=== PATIENT | male | born 1945 | race Caucasian/White ===

== ENCOUNTER 2019-06-15 16:28 | Inpatient (IN) | payer MEDICARE, BC, SELFPAY ==
[2019-06-15] VITALS (15 sets, daily range): BP systolic 102–130; BP diastolic 60–68; PULSE 108–131; RESP 15–36; TEMP 36.4–36.9; O2SAT 81–100; BMI 33.0
--- NOTE | ~2019-06-15 | CT_ITS ---
EXAMINATION: CT abdomen pelvis wo con EXAM DATE: 06/15/2019 19:09 INDICATION: Nausea vomiting, diarrhea, leukocytosis. TECHNIQUE: Spiral CT of the abdomen and pelvis was performed without contrast. Axial, coronal and s agittal images were reviewed. The dose-length product (DLP) for this examination was 1117.73 mGy-cm. The exposure was tailored according to patient size (auto mA exposure control), and iterative recon struction (ASIR) was used as additional dose reduction technique. There is no prior study for compar yas. FINDINGS: The liver, spleen, adrenal glands and pancreas are unremarkable. There is a single calcifi ed 7 mm gallstone, gallbladder otherwise unremarkable. There is no obstructive nephropathy. There is moderate bilateral renal cortical thinning. There are exophytic renal lesions bilaterally most likel y cysts and hemorrhagic cysts. Peritoneal dialysis catheter. The prostate is unremarkable. The blad abi is unremarkable. There is no retroperitoneal or pelvic lymphadenopathy. There is aortoiliac ec jasmine with scattered arteriosclerotic disease. Small umbilical fat-containing hernia. The appendix is normal. The stomach and small bowel are unremarkable. There is expected amount of c olonic stool. There is mild to moderate scattered colonic diverticulosis. There is no adjacent infla mmatory change to suggest diverticulitis. No free intraperitoneal gas. Small pericardial effusion. Heart is normal in size. The lung bases are unremarkable. There are no osteoblastic or osteolytic lesions identified. IMPRESSION: 1. No acute intra-abdominal findings. 2. Scattered colonic diverticulosis. 3. Cholelithiasis. Reviewed, dictated and finalized at location A.
--- NOTE | ~2019-06-15 | XR_ITS ---
EXAMINATION: XR chest 2V EXAM DATE: 06/15/2019 17:21 INDICATION: Shortness of breath, nausea vomiting diarrhea. TECHNIQUE: Frontal and lateral projections of the chest obtained and reviewed. Comparison is made to prior examination from 03/02/2007. FINDINGS: There is left lower lobe calcified granuloma. The lungs are otherwise clear. There are no pleural effusions. The cardiomediastinal silhouette is within normal limits. There is no pneumotho rax suspected. There are mild bony degenerative changes. IMPRESSION: No acute cardiopulmonary findings. Reviewed, dictated and finalized at location A.
--- NOTE | ~2019-06-15 | NM_ITS ---
EXAMINATION: NM hepatobiliary w pharm DATE: 06/19/2019 11:31 INDICATION: Gallstones. Leukocytosis. COMPARISON: Ultrasound 06/18/2019 TECHNIQUE: 4.7 mCi Tc-99m mebrofenin (Choletec) was administered intravenously. Scintigraphic images of the abdomen were obtained for one hour. Then, 2 mcg sincalide (Kinevac) IV was administered, and imaging was continued for 30 minutes. FINDINGS: There is normal clearance of radiotracer from the blood pool. There is homogeneous tracer u ptake by the liver. Activity progresses to the bowel and gallbladder. Gallbladder ejection fraction (GBEF) was 31%. Note that most patients with gallbladder dysfunction have GBEF < 35%, which overlaps with the broad normal range of 10-90%. IMPRESSION: 1. Gallbladder ejection fraction in the lower range of normal. Note that this value overlaps with th e range of values that may be seen with gallbladder dysfunction and/or chronic cholecystitis if there is appropriate clinical correlation. Reviewed, dictated and finalized at location A. IMPRESSION: 1. Gallbladder ejection fraction in the lower range of normal. Note that this value overlaps with the range of values that may be seen with gallbladder dysfu nction and/or chronic cholecystitis if there is appropriate clinical correlatio nDanyell
--- NOTE | ~2019-06-15 | US_ITS ---
EXAMINATION: US right upper quadrant DATE: 06/18/2019 09:05 INDICATION: Cholelithiasis and leukocytosis TECHNIQUE: Multiple grayscale and Doppler ultrasound images of the abdomen were obtained. COMPARISON: CT, 06/15/2019 FINDINGS: Bowel gas obscures visualization of the pancreas. The visualized portions of the pancreas a re unremarkable. The liver is normal with normal echogenicity and echotexture. No surface nodularity. Normal hepatopetal flow in the main portal vein. A stone is present in the gallbladder. There is no gallbladder wall thickening or pericholecystic fluid. The normal common bile duct measures 4 mm. Ther e was no sonographic Antoine sign. IMPRESSION: 1. Cholelithiasis without additional findings of cholecystitis. Reviewed, dictated and finalized at location A.
--- NOTE | 2019-06-15 16:54 | ECG_ITS ---
Measurements Intervals [place] Rate: 111 P: 55 AR: 192 QRS: -66 QRSD: 93 T: 90 QT: 315 QTc: 430 Interpretive Statements SINUS TACHYCARDIA FREQUENT ATRIAL PREMATURE COMPLEXES LEFT ANTERIOR FASCICULAR BLOCK ANTEROSEPTAL INFARCT, AGE INDETERMINATE BORDERLINE ST-T WAVE ABNORMALITY- LATERAL LEADS ABNORMAL ECG Electronically Signed On 06-15-2019 17:25:25 CDT by Giles Paredes D.O.
--- NOTE | 2019-06-15 17:01 | ED.NAVMDI ---
HPI - Nausea/Vomiting/Diarrhea General Chief complaint: Nausea/Vomiting/Diarrhea <Joan Rudd PA-C - Last Filed: 06/15/19 20:19> Stated complaint: multitude of problems <Joan Rudd PA-C - Last Filed: 06/15/19 20:19> Time Seen by Provider: 06/15/19 16:49 <Joan Rudd PA-C - Last Filed: 06/15/19 20:19> Source: patient <Joan Rudd PA-C - Last Filed: 06/15/19 20:19> Mode of arrival: wheelchair <Joan Rudd PA-C - Last Filed: 06/15/19 20:19> Limitations: no limitations <Joan Rudd PA-C - Last Filed: 06/15/19 20:19> History of Present Illness HPI Narrative: This is a 73 year old male that presents to the ER for N/V/D x 3 days. Reports multiple episodes of vomiting and diarrhea. Reports last episode of vomiting was yesterday. Reports last episode of diarrhea was 2 days ago. Reports now he is feeling lightheaded when he stands up. Also reports that he has CKD and is on dialysis. He did not dialyze last night. Denies fever, chest pain, cough, blood in the stool, abdominal pain, or recent antibiotic use. <Joan Rudd PA-C - Last Filed: 06/15/19 20:19> Related Data Home medications: Home Medications Medication Instructions Recorded Confirmed allopurinol 100 mg PO DAILY 06/15/19 06/15/19 ergocalciferol (vitamin D2) 1,250 mcg PO MONTHLY 06/15/19 06/15/19 metoprolol tartrate 50 mg PO BID 06/15/19 06/15/19 niacin (inositol niacinate) 750 mg PO BID 06/15/19 06/15/19 nifedipine 90 mg PO DAILY 06/15/19 06/15/19 potassium chloride 10 meq PO DAILY 06/15/19 06/15/19 sevelamer carbonate 800 mg PO TIDWM 06/15/19 06/15/19 vitamin B complex-folic acid [B 0.5 tablet PO DAILY 06/15/19 06/15/19 Complex 1 (with folic acid)] <Joan Rudd PA-C - Last Filed: 06/15/19 20:19> Allergies/Adverse reactions: Allergies Allergy/AdvReac Type Severity Reaction Status Date / Time No Known Allergies Allergy Mild Unverified 08/05/07 15:10 <Joan Rudd PA-C - Last Filed: 06/15/19 20:19> Review of Systems Review of Systems: Narrative: CONSTITUTIONAL: Denies fever CARDIOVASCULAR: Denies chest pain RESPIRATORY: Reports dyspnea. Denies cough GASTROINTESTINAL: Reports nausea, vomiting, and diarrhea. Denies abdominal pain GENITOURINARY: Denies dysuria <DALLAS Robledo Last Filed: 06/15/19 20:19> All systems reviewed & are unremarkable except as noted in HPI and below <Joan Rudd PA-C - Last Filed: 06/15/19 20:19> [facility] Past Medical History Medical History: Medical History (Updated 06/15/19 @ 22:16 by Lynda Niño NP) Anemia Chronic kidney disease on chronic dialysis History of coronary artery disease History of gastroesophageal reflux (GERD) History of gout History of hypertension HTN (hypertension) with goal to be determined Obstructive sleep apnea Intolerant of his CPAP machine Peritoneal dialysis catheter in place <Joan Rudd PA-C - Last Filed: 06/15/19 20:19> Surgical History Surgical History: Surgical History (Updated 06/15/19 @ 22:16 by Lynda Niño NP) History of coronary artery stent placement X3 History of tonsillectomy and adenoidectomy <Joan Rudd PA-C - Last Filed: 06/15/19 20:19> Family History Family History: Family History Mother Heart attack Father Emphysema lung Sibling Rheumatoid arthritis <DALLAS Robledo Last Filed: 06/15/19 20:19> Social History Social History: Social History (Updated 06/15/19 @ 22:17 by Lynda Niño NP) Social History: He lives with his Mely and she is the power of defense attorney for healthcare. He desires to be a full code. He retired from [employer]. No alcohol marijuana or street drugs. He has 1 son. Smoking packs per day: 2 Smoking cigarettes per day: 40.0 Years smoked: 30 Smoking pack-years: 60.00 Smoking status: Former smoker Alcohol in
[2019-06-15 17:05] LABS: Basophils Percent Auto 0.2 % (0.2-1.2); Hematocrit 41.6 % (42.0-52.0); Hemoglobin 13.9 g/dL (14.0-18.0); Immature Granulocyte Percent A 1.8 % (0-0.5); Lymphocytes Absolute Auto 1.11 K/mm3 (0.9-3.2); Lymphocytes Percent Auto 6.7 % (18.3-44.2); Mean Corpuscular HGB Conc 33.4 g/dl (32-36); Mean Corpuscular Hemoglobin 31.4 pg (26-34); Mean Corpuscular Volume 94.1 fl (80-100); Mean Platelet Volume 9.2 fl (7.4-10.4); Monocytes Absolute Auto 0.7 K/mm3 (0.1-0.6); Monocytes Percent Auto 3.9 % (2.6-8.5); Neutrophils Absolute Auto 14.4 K/mm3 (1.3-6.7); Neutrophils Percent Auto 87.4 % (45.5-73.1); Nucleated Red Blood Cells Perc 0.1 % (0.0-0.2); Platelet Count Result 96 k/mm3 (150-375); Red Blood Count 4.42 M/mm3 (4.6-6.20); Red Cell Distribution Width 16.2 % (11.5-14.5); White Blood Count 16.5 K/mm3 (4.5-10.0)
[2019-06-15 17:42] LABS: Alanine Aminotransferase 28 U/L (4-50); Albumin Level 4.2 g/dL (3.5-5.1); Alkaline Phosphatase 53 U/L (38-126); Aspartate Amino Transferase 54 U/L (17-59); Bilirubin,Total 1.1 mg/dL (0.2-1.3); Blood Urea Nitrogen 70 mg/dL (9-20); Calcium 11.1 mg/dL (8.4-10.2); Carbon Dioxide 19 mmol/L (22-30); Chloride 106 mmol/L (98-107); Estimated CRCL calculation 7 ml/min; Estimated Glomerular Filt Rate 5; Glucose 202 mg/dL (75-110); Lipase 140 U/L (23-300); Potassium 5.6 mmol/L (3.4-5.0); Sodium 138 mmol/L (137-145)
[2019-06-15 17:50] LABS: NT Pro B Type Natriuretic Pept 16900 PG/ML (5-100)
[2019-06-15 18:33] LABS: Troponin I 0.207 ng/mL (0.000-0.034)
[2019-06-15 19:14] LABS: Lactic Acid Reflex 2.5 mmol/L (0.7-2.1)
[2019-06-15 21:10] LABS: Troponin I 0.184 ng/mL (0.000-0.034)
--- NOTE | 2019-06-15 21:41 | ADMGEN ---
This patient, Kentrell Cosby, was admitted to IMU Room 231-01 on 06/15/2019 at 2045. Patient/family oriented to hospital policies and general routines including ID bracelet, bed and alarms, visiting hours, pain management, procedures, bathroom and other care routines, personal items, smoking policy, room service/diet, and visiting hours. Valuables list has been completed. Information on how to activate the Rapid Response Team has been discussed. Patient/Family are encouraged to report perceived risks to care and to ask questions if they do not understand what they are told or what they should do.
[2019-06-15 22:01] LABS: Reflex Lactic Acid Yes or No Add Lactic
--- NOTE | 2019-06-15 22:01 | PM.IMHP ---
H&P: HPI History of Present Illness Chief complaint: Elevated troponin, SIRS, hyperkalemia, Narrative: Kentrell Cosby is a 73 year old male has end-stage renal disease and does peritoneal dialysis every night for the last 4 years. Nausea and vomiting diarrhea for 3 days. He did notice any blood in his stool. He stated that he has had a poor appetite for 4 days. He has not had a fever chills. No redness to his PD site. No drainage from his PD site. Patient was told not to do his PD last night because of the nausea and vomiting diarrhea. He has not been on any recent antibiotics. The patient has been feeling weak and lightheaded. His heart rate is been in the 100s 1 teens. He is afebrile. Troponin was elevated 0.207 and 0.184. BNP 55783. He is not having any chest pain but has a history of coronary artery disease with 3 stents in the past. Lactic acid is 2.5. Potassium noted to be 5.6. Nephrology has been called and would like to hold off on any antibiotic treatment at this time. The patient's white count was noted to be 16.5. No acute intra-abdominal findings. Scattered colonic diverticulosis. Cholelithiasis. Was read as no acute cardiopulmonary findings. Patient was placed on his peritoneal dialysis today and will get a culture of his fluid as well from the peritoneal area. Patient was given Tylenol or earlier for the discomfort. Date of service 06/15/2019 Review of Systems Review of Systems: All systems reviewed & are unremarkable except as noted in HPI and below Constitutional: Constitutional: Reports as per HPI and Reports no additional constitutional complaints Eyes: Eyes: Reports as per HPI and Reports no additional eye complaints ENT: Reports system reviewed and no additional complaints, except as documented and Reports Normal hearing present Cardiovascular: Cardiovascular: Reports no additional cardiovascular complaints Respiratory: Respiratory: Reports as per HPI and Reports no additional respiratory complaints Gastrointestinal: Gastrointestinal: Reports as per HPI and Reports no additional gastrointestinal complaints Musculoskeletal: Musculoskeletal: Reports no additional musculoskeletal complaints Integumentary/Breasts: Skin/Breast: Reports system reviewed and no additional complaints, except as docu Neurologic: Reports system reviewed and no additional complaints, except as documented and Reports Normal hearing present Psychiatric: Psychiatric: Reports no additional psychiatric complaints and Reports as per HPI Endocrine: Endocrine: Reports no additional endocrine complaints Hematologic/Lymphatic: Hematologic/Lymphatic: Reports no additional hematologic/lymphatic complaints Allergic/Immunologic: Allergic/Immunologic: Reports no additional allergic/immunologic complaints PMFSH Past Medical History Medical History (Updated 06/15/19 @ 22:16 by Lynda Niño NP) Anemia Chronic kidney disease on chronic dialysis History of coronary artery disease History of gastroesophageal reflux (GERD) History of gout History of hypertension HTN (hypertension) with goal to be determined Obstructive sleep apnea Intolerant of his CPAP machine Peritoneal dialysis catheter in place Surgical History Surgical History (Updated 06/15/19 @ 22:16 by Lynda Niño NP) History of coronary artery stent placement X3 History of tonsillectomy and adenoidectomy Family History Family History Mother Heart attack Father Emphysema lung Sibling Rheumatoid arthritis Social History Social History (Updated 06/15/19 @ 22:17 by Lynda Niño NP) Social History: He lives with his Mely and she is the power of insurance attorney for healthcare. He desires to be a full code. He retired from [employer]. No alcohol marijuana or street drugs. He has 1 son. Smoking packs per day: 2 Smoking cigarettes per day: 40.0 Years smoked: 30 Smoking pack-years:
[2019-06-15 22:53] LABS: Lactic Acid 1.7 mmol/L (0.7-2.1)
[2019-06-15] MEDS: allopurinoL 100 MG TABLET PO (23:17)
[2019-06-15] MEDS: METOPROLOL TARTRATE 50 MG TAB PO (23:17)
[2019-06-16] VITALS (14 sets, daily range): BP systolic 103–139; BP diastolic 54–74; PULSE 88–130; RESP 16–20; TEMP 30.4–36.9; O2SAT 96–100; BMI 33.9
[2019-06-16 04:46] LABS: Alanine Aminotransferase 31 U/L (4-50); Albumin Level 3.9 g/dL (3.5-5.1); Alkaline Phosphatase 51 U/L (38-126); Aspartate Amino Transferase 56 U/L (17-59); Bilirubin,Total 1.1 mg/dL (0.2-1.3); Blood Urea Nitrogen 68 mg/dL (9-20); Calcium 10.6 mg/dL (8.4-10.2); Carbon Dioxide 22 mmol/L (22-30); Chloride 105 mmol/L (98-107); Estimated CRCL calculation 7 ml/min; Estimated Glomerular Filt Rate 6; Glucose 176 mg/dL (75-110); Magnesium 1.8 mg/dL (1.6-2.3); Potassium 5.2 mmol/L (3.4-5.0); Sodium 138 mmol/L (137-145)
[2019-06-16] MEDS: METOPROLOL TARTRATE 50 MG TAB PO ×2 (08:42→18:01)
[2019-06-16] MEDS: SEVELAMER CARBONATE 800 MG TABLET PO ×3 (08:43→18:01)
[2019-06-16] MEDS: NIFEdipine 30 MG TAB.ER.24 90 MG PO (08:43)
[2019-06-16] MEDS: allopurinoL 100 MG TABLET PO (08:44)
[2019-06-16 09:23] LABS: Appearance Peritoneal Fluid Clear (Clear); Color Peritoneal Fluid Colorless (Colorless); Nucleated Cells Peritoneal Flu 0 /uL (0-500); RBC Peritoneal Fluid 23 /uL (0-100000); Source Peritoneal Fluid Peritoneal Fluid
[2019-06-16 12:02] LABS: Free T4 Free Thyroxine Reflex 1.49 ng/dL (0.78-2.19)
--- NOTE | 2019-06-16 12:26 | PM.CNNEP ---
Assessment and Plan Assessment and plan (1) ESRD on dialysis: Code(s): N18.6 - End stage renal disease; Z99.2 - Dependence on renal dialysis Status: Acute Assessment and Plan: Patient has end-stage renal disease. He is getting peritoneal dialysis Volume status looks okay. Potassium was a little bit high. He should avoid high potassium foods. He did not get dialysis night before last. (2) Nausea vomiting and diarrhea: Code(s): R11.2 - Nausea with vomiting, unspecified; R19.7 - Diarrhea, unspecified Status: Acute Assessment and Plan: The patient has the symptoms but they are better and he wants to go home. (3) HTN (hypertension) with goal to be determined: Code(s): I10 - Essential (primary) hypertension Status: Chronic Assessment and Plan: Blood pressure is under good control (4) Anemia: Code(s): D64.9 - Anemia, unspecified Status: Chronic Additional Plan Hemoglobin is a bit high. He is not on EPO. History of Present Illness Reason for Consult Consult date: 06/16/19 Chief Complaint Chief complaint: Elevated troponin, SIRS, hyperkalemia, History of Present Illness Narrative: Kentrell is a very pleasant gentleman with multiple medical problems including end-stage renal disease on dialysis 3 times a week. He also has coronary disease status post stents x3 many years ago, hypertension, anemia, cholelithiasis, renal osteodystrophy. The patient has been sick for about a week or so. He has had nausea and vomiting and diarrhea. It had gradually worsened until yesterday. This is not associated with fevers or chills. He came to the emergency room yesterday. He was evaluated. He scan showed gallstones but nothing else. PD fluid was checked in is clear. The patient feels better today and wants to go home. He denies any blood in the stool. No belly pain right now. No fevers or chills. No cough. The patient has been on peritoneal dialysis for about 4 years without complication. His fluid has been clear. His flows have been good without alarms. Dr. Mari is his soda tester. The patient has had hypertension for many years. This is with damage this kidneys. His blood pressure has been under good control lately. He had 3 stents placed a few years ago. He sees a automotive service porter in [place] whose name he cannot remember. He says that his heart checks out fine every time he sees him. He visits the automotive service porter about every 6 months. Review of Systems Constitutional: Constitutional: Reports no additional constitutional complaints Eyes: Eyes: Reports no additional eye complaints ENT: Reports system reviewed and no additional complaints, except as documented Cardiovascular: Cardiovascular: Reports no additional cardiovascular complaints Respiratory: Respiratory: Reports no additional respiratory complaints Gastrointestinal: Gastrointestinal: Reports no additional gastrointestinal complaints Genitourinary: Genitourinary: Reports no additional male genitourinary complaints Musculoskeletal: Musculoskeletal: Reports no additional musculoskeletal complaints Integumentary/Breasts: Skin/Breast: Reports system reviewed and no additional complaints, except as docu Neurologic: Reports system reviewed and no additional complaints, except as documented Psychiatric: Psychiatric: Reports no additional psychiatric complaints Endocrine: Endocrine: Reports no additional endocrine complaints [facility] Past Medical History Medical History Anemia Chronic kidney disease on chronic dialysis History of coronary artery disease History of gastroesophageal reflux (GERD) History of gout History of hypertension HTN (hypertension) with goal to be determined Obstructive sleep apnea Intolerant of his CPAP machine Peritoneal dialysis catheter in place Surgical History Surgical History (Reviewed 06/16/19 @ 12:30 by Melo
--- NOTE | 2019-06-16 12:33 | PM.EVENT ---
Event Note Event Note Event Note: Patient is on peritoneal dialysis. Exit site looks good. Fluid was clear this morning. Fluids study showed no leukocytes. He was seen at 12:10 p.m..
[2019-06-16 12:58] LABS: Total Triiodothyronine (T3) 0.77 NG/ML (0.97-1.69)
[2019-06-16 13:03] LABS: Basophils Absolute Auto 0.1 K/mm3 (0.0-0.1); Basophils Percent Auto 0.3 % (0.2-1.2); Hematocrit 41.8 % (42.0-52.0); Hemoglobin 13.9 g/dL (14.0-18.0); Immature Granulocyte Absolute 0.31 K/mm3 (0.00-0.031); Immature Granulocyte Percent A 1.8 % (0-0.5); Lymphocytes Absolute Auto 1.44 K/mm3 (0.9-3.2); Lymphocytes Percent Auto 8.3 % (18.3-44.2); Mean Corpuscular HGB Conc 33.3 g/dl (32-36); Mean Corpuscular Hemoglobin 31.2 pg (26-34); Mean Corpuscular Volume 93.9 fl (80-100); Mean Platelet Volume 8.3 fl (7.4-10.4); Monocytes Absolute Auto 0.9 K/mm3 (0.1-0.6); Monocytes Percent Auto 5.2 % (2.6-8.5); Neutrophils Absolute Auto 14.6 K/mm3 (1.3-6.7); Neutrophils Percent Auto 84.4 % (45.5-73.1); Platelet Count Result 81 k/mm3 (150-375); Red Blood Count 4.45 M/mm3 (4.6-6.20); Red Cell Distribution Width 15.9 % (11.5-14.5); White Blood Count 17.3 K/mm3 (4.5-10.0)
--- NOTE | 2019-06-16 13:58 | PM.IMPN ---
Progress Note: A&P Assessment and Plan (1) Nausea vomiting and diarrhea: Code(s): R11.2 - Nausea with vomiting, unspecified; R19.7 - Diarrhea, unspecified Status: Acute Assessment and Plan: stool for culture. Zofran for nausea. Patient does have cholelithiasis without cholecystitis. He does have diverticulosis but no abdominal pain at this time. Probably all secondary to a viral gastroenteritis. [place]wick cultured and advance diet as tolerated (2) Metabolic acidosis: Code(s): E87.2 - Acidosis Status: Acute Assessment and Plan: Patient is a dialysis patient and did not have dialysis yesterday, resume today and follow (3) Acute hyperkalemia: Code(s): E87.5 - Hyperkalemia Status: Acute Assessment and Plan: holding his oral potassium. He did not have dialysis yesterday recheck today at 5.2. Repeat in a.m. (4) ESRD on dialysis: Code(s): N18.6 - End stage renal disease; Z99.2 - Dependence on renal dialysis Status: Acute Assessment and Plan: . Continue with Renvela and dialysis (5) Elevated troponin: Code(s): R79.89 - Other specified abnormal findings of blood chemistry Status: Chronic Assessment and Plan: Most likely related to his dialysis and end-stage renal disease (6) HTN (hypertension) with goal to be determined: Code(s): I10 - Essential (primary) hypertension Status: Chronic Assessment and Plan: Procardia and metoprolol (7) Leukocytosis: Qualifiers: Leukocytosis type: other Qualified Code(s): D72.828 - Other elevated white blood cell count Code(s): D72.829 - Elevated white blood cell count, unspecified Status: Acute Assessment and Plan: Unsure of etiology chest x-ray was negative and were awaiting cultures for peritoneal fluid but fluid analysis showed no white cells. No fever at this time. Stool cultures are pending. Will repeat in a.m. because is simple enteritis fall and culture results should be back by then and preliminary (8) Anemia: Code(s): D64.9 - Anemia, unspecified Status: Chronic Assessment and Plan: Of chronic disease most likely related to end-stage renal disease (9) Cholelithiasis: Code(s): K80.20 - Calculus of gallbladder without cholecystitis without obstruction Status: Acute Assessment and Plan: May follow-up later if his gallbladder causes some problems the not convinced any of his symptoms are from the gallbladder at this time. Subjective Date/time seen: 06/16/19 13:58 Interval history: Date of visit 06/15. 73-year-old hypertensive white male with chronic renal failure on peritoneal dialysis presented to the emergency room with 3 days history of nausea vomiting diarrhea. White cell count was elevated as was lactic acid. Admitted for evaluation treatment of the same. Pancultured with no antibiotics. Feels better this morning was able to eat a little bit Exam Narrative: Exam Narrative: Blood pressure 116/72 pulse is 110 and respirations 20 per minute saturating 98% on room air Pupils equal reactive to light sclera anicteric Lungs clear CV tachy no murmurs Abdomen is soft nontender Extremities without edema distal pulses are 2+ Neuro alert cooperative no focal deficits Objective Data Vital Signs Vital Signs: Vital Signs - 24 hr 06/15/19 16:42 06/15/19 16:48 06/15/19 17:00 Temperature 36.4 C Pulse Rate 118 H 112 H 119 H Respiratory Rate 19 15 Blood Pressure 117/60 Pulse Oximetry 100 100 06/15/19 17:01 06/15/19 17:02 06/15/19 17:49 Temperature Pulse Rate 115 H 114 H 109 H Respiratory Rate 17 19 21 H Blood Pressure 102/62 Pulse Oximetry 06/15/19 17:50 06/15/19 18:00 06/15/19 18:01 Temperature Pulse Rate 108 H 108 H 110 H Respiratory Rate 21 H 19 18 Blood Pressure 130/65 124/61 Pulse Oximetry 81 L 100 100 06/15/19 18:49 06/15/19 20:52 06/15/19 21:00 Temperature
[2019-06-16] MEDS: MELATONIN 3 MG TABLET PO (21:45)
[2019-06-16 22:08] LABS: Add Urine Microscopic? YES; Appearance Urine Clear (Clear); Bilirubin Urine Negative (Negative); Blood Urine Negative (Negative); Color Urine Yellow (Yellow); Glucose Urine UA 2+ mg/dL (Negative); Ketones Urine Negative (Negative); Leukocyte Esterase Ur Negative LEU/UL (Negative); Mucus Urine Rare /lpf; Nitrate Urine Negative (Negative); Protein Urine 3+ mg/dL (Negative); RBC Urine 0-2 /hpf (0-2); Specific Grav Ur 1.015 (1.001-1.035); Squamous Epithelial Cell Urine Rare /hpf (Few); WBC Urine 0-3 /hpf
--- NOTE | 2019-06-16 22:44 | PC.NURSE ---
This patient, Kentrell Cosby, was transferred to [ [facility]] on 06/16/19 at 2030. Personal belongings sent with patient. Belongings list checked and signed with receiving [ ]. Report given to [ Lamar]. Appropriate documentation sent with patient.
[2019-06-17] VITALS (7 sets, daily range): BP systolic 106–139; BP diastolic 57–82; PULSE 101–116; RESP 16–20; TEMP 36.3–37; O2SAT 96–98
[2019-06-17 05:57] LABS: Basophils Absolute Auto 0.1 K/mm3 (0.0-0.1); Basophils Percent Auto 0.4 % (0.2-1.2); Eosinophils Percent Auto 0.1 % (0-4.4); Hematocrit 41.1 % (42.0-52.0); Hemoglobin 13.4 g/dL (14.0-18.0); Immature Granulocyte Absolute 0.45 K/mm3 (0.00-0.031); Immature Granulocyte Percent A 2.7 % (0-0.5); Lymphocytes Percent Auto 8.9 % (18.3-44.2); Mean Corpuscular HGB Conc 32.6 g/dl (32-36); Mean Corpuscular Hemoglobin 30.8 pg (26-34); Mean Corpuscular Volume 94.5 fl (80-100); Mean Platelet Volume 9.2 fl (7.4-10.4); Monocytes Absolute Auto 1.1 K/mm3 (0.1-0.6); Monocytes Percent Auto 6.4 % (2.6-8.5); Neutrophils Absolute Auto 13.8 K/mm3 (1.3-6.7); Neutrophils Percent Auto 81.5 % (45.5-73.1); Platelet Count Result 84 k/mm3 (150-375); Red Blood Count 4.35 M/mm3 (4.6-6.20); Red Cell Distribution Width 15.8 % (11.5-14.5); White Blood Count 16.9 K/mm3 (4.5-10.0)
[2019-06-17 07:15] LABS: Alanine Aminotransferase 57 U/L (4-50); Albumin Level 3.8 g/dL (3.5-5.1); Alkaline Phosphatase 54 U/L (38-126); Aspartate Amino Transferase 48 U/L (17-59); Bilirubin,Total 1.4 mg/dL (0.2-1.3); Blood Urea Nitrogen 64 mg/dL (9-20); Calcium 9.8 mg/dL (8.4-10.2); Carbon Dioxide 22 mmol/L (22-30); Chloride 104 mmol/L (98-107); Estimated CRCL calculation 7 ml/min; Estimated Glomerular Filt Rate 6; Glucose 164 mg/dL (75-110); Potassium 4.5 mmol/L (3.4-5.0); Sodium 138 mmol/L (137-145)
[2019-06-17 07:46] LABS: Glucose Point of Care 161 (65-105)
[2019-06-17] MEDS: SEVELAMER CARBONATE 800 MG TABLET PO ×2 (09:29→12:54)
[2019-06-17] MEDS: allopurinoL 100 MG TABLET PO (09:29)
[2019-06-17] MEDS: NIFEdipine 30 MG TAB.ER.24 90 MG PO (09:29)
[2019-06-17] MEDS: METOPROLOL TARTRATE 50 MG TAB PO ×2 (09:29→17:30)
--- NOTE | 2019-06-17 10:38 | ECG_ITS ---
Measurements Intervals [place] Rate: 104 P: 68 [place]: 193 QRS: -66 QRSD: 99 T: 87 QT: 328 QTc: 432 Interpretive Statements SINUS TACHYCARDIA ATRIAL AND VENTRICULAR PREMATURE COMPLEXES LEFT VENTRICULAR HYPERTROPHY AND ST-T CHANGE LEFT ANTERIOR FASCICULAR BLOCK CANNOT RULE OUT SEPTAL INFARCT, AGE INDETERMINATE BORDERLINE ST-T WAVE ABNORMALITY- LATERAL LEADS ABNORMAL ECG Electronically Signed On 06-17-2019 15:15:50 CDT by Giles Paredes D.O.
--- NOTE | 2019-06-17 11:18 | PM.PNNEP ---
Progress Note: A&P Assessment and Plan (1) ESRD on dialysis: Code(s): N18.6 - End stage renal disease; Z99.2 - Dependence on renal dialysis Status: Acute Assessment and Plan: Patient has end-stage renal disease. He is getting peritoneal dialysis Volume status looks okay. Will continue same peritoneal dialysis prescription. (2) Nausea vomiting and diarrhea: Code(s): R11.2 - Nausea with vomiting, unspecified; R19.7 - Diarrhea, unspecified Status: Acute Assessment and Plan: Symptoms overall are better but he still not feeling all that well. Discussed with Dr Danielson who is considering hida scan. (3) HTN (hypertension) with goal to be determined: Code(s): I10 - Essential (primary) hypertension Status: Chronic Assessment and Plan: Blood pressure is under good control (4) Anemia: Code(s): D64.9 - Anemia, unspecified Status: Chronic Assessment and Plan: Hemoglobin is good at 13.4. No Epogen needed Subjective Date/time seen: 06/17/19 11:18 Interval history: Patient is alert. He has no more diarrhea. His belly is a little bit uncomfortable. He only ate a few tsp of oatmeal for breakfast. Overall a little bit better but not normal. Review of Systems Cardiovascular: Cardiovascular: Reports no additional cardiovascular complaints Respiratory: Respiratory: Reports no additional respiratory complaints Gastrointestinal: Gastrointestinal: Reports no additional gastrointestinal complaints Genitourinary: Genitourinary: Reports no additional male genitourinary complaints Exam Narrative: Exam Narrative: Well developed well-nourished in no acute distress Lungs clear Heart regular without rub Abdomen bowel sounds positive soft nontender Extremities no edema Skin no rash Objective Data Vital Signs Vital Signs: Vital Signs - 24 hr 06/16/19 12:00 06/16/19 12:30 06/16/19 14:00 Temperature 36.4 C Pulse Rate 107 H 110 H 113 H Respiratory Rate 20 Blood Pressure 116/73 Pulse Oximetry 98 06/16/19 16:00 06/16/19 18:01 06/16/19 20:00 Temperature 36.7 C 36.7 C Pulse Rate 115 H 88 115 H Respiratory Rate 20 20 Blood Pressure 103/54 L 103/54 L Pulse Oximetry 96 06/16/19 21:28 06/17/19 07:30 06/17/19 08:30 Temperature 36.3 C L 36.3 C L 36.5 C Pulse Rate 101 H 101 H 116 H Respiratory Rate 18 18 16 Blood Pressure 106/58 L 106/58 L 120/76 Pulse Oximetry 98 98 06/17/19 09:29 Temperature Pulse Rate 116 H Respiratory Rate Blood Pressure Pulse Oximetry Intake/Output Intake/Output: Intake & Output 06/14/19 06/15/19 06/16/19 06/17/19 23:59 23:59 23:59 23:59 Intake Total 1410 100 Output Total 2132 499 Balance -722 -399 Meds/Results Medications: Active Medications Generic Name Dose Route Start Last Admin Trade Name Freq PRN Reason Stop Dose Admin Allopurinol 100 mg 06/15/19 23:00 06/17/19 09:29 Zyloprim PO 100 mg DAILY DARA Administration Ergocalciferol 50,000 unit 06/23/19 09:00 Drisdol PO MONTHLY DARA Melatonin 3 mg 06/16/19 21:09 06/16/19 21:45 Melatonin PO 3 mg HS PRN Administration Insomnia Metoprolol Tartrate 50 mg 06/15/19 22:05 06/17/19 09:29 Lopressor PO 50 mg BID DARA Administration Nifedipine 90 mg 06/16/19 09:00 06/17/19 09:29 Procardia Xl PO 90 mg DAILY DARA Administration Sevelamer Carbonate 800 mg 06/16/19 08:00 06/17/19 09:29 Renvela PO 800 mg TIDWM DARA Administration Radiology Results: ITS Impressions Chest X-Ray 06/15/19 17:29 IMPRESSION: No acute cardiopulmonary findings. Abdomen/Pelvis CT 06/15/19 19:13 IMPRESSION: 1. No acute intra-abdominal findings. 2. Scattered colonic diverticulosis. 3. Cholelithiasis. Labs Labs: Laboratory Results - last 24 hr 06/16/19 06/16/19 06/16/19 04:24 04:24 12:53 WBC 17.3 H RBC 4.45 L Hgb 13.9 L Hct
--- NOTE | 2019-06-17 13:50 | PM.IMPN ---
Progress Note: A&P Assessment and Plan (1) Nausea vomiting and diarrhea: Code(s): R11.2 - Nausea with vomiting, unspecified; R19.7 - Diarrhea, unspecified Status: Acute Assessment and Plan: stool for culture. Zofran for nausea. Patient does have cholelithiasis without cholecystitis on CT. He does have diverticulosis but no abdominal pain at this time. Probably all secondary to a viral gastroenteritis. Chadwick cultured and advance diet as tolerated (2) Metabolic acidosis: Code(s): E87.2 - Acidosis Status: Acute Assessment and Plan: Patient is a dialysis patient and, resumec 06/15 and follow (3) Acute hyperkalemia: Code(s): E87.5 - Hyperkalemia Status: Acute Assessment and Plan: holding his oral potassium. He did not have dialysis yesterday recheck today at 5.2. Repeat in a.m. (4) ESRD on dialysis: Code(s): N18.6 - End stage renal disease; Z99.2 - Dependence on renal dialysis Status: Acute Assessment and Plan: . Continue with Renvela and dialysis (5) Elevated troponin: Code(s): R79.89 - Other specified abnormal findings of blood chemistry Status: Chronic Assessment and Plan: Most likely related to his dialysis and end-stage renal disease (6) HTN (hypertension) with goal to be determined: Code(s): I10 - Essential (primary) hypertension Status: Chronic Assessment and Plan: Procardia and metoprolol good control (7) Leukocytosis: Qualifiers: Leukocytosis type: other Qualified Code(s): D72.828 - Other elevated white blood cell count Code(s): D72.829 - Elevated white blood cell count, unspecified Status: Acute Assessment and Plan: Unsure of etiology ,chest x-ray was negative and were awaiting cultures for peritoneal fluid but fluid analysis showed no white cells. No fever at this time. Stool cultures are pending blood (8) Anemia: Code(s): D64.9 - Anemia, unspecified Status: Chronic Assessment and Plan: Of chronic disease most likely related to end-stage renal disease (9) Cholelithiasis: Code(s): K80.20 - Calculus of gallbladder without cholecystitis without obstruction Status: Acute Assessment and Plan: With persistent nausea and minimal tenderness in the abdomen and persistent leukocytosis with bilirubin now 1.4 will proceed with gallbladder sonogram and HIDA scan to rule out gallbladder as etiology of leukocytosis Subjective Date/time seen: 06/17/19 13:50 Interval history: Date of visit 06/16. 73-year-old hypertensive white male with chronic renal failure on peritoneal dialysis presented to the emergency room with 3 days history of nausea vomiting diarrhea. White cell count was elevated as was lactic acid. Admitted for evaluation treatment of the same. Pancultured with no antibiotics. Feels better this morning was able to eat a little bit but still not over entirely. Diarrhea has subsided Exam Narrative: Exam Narrative: Blood pressure 120/76 pulse is 110 and respirations 20 per minute saturating 94% on room air Pupils equal reactive to light sclera anicteric Lungs clear CV tachy no murmurs Abdomen is soft with mild epigatrium tenderness on palpation Extremities without edema distal pulses are 2+ Neuro alert cooperative no focal deficits Objective Data Vital Signs Vital Signs: Vital Signs - 24 hr 06/16/19 14:00 06/16/19 16:00 06/16/19 18:01 Temperature 36.7 C Pulse Rate 113 H 115 H 88 Respiratory Rate 20 Blood Pressure 103/54 L Pulse Oximetry 96 06/16/19 20:00 06/16/19 21:28 06/17/19 07:30 Temperature 36.7 C 36.3 C L 36.3 C L Pulse Rate 115 H 101 H 101 H Respiratory Rate 20 18 18 Blood Pressure 103/54 L 106/58 L 106/58 L Pulse Oximetry 98 06/17/19 08:30 06/17/19 09:29 Temperature 36.5 C Pulse Rate 116 H 116 H Respiratory Rate 16 Blood Pressure 120/76 Pulse Oximetry 98 Intake/Outp
[2019-06-17] MEDS: MELATONIN 3 MG TABLET PO (21:35)
[2019-06-18 00:19] LABS: IFOB Positive Control Positive; Immunochemical Fecal Occult Bl Negative (N)
[2019-06-18 06:52] VITALS: BP 133/86; PULSE 111; RESP 18; TEMP 36.9; O2SAT 99
[2019-06-18 07:44] VITALS: BP 133/86; PULSE 111; RESP 18; TEMP 36.9
--- NOTE | 2019-06-18 08:07 | PM.PNNEP ---
Progress Note: A&P Assessment and Plan (1) ESRD on dialysis: Code(s): N18.6 - End stage renal disease; Z99.2 - Dependence on renal dialysis Status: Acute Assessment and Plan: Patient has end-stage renal disease. On PD. volume status is okay (2) Nausea vomiting and diarrhea: Code(s): R11.2 - Nausea with vomiting, unspecified; R19.7 - Diarrhea, unspecified Status: Acute Assessment and Plan: Symptoms overall are better but he still not feeling all that well. hida scan today (3) HTN (hypertension) with goal to be determined: Code(s): I10 - Essential (primary) hypertension Status: Chronic Assessment and Plan: Blood pressure is under good control (4) Anemia: Code(s): D64.9 - Anemia, unspecified Status: Chronic Assessment and Plan: Hemoglobin was good at 13.4 yesterday. No Epogen needed Additional Plan Hemoglobin is a bit high. He is not on EPO. Subjective Date/time seen: 06/18/19 08:07 Interval history: Patient is on peritoneal dialysis. Fluid is clear in flows are good. No alarms last night. He was seen at 7:55 a.m. Patient is alert. Still no appetite. He had a solid bowel movement yesterday for the 1st time since he has been sick. No nausea. Overall a little bit better but not normal. Review of Systems Cardiovascular: Cardiovascular: Reports no additional cardiovascular complaints Respiratory: Respiratory: Reports no additional respiratory complaints Gastrointestinal: Gastrointestinal: Reports no additional gastrointestinal complaints Genitourinary: Genitourinary: Reports no additional male genitourinary complaints Exam Narrative: Exam Narrative: Well developed well-nourished in no acute distress Lungs clear to auscultation Heart regular without rub Abdomen bowel sounds positive soft nontender Extremities no edema Skin no rash or subcu nodules Objective Data Vital Signs Vital Signs: Vital Signs - 24 hr 06/17/19 08:30 06/17/19 09:29 06/17/19 14:00 Temperature 36.5 C 36.6 C Pulse Rate 116 H 116 H 110 H Respiratory Rate 16 20 Blood Pressure 120/76 120/57 L Pulse Oximetry 98 96 06/17/19 17:30 06/17/19 19:42 06/17/19 22:25 Temperature 36.6 C 37.0 C Pulse Rate 110 H 110 H 107 H Respiratory Rate 20 18 Blood Pressure 120/57 L 139/82 Pulse Oximetry 98 06/18/19 06:52 06/18/19 07:44 Temperature 36.9 C 36.9 C Pulse Rate 111 H 111 H Respiratory Rate 18 18 Blood Pressure 133/86 133/86 Pulse Oximetry 99 Intake/Output Intake/Output: Intake & Output 06/15/19 06/16/19 06/17/19 06/18/19 23:59 23:59 23:59 23:59 Intake Total 1410 865 370 Output Total 2132 599 50 Balance -722 266 320 Meds/Results Medications: Active Medications Generic Name Dose Route Start Last Admin Trade Name Freq PRN Reason Stop Dose Admin Allopurinol 100 mg 06/15/19 23:00 06/17/19 09:29 Zyloprim PO 100 mg DAILY DARA Administration Ergocalciferol 50,000 unit 06/23/19 09:00 Drisdol PO MONTHLY DARA Melatonin 3 mg 06/16/19 21:09 06/17/19 21:35 Melatonin PO 3 mg HS PRN Administration Insomnia Metoprolol Tartrate 50 mg 06/15/19 22:05 06/17/19 17:30 Lopressor PO 50 mg BID DARA Administration Nifedipine 90 mg 06/16/19 09:00 06/17/19 09:29 Procardia Xl PO 90 mg DAILY DARA Administration Sevelamer Carbonate 800 mg 06/16/19 08:00 06/17/19 19:14 Renvela PO Not Given TIDWM [facility] Radiology Results: ITS Impressions Chest X-Ray 06/15/19 17:29 IMPRESSION: No acute cardiopulmonary findings. Abdomen/Pelvis CT 06/15/19 19:13 IMPRESSION: 1. No acute intra-abdominal findings. 2. Scattered colonic diverticulosis. 3. Cholelithiasis. Labs Labs: Laboratory Results - last 24 hr 06/17/19 23:38 Stl Occult Blood (IFOB) Negative Quality VTE Prophylaxis VTE prophylaxis: mechanical ordered
[2019-06-18 09:02] LABS: Basophils Absolute Auto 0.1 K/mm3 (0.0-0.1); Basophils Percent Auto 0.8 % (0.2-1.2); Eosinophils Percent Auto 0.2 % (0-4.4); Hemoglobin 13.5 g/dL (14.0-18.0); Immature Granulocyte Absolute 0.66 K/mm3 (0.00-0.031); Immature Granulocyte Percent A 4.1 % (0-0.5); Lymphocytes Absolute Auto 1.58 K/mm3 (0.9-3.2); Lymphocytes Percent Auto 9.9 % (18.3-44.2); Mean Corpuscular HGB Conc 32.9 g/dl (32-36); Mean Corpuscular Hemoglobin 31.3 pg (26-34); Mean Corpuscular Volume 95.1 fl (80-100); Mean Platelet Volume 9.1 fl (7.4-10.4); Monocytes Absolute Auto 1.2 K/mm3 (0.1-0.6); Monocytes Percent Auto 7.2 % (2.6-8.5); Neutrophils Absolute Auto 12.5 K/mm3 (1.3-6.7); Neutrophils Percent Auto 77.8 % (45.5-73.1); Platelet Count Result 68 k/mm3 (150-375); Red Blood Count 4.31 M/mm3 (4.6-6.20)
[2019-06-18 09:24] LABS: Alanine Aminotransferase 51 U/L (4-50); Albumin Level 3.7 g/dL (3.5-5.1); Alkaline Phosphatase 40 U/L (38-126); Aspartate Amino Transferase 35 U/L (17-59); Bilirubin,Total 1.6 mg/dL (0.2-1.3); Blood Urea Nitrogen 68 mg/dL (9-20); Calcium 9.7 mg/dL (8.4-10.2); Carbon Dioxide 23 mmol/L (22-30); Chloride 104 mmol/L (98-107); Estimated CRCL calculation 5 ml/min; Estimated Glomerular Filt Rate 6; Glucose 124 mg/dL (75-110); Potassium 4.3 mmol/L (3.4-5.0); Sodium 137 mmol/L (137-145)
[2019-06-18 11:25] VITALS: BP 133/76; PULSE 68; RESP 17; TEMP 36.6; O2SAT 98
[2019-06-18 11:33] VITALS: PULSE 65
[2019-06-18] MEDS: allopurinoL 100 MG TABLET PO (11:33)
[2019-06-18] MEDS: NIFEdipine 30 MG TAB.ER.24 90 MG PO (11:33)
[2019-06-18] MEDS: SEVELAMER CARBONATE 800 MG TABLET PO (11:33)
[2019-06-18] MEDS: METOPROLOL TARTRATE 50 MG TAB PO ×2 (11:33→17:45)
[2019-06-18 14:00] VITALS: BP 130/69; PULSE 106; RESP 18; TEMP 36.4; O2SAT 97
--- NOTE | 2019-06-18 15:59 | PM.IMPN ---
Progress Note: A&P Assessment and Plan (1) Nausea vomiting and diarrhea: Code(s): R11.2 - Nausea with vomiting, unspecified; R19.7 - Diarrhea, unspecified Status: Acute Assessment and Plan: stool for culture negative so far . Patient does have cholelithiasis without cholecystitis on CT and same on US today.. He does have diverticulosis but no abdominal pain at this time. Probably all secondary to a viral gastroenteritis. Chadwick cultured and advance diet as tolerated will check HIDA scan am 06/18 (2) Metabolic acidosis: Code(s): E87.2 - Acidosis Status: Acute Assessment and Plan: Patient is a dialysis patient and, repeat lactate normal 06/15 probable secondary to volume contraction with N and V (3) Acute hyperkalemia: Code(s): E87.5 - Hyperkalemia Status: Acute Assessment and Plan: holding his oral potassium. He did not have dialysis yesterday recheck today at 4.3. (4) ESRD on dialysis: Code(s): N18.6 - End stage renal disease; Z99.2 - Dependence on renal dialysis Status: Acute Assessment and Plan: . Continue with Renvela and peritoneal dialysis (5) Elevated troponin: Code(s): R79.89 - Other specified abnormal findings of blood chemistry Status: Chronic Assessment and Plan: Most likely related to his end-stage renal disease, no acute coronary syndrome (6) HTN (hypertension) with goal to be determined: Code(s): I10 - Essential (primary) hypertension Status: Chronic Assessment and Plan: Procardia and metoprolol good control (7) Leukocytosis: Qualifiers: Leukocytosis type: other Qualified Code(s): D72.828 - Other elevated white blood cell count Code(s): D72.829 - Elevated white blood cell count, unspecified Status: Acute Assessment and Plan: Unsure of etiology ,chest x-ray was negative and were awaiting cultures for peritoneal fluid which appears normal and fluid analysis showed no white cells. No fever at this time. Stool cultures and blood to date are negative. Mild elevation of bili room and ALT. Sonogram today revealed same is CT scan IE gallstone without evidence of cholecystitis. Will check biliary scan a.m. 06/18 (8) Anemia: Code(s): D64.9 - Anemia, unspecified Status: Chronic Assessment and Plan: Of chronic disease most likely related to end-stage renal disease (9) Cholelithiasis: Code(s): K80.20 - Calculus of gallbladder without cholecystitis without obstruction Status: Acute Assessment and Plan: With persistent nausea and persistent leukocytosis with bilirubin now 1.5 will proceed with HIDA scan to rule out gallbladder as etiology of leukocytosis Subjective Date/time seen: 06/18/19 15:59 Interval history: Date of visit 06/17. 73-year-old hypertensive white male with chronic renal failure on peritoneal dialysis presented to the emergency room with 3 days history of nausea vomiting diarrhea. White cell count was elevated as was lactic acid. Admitted for evaluation treatment of the same. Pancultured with no antibiotics. Feels better this morning was able to eat a little bit but still not back to baseline. Diarrhea has subsided Exam Narrative: Exam Narrative: Blood pressure 132/72 pulse is 68 and respirations 16 per minute saturating 98% on room air Pupils equal reactive to light sclera anicteric Lungs clear CV tachy no murmurs Abdomen is soft with no tenderness on palpation Extremities without edema distal pulses are 2+ Neuro alert cooperative no focal deficits Objective Data Vital Signs Vital Signs: Vital Signs - 24 hr 06/17/19 17:30 06/17/19 19:42 06/17/19 22:25 Temperature 36.6 C 37.0 C Pulse Rate 110 H 110 H 107 H Respiratory Rate 20 18 Blood Pressure 120/57 L 139/82 Pulse Oximetry 98 06/18/19 06:52 06/18/19 07:44 06/18/19 11:25 Temperature 36.9 C 36.9 C 36.6 C Pulse Rate 111 H 111
[2019-06-18 17:45] VITALS: PULSE 100
--- NOTE | 2019-06-18 23:28 | PC.NURSE ---
Peritoneal Dialysis low flow beeping >5 times within 45 minutes. Zoya with Dialysis was called and gave instructions to move patient to improve flow. Multiple different positions were tried without success. Zoya was notified and gave order to stop dialysis but not turn machine off. Zoya stated she would call Dr. Ybarra and notify him of the situation.
[2019-06-19] VITALS (8 sets, daily range): BP systolic 98–144; BP diastolic 53–104; PULSE 76–117; RESP 16–21; TEMP 36.1–36.9; O2SAT 89–99
[2019-06-19 06:26] LABS: Basophils Absolute Auto 0.1 K/mm3 (0.0-0.1); Basophils Percent Auto 0.7 % (0.2-1.2); Eosinophils Absolute Auto 0.1 K/mm3 (0-0.3); Eosinophils Percent Auto 0.6 % (0-4.4); Hematocrit 40.3 % (42.0-52.0); Hemoglobin 13.3 g/dL (14.0-18.0); Immature Granulocyte Absolute 0.69 K/mm3 (0.00-0.031); Immature Granulocyte Percent A 4.5 % (0-0.5); Lymphocytes Absolute Auto 1.67 K/mm3 (0.9-3.2); Lymphocytes Percent Auto 10.8 % (18.3-44.2); Mean Corpuscular Hemoglobin 31.1 pg (26-34); Mean Corpuscular Volume 94.2 fl (80-100); Monocytes Absolute Auto 1.1 K/mm3 (0.1-0.6); Monocytes Percent Auto 7.1 % (2.6-8.5); Neutrophils Absolute Auto 11.8 K/mm3 (1.3-6.7); Neutrophils Percent Auto 76.3 % (45.5-73.1); Platelet Count Result 69 k/mm3 (150-375); Red Blood Count 4.28 M/mm3 (4.6-6.20); Red Cell Distribution Width 15.6 % (11.5-14.5); White Blood Count 15.4 K/mm3 (4.5-10.0)
[2019-06-19 06:37] LABS: Hemoglobin A1C 5.9 % (<5.7)
[2019-06-19 06:42] LABS: Alanine Aminotransferase 56 U/L (4-50); Albumin Level 3.8 g/dL (3.5-5.1); Alkaline Phosphatase 50 U/L (38-126); Aspartate Amino Transferase 37 U/L (17-59); Bilirubin,Total 2.2 mg/dL (0.2-1.3); Blood Urea Nitrogen 65 mg/dL (9-20); Calcium 10.1 mg/dL (8.4-10.2); Carbon Dioxide 22 mmol/L (22-30); Chloride 104 mmol/L (98-107); Estimated CRCL calculation 5 ml/min; Estimated Glomerular Filt Rate 5; Glucose 118 mg/dL (75-110); Sodium 137 mmol/L (137-145)
--- NOTE | 2019-06-19 09:30 | PC.NURSE ---
To nuclear medicine per wheelchair, IV intact.
--- NOTE | 2019-06-19 11:15 | PC.NURSE ---
Returned from nuclear medicine per wheelchair.
[2019-06-19] MEDS: allopurinoL 100 MG TABLET PO (11:40)
[2019-06-19] MEDS: METOPROLOL TARTRATE 50 MG TAB PO ×2 (11:41→17:43)
[2019-06-19] MEDS: SEVELAMER CARBONATE 800 MG TABLET PO ×2 (11:41→17:44)
[2019-06-19] MEDS: NIFEdipine 30 MG TAB.ER.24 90 MG PO (11:41)
--- NOTE | 2019-06-19 11:42 | WPDGICN ---
Assessment and Plan Assessment and plan (1) Nausea vomiting and diarrhea: Code(s): R11.2 - Nausea with vomiting, unspecified; R19.7 - Diarrhea, unspecified Status: Acute Assessment and Plan: Nausea persist. Diarrhea has lessened but still with watery stools. Suspect that nausea is most likely related to profound azotemia with creatinine at least 9. If nausea were to persist an EGD may be accomplished. Agree with HIDA scan results which are pending at this time. Stool cultures will be obtained to assess the diarrhea. Consider colonoscopy if this were to persist. After results of stool cultures are known. We will follow with you. Place patient on Pepcid in the interim. (2) ESRD on dialysis: Code(s): N18.6 - End stage renal disease; Z99.2 - Dependence on renal dialysis Status: Acute Assessment and Plan: Cultures from peritoneal fluid to date have been negative. No obvious signs of peritonitis. We will continue to monitor. Elevated creatinine is most likely etiology for his ongoing nausea. (3) Azotemia: Code(s): R79.89 - Other specified abnormal findings of blood chemistry Status: Acute (4) Cholelithiasis: Code(s): K80.20 - Calculus of gallbladder without cholecystitis without obstruction Status: Acute Assessment and Plan: Gallstones noted on imaging. Appear to be asymptomatic. HIDA scan may help assess whether these are contributing to current symptoms. We will continue to monitor LFTs. LFTs only mildly elevated. Modest elevation is nonspecific and could easily be related to sepsis. (5) Leukocytosis: Qualifiers: Leukocytosis type: other Qualified Code(s): D72.828 - Other elevated white blood cell count Code(s): D72.829 - Elevated white blood cell count, unspecified Status: Acute Assessment and Plan: Leukocytosis suggest underlying infection. Stool cultures are pending. And will be reviewed HIDA scan also pending. Peritoneal fluid analysis is negative at this time. GI Consult Note Consult date/time: 06/19/19 11:42 HPI: Kentrell Cosby is a 73 year old male seen in evaluation at the request of the hospitalist service. Patient has a history of end-stage renal disease requiring peritoneal dialysis. Patient reports a one-week history of nausea vomiting diarrhea. He went to the emergency room was found to have markedly elevated creatinine along with a leukocytosis. He denies any fever. He denies abdominal pain. The vomiting has not recurred since hospitalization. The diarrhea seems to have improved but he does continue to have intermittent loose stools. Since hospital stay he has been identified as having gallstones but no evidence of thickening of the gallbladder. HIDA scan is pending. Stool cultures are pending. Patient denies any bleeding. He denies any fever. Review of Systems Review of Systems: All systems reviewed & are unremarkable except as noted in HPI and below PMFSH Past Medical History Medical History Anemia Chronic kidney disease on chronic dialysis History of coronary artery disease History of gastroesophageal reflux (GERD) History of gout History of hypertension HTN (hypertension) with goal to be determined Obstructive sleep apnea Intolerant of his CPAP machine Peritoneal dialysis catheter in place Surgical History Surgical History History of coronary artery stent placement X3 History of tonsillectomy and adenoidectomy Family History Family History Mother Heart attack Father Emphysema lung Sibling Rheumatoid arthritis Social History Social History Social History: He lives with his Mely and she is the power of finance attorney for healthcare. He desires to be a full code. He ret
--- NOTE | 2019-06-19 11:45 | PC.NURSE ---
Patient requesting bed exit alarm to be deactivated. Patient states he gets around at home and lives only with his . At that time patients fall score is 60 with high fall risk precautions in place. Questions for fall score were re-evaluated. Asked patient if he had fallen at home in the last 6 months, and he states that he has not ever fallen at home. This change in response changed his score from 60 to 45. Patient states that he does feel dizzy at home when up on the occasion. Educated patient that for this reason, high fall risk precautions including bed exit alarm will remain in place for his safety. Patient agrees and is appreciative.
--- NOTE | 2019-06-19 15:03 | PM.IMPN ---
Progress Note: A&P Assessment and Plan (1) Nausea vomiting and diarrhea: Code(s): R11.2 - Nausea with vomiting, unspecified; R19.7 - Diarrhea, unspecified Status: Acute Assessment and Plan: stool for culture negative so far . Patient does have cholelithiasis without cholecystitis on CT and same on US 06/17.. He does have diverticulosis but no abdominal pain at this time. Probably all secondary to a viral gastroenteritis. Chadwick cultured and advanced diet as tolerated HIDA scan today 06/18 normal uptake with GB EF lower limit of normal at 31%. GI has seen and EGD am. if negative possible colonscope (2) Metabolic acidosis: Code(s): E87.2 - Acidosis Status: Acute Assessment and Plan: Patient is a peritoneal dialysis patient and, repeat lactate normal 06/15 probable secondary to volume contraction with N and V (3) Acute hyperkalemia: Code(s): E87.5 - Hyperkalemia Status: Acute Assessment and Plan: holding his oral potassium. He did not have dialysis yesterday recheck today at 4.0. (4) ESRD on dialysis: Code(s): N18.6 - End stage renal disease; Z99.2 - Dependence on renal dialysis Status: Acute Assessment and Plan: . Continue with Renvela and peritoneal dialysis (5) Elevated troponin: Code(s): R79.89 - Other specified abnormal findings of blood chemistry Status: Chronic Assessment and Plan: Most likely related to his end-stage renal disease, no acute coronary syndrome (6) HTN (hypertension) with goal to be determined: Code(s): I10 - Essential (primary) hypertension Status: Chronic Assessment and Plan: Procardia and metoprolol good control (7) Leukocytosis: Qualifiers: Leukocytosis type: other Qualified Code(s): D72.828 - Other elevated white blood cell count Code(s): D72.829 - Elevated white blood cell count, unspecified Status: Acute Assessment and Plan: Unsure of etiology ,chest x-ray was negative and cultures for peritoneal fluid was negative. No fever at this time. Stool cultures and blood to date are negative. Mild elevation of bili and ALT. Sonogram 06/[address] scan ie gallstone without evidence of cholecystitis. biliary scan today no acute cystitis. possible colonoscopy if EGD - 06/19 (8) Anemia: Code(s): D64.9 - Anemia, unspecified Status: Chronic Assessment and Plan: Of chronic disease most likely related to end-stage renal disease (9) Cholelithiasis: Code(s): K80.20 - Calculus of gallbladder without cholecystitis without obstruction Status: Acute Assessment and Plan: With persistent nausea and persistent leukocytosis with bilirubin now 2.2 , proceeded with HIDA scan to rule out gallbladder as etiology of leukocytosis. NO acute findings. GI now following Subjective Date/time seen: 06/19/19 15:03 Interval history: Date of visit 06/18. 73-year-old hypertensive white male with chronic renal failure on peritoneal dialysis presented to the emergency room with 3 days history of nausea vomiting diarrhea. White cell count was elevated as was lactic acid. Admitted for evaluation treatment of the same. Pancultured with no antibiotics. Feels better this morning was able to eat more but still not back to baseline. Stools less frequent but still loose Exam Narrative: Exam Narrative: Blood pressure 132/78 pulse is 100 and respirations 16 per minute saturating 98% on room air afebrile Pupils equal reactive to light sclera anicteric Lungs clear CV tachy no murmurs Abdomen is soft with no tenderness on palpation Extremities without edema distal pulses are 2+ Neuro alert cooperative no focal deficits Objective Data Vital Signs Vital Signs: Vital Signs - 24 hr 06/18/19 17:45 06/19/19 00:00 06/19/19 11:41 Temperature 36.2 C L Pulse Rate 100 107 H 117 H Respiratory Rate 16
--- NOTE | 2019-06-19 15:50 | PM.PNNEP ---
Progress Note: A&P Assessment and Plan (1) End stage renal disease: Code(s): N18.6 - End stage renal disease Status: Chronic Assessment and Plan: will use a different cycler tonight to see if PD treatment goes better conitinue nightly CCPD follow electrolytes, volume status, and clearance (2) Nausea vomiting and diarrhea: Code(s): R11.2 - Nausea with vomiting, unspecified; R19.7 - Diarrhea, unspecified Status: Acute Assessment and Plan: some clinical improvement in symptoms (but still not back to baseline) HIDA scan results noted Gastroenterology consult/recommendations noted continue supportive therapy (3) Hypertension: Code(s): I10 - Essential (primary) hypertension Status: Chronic Assessment and Plan: reasonable control at this time follow trend of hemodynamics (4) Anemia: Code(s): D64.9 - Anemia, unspecified Status: Chronic Assessment and Plan: H/H supratherapeutic at this time no Epogen needed Will continue to follow. Subjective Date/time seen: 06/19/19 15:50 Apparently some issues with PD cycler overnight and he did not get his full treatment - patient blames the cycler/machine; noted plan for EGD in AM Exam Narrative: Exam Narrative: General: WD/WN male in NAD Heart: normal S1 and S2; no rub Lungs: clear to auscultation Abdomen: soft, nontender, nondistended, positive bowel sounds Extremities: no cyanosis or clubbing; no edema Skin: warm and dry Objective Data Vital Signs Vital Signs: Vital Signs Temp Pulse Resp BP Pulse Ox 06/19/19 13:34 36.1 C L 102 H 21 H 98/53 L 99 06/19/19 11:41 117 H 06/19/19 00:00 36.2 C L 107 H 16 133/78 89 L 06/18/19 17:45 100 Intake/Output Intake/Output: Intake & Output 06/16/19 06/17/19 06/18/19 06/19/19 23:59 23:59 23:59 23:59 Intake Total 9161 990 3467 420 Output Total 0272 599 200 715 Balance -722 944 359 3317 Meds/Results Medications: Active Medications Generic Name Dose Route Start Last Admin Trade Name Freq PRN Reason Stop Dose Admin Allopurinol 100 mg 06/15/19 23:00 06/19/19 11:40 Zyloprim PO 100 mg DAILY DARA Administration Ergocalciferol 50,000 unit 06/23/19 09:00 Drisdol PO MONTHLY DARA Famotidine 20 mg 06/19/19 09:00 Pepcid PO Q12HR DARA Melatonin 3 mg 06/16/19 21:09 06/17/19 21:35 Melatonin PO 3 mg HS PRN Administration Insomnia Metoprolol Tartrate 50 mg 06/15/19 22:05 06/19/19 11:41 Lopressor PO 50 mg BID DARA Administration Nifedipine 90 mg 06/16/19 09:00 06/19/19 11:41 Procardia Xl PO 90 mg DAILY DARA Administration Sevelamer Carbonate 800 mg 06/16/19 08:00 06/19/19 11:41 Renvela PO 800 mg TIDWM DARA Administration Radiology Results: ITS Impressions Chest X-Ray 06/15/19 17:29 IMPRESSION: No acute cardiopulmonary findings. Abdomen/Pelvis CT 06/15/19 19:13 IMPRESSION: 1. No acute intra-abdominal findings. 2. Scattered colonic diverticulosis. 3. Cholelithiasis. Upper Quadrant Ultrasound 06/18/19 12:32 IMPRESSION: 1. Cholelithiasis without additional findings of cholecystitis. Hepatobiliary Scan Nuclear Medicine 06/19/19 11:55 IMPRESSION: 1. Gallbladder ejection fraction in the lower range of normal. Note that this value overlaps with the range of values that may be seen with gallbladder dysfunction and/or chronic cholecystitis if there is appropriate clinical correlation. Labs Labs: Laboratory Tests 06/19/19 06:20 06/19/19 06:20 Microbiology 06/17/19 23:38 Stool Cryptosporidium Exam - Final 06/17/19 23:38 Stool Giardia Antigen (SHAHEEN) - Final 06/15/19 08:00 Peritoneal Fluid Anaerobic Culture - Preliminary 06/15/19 08:00 Peritoneal Fluid Aerobic Culture - Preliminary
--- NOTE | 2019-06-19 17:00 | PC.NURSE ---
Educated patient following fall @ 1615. Patient states that he understands the alarm/fall precautions are for his safety. Patient states I feel very ashamed of myself . Educated patient on the need to call for help before getting up, and for the reasoning of moving to room 255. Patient returned to bed. Bed alarm activated to level 2 alarm. Call light within reach, patient states he will call before getting up.
--- NOTE | 2019-06-19 17:07 | WPDANESEPP ---
Anes - Eval Pre Procedure Procedure: EGD Operation Date: 06/20/19 07:30 Proposed Procedures p Esophagogastroduodenoscopy - Trenton Boone MD Date/Time: 06/19/19 17:07 Surgeon: Paolo Preop Diagnosis: Nausea, Vomiting, diarrhea Pre Op Diagnosis: Elevated troponin, SIRS, hyperkalemia, Patient Data Age: 73 Gender: M Height: 5 ft 8 in Weight: 99.5 kg Last Vital Signs Temp 97 F L 06/19/19 13:34 Pulse 102 H 06/19/19 13:34 Resp 21 H 06/19/19 13:34 BP 98/53 L 06/19/19 13:34 Pulse Ox 99 06/19/19 13:34 Allergies Allergy/AdvReac Type Severity Reaction Status Date / Time No Known Allergies Allergy Mild Unverified 08/05/07 15:10 Home Medications Medication Instructions Recorded Confirmed Type allopurinol 100 mg PO DAILY 06/15/19 06/15/19 History ergocalciferol (vitamin D2) 1,250 mcg PO MONTHLY 06/15/19 06/15/19 History metoprolol tartrate 50 mg PO BID 06/15/19 06/15/19 History niacin (inositol niacinate) 750 mg PO BID 06/15/19 06/15/19 History nifedipine 90 mg PO DAILY 06/15/19 06/15/19 History potassium chloride 10 meq PO DAILY 06/15/19 06/15/19 History sevelamer carbonate 800 mg PO TIDWM 06/15/19 06/15/19 History vitamin B complex-folic acid [B 0.5 tablet PO DAILY 06/15/19 06/15/19 History Complex 1 (with folic acid)] Laboratory Tests 06/19/19 06/19/19 06/19/19 06:20 06:20 06:20 WBC 15.4 K/mm3 H K/mm3 (4.5-10.0) RBC 4.28 M/mm3 L M/mm3 (4.6-6.20) Hgb 13.3 g/dL L g/dL (14.0-18.0) Hct 40.3 % L % (42.0-52.0) MCV 94.2 fl fl (80-100) MCH 31.1 pg pg (26-34) MCHC 33.0 g/dl g/dl (32-36) RDW 15.6 % H % (11.5-14.5) Plt Count 69 k/mm3 L k/mm3 (150-375) MPV 9.0 fl fl (7.4-10.4) Immature Gran % (Auto) 4.5 % H % (0-0.5) Neut % (Auto) 76.3 % H % (45.5-73.1) Lymph % (Auto) 10.8 % L % (18.3-44.2) [place] % (Auto) 7.1 % % (2.6-8.5) Eos % (Auto) 0.6 % % (0-4.4) Baso % (Auto) 0.7 % % (0.2-1.2) Lymph # (Auto) 1.67 K/mm3 K/mm3 (0.9-3.2) [place] # (Auto) 1.1 K/mm3 H K/mm3 (0.1-0.6) Eos # (Auto) 0.1 K/mm3 K/mm3 (0-0.3) Baso # (Auto) 0.1 K/mm3 K/mm3 (0.0-0.1) Abs Immat Gran (auto) 0.69 K/mm3 H K/mm3 (0.00-0.031) Absolute Neuts (auto) 11.8 K/mm3 H K/mm3 (1.3-6.7) Absolute Nucleated RBC 0.0 K/mm3 K/mm3 (0.0-0.012) Nucleated RBC % 0.0 % % (0.0-0.2) Sodium 137 mmol/L mmol/L (137-145) Potassium 4.0 mmol/L mmol/L (3.4-5.0) Chloride 104 mmol/L mmol/L (98-107) Carbon Dioxide 22 mmol/L mmol/L (22-30) BUN 65 mg/dL H mg/dL (9-20) Creatinine 9.50 mg/dL H mg/dL (0.7-1.3) Estim Creat Clear Calc 5 ml/min ml/min Estimated GFR 5 L (59 - ) Glucose 118 mg/dL H mg/dL (75-110) Hemoglobin A1c 5.9 % H % (<5.7) Calcium 10.1 mg/dL mg/dL (8.4-10.2) Total Bilirubin 2.2 mg/dL H mg/dL (0.2-1.3) Direct Bilirubin 0.0 mg/dL mg/dL (0-0.3) AST 37 U/L U/L (17-59) ALT 56 U/L H U/L (4-50) Alkaline Phosphatase 50 U/L U/L (38-126) Total Protein 6.0 g/dL L g/dL (6.3-8.2) Albumin 3.8 g/dL g/dL (3.5-5.1) Patient hx anesthesia problems: none Family hx anesthesia problems: none [facility] Past Medical History Medical History Anemia Chronic kidney disease on chronic dialysis History of coronary artery disease History of gastroesophageal reflux (GERD) History of gout History of hypertension HTN (hypertension) with goal to be determined Obstructive sleep apnea Intolerant of his CPAP machine Peritoneal dialysis catheter in place Surgical History Surgical History
[2019-06-19] MEDS: FAMOTIDINE 20 MG TABLET PO ×2 (17:43→20:56)
[2019-06-20] VITALS (16 sets, daily range): BP systolic 98–160; BP diastolic 51–126; PULSE 85–107; RESP 12–21; TEMP 36.2–36.9; O2SAT 95–100
[2019-06-20 05:16] LABS: Basophils Absolute Auto 0.1 K/mm3 (0.0-0.1); Basophils Percent Auto 0.6 % (0.2-1.2); Eosinophils Absolute Auto 0.2 K/mm3 (0-0.3); Eosinophils Percent Auto 1.1 % (0-4.4); Hematocrit 36.4 % (42.0-52.0); Hemoglobin 12.3 g/dL (14.0-18.0); Immature Granulocyte Absolute 0.77 K/mm3 (0.00-0.031); Immature Platelet Fraction Pct 1.2 % (0.9-11.2); Lymphocytes Absolute Auto 1.39 K/mm3 (0.9-3.2); Lymphocytes Percent Auto 8.9 % (18.3-44.2); Mean Corpuscular HGB Conc 33.8 g/dl (32-36); Mean Corpuscular Hemoglobin 31.7 pg (26-34); Mean Corpuscular Volume 93.8 fl (80-100); Mean Platelet Volume 8.7 fl (7.4-10.4); Monocytes Absolute Auto 1.3 K/mm3 (0.1-0.6); Monocytes Percent Auto 8.4 % (2.6-8.5); Neutrophils Absolute Auto 11.8 K/mm3 (1.3-6.7); Platelet Count Result 77 k/mm3 (150-375); Red Blood Count 3.88 M/mm3 (4.6-6.20); Red Cell Distribution Width 15.5 % (11.5-14.5); White Blood Count 15.6 K/mm3 (4.5-10.0)
[2019-06-20 05:35] LABS: Alanine Aminotransferase 68 U/L (4-50); Albumin Level 3.5 g/dL (3.5-5.1); Alkaline Phosphatase 38 U/L (38-126); Aspartate Amino Transferase 46 U/L (17-59); Bilirubin,Total 1.6 mg/dL (0.2-1.3); Blood Urea Nitrogen 67 mg/dL (9-20); Calcium 9.8 mg/dL (8.4-10.2); Carbon Dioxide 25 mmol/L (22-30); Chloride 103 mmol/L (98-107); Estimated CRCL calculation 8 ml/min; Estimated Glomerular Filt Rate 6; Glucose 123 mg/dL (75-110); Potassium 3.8 mmol/L (3.4-5.0); Sodium 136 mmol/L (137-145)
--- NOTE | 2019-06-20 07:13 | PC.NURSE ---
0713-To GI lab per stretcher.
--- NOTE | 2019-06-20 07:26 | WPDANESEPPF ---
Anes - Initial Pre Proc Eval Procedure: Operation Date: 06/20/19 07:30 Proposed Procedures p Esophagogastroduodenoscopy - Trenton Boone MD Date/Time: 06/20/19 07:26 Surgeon: Duncan Garcia MD Pre Op Diagnosis: Elevated troponin, SIRS, hyperkalemia, Patient Data Age: 73 Gender: M Height: 5 ft 8 in Weight: 99.337 kg Last Vital Signs Temp 36.9 C 06/20/19 07:17 Pulse 100 06/20/19 07:17 Resp 18 06/20/19 07:17 BP 136/64 06/20/19 07:17 Pulse Ox 98 06/19/19 22:00 Allergies Allergy/AdvReac Type Severity Reaction Status Date / Time No Known Allergies Allergy Mild Unverified 08/05/07 15:10 Home Medications Medication Instructions Recorded Confirmed Type allopurinol 100 mg PO DAILY 06/15/19 06/15/19 History ergocalciferol (vitamin D2) 1,250 mcg PO MONTHLY 06/15/19 06/15/19 History metoprolol tartrate 50 mg PO BID 06/15/19 06/15/19 History niacin (inositol niacinate) 750 mg PO BID 06/15/19 06/15/19 History nifedipine 90 mg PO DAILY 06/15/19 06/15/19 History potassium chloride 10 meq PO DAILY 06/15/19 06/15/19 History sevelamer carbonate 800 mg PO TIDWM 06/15/19 06/15/19 History vitamin B complex-folic acid [B 0.5 tablet PO DAILY 06/15/19 06/15/19 History Complex 1 (with folic acid)] Laboratory Tests 06/20/19 06/20/19 05:02 05:02 WBC 15.6 K/mm3 H K/mm3 (4.5-10.0) RBC 3.88 M/mm3 L M/mm3 (4.6-6.20) Hgb 12.3 g/dL L g/dL (14.0-18.0) Hct 36.4 % L % (42.0-52.0) MCV 93.8 fl fl (80-100) MCH 31.7 pg pg (26-34) MCHC 33.8 g/dl g/dl (32-36) RDW 15.5 % H % (11.5-14.5) Plt Count 77 k/mm3 L k/mm3 (150-375) MPV 8.7 fl fl (7.4-10.4) Immature Gran % (Auto) 5.0 % H % (0-0.5) Neut % (Auto) 76.0 % H % (45.5-73.1) Lymph % (Auto) 8.9 % L % (18.3-44.2) [place] % (Auto) 8.4 % % (2.6-8.5) Eos % (Auto) 1.1 % % (0-4.4) Baso % (Auto) 0.6 % % (0.2-1.2) Lymph # (Auto) 1.39 K/mm3 K/mm3 (0.9-3.2) [place] # (Auto) 1.3 K/mm3 H K/mm3 (0.1-0.6) Eos # (Auto) 0.2 K/mm3 K/mm3 (0-0.3) Baso # (Auto) 0.1 K/mm3 K/mm3 (0.0-0.1) Abs Immat Gran (auto) 0.77 K/mm3 H K/mm3 (0.00-0.031) Absolute Neuts (auto) 11.8 K/mm3 H K/mm3 (1.3-6.7) Absolute Nucleated RBC 0.0 K/mm3 K/mm3 (0.0-0.012) Nucleated RBC % 0.0 % % (0.0-0.2) % Immature Plt Fraction 1.2 % % (0.9-11.2) Sodium 136 mmol/L L mmol/L (137-145) Potassium 3.8 mmol/L mmol/L (3.4-5.0) Chloride 103 mmol/L mmol/L (98-107) Carbon Dioxide 25 mmol/L mmol/L (22-30) BUN 67 mg/dL H mg/dL (9-20) Creatinine 8.80 mg/dL H mg/dL (0.7-1.3) Estim Creat Clear Calc 8 ml/min ml/min Estimated GFR 6 L (59 - ) Glucose 123 mg/dL H mg/dL (75-110) Calcium 9.8 mg/dL mg/dL (8.4-10.2) Total Bilirubin 1.6 mg/dL H mg/dL (0.2-1.3) AST 46 U/L U/L (17-59) ALT 68 U/L H U/L (4-50) Alkaline Phosphatase 38 U/L U/L (38-126) Total Protein 6.0 g/dL L g/dL (6.3-8.2) Albumin 3.5 g/dL g/dL (3.5-5.1) Patient hx anesthesia problems: none Family hx anesthesia problems: none PMFSH Past Medical History Medical History Anemia Chronic kidney disease on chronic dialysis History of coronary artery disease History of gastroesophageal reflux (GERD) History of gout History of hypertension HTN (hypertension) with goal to be determined Obstructive sleep apnea Intolerant of his CPAP machine Peritoneal dialysis catheter in place Surgical History Surgical History History of coronary artery stent placement X3 History of tonsillectomy and adenoidectomy Family History Family History Mother Heart
[2019-06-20] MEDS: SODIUM CHLORIDE 0.9% IV 500 ML 10 ML IV CONT (07:39)
[2019-06-20] MEDS: BENZOCAINE (*SP) 60 ML SPRAY CAN (HURRICAINE) 1 SPRAY MUCOUS MEM (08:14)
--- NOTE | 2019-06-20 08:34 | SUR.PHASEII ---
2445 DR HASTINGS SPOKE WITH THE SPOUSE ON THE PHONE WITH UPDATE
--- NOTE | 2019-06-20 09:10 | PC.NURSE ---
0910-Patient returned from GI lab per stretcher.
--- NOTE | 2019-06-20 09:30 | PM.IMPN ---
Progress Note: A&P Assessment and Plan (1) Lightheaded: Code(s): R42 - Dizziness and giddiness Status: Acute Assessment and Plan: Patient complaining of lightheadedness with standing. Patient unable to stand long enough for standing BP. Lying and sitting BP okay. Will hold Nifedipine for now and monitor. Attempt orthostatic BP tomorrow. (2) Nausea vomiting and diarrhea: Code(s): R11.2 - Nausea with vomiting, unspecified; R19.7 - Diarrhea, unspecified Status: Acute Assessment and Plan: Stool studies negative for so far. Patient does have cholelithiasis without evidence of cholecystitis by imaging. He does have diverticulosis but no abdominal pain at this time. EGD showing gastritis and esophagitis. Pepcid changed to Protonix. [place] planned for tomorrow. Still consider symptoms related to a viral gastroenteritis. Also consider gastroparesis. (3) Metabolic acidosis: Code(s): E87.2 - Acidosis Status: Acute Assessment and Plan: Lactic acid 2.5 on admission but normalized on repeat. Patient is on peritoneal dialysis. Normal gap today. (4) Acute hyperkalemia: Code(s): E87.5 - Hyperkalemia Status: Acute Assessment and Plan: Potassium 5.6 on admission but normal now. Currently holding his oral potassium. Contineu to follow. (5) ESRD on dialysis: Code(s): N18.6 - End stage renal disease; Z99.2 - Dependence on renal dialysis Status: Acute Assessment and Plan: Stable. Continue PD. Continue with Renvela. Nephrology following. (6) Elevated troponin: Code(s): R79.89 - Other specified abnormal findings of blood chemistry Status: Chronic Assessment and Plan: Trop 0.2 on admission and trending down on repeat. EKG showing probably old anterioseptal infarct and high lateral ST-T wave changes. No complaints of CP. Has hx of CAD. Possibly related to his ESRD. Will check Echo. (7) HTN (hypertension) with goal to be determined: Code(s): I10 - Essential (primary) hypertension Status: Chronic Assessment and Plan: As above. Currently on Procardia and metoprolol. Will hold Procardia for now and monitor symptoms. l (8) Leukocytosis: Qualifiers: Leukocytosis type: other Qualified Code(s): D72.828 - Other elevated white blood cell count Code(s): D72.829 - Elevated white blood cell count, unspecified Status: Acute Assessment and Plan: WBC up to 17K. Etiology unclear. CXR was negative and cultures for peritoneal fluid was negative. No fevers. Stool and blood cultures remain negative. Mild elevation of bili and ALT. Sonogram 06/[address] scan ie gallstone without evidence of cholecystitis. WBC trending down. (9) Anemia: Code(s): D64.9 - Anemia, unspecified Status: Chronic Assessment and Plan: Mild anemia with Hgb in the 12-13 range. Most likely anemia of chronic disease related to end-stage renal disease. Monitor (10) Cholelithiasis: Code(s): K80.20 - Calculus of gallbladder without cholecystitis without obstruction Status: Acute Assessment and Plan: Patient with persistent nausea and elevated WBC and Bili. CT scan and US showing cholelithiasis. HIDA scan 06/18 normal uptake with GB EF lower limit of normal at 31%. Doubt this is the cause of his nausea. (11) Thrombocytopenia: Code(s): D69.6 - Thrombocytopenia, unspecified Status: Acute Assessment and Plan: Plt count 77K today down from 96K on admission. Unclear if this is acute or chronic. Will discuss with nephrology about duration since the patient probably has outpatient lab work. No evidence of bleeding. Hgb stable. Check B12. Subjective Date/time seen: 06/20/19 09:30 Interval history: Date of visit 06/19. 73yo male with ESRD on PD and HTN here with 3 days history of nausea/vomiting/diarr
[2019-06-20] MEDS: SEVELAMER CARBONATE 800 MG TABLET PO ×3 (09:45→17:18)
[2019-06-20] MEDS: METOPROLOL TARTRATE 50 MG TAB PO ×2 (09:45→17:18)
[2019-06-20] MEDS: PANTOPRAZOLE 40 MG TABLET PO (09:46)
[2019-06-20] MEDS: allopurinoL 100 MG TABLET PO (09:46)
--- NOTE | 2019-06-20 10:07 | PC.NURSE ---
Per Dr. Garcia, it is OK for patient to work with therapy and be up as tolerated. He is aware of patients intermittent dizziness and vital signs. Patient Orthostatic BPs were completed and patient was unable to stand up to completed the vital signs due to dizziness.
--- NOTE | 2019-06-20 10:14 | PM.PNNEP ---
Progress Note: A&P Assessment and Plan (1) End stage renal disease: Code(s): N18.6 - End stage renal disease Status: Chronic Assessment and Plan: continue nightly CCPD follow electrolytes, volume status, and clearance (2) Nausea vomiting and diarrhea: Code(s): R11.2 - Nausea with vomiting, unspecified; R19.7 - Diarrhea, unspecified Status: Acute Assessment and Plan: some clinical improvement in symptoms (but still not back to baseline) HIDA scan results noted Gastroenterology following EGD this AM - reflux esophagitis and gastritis noted continue supportive therapy (3) Hypertension: Code(s): I10 - Essential (primary) hypertension Status: Chronic Assessment and Plan: reasonable control at this time follow trend of hemodynamics (4) Anemia: Code(s): D64.9 - Anemia, unspecified Status: Chronic Assessment and Plan: H/H supratherapeutic at this time no Epogen needed Will continue to follow. Subjective Date/time seen: 06/20/19 10:14 Tolerated CCPD treatment overnight without any significant issues to report; s/p EGD this AM and tolerated well; issues with dizziness noted. Exam Narrative: Exam Narrative: General: WD/WN male in NAD Heart: normal S1 and S2; no rub Lungs: clear to auscultation Abdomen: soft, nontender, nondistended, positive bowel sounds Extremities: no cyanosis or clubbing; no edema Skin: warm and intact Objective Data Vital Signs Vital Signs: Vital Signs Temp Pulse Resp BP Pulse Ox 06/20/19 09:45 104 H 06/20/19 08:50 98 20 124/75 100 06/20/19 08:40 98 18 143/74 H 99 06/20/19 08:30 98 20 98/51 L 98 06/20/19 08:24 98 21 H 103/52 L 98 06/20/19 08:21 98 18 160/126 H 95 06/20/19 07:34 36.7 C 102 H 130/77 99 06/20/19 07:17 36.9 C 100 18 136/64 06/20/19 06:24 36.7 C 107 H 12 110/75 100 06/19/19 22:00 36.9 C 100 18 136/64 98 06/19/19 17:43 85 06/19/19 16:15 36.1 C L 76 20 128/104 H 99 06/19/19 14:00 36.2 C L 99 16 144/62 H 98 06/19/19 13:34 36.1 C L 102 H 21 H 98/53 L 99 06/19/19 11:41 117 H Intake/Output Intake/Output: Intake & Output 06/17/19 06/18/19 06/19/19 06/20/19 23:59 23:59 23:59 23:59 Intake Total 865 1030 1360 450 Output Total 599 200 -565 980 Balance 025 565 1807 -530 Meds/Results Medications: Active Medications Generic Name Dose Route Start Last Admin Trade Name Freq PRN Reason Stop Dose Admin Allopurinol 100 mg 06/15/19 23:00 06/20/19 09:46 Zyloprim PO 100 mg DAILY DARA Administration Ergocalciferol 50,000 unit 06/23/19 09:00 Drisdol PO MONTHLY DARA Melatonin 3 mg 06/16/19 21:09 06/17/19 21:35 Melatonin PO 3 mg HS PRN Administration Insomnia Metoprolol Tartrate 50 mg 06/15/19 22:05 06/20/19 09:45 Lopressor PO 50 mg BID DARA Administration Nifedipine 90 mg 06/16/19 09:00 06/20/19 09:48 Procardia Xl PO Not Given DAILY DARA Pantoprazole Sodium 40 mg 06/20/19 09:00 06/20/19 09:46 Protonix PO 40 mg QAM DARA Administration Polyethylene Glycol/Electrolytes 3,000 ml 06/20/19 11:00 Colyte-Flavored PO 06/20/19 11:01 ONCE ONE Sevelamer Carbonate 800 mg 06/16/19 08:00 06/20/19 09:45 Renvela PO 800 mg TIDWM DARA Administration Radiology Results: ITS Impressions Chest X-Ray 06/15/19 17:29 IMPRESSION: No acute cardiopulmonary findings. Abdomen/Pelvis CT 06/15/19 19:13 IMPRESSION: 1. No acute intra-abdominal findings. 2. Scattered colonic diverticulosis. 3. Cholelithiasis. Upper Quadrant Ultrasound 06/18/19 12:32 IMPRESSION: 1. Cholelithiasis without additional findings of cholecystitis. Hepatobiliary Scan Nuclear Medicine 06/19/19 11:55 IMPRESSION: 1. Gallbladder ejection fraction in the lower range of normal. Note that this value overlaps with
[2019-06-20] MEDS: PEG (High)/E-LYTE SOLN 4,000 ML BTL 3000 ML PO (10:56)
--- NOTE | 2019-06-20 13:28 | PCNFU ---
Nutrition Follow-Up Complete: Involuntary weight loss related to poor appetite, nausea, vomiting as evidenced by reported 10 pound weight loss x 5 days prior to admission. Goal: Patient to consume 75% of meals/supplements. We will continue current goal. Pt current nutrition is Renal Dialysis Clear. Nutrition recommendation: Renal Dialysis when advancing diet. Last recorded weight is 97.4 kg. Bowel Motility: +BM 06/18 Labs Reviewed: Hgb 12.3,Hct 36.4,Na 136,GFR 6,BUN 67,Cr 8.8,Glu 123 Meds Noted:Vit B complex, Niacin, Protonix Additional Notes: Spoke with nursing over telephone for nutrition follow up due to COVID 19 precautions. Plans for NPO after midnight for colonoscopy tomorrow. Patient had HIDA scan on 06/18. Oral Intake has been greater than 75% of meals. Agree with diet orders. Monitoring: Follow up in 5 days.
--- NOTE | 2019-06-20 14:13 | PCPTNOTE ---
The patient evaluation treatment was not able to be completed x 2 attempts on 06/20/19 due to bowel issues and pt not wanting to participate in activities. Will plan to complete therapy evaluation on 06/21/19
[2019-06-21] VITALS (12 sets, daily range): BP systolic 83–176; BP diastolic 46–80; PULSE 91–105; RESP 12–24; TEMP 35.8–37; O2SAT 96–100
--- NOTE | 2019-06-21 | ECHO_ITS ---
Patient Info Name: Kentrell Cosby Age: 73 years : 1945 Gender: Male Ht: 68 in Wt: 167 lbs BSA: 1.92 m2 HR: 105 bpm BP: 176 / 74 mmHg Heart Rhythm: Sinus Arrhythmia Technical Quality: Good Exam Date: 06/21/2019 10:44 AM Exam Location: [facility] Pulmonary Patient Status: Inpatient Admit Date: 06/15/2019 Staff Ordering Physician: Carlos Manuel Garcia MD [employer] Specialist: Omar Ramirez RDCS Attending Provider: Carlos Manuel Garcia MD Exam Type: CA echo doppler color flow Study Info Indications I25.10 - Atherosclerotic heart disease of [place] coronary artery without angina pectoris Complete two-dimensional, color flow and Doppler transthoracic echocardiogram is performed. History/Risk Factors Elevated trops 2/2 ESRD; HTN, CHF w/ BNP 16.9k, CAD s/p stents x3. Summary 1. Left ventricular chamber dimension is normal. 2. Left ventricular systolic function is normal, estimated at 60-65%. 3. There is moderately increased left ventricular wall thickness. 4. The left ventricular diastolic function is grade I diastolic dysfunction. 5. Left atrial chamber dimension is mildly enlarged. 6. There is mild mitral valve regurgitation. 7. The mitral valve annulus is mildly calcified. 8. There is mild pulmonic regurgitation. 9. There is small pericardial effusion. Left Ventricle Left ventricular chamber dimension is normal. Left ventricular systolic function is normal, estimated at 60-65%. There is moderately increased left ventricular wall thickness. The left ventricular diastolic function is grade I diastolic dysfunction. Right Ventricle Right ventricular chamber dimension is normal. Right ventricular systolic function is normal. Left Atria Left atrial chamber dimension is mildly enlarged. Right Atria Right atrial chamber dimension is normal. Aortic Valve The aortic valve is trileaflet. There is mild aortic valve sclerosis. There is no aortic valve stenosis. There is trace aortic valve regurgitation. Pulmonic Valve The pulmonic valve is normal. There is no pulmonic valve stenosis. There is mild pulmonic regurgitation. Mitral Valve The mitral valve has thickened leaflets. There is no mitral valve stenosis. There is mild mitral valve regurgitation. The mitral valve annulus is mildly calcified. Tricuspid Valve The tricuspid valve leaflets are normal. There is no significant tricuspid valve stenosis. There is trace tricuspid valve regurgitation. Pericardium/Pleural There is small pericardial effusion. Inferior Vena Cava Normal inferior vena cava with >50% collapse upon inspiration consistent with normal right atrial pressure, 5 mmHg. Aorta The aortic root size at the sinus of Valsalva is normal. Left Ventricular Outflow Tract Name Value Normal LVOT 2D LVOT Diameter 2.1 cm LVOT Doppler LVOT Peak Gradient 5 mmHg LVOT Mean Gradient 3 mmHg LVOT VTI 16 cm LVOT VTI/AV VTI Ratio 0.6 LVOT Stroke Volume 53 ml LVOT CO
[2019-06-21 05:20] LABS: Basophils Absolute Auto 0.1 K/mm3 (0.0-0.1); Basophils Percent Auto 0.7 % (0.2-1.2); Eosinophils Absolute Auto 0.1 K/mm3 (0-0.3); Hematocrit 35.5 % (42.0-52.0); Hemoglobin 11.7 g/dL (14.0-18.0); Immature Granulocyte Absolute 0.59 K/mm3 (0.00-0.031); Immature Platelet Fraction Pct 1.2 % (0.9-11.2); Lymphocytes Absolute Auto 1.54 K/mm3 (0.9-3.2); Lymphocytes Percent Auto 12.9 % (18.3-44.2); Mean Corpuscular Hemoglobin 31.2 pg (26-34); Mean Corpuscular Volume 94.7 fl (80-100); Mean Platelet Volume 9.1 fl (7.4-10.4); Monocytes Percent Auto 8.6 % (2.6-8.5); Neutrophils Absolute Auto 8.6 K/mm3 (1.3-6.7); Neutrophils Percent Auto 71.8 % (45.5-73.1); Platelet Count Result 71 k/mm3 (150-375); Red Blood Count 3.75 M/mm3 (4.6-6.20); Red Cell Distribution Width 15.7 % (11.5-14.5); White Blood Count 11.9 K/mm3 (4.5-10.0)
[2019-06-21 05:24] LABS: Alanine Aminotransferase 66 U/L (4-50); Albumin Level 3.4 g/dL (3.5-5.1); Alkaline Phosphatase 40 U/L (38-126); Aspartate Amino Transferase 35 U/L (17-59); Blood Urea Nitrogen 64 mg/dL (9-20); Calcium 9.3 mg/dL (8.4-10.2); Carbon Dioxide 23 mmol/L (22-30); Chloride 104 mmol/L (98-107); Estimated CRCL calculation 8 ml/min; Estimated Glomerular Filt Rate 6; Glucose 92 mg/dL (75-110); Phosphorus 6.3 mg/dL (2.5-4.5); Potassium 3.6 mmol/L (3.4-5.0); Sodium 138 mmol/L (137-145)
[2019-06-21] MEDS: SODIUM CHLORIDE 0.9% IV 500 ML 10 ML IV CONT (07:36)
--- NOTE | 2019-06-21 08:41 | WPDANESEFPP ---
Anes - Eval Final PreProcedure Day of Procedure 06/21/19 08:41 Patient weight: normal Heart: regular rate and rhythm Lungs: decreased breath sounds Airway: Mallampati scale class II Neurological: lethargic Last oral intake: >/= 8 hours ASA classification: IV Emergent: no Anesthetic plan: proceed Anesthesia type and monitoring: general GIVS and standard monitoring Informed Consent: The patient's anesthetic plan and its attendant risks and benefits were discussed with the patient/family/POA. Questions were solicited and answers provided to the satisfaction of the patient/family/POA.
[2019-06-21 09:10] LABS: Folic Acid 10.8 ng/mL (2.76->20); Vitamin B12 > 1000.0 pg/mL (239-931)
[2019-06-21] MEDS: SEVELAMER CARBONATE 800 MG TABLET PO (10:30)
[2019-06-21] MEDS: PANTOPRAZOLE 40 MG TABLET PO (10:31)
[2019-06-21] MEDS: allopurinoL 100 MG TABLET PO (10:31)
[2019-06-21] MEDS: METOPROLOL TARTRATE 50 MG TAB PO (10:31)
--- NOTE | 2019-06-21 15:00 | PM.DS ---
DS: Diagnosis Admitting Diagnosis Admitting Diagnosis: Nausea with vomiting, unspecified Discharge Diagnosis (1) Lightheaded: Code(s): R42 - Dizziness and giddiness Status: Acute Assessment and Plan: Patient complaining of lightheadedness with standing. Patient unable to stand long enough for standing BP so Nifedipine stopped. Orthostatic vital signs repeated shiowing laying 161/74 and standing 87/57. Patient however asymptomatic now. Plan to continue Lopressor at current dose and he was instructed to pause after standing before walking. He voices understanding. (2) Nausea vomiting and diarrhea: Code(s): R11.2 - Nausea with vomiting, unspecified; R19.7 - Diarrhea, unspecified Status: Acute Assessment and Plan: Stool studies negative for so far. Patient does have cholelithiasis without evidence of cholecystitis by imaging. He does have diverticulosis but no abdominal pain at this time. EGD showing gastritis and esophagitis. Pepcid changed to Protonix. Maud showing diverticulosis and internal hemorrhoids. Still consider symptoms related to a viral gastroenteritis. Patietn eating well. (3) Metabolic acidosis: Code(s): E87.2 - Acidosis Status: Acute Assessment and Plan: Lactic acid 2.5 on admission but normalized on repeat. Patient is on peritoneal dialysis. Normal gap today. (4) Acute hyperkalemia: Code(s): E87.5 - Hyperkalemia Status: Acute Assessment and Plan: Potassium 5.6 on admission but normal now. Currently holding his oral potassium. Discussed with Nephrology. Will not resume home potassium. (5) ESRD on dialysis: Code(s): N18.6 - End stage renal disease; Z99.2 - Dependence on renal dialysis Status: Acute Assessment and Plan: Stable. We continued PD per Nephrology. We continued with Renvela. Nephrology was involved in his care. (6) Elevated troponin: Code(s): R79.89 - Other specified abnormal findings of blood chemistry Status: Chronic Assessment and Plan: Trop 0.2 on admission and trending down on repeat. EKG showing probably old anterioseptal infarct and high lateral ST-T wave changes. No complaints of CP. Has hx of CAD. Echocardiogram showing EF of 60% and diastolic dysfunction. No wall motion abnormalities. Elevated troponins possibly related to his ESRD. (7) HTN (hypertension) with goal to be determined: Code(s): I10 - Essential (primary) hypertension Status: Chronic Assessment and Plan: As above. Patient was on Procardia and metoprolol. Procardia stopped. (8) Leukocytosis: Qualifiers: Leukocytosis type: other Qualified Code(s): D72.828 - Other elevated white blood cell count Code(s): D72.829 - Elevated white blood cell count, unspecified Status: Acute Assessment and Plan: WBC up to 17K. Etiology unclear. CXR was negative and peritoneal fluid cultures were negative. No fevers. Stool and blood cultures remain negative. Mild elevation of bili and ALT but improved. Sonogram 06/[address] scan ie: gallstone without evidence of cholecystitis. WBC trending down. (9) Anemia: Code(s): D64.9 - Anemia, unspecified Status: Chronic Assessment and Plan: Mild anemia with Hgb in the 12-13 range. Most likely anemia of chronic disease related to end-stage renal disease. (10) Cholelithiasis: Code(s): K80.20 - Calculus of gallbladder without cholecystitis without obstruction Status: Acute Assessment and Plan: Patient with persistent nausea and elevated WBC and Bili. CT scan and US showing cholelithiasis. HIDA scan 06/18 normal uptake with GB EF lower limit of normal at 31%. Doubt this is the cause of his nausea. (11) Thrombocytopenia: Code(s): D69.6 - Thrombocytopenia, unspecified Status: Acute Assessment and Plan: Plt count 71K
--- NOTE | 2019-06-21 15:43 | PCPTNOTE ---
Kentrell was discharged from the hospital before able to be seen by PT for an evaluation.
--- NOTE | 2019-06-21 16:54 | WPDANESPN ---
Anes - Prog Note Post-Op Date/Time: 06/21/19 16:54 Cardiovascular status: normal Respiratory status: normal Airway patency: baseline Mental status: baseline Post-Op hydration status: normal Vital Signs: Last Vital Signs Temp 97.5 F L 06/21/19 14:00 Pulse 93 06/21/19 14:00 Resp 16 06/21/19 14:00 BP 159/77 H 06/21/19 14:00 Pulse Ox 100 06/21/19 14:00 I/O: Intake & Output 06/21/19 06/21/19 06/21/19 07:59 15:59 23:59 Intake Total 3000 290 Balance 3000 290 Laboratory Tests 06/21/19 04:46 06/21/19 04:46 06/21/19 06/21/19 06/21/19 04:44 04:46 04:46 WBC 11.9 H RBC 3.75 L Hgb 11.7 L Hct 35.5 L MCV 94.7 MCH 31.2 MCHC 33.0 RDW 15.7 H Plt Count 71 L MPV 9.1 Immature Gran % (Auto) 5.0 H Neut % (Auto) 71.8 Lymph % (Auto) 12.9 L Mcintosh % (Auto) 8.6 H Eos % (Auto) 1.0 Baso % (Auto) 0.7 Lymph # (Auto) 1.54 Mcintosh # (Auto) 1.0 H Eos # (Auto) 0.1 Baso # (Auto) 0.1 Abs Immat Gran (auto) 0.59 H Absolute Neuts (auto) 8.6 H Absolute Nucleated RBC 0.0 Nucleated RBC % 0.0 % Immature Plt Fraction 1.2 Sodium 138 Potassium 3.6 Chloride 104 Carbon Dioxide 23 BUN 64 H Creatinine 8.70 H Estim Creat Clear Calc 8 Estimated GFR 6 L Glucose 92 Calcium 9.3 Phosphorus 6.3 H Magnesium 2.0 Total Bilirubin 1.0 AST 35 ALT 66 H Alkaline Phosphatase 40 Total Protein 6.0 L Albumin 3.4 L Vitamin B12 > 1000.0 H Folate 10.8 Microbiology 06/15/19 18:58 Blood Blood Culture - Final 06/15/19 18:58 Blood Blood Culture - Final 06/15/19 08:00 Peritoneal Fluid Anaerobic Culture - Final 06/15/19 08:00 Peritoneal Fluid Aerobic Culture - Final 06/17/19 23:38 Stool Stool for WBCs - Final 06/17/19 23:38 Stool Escherichia coli Shiga Toxins - Final 06/17/19 23:38 Stool Salmonella/Shigella Culture - Final 06/17/19 23:38 Stool Cryptosporidium Exam - Final 06/17/19 23:38 Stool Giardia Antigen (SHAHEEN) - Final Post-procedural complaints: none Patient Feedback: Patient satisfied with anesthetic care.
--- NOTE | 2019-06-23 11:17 | PC.NURSE ---
Colon pathology- Nonspecific mild chronic colitis. bailey cx- Cryto,giardia and campylobacter are all negative. PAthology to Dr. Boone and all above shown to Dr. Garcia.
== END 2019-06-21 15:39 | disposition home or self-care (01) | DRG 391 ==
LOC: ANHED 19:45 → ANHIMU 20:29 → ANH2MED 06-18 08:00 → ANHIMU 06-22 14:40
PROVIDERS: Internal Medicine; Internal Medicine Gastroenterology; Internal Medicine Nephrology; Nurse Practitioner; Physician Assistant; Admitting Provider Family Medicine; Emergency Provider Emergency Medicine; PCP Internal Medicine; Visit Provider Family Medicine
PROC: 0DJ08ZZ Inspection of Upper Intestinal Tract, Via Natural or Artificial Opening Endoscopic (ICD-10-PCS; CPT 43235; principal; 2019-06-20 07:30)
PROC: 0DJD8ZZ Inspection of Lower Intestinal Tract, Via Natural or Artificial Opening Endoscopic (ICD-10-PCS; CPT 45378; principal; 2019-06-21 09:00)
DX: A08.4 Viral intestinal infection, unspecified (principal); N18.6 End stage renal disease; E87.2 Acidosis; R65.10 Systemic inflammatory response syndrome (SIRS) of non-infectious origin without acute organ dysfunction; I12.0 Hypertensive chronic kidney disease with stage 5 chronic kidney disease or end stage renal disease; K80.20 Calculus of gallbladder without cholecystitis without obstruction; K57.90 Diverticulosis of intestine, part unspecified, without perforation or abscess without bleeding; E87.5 Hyperkalemia; Z99.2 Dependence on renal dialysis; I25.10 Atherosclerotic heart disease of native coronary artery without angina pectoris; K21.9 Gastro-esophageal reflux disease without esophagitis; M10.9 Gout, unspecified; G47.33 Obstructive sleep apnea (adult) (pediatric); Z95.5 Presence of coronary angioplasty implant and graft; Z87.891 Personal history of nicotine dependence; D63.1 Anemia in chronic kidney disease; E66.9 Obesity, unspecified; N25.0 Renal osteodystrophy; Z68.31 Body mass index [BMI] 31.0-31.9, adult; K21.0 Gastro-esophageal reflux disease with esophagitis; K29.70 Gastritis, unspecified, without bleeding; D69.6 Thrombocytopenia, unspecified
CPT/HCPCS: 36415; 71046; 74176; 76705; 78227; 80048; 80053; 80076; 81001; 82274; 82607; 82746; 83036; 83605; 83690; 83735; 83880; 84100; 84439; 84443; 84480; 84484; 85025; 85055; 87015; 87040; 87045; 87046; 87070; 87075; 87081; 87205; 87269; 87272; 87427; 88305; 89051; 89055; 90945; 93005; 93306; 97165; 99285; A9270; A9537; J0131; J2704; J2805; J7040

== ENCOUNTER 2019-07-12 11:10 | Inpatient (IN) | payer MEDICARE, BC, SELFPAY ==
[2019-07-12] VITALS (16 sets, daily range): BP systolic 82–143; BP diastolic 41–82; PULSE 87–185; RESP 16–22; TEMP 35.9–36.4; O2SAT 98–100; BMI 31.9
--- NOTE | ~2019-07-12 | CT_ITS ---
EXAMINATION: CTA chest DATE: 07/13/2019 18:15 INDICATION: Chest pain and shortness of breath TECHNIQUE: Computed tomographic angiography (CTA) of the chest was performed without and with 100 mL Omnipque-350 intravenous contrast. Maximum intensity projection 3D-reconstructions of the aorta and o ther arteries were constructed by the technologist on a separate workstation. The dose-length product (DLP) was 1064.20 mGy-cm. Automated exposure control and iterative reconstruction technique were emp loyed. COMPARISON: None. FINDINGS: There is calcified atherosclerosis of the aorta without aneurysm or dissection. The pulmona ry arteries are well-opacified. No pulmonary embolism is identified. There are trace pleural effusion s. No pneumothorax is identified. There is mild emphysema. No pathologically enlarged thoracic lymph nodes are identified. The heart size is normal. There is a 3.1 x 2.5 cm nodule of the left thyroid lo be. There is a large volume of abdominal ascites. The kidneys are atrophic. Hypoattenuating areas in the spleen likely relate to phase of contrast. There are bridging osteophytes at multiple levels in t he spine, consistent with diffuse idiopathic skeletal hyperostosis (DISH). IMPRESSION: 1. No CT correlate for the patient's symptoms. Trace pleural effusions. 2. Right thyroid nodule. Consider thyroid ultrasound for risk stratification. Reviewed, dictated and finalized at location A.
--- NOTE | ~2019-07-12 | US_ITS ---
EXAMINATION: US thyroid DATE: 07/14/2019 13:27 INDICATION: Right thyroid nodule. TECHNIQUE: Multiple ultrasound images of the thyroid were obtained. COMPARISON: Chest CT 07/13/2019 FINDINGS: The right thyroid lobe measures 6.2 x 3.0 x 2.4 cm. The left thyroid lobe measures 5.1 x 0.9 x 1.6 c m. In the right thyroid lobe, there is a 3.6 cm mixed cystic and solid, hyperechoic, [id number] nodule with smooth margin with macrocalcifications (TI-RADS TR3). IMPRESSION: 1. Right thyroid nodule. Ultrasound-guided fine-needle aspiration is recommended. Reviewed, dictated and finalized at location E. IMPRESSION: 1. Right thyroid nodule. Ultrasound-guided fine-needle aspiration is recommende d.
--- NOTE | ~2019-07-12 | CT_ITS ---
EXAMINATION: CT brain wo con INDICATION: Dizziness COMPARISON: None TECHNIQUE: Standard unenhanced head CT. The dose-length product (DLP) was 605.33 mGy-cm. The mA was a djusted according to patient size. Iterative reconstruction technique was employed. FINDINGS: There is no acute intraparenchymal hemorrhage. No evidence of mass lesion. No evidence of a cute infarction. There are small areas of old lacunar infarction in the bilateral basal ganglia. Ther e is mild periventricular and subcortical hypodensity probably related to small vessel ischemic disea se. There is mild prominence of the sulci and ventricles related to cerebral atrophy. Intracranial ca lcified cerebral atherosclerosis is noted. There are no extra-axial collections. There is no mass eff ect or midline shift. The orbits and soft tissues are unremarkable. There is mild mucosal thickening of the paranasal sinuses. IMPRESSION: 1. Areas of prior infarction without acute intracranial abnormality. 2. Age related findings. Reviewed, dictated and finalized at location A.
--- NOTE | ~2019-07-12 | XR_ITS ---
XR chest 2V DATE: 07/12/2019 12:47 INDICATION: Chest pain, shortness of breath. Weakness. TECHNIQUE: AP and lateral views COMPARISON: 06/15/2019 AP and lateral chest FINDINGS: Heart size is within upper limits of normal. There is aortic calcification. No hilar or med iastinal enlargement. No pulmonary infiltrate or consolidation, pleural effusion or pulmonary vascula r congestion or pneumothorax. Diffuse osteopenia. Degenerative change of the thoracic spine. IMPRESSION: No active cardiopulmonary disease Reviewed, dictated and finalized at location A.
--- NOTE | ~2019-07-12 | NM_ITS ---
EXAMINATION: NM sea stress w perfusion DATE: 07/14/2019 12:45 INDICATION: Chest pain. TECHNIQUE: Rest images were obtained following intravenous administration of 9.24 mCi Tc99m tetrofosm in (Myoview). The patient was infused intravenously with Lexiscan (regadenoson). Then, 29.2 mCi Tc99m tetrofosmin (Myoview) was administered intravenously, and stress images were obtained. Data was wood nstructed into short axis and horizontal and vertical long axis SPECT images. Gated SPECT images were also obtained. COMPARISON: Chest CT 07/13/2019 FINDINGS: There is a small, mild, fixed perfusion defect involving mid to basal inferolateral segment s of left ventricle, consistent with infarct. No reversible component to suggest ischemia. There is no segmental wall motion abnormality. Left ventricular ejection fraction measures >70%. IMPRESSION: 1. Small area of mild infarct involving mid to basal inferolateral segments of left ventricle. 2. Normal left ventricular ejection fraction measuring >70%. Reviewed, dictated and finalized at location E.
--- NOTE | 2019-07-12 11:30 | ECG_ITS ---
Measurements Intervals [place] Rate: 126 P: OK: 0 QRS: -62 QRSD: 102 T: 88 QT: 329 QTc: 477 Interpretive Statements ATRIAL TACHYCARDIA WITH INTERMITTENT SINUS BEATS VENTRICULAR PREMATURE COMPLEX INCOMPLETE RIGHT BUNDLE BRANCH BLOCK LEFT ANTERIOR FASCICULAR BLOCK ST-T WAVE ABNORMALITY IN HIGH LATERAL LEADS- CONSIDER ISCHEMIA ABNORMAL ECG Electronically Signed On 07-12-2019 11:39:20 CDT by Giles Paredes D.O.
[2019-07-12] MEDS: SODIUM CHLORIDE 0.9% IV 1,000 ML 999 ML IV CONT (11:57)
[2019-07-12 12:00] LABS: Basophils Percent Auto 0.3 % (0.2-1.2); Eosinophils Percent Auto 0.1 % (0-4.4); Hematocrit 35.3 % (42.0-52.0); Immature Granulocyte Percent A 1.9 % (0-0.5); Lymphocytes Absolute Auto 0.98 K/mm3 (0.9-3.2); Lymphocytes Percent Auto 9.1 % (18.3-44.2); Mean Corpuscular Hemoglobin 31.6 pg (26-34); Mean Corpuscular Volume 92.9 fl (80-100); Mean Platelet Volume 8.6 fl (7.4-10.4); Monocytes Absolute Auto 0.6 K/mm3 (0.1-0.6); Monocytes Percent Auto 5.3 % (2.6-8.5); Neutrophils Percent Auto 83.3 % (45.5-73.1); Nucleated Red Blood Cells Perc 0.2 % (0.0-0.2); Platelet Count Result 79 k/mm3 (150-375); Red Cell Distribution Width 18.4 % (11.5-14.5); White Blood Count 10.8 K/mm3 (4.5-10.0)
[2019-07-12 12:11] LABS: INR 1.1; Prothrombin Time 13.6 Seconds (11.1-14.7)
[2019-07-12 12:13] LABS: Alanine Aminotransferase 17 U/L (4-50); Albumin Level 3.3 g/dL (3.5-5.1); Alkaline Phosphatase 50 U/L (38-126); Aspartate Amino Transferase 18 U/L (17-59); Bilirubin,Total 1.1 mg/dL (0.2-1.3); Blood Urea Nitrogen 51 mg/dL (9-20); Calcium 9.6 mg/dL (8.4-10.2); Carbon Dioxide 24 mmol/L (22-30); Chloride 102 mmol/L (98-107); Estimated CRCL calculation 8 ml/min; Estimated Glomerular Filt Rate 6; Glucose 197 mg/dL (75-110); Sodium 138 mmol/L (137-145)
[2019-07-12 12:34] LABS: Troponin I 0.071 ng/mL (0.000-0.034)
--- NOTE | 2019-07-12 13:20 | ED.GENADULT ---
HPI - General Adult General Chief complaint: Dizziness Stated complaint: extreme dizziness/falling/v/d Time Seen by Provider: 07/12/19 11:21 History of Present Illness HPI narrative: Patient is a 73-year-old male who presents the ER with dizziness. Patient reports he has had some bouts with dizziness and weakness several times over the last couple months. Patient recently admitted with a work-up on his abdomen for chronic diarrhea and gallstones. He is not having abdominal pain at this time nor is he having nausea or vomiting. He is feeling quite dizzy when he goes from sitting to standing. He reports over the last couple days anytime he walks he has exertional chest pressure and dyspnea. It improves when he sits down. Related Data Home Medications Medication Instructions Recorded Confirmed allopurinol 100 mg PO DAILY 06/15/19 06/15/19 metoprolol tartrate 50 mg PO BID 06/15/19 06/15/19 niacin (inositol niacinate) 750 mg PO BID 06/15/19 06/15/19 vitamin B complex-folic acid [B 0.5 tablet PO DAILY 06/15/19 06/15/19 Complex 1 (with folic acid)] aspirin [Adult Low Dose Aspirin] 81 mg PO DAILY 07/12/19 Allergies Allergy/AdvReac Type Severity Reaction Status Date / Time No Known Allergies Allergy Mild Verified 07/12/19 12:05 Review of Systems Review of Systems: All systems reviewed & are unremarkable except as noted in HPI and below Constitutional: Constitutional: Denies chills, Denies fever(s) and Reports weakness ENT: Denies nasal congestion and Denies sore throat Cardiovascular: Cardiovascular: Reports chest pain, Denies rapid heart rate and Denies radiating jaw, neck or arm pain Respiratory: Respiratory: Denies cough, Reports dyspnea and Denies wheezing Gastrointestinal: Gastrointestinal: Denies abdominal pain, Denies nausea and Denies vomiting [facility] Past Medical History Medical History (Updated 07/12/19 @ 19:12 by Umair Melgoza MD) Anemia in chronic renal disease Chronic idiopathic thrombocytopenia Coronary artery disease With history of stent x3. Diverticulosis Colonoscopy on 06/21/[address] Boone demonstrated diverticulosis and internal hemorrhoids. End-stage renal disease on peritoneal dialysis Essential hypertension Gastroesophageal reflux disease EGD on 06/20/[address] Boone demonstrated reflux esophagitis and gastritis. Hyperlipidemia Obstructive sleep apnea Intolerant to CPAP. Surgical History Surgical History History of coronary artery stent placement X3 History of tonsillectomy and adenoidectomy Family History Family History Mother Heart attack Father Emphysema lung Sibling Rheumatoid arthritis Social History Social History (Updated 07/12/19 @ 17:12 by Kelly Delcid PA-C) Social History: He lives in [place] with his . They have 1 son. He is retired from [employer]. He smoked up to 2 packs of cigarettes per day for 60 years and quit . He denies alcohol and drug abuse. He designates his , Eunice, as his surrogate decision maker and he wishes to be a full code. Smoking packs per day: 2 Smoking cigarettes per day: 40.0 Years smoked: 30 Smoking pack-years: 60.00 Smoking status: Former smoker Tobacco type: cigarettes Smoking end date: 02/22/99 Alcohol intake: never Substance use: never Substance use type: does not use Gender identity (if verbalized by the patient): Male Spiritual care concerns: No Agree to blood products: Yes Exam Narrative: Exam Narrative: GENERAL: Well-appearing, well-nourished, and in no acute distress. HEAD: Normocephalic, atraumatic. ENT: Mucous membranes moist. NECK: Supple. CHEST: Clear to auscultation. No respiratory distress. HEART: Tachycardic and irregular regular. Normal peripheral pulses. ABDOMEN: Soft, nontender, nondistended. EXTREMITIES: No
[2019-07-12 15:16] LABS: Troponin I 0.102 ng/mL (0.000-0.034)
--- NOTE | 2019-07-12 17:25 | PC.NURSE ---
This patient, Kentrell Cosby, was admitted to IMU Room 200-01. Patient/family oriented to hospital policies and general routines including ID bracelet, bed and alarms, visiting hours, pain management, procedures, bathroom and other care routines, personal items, smoking policy, room service/diet, and visiting hours. Valuables list has been completed. Information on how to activate the Rapid Response Team has been discussed. Patient/Family are encouraged to report perceived risks to care and to ask questions if they do not understand what they are told or what they should do.
--- NOTE | 2019-07-12 18:07 | PM.CNNEP ---
Assessment and Plan Assessment and plan (1) End stage renal disease: Code(s): N18.6 - End stage renal disease Status: Chronic (2) Atrial fibrillation with RVR: Code(s): I48.91 - Unspecified atrial fibrillation Status: Acute (3) Hypokalemia: Code(s): E87.6 - Hypokalemia Status: Acute (4) Nausea vomiting and diarrhea: Code(s): R11.2 - Nausea with vomiting, unspecified; R19.7 - Diarrhea, unspecified Status: Acute (5) Orthostatic hypotension: Code(s): I95.1 - Orthostatic hypotension Status: Acute Assessment and Plan: . Additional Plan Jocelynn has end-stage renal disease and is on peritoneal dialysis. I will resume his peritoneal dialysis prescription this evening and continue it while he remains hospitalized here at [facility]. Because of his issues with dizziness lightheadedness and previous orthostatic hypotension, I will use only 1.5% Dianeal to limit fluid removal but the same time provide adequate clearance of the uremic toxins. His blood pressure medications were adjusted on his last hospitalization but yet he still continues to have the same symptoms that he had almost a month ago. Unfortunately, his issue with AFib with RVR may be somewhat difficult to treat aggressively given his issues with hypotension in general. I wonder if perhaps maybe he had the AFib with RVR on his last hospitalization that was not identified and hence the reason of why he has the persistence of his symptoms that he had almost a month ago as well. Cardiology has been counseled with regard to his AFib with RVR with recommendations to follow although I see room the goal of therapy would be rate control within limits of what his hemodynamics can tolerate. His potassium level will be repleted and this may or may not have been a potentiation for his current arrhythmia although as I mentioned, is very possibly may have had this condition even as far back as a month ago but we are unable to ?catch it? during his hospital stay. I will continue to follow his CKD parameters while he remains hospitalized and make further recommendations during his hospital course. Thank you for allowing me to participate in the care this patient. History of Present Illness Reason for Consult Consult date: 07/12/19 Reason for consult: end stage renal disease Chief Complaint Chief complaint: Dizziness and weakness. History of Present Illness Narrative: The patient is [id number] male with and extensive past medical history as outlined below who presented to the [facility] ER with complaints of dizziness and weakness. The patient was just recently hospitalized about a month ago for similar symptoms. At that time, it was found that he had orthostatic hypotension and his blood pressure medications were adjusted with improvement in his symptoms he also underwent an upper and lower endoscopy given his anemia which only demonstrated reflux esophagitis, gastritis, as well as diverticulosis with internal hemorrhoids. It was felt his nausea and vomiting were more secondary to a viral gastroenteritis. Unfortunately, since his discharge from the hospital, he has continued to do poorly with a poor appetite poor oral intake significant weight loss, nausea, as well as recurrence of the lightheadedness/dizziness along with weakness. He states he apparently has had several falls at home without any injury and reportedly some near syncopal episodes. Because of the return of the symptoms that he had on his previous hospitalization he came to the ER for further evaluation. Workup and evaluation emergency room was significant for discover that he was found to be in atrial fibrillation with a rapid ventricular response (pulse was in the 180s) although the patient himself denies any sensations of palpitations or racing heart pre did report some intermittent shortness of breath over the past week or so. He also reported some s
[2019-07-12 18:32] LABS: Troponin I 0.162 ng/mL (0.000-0.034)
--- NOTE | 2019-07-12 19:46 | PC.NURSE ---
Spoke with heart care group. Notified Dr. Hester of Patients heart rate greater than 170 and converted to AFIB
--- NOTE | 2019-07-12 20:00 | PM.IMHP ---
H&P: HPI History of Present Illness Chief complaint: Dizziness and weakness. Narrative: Kentrell Cosby is a 73-year-old male with end-stage renal disease on peritoneal dialysis, coronary artery disease with history of stents, a untreated obstructive sleep apnea, hypertension, and chronic anemia with chronic thrombocytopenia who presented to the emergency department earlier this morning for evaluation of dizziness and weakness. He is known to the hospitalist service and was a recent inpatient, hospitalized 06/14 - 06/20, for dizziness, nausea, and vomiting. He was found to have orthostatic hypotension and his nifedipine was held on discharge. He was also found to have cholelithiasis though HIDA scan demonstrated normal uptake with an ejection fraction at the lower end of normal at 31%. He had upper and lower endoscopies done per Dr. Boone showing reflux esophagitis and gastritis and diverticulosis with internal hemorrhoids, respectively. It was thought that his nausea vomiting was likely due to a viral gastroenteritis. Unfortunately, he continues to have nausea and very poor appetite and continues to have significant decrease in oral intake. He reports at least a 20 pound weight loss in the past several weeks due to such. In addition to the nausea and poor appetite, he continues to have intermittent lightheadedness/dizziness as well as progressive weakness. He has had several falls, without head trauma or injury, and near syncopal episodes. On arrival to the emergency department, he was found to be in atrial fibrillation with rapid ventricular response, with ventricular rate of 185. He does not have palpitations or feelings of racing heart, but has had mild midsternal chest pressure and shortness of breath intermittently over the past couple of weeks. He has no previous history of atrial fibrillation. No history of thyroid disease. He drinks 1 cup of coffee per day and denies alcohol use. Of note, he was diagnosed with sleep apnea many years ago and is intolerant to the CPAP. With further questioning, he does admit to paroxysmal nocturnal dyspnea as well as significant snoring episodes and daytime somnolence. Review of Systems Review of Systems: Narrative: Twelve systems were reviewed with pertinent positives and negatives as per HPI. No fever, chills, or sweats. Occasional headache. No vertigo. He denies focal weakness and paresthesias. No auditory visual changes. He denies recent cold and flu symptoms. No cough. No sick contacts. He does still urinate in small amounts, and denies dysuria. No diarrhea. In no history of malignancy. Except as documented, all other systems were reviewed with pertinent positives and negatives as per HPI. [facility] Past Medical History Medical History (Updated 07/12/19 @ 21:58 by Kelly Delcid PA-C) Anemia in chronic renal disease Chronic idiopathic thrombocytopenia Coronary artery disease With history of stent x3. Diverticulosis Colonoscopy on 06/21/[address] Boone demonstrated diverticulosis and internal hemorrhoids. End-stage renal disease on peritoneal dialysis Essential hypertension Gastroesophageal reflux disease EGD on 06/20/[address] Boone demonstrated reflux esophagitis and gastritis. Hyperlipidemia Obstructive sleep apnea Intolerant to CPAP. Surgical History Surgical History History of coronary artery stent placement X3 History of tonsillectomy and adenoidectomy Family History Family History Mother Heart attack Father Emphysema lung Sibling Rheumatoid arthritis Social History Social History (Updated 07/12/19 @ 21:50 by Kelly Delcid PA-C) Social History: The patient lives in [place] with his . They have 1 son. He is retired from [employer]. He smoked up to 2 packs of cigarettes per day for many years and quit in 1999. He denie
[2019-07-12] MEDS: DILTIAZEM HCL 30 MG TABLET PO (20:25)
[2019-07-12 22:14] LABS: Magnesium 1.8 mg/dL (1.6-2.3); Phosphorus 5.9 mg/dL (2.5-4.5)
[2019-07-12 22:16] LABS: Blood Urea Nitrogen 53 mg/dL (9-20); Calcium 9.1 mg/dL (8.4-10.2); Carbon Dioxide 25 mmol/L (22-30); Chloride 103 mmol/L (98-107); Estimated CRCL calculation 9 ml/min; Estimated Glomerular Filt Rate 7; Glucose 173 mg/dL (75-110); Potassium 2.8 mmol/L (3.4-5.0); Sodium 136 mmol/L (137-145)
[2019-07-12] MEDS: POTASSIUM CHLORIDE 20 MEQ TABLET 40 MEQ PO (22:49)
[2019-07-12] MEDS: METOPROLOL TARTRATE 50 MG TAB PO (22:49)
[2019-07-12 23:01] LABS: Thyroid Stimulating Hormone Reflex 0.608 uIU/mL (0.465-4.68)
[2019-07-13] VITALS (24 sets, daily range): BP systolic 59–143; BP diastolic 41–84; PULSE 66–123; RESP 14–20; TEMP 35.6–36.3; O2SAT 98–100; BMI 34.3
[2019-07-13] MEDS: DILTIAZEM HCL 30 MG TABLET PO ×3 (05:16→20:38)
[2019-07-13] MEDS: METOPROLOL TARTRATE 50 MG TAB PO ×2 (08:25→18:31)
[2019-07-13] MEDS: ASPIRIN 81 MG ENTERIC TABLET PO (08:25)
[2019-07-13] MEDS: allopurinoL 100 MG TABLET PO (08:26)
[2019-07-13] MEDS: HEPARIN SODIUM 5,000 UNITS/ML VIAL 5000 UNITS SUB-Q ×2 (08:26→20:38)
[2019-07-13 08:53] LABS: Blood Urea Nitrogen 49 mg/dL (9-20); Calcium 9.2 mg/dL (8.4-10.2); Carbon Dioxide 24 mmol/L (22-30); Chloride 103 mmol/L (98-107); Estimated CRCL calculation 9 ml/min; Estimated Glomerular Filt Rate 7; Glucose 155 mg/dL (75-110); Magnesium 1.6 mg/dL (1.6-2.3); Potassium 3.2 mmol/L (3.4-5.0); Sodium 137 mmol/L (137-145)
--- NOTE | 2019-07-13 09:24 | PCDIET ---
Recommend regular diet, oral supplements TID. Small, frequent meals and protein rich foods encouraged. See Nutrition Assessment for additional details.
--- NOTE | 2019-07-13 10:11 | PM.IMPN ---
Progress Note: A&P Assessment and Plan (1) Atrial tachycardia: Code(s): I47.1 - Supraventricular tachycardia Status: Acute Assessment and Plan: Atrial fibrillation suspected on admission with cardiology consulted. Discussed with Dr. Phelps today. Appears to be more consistent with atrial tachycardia at this time. Current telemetry on 07/13/2019 with sinus rhythm with rate controlled. Metoprolol still in place and will monitor. (2) Dizziness: Code(s): R42 - Dizziness and giddiness Status: Acute Assessment and Plan: CT brain with areas of prior infarction without acute changes. At this point, most likely result of orthostatic hypotension as noted below. Will continue to monitor. (3) Orthostatic hypotension: Code(s): I95.1 - Orthostatic hypotension Status: Acute Assessment and Plan: Known previous history. Orthostatic blood pressures done this morning and positive. Blood pressure better this afternoon with metoprolol and diltiazem still in place. Will monitor. (4) Hypokalemia: Code(s): E87.6 - Hypokalemia Status: Acute Assessment and Plan: Potassium down to 2.8 yesterday with oral replacement given. Potassium better at 3.2 today with additional oral replacement given. Will continue to monitor and replace as needed. (5) Elevated troponin: Code(s): R79.89 - Other specified abnormal findings of blood chemistry Status: Chronic Assessment and Plan: Cardiology consulted and appreciate input. Serial troponin levels are elevated. May be result of end-stage renal disease but cannot exclude coronary artery disease. Patient also with shortness of breath. Discussed with Cardiology as well as consulted nephrology. D dimer ordered and if positive will do CTA chest to rule out PE. D-dimer elevated at 1.17. CTA chest ordered With no pulmonary embolism seen, trace pleural effusions and right thyroid nodule. Will order thyroid ultrasound for completeness. (6) Essential hypertension: Code(s): I10 - Essential (primary) hypertension Status: Acute Assessment and Plan: Positive orthostasis this morning. Blood pressures improved through the day. Will monitor with diltiazem and metoprolol in place. (7) Esophagitis: Code(s): K20.9 - Esophagitis, unspecified Status: Acute Assessment and Plan: As seen on EGD in May. Probably contributing to nausea and vomiting issues. Patient reports he stopped taking Protonix at home as it caused severe diarrhea. No other PPI options available here. Will give Pepcid and monitor. Did discuss recent hepatobiliary scan with gallbladder ejection fraction at 31%. Advised patient will need to treat esophagitis and gastritis prior to consideration of gallbladder removal. (8) Gastritis: Qualifiers: Gastritis type: unspecified gastritis Chronicity: unspecified Gastritis bleeding: without bleeding Qualified Code(s): K29.70 - Gastritis, unspecified, without bleeding Code(s): K29.70 - Gastritis, unspecified, without bleeding Status: Acute Assessment and Plan: Also was seen on EGD in May. Will give Pepcid as noted above. (9) End-stage renal disease on peritoneal dialysis: Code(s): N18.6 - End stage renal disease; Z99.2 - Dependence on renal dialysis Status: Acute Assessment and Plan: Nephrology consulted and appreciate input. Patient is on peritoneal dialysis with plan to continue per Nephrology. May be contributing to nausea and poor appetite. (10) Anemia in chronic renal disease: Qualifiers: Chronic kidney disease stage: on chronic dialysis Qualified Code(s): N18.6 - End stage renal disease; D63.1 - Anemia in chronic kidney disease; Z99.2 - Dependence on renal dialysis Code(s): N18.9 - Chronic kidney disease, unspecified; D63.1 - Anemia in chronic kidney disease Status: Acute Assessment and Plan:
--- NOTE | 2019-07-13 11:37 | PM.CNCAR ---
Assessment and Plan Assessment and plan (1) Essential hypertension: Code(s): I10 - Essential (primary) hypertension Status: Acute Assessment and Plan: Actually hypotensive at this point (2) Atrial fibrillation with rapid ventricular response: Code(s): I48.91 - Unspecified atrial fibrillation Status: Acute Assessment and Plan: In my opinion this is predominantly atrial tachycardia rather than atrial fibrillation. Holding beta-dustin and calcium channel dustin at this point given his hypotension. When able though, would restart metoprolol at a lower dose of 25 mg p.o. b.i.d. and up titrate as able (3) Hypokalemia: Code(s): E87.6 - Hypokalemia Status: Acute Assessment and Plan: Will replace with 40 mEq p.o. x1 of potassium chloride His magnesium level is also low on with given 2 g of IV magnesium (4) Elevated troponin: Code(s): R79.89 - Other specified abnormal findings of blood chemistry Status: Acute Assessment and Plan: Probably related to underlying tachycardia and end-stage renal disease. Cannot exclude underlying coronary disease however. (5) ESRD on dialysis: Code(s): N18.6 - End stage renal disease; Z99.2 - Dependence on renal dialysis Status: Acute Assessment and Plan: On peritoneal dialysis (6) Chest tightness: Code(s): R07.89 - Other chest pain Status: Acute Assessment and Plan: Possibly anginal. Will keep him NPO after midnight for Lexiscan myocardial perfusion study tomorrow (7) Shortness of breath: Code(s): R06.02 - Shortness of breath Status: Acute Assessment and Plan: Concerning. May be related to underlying coronary disease but his dyspnea is severe. CT chest with PE protocol (8) Dizziness: Code(s): R42 - Dizziness and giddiness Status: Acute Assessment and Plan: dizziness related to orthostatic hypotension. This in part may be related to some a dehydration as he has not been eating and drinking very well lately. Will consider midodrine. B.i.d. orthostatic blood pressures History of Present Illness History of Present Illness Consult date/time: 07/13/19 11:37 Requesting physician: Umair Melgoza MD Consult reason: chest pain and atrial fibrillation Reason For Visit: Dizziness and weakness. Narrative: Date of service 07/13/2019 Reason for consultation: Chest pain, ?atrial fibrillation? History patient is a 73-year-old male who follows with Dr. Amin at [facility] in [place]. His a history of end-stage renal disease on peritoneal dialysis, coronary disease and history of 3 stents in the past and untreated sleep apnea, high blood pressure anemia and thrombocytopenia. He presents to the hospital with various complaints. He has had a few week's worth of extreme dizziness RV stand up. He has feels quite faint but has never actually passed out. He has lost his balance upon standing go because he was so faint. He has not been eating and drinking as much as usual during this timeframe predominantly because of nausea and some vomiting. Reportedly has had some gastritis and there is some concern of gallbladder disease. Additionally he describes some chest pain which has been worsened with exertion and better with rest. His chest pain is associated with shortness of breath and in fact patient is more concerned about his severe shortness of breath with mild activity even more than the chest pain itself. His chest pain is mildly pleuritic. It will last for 30 minutes at a time. It has been present for about 3 weeks. No social nausea or diaphoresis. Symptoms will improve with rest. He has any symptoms with mild activity such as walking even around the house. He has had some palpitations also. No paroxysmal nocturnal dyspnea, orthopnea or edema. He came to the hospital because of the symptoms and was found to be and what was t
[2019-07-13] MEDS: MAGNESIUM SULF 2 GM/WATER 50ML 2 GM/50 ML BAG IVPB (12:19)
[2019-07-13] MEDS: POTASSIUM CHLORIDE 20 MEQ TABLET 40 MEQ PO (12:19)
[2019-07-13] MEDS: SEVELAMER CARBONATE 800 MG TABLET PO ×2 (12:23→18:31)
[2019-07-13 12:46] LABS: D Dimer 1.17 ug/mL (<0.48)
--- NOTE | 2019-07-13 12:58 | PM.PNNEP ---
Progress Note: A&P Assessment and Plan (1) End stage renal disease: Code(s): N18.6 - End stage renal disease Status: Chronic Assessment and Plan: continue CCPD while hospitalized follow electrolytes, volume status, and clearance (2) Hypokalemia: Code(s): E87.6 - Hypokalemia Status: Acute Assessment and Plan: replete as needed suspect secondary to ongoing dialysis, nausea/vomiting, and poor oral intake replete magnesium PRN (3) Atrial tachycardia: Code(s): I47.1 - Supraventricular tachycardia Status: Acute Assessment and Plan: Cardiology following on metoprolol and diltiazem for rate control (4) Orthostatic hypotension: Code(s): I95.1 - Orthostatic hypotension Status: Acute Assessment and Plan: present on last hospitalization as well follow trend consider midodrine but not sure the benefit since also on metoprolol/diltiazem PT/OT as tolerated Will continue to follow. Subjective Date/time seen: 07/13/19 12:58 Tolerated CCPD overnight without any issues or problems; he otherwise appears in no acute distress; did not tolerated potassium repletion last night; no acute complaints at this time. Exam Narrative: Exam Narrative: General: WD/WN male in NAD Heart: normal S1 and S2; no rub Lungs: clear to auscultation Abdomen: soft, nontender, nondistended, positive bowel sounds Extremities: no cyanosis or clubbing; no edema Skin: warm and dry Objective Data Vital Signs Vital Signs: Vital Signs Temp Pulse Resp BP Pulse Ox 07/13/19 12:09 36.1 C L 83 20 59/41 L 100 07/13/19 12:08 76 70/54 L 07/13/19 12:07 89 84/46 L 07/13/19 10:00 82 07/13/19 08:25 107 H 07/13/19 08:08 35.6 C L 99 20 114/54 L 99 07/13/19 08:00 95 07/13/19 05:54 91 07/13/19 04:32 36.2 C L 87 18 104/58 L 98 07/13/19 04:00 88 18 99 07/13/19 02:00 92 07/13/19 00:15 35.7 C L 121 H 18 91/57 L 99 07/12/19 23:37 120 H 20 99 07/12/19 22:49 106 H 07/12/19 22:00 118 H 07/12/19 20:27 35.9 C L 115 H 20 114/41 L 99 07/12/19 20:26 36.0 C L 115 H 18 118/61 98 07/12/19 20:00 113 H 20 99 07/12/19 19:50 36.3 C L 111 H 16 143/66 H 07/12/19 19:14 36.3 C L 111 H 16 143/66 H 100 07/12/19 18:00 114 H 07/12/19 17:15 36.3 C L 116 H 22 H 135/77 100 07/12/19 17:13 100 07/12/19 16:59 110 H 18 120/63 100 07/12/19 15:39 87 18 133/82 100 07/12/19 13:54 88 18 122/80 100 Intake/Output Intake/Output: Intake & Output 07/10/19 07/11/19 07/12/19 07/13/19 23:59 23:59 23:59 23:59 Intake Total 1240 440 Balance 1240 440 Meds/Results Medications: Active Medications Generic Name Dose Route Start Last Admin Trade Name Freq PRN Reason Stop Dose Admin Acetaminophen 650 mg 07/12/19 14:28 Tylenol Tablet PO Q4H PRN Mild Pain (1-3) or Fever Hydrocodone Bitart/Acetaminophen 1 tab 07/12/19 14:28 [place] 5-325 Mg PO Q4H PRN Pain Rated 4-6 Allopurinol 100 mg 07/13/19 09:00 07/13/19 08:26 Zyloprim PO 100 mg DAILY [facility] Administration Aspirin 81 mg 07/13/19 09:00 07/13/19 08:25 Aspirin Ec PO 81 mg DAILY [facility] Administration Calcium Polycarbophil 1,250 mg 07/13/19 17:00 Fiber Con PO BID [facility] Diltiazem HCl 30 mg 07/12/19 22:00 07/13/19 05:16 Cardizem Tab PO 30 mg Q8HR [facility] Administration Famotidine 20 mg 07/13/19 11:30 Pepcid PO Q12HR [facility] Heparin Sodium (Porcine) 5,000 units 07/13/19 09:00 07/13/19 08:26 Heparin Sodium SUB-Q 5,000 units Q12HR [facility] Administration Metoprolol Tartrate 50 mg 07/12/19 21:45 07/13/19 08:25 Lopressor PO 50 mg BID [facility] Administration Morphine Sulfate 4 mg 07/12/19 14:28 Morphine Sulfate Inj IV PUSH Q2H PRN Pain Rated 7-10 Ondansetron HCl 4 mg 07/12/19 14:28 Zofran Inj
[2019-07-13 13:58] LABS: Thyroid Stimulating Hormone 0.715 uIU/mL (0.465-4.680)
[2019-07-13] MEDS: FAMOTIDINE 20 MG TABLET PO ×2 (14:00→20:38)
[2019-07-13 15:42] LABS: Hepatitis B Surface Antigen Negative (Negative)
[2019-07-13 16:00] LABS: Hepatitis B Surface Anti Res Negative
[2019-07-13] MEDS: calcium polycarbophiL 625 MG TABLET 1250 MG PO (18:31)
[2019-07-13 19:54] LABS: T4 Thyroxine 4.81 ug/dL (5.53-11.0)
[2019-07-14] VITALS (27 sets, daily range): BP systolic 46–138; BP diastolic 29–93; PULSE 83–136; RESP 18–22; TEMP 35.8–36.7; O2SAT 93–99
[2019-07-14] MEDS: ONDANSETRON INJ 4 MG/2 ML VIAL IV PUSH (02:00)
[2019-07-14 05:13] LABS: Hematocrit 36.2 % (42.0-52.0); Mean Corpuscular HGB Conc 33.1 g/dl (32-36); Mean Corpuscular Volume 96.5 fl (80-100); Mean Platelet Volume 9.5 fl (7.4-10.4); Platelet Count Result 81 k/mm3 (150-375); Red Blood Count 3.75 M/mm3 (4.6-6.20); Red Cell Distribution Width 19.2 % (11.5-14.5); White Blood Count 16.6 K/mm3 (4.5-10.0)
[2019-07-14] MEDS: DILTIAZEM HCL 30 MG TABLET PO ×3 (05:40→22:16)
[2019-07-14 06:46] LABS: Blood Urea Nitrogen 47 mg/dL (9-20); Calcium 9.3 mg/dL (8.4-10.2); Carbon Dioxide 27 mmol/L (22-30); Chloride 102 mmol/L (98-107); Estimated CRCL calculation 9 ml/min; Estimated Glomerular Filt Rate 6; Glucose 168 mg/dL (75-110); Magnesium 1.9 mg/dL (1.6-2.3); Potassium 3.4 mmol/L (3.4-5.0); Sodium 136 mmol/L (137-145)
--- NOTE | 2019-07-14 08:00 | EST_ITS ---
Patient Info Name: Kentrell Cosby Age: 73 years : 1945 Gender: Male Ht: 68 in Wt: 225 lbs BSA: 2.25 m2 Exam Date: 07/14/2019 11:28 AM Exam Location: [facility] Stress Patient Status: Inpatient Admit Date: 07/13/2019 Staff Ordering Physician: Raphael Phelps MD Attending Provider: Kishore Danielson MD Exercise Technologist: Flori Matias RDCS Nurse: Demi Adhikari, STEVE, ACNP- Exam Type: CA stress sea w NM Study Info Indications R07.89 - Other chest pain A regadenoson stress test was performed. Summary 1. Normal sinus rhythm. 2. Frequent atrial ectopics. 3. Poor R wave progression. 4. No abnormal ST/T wave changes with exercise. 5. Frequent PACs. 6. MPI to be reported by radiology. Protocol: Lexiscan Stress ECG Details Stage: REST Duration (min): 0 min : 48 sec HR (bpm): 112 SBP (mmHg): 102 DBP (mmHg): 55 Stage: REST Duration (min): 11 min : 7 sec HR (bpm): 108 SBP (mmHg): 102 DBP (mmHg): 55 Stage: STAGE 1 Duration (min): 0 min : 59 sec HR (bpm): 110 SBP (mmHg): 102 DBP (mmHg): 55 Stage: RECOVERY Duration (min): 1 min : 0 sec HR (bpm): 114 SBP (mmHg): 78 DBP (mmHg): 41 Stage: RECOVERY Duration (min): 2 min : 0 sec HR (bpm): 115 SBP (mmHg): 78 DBP (mmHg): 41 Stage: RECOVERY Duration (min): 3 min : 0 sec HR (bpm): 80 SBP (mmHg): 78 DBP (mmHg): 41 Stage: RECOVERY Duration (min): 4 min : 0 sec HR (bpm): 117 SBP (mmHg): 78 DBP (mmHg): 41 Stage: RECOVERY Duration (min): 5 min : 0 sec HR (bpm): 122 SBP (mmHg): 78 DBP (mmHg): 37 Stage: RECOVERY Duration (min): 6 min : 0 sec HR (bpm): 126 SBP (mmHg): 78 DBP (mmHg): 37 Stage: RECOVERY Duration (min): 7 min : 0 sec HR (bpm): 133 SBP (mmHg): 83 DBP (mmHg): 36 Stage: RECOVERY Duration (min): 8 min : 0 sec HR (bpm): 121 SBP (mmHg): 83 DBP (mmHg): 36 Stage: RECOVERY Duration (min): 9 min : 0 sec HR (bpm): 125 SBP (mmHg): 73 DBP (mmHg): 37 Stage: RECOVERY Duration (min): 10 min : 0 sec HR (bpm): 124 SBP (mmHg): 73 DBP (mmHg): 37 Stage: RECOVERY Duration (min): 11 min : 0 sec HR (bpm): 117 SBP (mmHg): 73 DBP (mmHg): 37 Stage: RECOVERY Duration (min): 12 min : 0 sec HR (bpm): 115 SBP (mmHg): 72 DBP (mmHg): 40 Stage: RECOVERY Duration (min): 13 min : 0 sec HR (bpm): 114 SBP (mmHg): 72 DBP (mmHg): 40 Stage: RECOVERY Duration (min): 14 min : 0 sec HR (bpm): 111 SBP (mmHg): 72 DBP (mmHg): 40 Stage: RECOVERY Duration (min): 15 min : 0 sec HR (bpm): 110 SBP (mmHg): 72 DBP (mmHg): 40
[2019-07-14] MEDS: FAMOTIDINE 20 MG TABLET PO ×2 (08:21→20:22)
[2019-07-14] MEDS: ASPIRIN 81 MG ENTERIC TABLET PO (08:21)
[2019-07-14] MEDS: allopurinoL 100 MG TABLET PO (08:21)
[2019-07-14] MEDS: HEPARIN SODIUM 5,000 UNITS/ML VIAL 5000 UNITS SUB-Q ×2 (08:21→20:23)
--- NOTE | 2019-07-14 10:03 | PM.IMPN ---
Progress Note: A&P Assessment and Plan (1) Atrial tachycardia: Code(s): I47.1 - Supraventricular tachycardia Status: Acute Assessment and Plan: Atrial fibrillation suspected on admission with cardiology consulted. Appreciate help from Cardiology. Findings were consistent with atrial tachycardia. Telemetry on 07/13/2019 with sinus rhythm with rate controlled. Plan for stress test today with beta-dustin held as a result. Will continue to monitor. Lexiscan stress test with small area of mild infarct involving mid to basal inferolateral segments of left ventricle and EF greater than 70%. Await further recommendations from Cardiology. (2) Dizziness: Code(s): R42 - Dizziness and giddiness Status: Acute Assessment and Plan: CT brain with areas of prior infarction without acute changes. At this point, most likely result of orthostatic hypotension as noted below. Will need eventual PT/OT once stable from cardiac standpoint. Will continue to monitor. (3) Orthostatic hypotension: Code(s): I95.1 - Orthostatic hypotension Status: Acute Assessment and Plan: Known previous history. Orthostatic blood pressures done yesterday and positive. Blood pressure today is better. Remains on diltiazem and metoprolol. Will continue to monitor. (4) Hypokalemia: Code(s): E87.6 - Hypokalemia Status: Acute Assessment and Plan: Potassium up to 3.4 today. Will continue to monitor. Replace as needed. (5) Elevated troponin: Code(s): R79.89 - Other specified abnormal findings of blood chemistry Status: Chronic Assessment and Plan: Cardiology consulted and appreciate input. Serial troponin levels elevated. D-dimer was positive with CTA chest ordered showing no pulmonary embolism. Lexiscan stress test done today as noted above. Await further recommendations from Cardiology. (6) Essential hypertension: Code(s): I10 - Essential (primary) hypertension Status: Acute Assessment and Plan: Positive orthostasis yesterday as noted above. Blood pressure better today. Will continue to monitor on diltiazem and metoprolol. (7) Esophagitis: Code(s): K20.9 - Esophagitis, unspecified Status: Acute Assessment and Plan: As seen on EGD in May. Probably contributing to nausea and vomiting issues. Patient reports he stopped taking Protonix at home as it caused severe diarrhea. No other PPI options available here. Will continue Pepcid for now. Patient does have known gallbladder ejection fraction of 31% on recent hepatobiliary scan. Advised patient will need to treat esophagitis and gastritis before considering removal of gallbladder as cause of his nausea vomiting. (8) Gastritis: Qualifiers: Chronicity: unspecified Gastritis bleeding: without bleeding Gastritis type: unspecified gastritis Qualified Code(s): K29.70 - Gastritis, unspecified, without bleeding Code(s): K29.70 - Gastritis, unspecified, without bleeding Status: Acute Assessment and Plan: Also was seen on EGD in May. Will continue Pepcid as noted above. (9) End-stage renal disease on peritoneal dialysis: Code(s): N18.6 - End stage renal disease; Z99.2 - Dependence on renal dialysis Status: Acute Assessment and Plan: Nephrology consulted and appreciate input. Patient is on peritoneal dialysis with plan to continue per Nephrology. May be contributing to nausea and poor appetite. (10) Anemia in chronic renal disease: Qualifiers: Chronic kidney disease stage: on chronic dialysis Qualified Code(s): N18.6 - End stage renal disease; D63.1 - Anemia in chronic kidney disease; Z99.2 - Dependence on renal dialysis Code(s): N18.9 - Chronic kidney disease, unspecified; D63.1 - Anemia in chronic kidney disease Status: Acute Assessment and Plan: Hemoglobin stable and unchanged at 12.0 today.
--- NOTE | 2019-07-14 10:20 | PC.NURSE ---
Patient to Nuclear Medicine and ultrasound via stretcher.
--- NOTE | 2019-07-14 12:39 | PM.PNCARD ---
Progress Note: A&P Assessment and Plan (1) Essential hypertension: Code(s): I10 - Essential (primary) hypertension Status: Acute Assessment and Plan: Actually hypotensive at this point (2) Atrial fibrillation with rapid ventricular response: Code(s): I48.91 - Unspecified atrial fibrillation Status: Acute Assessment and Plan: Thought to be predominantly atrial tachycardia. Beta-dustin held this morning due to orthostatic hypotension. Did get diltiazem at 0540. He is still profoundly orthostatic. During his stress test his heart rhythm appeared to be atrial fibrillation. (3) Hypokalemia: Code(s): E87.6 - Hypokalemia Status: Acute Assessment and Plan: Supplement as needed. Magnesium was supplemented yesterday. Monitor closely. (4) Elevated troponin: Code(s): R79.89 - Other specified abnormal findings of blood chemistry Status: Acute Assessment and Plan: Probably related to underlying tachycardia and end-stage renal disease. Cannot exclude underlying coronary disease however. Lexiscan pending Follows with [facility] (5) ESRD on dialysis: Code(s): N18.6 - End stage renal disease; Z99.2 - Dependence on renal dialysis Status: Acute Assessment and Plan: On peritoneal dialysis , (6) Chest tightness: Code(s): R07.89 - Other chest pain Status: Acute Assessment and Plan: Lexiscan as above (7) Shortness of breath: Code(s): R06.02 - Shortness of breath Status: Acute Assessment and Plan: CT chest with PE protocol negative for PE Lexiscan as above (8) Dizziness: Code(s): R42 - Dizziness and giddiness Status: Acute Assessment and Plan: Dizziness related to orthostatic hypotension. This in part may be related to some a dehydration as he has not been eating and drinking very well lately. Consider midodrine. B.i.d. orthostatic blood pressures Additional Plan Further recommendations pending Lexiscan results Plan discussed with Dr. Phelps [id number] 07/14/2019 Time Spent With Patient Time with patient: 15 - 25 minutes Subjective Date/time seen: 07/14/19 12:39 Interval history: Follow-up for: Atrial tach, dizziness, orthostatic hypotension, chest discomfort, shortness of breath, end-stage renal disease on peritoneal dialysis, hypokalemia Date of service: 07/14/2019 Subjective: Denied chest discomfort or shortness of breath. No dizziness at this time. Seen in stress lab. Review of Systems Constitutional: Constitutional: Denies excessive sweating, Denies fatigue, Denies headache(s) and Reports weakness Eyes: Eyes: Denies blurry vision ENT: Reports Normal hearing present, Denies headache(s), Denies lip swelling, Denies epistaxis and Denies neck pain Cardiovascular: Cardiovascular: Reports chest pain and Reports dyspnea on exertion Respiratory: Respiratory: Reports dyspnea on exertion Gastrointestinal: Gastrointestinal: Reports abdominal pain and Reports vomiting Genitourinary: Genitourinary: Denies hematuria Musculoskeletal: Musculoskeletal: Denies back pain and Denies neck pain Integumentary/Breasts: Skin/Breast: Reports dry skin Neurologic: Reports Normal hearing present, Denies confusion, Denies headache(s) and Reports weakness Psychiatric: Psychiatric: Denies anxiety and Denies confusion Endocrine: Endocrine: Denies excessive sweating and Denies fatigue Hematologic/Lymphatic: Hematologic/Lymphatic: Denies easy bleeding and Denies easy bruising Allergic/Immunologic: Allergic/Immunologic: Denies GI upset with certain foods and Denies lip swelling Exam Narrative: Exam Narrative: Seen in stress lab. On stretcher. No distress. Const: General:
--- NOTE | 2019-07-14 13:08 | PC.NURSE ---
Patient returned to room following NM and US.
--- NOTE | 2019-07-14 15:32 | PM.PNNEP ---
Progress Note: A&P Assessment and Plan (1) End stage renal disease: Code(s): N18.6 - End stage renal disease Status: Chronic Assessment and Plan: continue CCPD while hospitalized follow electrolytes, volume status, and clearance (2) Hypokalemia: Code(s): E87.6 - Hypokalemia Status: Acute Assessment and Plan: replete as needed suspect secondary to ongoing dialysis, nausea/vomiting, and poor oral intake replete magnesium PRN (3) Atrial tachycardia: Code(s): I47.1 - Supraventricular tachycardia Status: Acute Assessment and Plan: Cardiology following on metoprolol and diltiazem for rate control (4) Orthostatic hypotension: Code(s): I95.1 - Orthostatic hypotension Status: Acute Assessment and Plan: present on last hospitalization as well follow trend consider trial of midodrine but not sure the benefit since also on metoprolol/diltiazem PT/OT as tolerated Will continue to follow. Subjective Date/time seen: 07/14/19 15:32 Continues to tolerated nightly CCPD while hospitalized; continues to be orthostatic (as noted by AM vital signs) despite conservative therapy; sleeping comfortably at the time of my visit. Exam Narrative: Exam Narrative: General: WD/WN male in NAD Heart: normal S1 and S2; no rub Lungs: clear to auscultation Abdomen: soft, nontender, nondistended, positive bowel sounds Extremities: no cyanosis or clubbing; no edema Skin: warm and intact Objective Data Vital Signs Vital Signs: Vital Signs Temp Pulse Resp BP Pulse Ox 07/14/19 14:21 105 H 125/63 07/14/19 14:00 105 H 07/14/19 12:00 117 H 07/14/19 10:00 103 H 07/14/19 09:47 36.7 C 110 H 20 103/60 07/14/19 08:16 136 H 46/29 L 07/14/19 08:14 121 H 60/36 L 07/14/19 08:12 36.0 C L 110 H 20 103/60 93 07/14/19 08:00 114 H 07/14/19 05:44 118 H 07/14/19 04:05 36.6 C 118 H 20 104/66 96 07/14/19 03:42 99 18 99 07/14/19 02:00 99 07/14/19 00:00 35.8 C L 96 18 126/82 99 07/13/19 22:00 102 H 07/13/19 20:00 98 14 99 07/13/19 19:39 123 H 99/84 L 07/13/19 19:34 115 H 77/48 L 07/13/19 19:33 36.3 C L 98 131/67 99 07/13/19 18:32 127/73 07/13/19 18:31 102 H 07/13/19 18:00 100 07/13/19 16:00 35.9 C L 89 14 119/69 99 Intake/Output Intake/Output: Intake & Output 07/11/19 07/12/19 07/13/19 07/14/19 23:59 23:59 23:59 23:59 Intake Total 1240 920 150 Output Total -1229 790 Balance 1240 2144 -640 Meds/Results Medications: Active Medications Generic Name Dose Route Start Last Admin Trade Name Freq PRN Reason Stop Dose Admin Acetaminophen 650 mg 07/12/19 14:28 Tylenol Tablet PO Q4H PRN Mild Pain (1-3) or Fever Hydrocodone Bitart/Acetaminophen 1 tab 07/12/19 14:28 [place] 5-325 Mg PO Q4H PRN Pain Rated 4-6 Allopurinol 100 mg 07/13/19 09:00 07/14/19 08:21 Zyloprim PO 100 mg DAILY DARA Administration Aspirin 81 mg 07/13/19 09:00 07/14/19 08:21 Aspirin Ec PO 81 mg DAILY DARA Administration Calcium Polycarbophil 1,250 mg 07/13/19 17:00 07/14/19 08:28 Fiber Con PO Not Given BID DARA Diltiazem HCl 30 mg 07/12/19 22:00 07/14/19 14:17 Cardizem Tab PO 30 mg Q8HR DARA Administration Famotidine 20 mg 07/13/19 11:30 07/14/19 08:21 Pepcid PO 20 mg Q12HR DARA Administration Heparin Sodium (Porcine) 5,000 units 07/13/19 09:00 07/14/19 08:21 Heparin Sodium SUB-Q 5,000 units Q12HR DARA Administration Metoprolol Tartrate 50 mg 07/12/19 21:45 07/14/19 08:18 Lopressor PO Not Given BID [facility] Morphine Sulfate 4 mg 07/12/19 14:28 Morphine Sulfate Inj IV PUSH Q2H PRN Pain Rated 7-10 Ondansetron HCl 4 mg 07/12/19 14:28 07/14/19 02:00 Zofran Inj IV PUSH 4 mg Q4H PRN Administration Nausea Sevela
[2019-07-14] MEDS: SEVELAMER CARBONATE 800 MG TABLET PO (17:28)
[2019-07-14] MEDS: calcium polycarbophiL 625 MG TABLET 1250 MG PO (17:28)
[2019-07-14] MEDS: METOPROLOL TARTRATE 50 MG TAB PO (17:31)
[2019-07-15] VITALS (27 sets, daily range): BP systolic 66–143; BP diastolic 25–105; PULSE 70–107; RESP 16–22; TEMP 35.9–36.4; O2SAT 94–98
[2019-07-15 04:36] LABS: Blood Urea Nitrogen 50 mg/dL (9-20); Calcium 9.5 mg/dL (8.4-10.2); Carbon Dioxide 27 mmol/L (22-30); Chloride 101 mmol/L (98-107); Estimated CRCL calculation 8 ml/min; Estimated Glomerular Filt Rate 6; Glucose 160 mg/dL (75-110); Potassium 3.3 mmol/L (3.4-5.0); Sodium 135 mmol/L (137-145)
[2019-07-15] MEDS: DILTIAZEM HCL 30 MG TABLET PO ×3 (06:04→22:09)
--- NOTE | 2019-07-15 06:51 | PM.PNCARD ---
Progress Note: A&P Additional Plan 73-year-old man with History of coronary artery disease previous PCI not here at [facility] or by our practice. We have no details regarding those previous interventions. Fortunately his nuclear stress test yesterday is negative and in light of atypical symptoms I do not anticipate additional ischemia workup here. Irregular cardiac rhythm for the most part while we are seeing is not atrial fibrillation but appears to be sinus with frequent atrial ectopic activity. Some of his rhythm strips are more suggestive of atrial fib if he has this the AFib burden is very small and asymptomatic Patient is concerned that he needs to have his gallbladder removed. I indicated to him that I would pass on these concerns to the primary team Johnny Hsu MD [facility] Subjective Date/time seen: Date of service: 07/15/19 06:51 Interval history: Follow-up visit in 73-year-old man with known history of coronary disease, previous interventions. Entered the hospital with weakness some element of orthostatic hypotension. Patient had some chest pain symptoms that are atypical of angina. Lexiscan stress test done yesterday showed favorable results there was no evidence of reversible ischemia and his left ventricular systolic function is normal Upon awakening patient feels well this morning. He says he is greatly concerned about his gallbladder and wants to see a surgeon for discussion about this. I told the patient as the deputy court I will not be involved in this issue other than to pass on these concerned Exam Const: General: no acute distress Other: Patient is sleeping flat in bed when I entered the room to see him feels well upon awakening HENMT: Mouth: Yes moist mucous membranes Eyes: Sclera: sclerae normal Pupils: Equal, round and reactive pupils present Neck: Neck: supple and no JVD Thyroid: thyroid normal Lymphatic: lymphadenopathy Resp: Effort & Inspection: normal respiratory effort Auscultation: clear to auscultation bilaterally Cardio: Rate: regular rate Rhythm: regular rhythm Other: Occasional extrasystoles GI: Auscultation: normal bowel sounds Skin: General skin exam: normal color Neuro: Cognition (Neuro): normal cognition Objective Data Vital Signs Vital Signs: Vital Signs - 24 hr 07/14/19 08:00 07/14/19 08:12 07/14/19 08:14 Temperature 36.0 C L Pulse Rate 114 H 110 H 121 H Respiratory Rate 20 Blood Pressure 103/60 60/36 L Pulse Oximetry 93 07/14/19 08:16 07/14/19 09:47 07/14/19 10:00 Temperature 36.7 C Pulse Rate 136 H 110 H 103 H Respiratory Rate 20 Blood Pressure 46/29 L 103/60 Pulse Oximetry 07/14/19 12:00 07/14/19 14:00 07/14/19 14:21 Temperature Pulse Rate 117 H 105 H 105 H Respiratory Rate Blood Pressure 125/63 Pulse Oximetry 07/14/19 16:00 07/14/19 16:22 07/14/19 17:31 Temperature 36.2 C L Pulse Rate 109 H 113 H 125 H Respiratory Rate 20 Blood Pressure 123/63 Pulse Oximetry 98 07/14/19 17:32 07/14/19 18:00 07/14/19 18:39 Temperature 36.2 C L Pulse Rate 104 H 86 Respiratory Rate 20 Blood Pressure 100/64 100/64 Pulse Oximetry 07/14/19 19:20 07/14/19 19:23 07/14/19 19:27 Temperature 36.1 C L 36.1 C L Pulse Rate 89 89 Respiratory Rate 18 18 Blood Pressure 109/70 138/93 H 109/70 Pulse Oximetry 98 98 07/14/19 20:00 07/14/19 22:00 07/14/19 22:01 Temperature 36.1 C L Pulse Rate 86 83 Respiratory Rate 18 Blood Pressure 109/70 113/64 Pulse Oximetry 98 07/14/19 23:24 07/15/19 00:00 07/15/19 01:35 Temperature 36.2 C L Pulse Rate 101 H 98 95 Respiratory Rate 22 H 22 H Blood Pressure 118/57 L Pulse Oximetry 96 96 07/15/19 03:38 07/15/19 03:44 07/15/19 04:00 Temperature 36.1 C L Pulse Rate 91 91 90 Respiratory Rate 18 18 Blood Pressure 108/55 L Pulse Oximetry 95 95 07/15/19 05:45 07/15/19 06:03 Temperature Pulse Rate 95 Respiratory Rate Bl
--- NOTE | 2019-07-15 08:44 | PCDIET ---
Nutrition Follow-Up Complete: Nutrition Diagnosis: Inadequate oral intake related to decreased appetite as evidenced by reported weight loss of 20 pounds x 5-6 weeks. Nutrition Goal: Patient to consume 75% of meals/supplements or greater. Goal not met. Intakes have not achieved 75%. However, patient is taking supplements. Recommend continuing same goal. Last recorded weight is 97.2 kg which is decreased. Bowel Motility: +BM on 07/14/19. Labs Reviewed: Glu (160), BUN (50), Cr (8.7), K (3.3) Meds Noted: Fibercon, Pepcid, Renvela Additional Notes: Left ankle and left knee abrasions. Left lower arm skin tear. No pressure sores documented. Nutrition Monitoring and Evaluation: Follow up in 3 days.
[2019-07-15] MEDS: SEVELAMER CARBONATE 800 MG TABLET PO ×3 (08:50→17:42)
[2019-07-15] MEDS: calcium polycarbophiL 625 MG TABLET 1250 MG PO ×2 (08:50→17:43)
[2019-07-15] MEDS: FAMOTIDINE 20 MG TABLET PO ×2 (08:51→20:26)
[2019-07-15] MEDS: allopurinoL 100 MG TABLET PO (08:51)
[2019-07-15] MEDS: ASPIRIN 81 MG ENTERIC TABLET PO (08:51)
[2019-07-15] MEDS: HEPARIN SODIUM 5,000 UNITS/ML VIAL 5000 UNITS SUB-Q ×2 (08:51→20:26)
[2019-07-15] MEDS: METOPROLOL TARTRATE 50 MG TAB PO ×2 (08:51→17:43)
--- NOTE | 2019-07-15 10:37 | PM.PNNEP ---
Progress Note: A&P Assessment and Plan (1) End stage renal disease: Code(s): N18.6 - End stage renal disease Status: Chronic Assessment and Plan: continue CCPD while hospitalized follow electrolytes, volume status, and clearance (2) Hypokalemia: Code(s): E87.6 - Hypokalemia Status: Acute Assessment and Plan: replete as needed suspect secondary to ongoing dialysis, nausea/vomiting, and poor oral intake replete magnesium PRN (3) Atrial tachycardia: Code(s): I47.1 - Supraventricular tachycardia Status: Acute Assessment and Plan: Cardiology following on metoprolol and diltiazem for rate control (4) Orthostatic hypotension: Code(s): I95.1 - Orthostatic hypotension Status: Acute Assessment and Plan: present on last hospitalization as well follow trend consider trial of midodrine but not sure the benefit since also on metoprolol/diltiazem PT/OT as tolerated Will continue to follow. Subjective Date/time seen: 07/15/19 10:37 Tolerated CCPD overnight (fluid removal/UF ~ 200cc) without any acute issues or problems; has concerns about his gallbladder but does not appear acutely symptomatic from this issues at this time. Exam Narrative: Exam Narrative: General: WD/WN male in NAD Heart: normal S1 and S2; no rub Lungs: clear to auscultation Abdomen: soft, nontender, nondistended, positive bowel sounds Extremities: no cyanosis or clubbing; no edema Skin: warm and intact Objective Data Vital Signs Vital Signs: Vital Signs Temp Pulse Resp BP Pulse Ox 07/15/19 10:02 70 07/15/19 08:51 93 07/15/19 08:28 36.0 C L 93 20 113/53 L 95 07/15/19 08:23 103 H 71/25 L 07/15/19 08:20 36.0 C L 99 127/105 H 07/15/19 08:00 36.0 C L 107 H 112/62 95 07/15/19 07:56 36.2 C L 104 H 18 98/48 L 07/15/19 06:03 122/67 07/15/19 05:45 95 07/15/19 04:00 90 07/15/19 03:44 91 18 95 07/15/19 03:38 36.1 C L 91 18 108/55 L 95 07/15/19 01:35 95 07/15/19 00:00 98 22 H 96 07/14/19 23:24 36.2 C L 101 H 22 H 118/57 L 96 07/14/19 22:01 113/64 07/14/19 22:00 83 07/14/19 20:00 36.1 C L 86 18 109/70 98 07/14/19 19:27 36.1 C L 89 18 109/70 98 07/14/19 19:23 138/93 H 07/14/19 19:20 36.1 C L 89 18 109/70 98 07/14/19 18:39 86 07/14/19 18:00 36.2 C L 104 H 20 100/64 07/14/19 17:32 100/64 07/14/19 17:31 125 H 07/14/19 16:22 36.2 C L 113 H 20 123/63 98 07/14/19 16:00 109 H 07/14/19 14:21 105 H 125/63 07/14/19 14:00 105 H 07/14/19 12:00 117 H Intake/Output Intake/Output: Intake & Output 07/12/19 07/13/19 07/14/19 07/15/19 23:59 23:59 23:59 23:59 Intake Total 1240 920 610 588 Output Total -1229 890 712 Balance 1240 2149 -280 -124 Meds/Results Medications: Active Medications Generic Name Dose Route Start Last Admin Trade Name Freq PRN Reason Stop Dose Admin Acetaminophen 650 mg 07/12/19 14:28 Tylenol Tablet PO Q4H PRN Mild Pain (1-3) or Fever Hydrocodone Bitart/Acetaminophen 1 tab 07/12/19 14:28 [place] 5-325 Mg PO Q4H PRN Pain Rated 4-6 Allopurinol 100 mg 07/13/19 09:00 07/15/19 08:51 Zyloprim PO 100 mg DAILY DARA Administration Aspirin 81 mg 07/13/19 09:00 07/15/19 08:51 Aspirin Ec PO 81 mg DAILY DARA Administration Calcium Polycarbophil 1,250 mg 07/13/19 17:00 07/15/19 08:50 Fiber Con PO 1,250 mg BID DARA Administration Diltiazem HCl 30 mg 07/12/19 22:00 07/15/19 06:04 Cardizem Tab PO 30 mg Q8HR DARA Administration Famotidine 20 mg 07/13/19 11:30 07/15/19 08:51 Pepcid PO 20 mg Q12HR DARA Administration Heparin Sodium (Porcine) 5,000 units 07/13/19 09:00 07/15/19 08:51 Heparin Sodium SUB-Q 5,000 units Q12HR DARA Administration Metoprolol Tartrate 50 mg 07/12/19 21:45
--- NOTE | 2019-07-15 11:26 | PM.CNGS ---
Assessment and Plan Assessment and plan (1) Cholelithiasis: Code(s): K80.20 - Calculus of gallbladder without cholecystitis without obstruction Status: Acute Assessment and Plan: I have reviewed all of the prior imaging and discussed the findings with the patient. He has evidence of cholelithiasis, but no evidence of acute cholecystitis. His symptoms are not classic for biliary colic as he has no associated pain. I discussed with him that while surgery can be done, I cannot guarantee that all of his symptoms will be resolved. He has multiple comorbidities including end-stage renal disease and is on peritoneal dialysis. I discussed with him that he would not be able to perform peritoneal dialysis for at least 2 weeks after the surgery. He would therefore need hemodialysis access in order to proceed with surgery. I discussed with them the options of proceeding with laparoscopic cholecystectomy and placement of tunneled dialysis catheter. He would need to have hemodialysis arranged as an outpatient with his com writer. I also discussed that this is not an urgent or emergent procedure, therefore he will need to be discharged home and will need to have surgery scheduled electively as an outpatient if he wishes to proceed. He would need COVID 19 test within 72 hours before surgery. The patient would like to think about his options before deciding to proceed. He may call my office if he wishes to proceed with surgery, and we will schedule him electively as an outpatient. He may be discharged from my standpoint when okay with other services. (2) End stage renal disease: Code(s): N18.6 - End stage renal disease Status: Chronic (3) Atrial fibrillation with RVR: Code(s): I48.91 - Unspecified atrial fibrillation Status: Acute (4) Coronary artery disease: Code(s): I25.10 - Atherosclerotic heart disease of [place] coronary artery without angina pectoris Status: Acute History of Present Illness Consult details Consult date: 07/15/19 Reason for consult: gallstones Requesting physician: Kishore Danielson MD Narrative: This is a 73-year-old man who has been hospitalized with multiple medical problems. He has been experiencing some chest pain and shortness of breath, and cardiac causes have been ruled out. He does have a history of AFib and end-stage renal disease. He has been on peritoneal dialysis for the past 3 years. He has been experiencing persistent nausea and vomiting over the past 1-2 months. He states that food makes this worse, especially meat. He has lost his appetite and does not find many foods taste full any more. He denies any significant epigastric or right upper quadrant abdominal pain with these episodes of nausea and vomiting. He did have an EGD during his last admission and was found to have esophagitis. He was placed on Protonix, but he states this caused significant diarrhea. Workup during the last hospitalization included gallbladder ultrasound and HIDA scan. This has shown evidence of gallstones without evidence of cholecystitis. He also has a slightly decreased gallbladder ejection fraction at 31%. Review of Systems Review of Systems: All systems reviewed & are unremarkable except as noted in HPI and below Constitutional: Constitutional: Denies chills and Denies fever(s) Eyes: Eyes: Denies change in vision ENT: Denies hearing loss, Denies neck pain and Denies sore throat Cardiovascular: Cardiovascular: Reports chest pain and Denies dyspnea Respiratory: Respiratory: Denies cough, Reports dyspnea and Denies wheezing Gastrointestinal: Gastrointestinal: Reports as per HPI Genitourinary: Genitourinary: Denies hematuria and Denies dysuria Musculoskeletal: Musculoskeletal: Denies arthralgias, Denies joint swelling and Denies neck pain Allergic/Immunologic: Allergic/Immunologic: Denies wheezing [facility] Past Medical History Medical History (Reviewed 07/15/19 @ 1
--- NOTE | 2019-07-15 14:55 | PM.IMPN ---
Progress Note: A&P Assessment and Plan (1) Atrial tachycardia: Code(s): I47.1 - Supraventricular tachycardia Status: Acute Assessment and Plan: Atrial fibrillation suspected on admission with cardiology consulted and felt Findings were consistent with atrial tachycardia. Telemetry on 07/13/2019 with sinus rhythm with rate controlled. Lexiscan stress test with small area of mild infarct involving mid to basal inferolateral segments of left ventricle and EF greater than 70%. But no reversible defects and cardiology did not anticipate any further evaluation (2) Dizziness: Code(s): R42 - Dizziness and giddiness Status: Acute Assessment and Plan: CT brain with areas of prior infarction without acute changes. At this point, most likely result of orthostatic hypotension as noted below. Will need eventual PT/OT (3) Orthostatic hypotension: Code(s): I95.1 - Orthostatic hypotension Status: Acute Assessment and Plan: Known previous history. Orthostatic blood pressures done yesterday and positive. Blood pressure today is better. Remains on diltiazem and metoprolol. Will continue to monitor. (4) Hypokalemia: Code(s): E87.6 - Hypokalemia Status: Acute Assessment and Plan: Potassium up to 3.4 today. Will continue to monitor. Replace as needed. (5) Elevated troponin: Code(s): R79.89 - Other specified abnormal findings of blood chemistry Status: Chronic Assessment and Plan: Cardiology consulted and appreciate input. Serial troponin levels elevated. D-dimer was positive with CTA chest ordered showing no pulmonary embolism. Lexiscan stress test done today as noted above. Thought secondary to tachycardia and no true ischemic event. (6) Essential hypertension: Code(s): I10 - Essential (primary) hypertension Status: Acute Assessment and Plan: Positive orthostasis yesterday as noted above. Blood pressure better today. Will continue to monitor on diltiazem and metoprolol. (7) Esophagitis: Code(s): K20.9 - Esophagitis, unspecified Status: Acute Assessment and Plan: As seen on EGD in May. Probably contributing to nausea and vomiting issues. Patient reports he stopped taking Protonix at home as it caused severe diarrhea. No other PPI options available here. Will continue Pepcid for now. Patient does have known gallbladder ejection fraction of 31% on recent hepatobiliary scan. Advised patient will need to treat esophagitis and gastritis before considering removal of gallbladder as cause of his nausea vomiting. But requested surgical opinion and will have General surgery see him (8) Gastritis: Qualifiers: Gastritis type: unspecified gastritis Chronicity: unspecified Gastritis bleeding: without bleeding Qualified Code(s): K29.70 - Gastritis, unspecified, without bleeding Code(s): K29.70 - Gastritis, unspecified, without bleeding Status: Acute Assessment and Plan: Also was seen on EGD in May. Will continue Pepcid as noted above. (9) End-stage renal disease on peritoneal dialysis: Code(s): N18.6 - End stage renal disease; Z99.2 - Dependence on renal dialysis Status: Acute Assessment and Plan: Nephrology consulted and appreciate input. Patient is on peritoneal dialysis with plan to continue per Nephrology. May be contributing to nausea and poor appetite. (10) Anemia in chronic renal disease: Qualifiers: Chronic kidney disease stage: on chronic dialysis Qualified Code(s): N18.6 - End stage renal disease; D63.1 - Anemia in chronic kidney disease; Z99.2 - Dependence on renal dialysis Code(s): N18.9 - Chronic kidney disease, unspecified; D63.1 - Anemia in chronic kidney disease Status: Acute Assessment and Plan: Hemoglobin stable and unchanged Will monitor. (11) Hyperglycemia: Code(s): R73.9 - Hyperglycemi
[2019-07-15] MEDS: POTASSIUM CHLORIDE 20 MEQ TABLET PO (15:09)
[2019-07-16] VITALS (11 sets, daily range): BP systolic 101–124; BP diastolic 45–73; PULSE 72–90; RESP 16–20; TEMP 35.7–36.4; O2SAT 92–97
[2019-07-16 04:42] LABS: Blood Urea Nitrogen 49 mg/dL (9-20); Calcium 9.2 mg/dL (8.4-10.2); Carbon Dioxide 26 mmol/L (22-30); Chloride 100 mmol/L (98-107); Estimated CRCL calculation 8 ml/min; Estimated Glomerular Filt Rate 6; Glucose 144 mg/dL (75-110); Potassium 3.2 mmol/L (3.4-5.0); Sodium 135 mmol/L (137-145)
[2019-07-16] MEDS: DILTIAZEM HCL 30 MG TABLET PO (06:26)
[2019-07-16] MEDS: FAMOTIDINE 20 MG TABLET PO (08:33)
[2019-07-16] MEDS: calcium polycarbophiL 625 MG TABLET 1250 MG PO (08:33)
[2019-07-16] MEDS: POTASSIUM CHLORIDE 20 MEQ TABLET 40 MEQ PO (08:33)
[2019-07-16] MEDS: SEVELAMER CARBONATE 800 MG TABLET PO (08:33)
[2019-07-16] MEDS: ASPIRIN 81 MG ENTERIC TABLET PO (08:33)
[2019-07-16] MEDS: allopurinoL 100 MG TABLET PO (08:34)
[2019-07-16] MEDS: METOPROLOL TARTRATE 50 MG TAB PO (08:34)
--- NOTE | 2019-07-16 10:04 | PCOTNOTE ---
The patient treatment was not able to be completed on 07/16/2019 due to low blood pressure (70/44) and dizziness. Will plan to continue treatment per plan of care.
--- NOTE | 2019-07-16 11:35 | PM.PNNEP ---
Progress Note: A&P Assessment and Plan (1) End stage renal disease: Code(s): N18.6 - End stage renal disease Status: Chronic Assessment and Plan: continue CCPD while hospitalized follow electrolytes, volume status, and clearance (2) Hypokalemia: Code(s): E87.6 - Hypokalemia Status: Acute Assessment and Plan: replete as needed suspect secondary to ongoing dialysis, nausea/vomiting, and poor oral intake replete magnesium PRN as well (3) Atrial tachycardia: Code(s): I47.1 - Supraventricular tachycardia Status: Acute Assessment and Plan: Cardiology following on metoprolol and diltiazem for rate control (4) Orthostatic hypotension: Code(s): I95.1 - Orthostatic hypotension Status: Acute Assessment and Plan: present on last hospitalization as well follow trend consider trial of midodrine if persists but not sure the benefit since also on metoprolol/diltiazem PT/OT as tolerated Will continue to follow. Subjective Date/time seen: 07/16/19 11:35 Tolerating CCPD overnight without ny issues or problems (fluid removal/UF ~ 300cc -- attempting to minimize fluid removal given orthostatic hypotension); overall, states he feels pretty good and has been for the last day or two; issues with his gallbladder were discussed with him by Surgery yesterday; no apparent distress at this time. Exam Narrative: Exam Narrative: General: WD/WN male in NAD Heart: normal S1 and S2; no rub Lungs: clear to auscultation Abdomen: soft, nontender, nondistended, positive bowel sounds Extremities: no cyanosis or clubbing; no edema Skin: no rash or nodules Objective Data Vital Signs Vital Signs: Vital Signs Temp Pulse Resp BP Pulse Ox 07/16/19 10:40 72 07/16/19 08:34 89 07/16/19 08:00 35.7 C L 86 18 123/47 L 95 07/16/19 06:25 121/68 07/16/19 06:00 89 07/16/19 04:00 82 07/16/19 03:34 88 20 92 07/16/19 03:20 36.4 C L 88 20 101/45 L 92 07/16/19 01:30 85 07/16/19 00:00 36.4 C L 90 16 124/73 94 07/15/19 23:59 90 16 94 07/15/19 23:58 36.4 C L 90 16 124/73 94 07/15/19 22:00 89 143/65 H 07/15/19 20:00 36.1 C L 87 18 110/60 96 07/15/19 19:58 89 07/15/19 19:54 76/41 L 07/15/19 19:52 66/46 L 07/15/19 19:50 36.1 C L 86 18 110/60 96 07/15/19 18:09 93 07/15/19 17:43 97 07/15/19 16:00 35.9 C L 100 16 115/59 L 98 07/15/19 14:22 96 07/15/19 12:00 36.3 C L 72 20 116/68 97 Intake/Output Intake/Output: Intake & Output 07/13/19 07/14/19 07/15/19 07/16/19 23:59 23:59 23:59 23:59 Intake Total 920 610 806 75 Output Total -1229 890 712 337 Balance 2149 -280 94 -262 Meds/Results Medications: Active Medications Generic Name Dose Route Start Last Admin Trade Name Freq PRN Reason Stop Dose Admin Acetaminophen 650 mg 07/12/19 14:28 Tylenol Tablet PO Q4H PRN Mild Pain (1-3) or Fever Hydrocodone Bitart/Acetaminophen 1 tab 07/12/19 14:28 [place] 5-325 Mg PO Q4H PRN Pain Rated 4-6 Allopurinol 100 mg 07/13/19 09:00 07/16/19 08:34 Zyloprim PO 100 mg DAILY DARA Administration Aspirin 81 mg 07/13/19 09:00 07/16/19 08:33 Aspirin Ec PO 81 mg DAILY DARA Administration Calcium Polycarbophil 1,250 mg 07/13/19 17:00 07/16/19 08:33 Fiber Con PO 1,250 mg BID DARA Administration Diltiazem HCl 30 mg 07/12/19 22:00 07/16/19 06:26 Cardizem Tab PO 30 mg Q8HR DARA Administration Famotidine 20 mg 07/13/19 11:30 07/16/19 08:33 Pepcid PO 20 mg Q12HR DARA Administration Heparin Sodium (Porcine) 5,000 units 07/13/19 09:00 07/16/19 08:35 Heparin Sodium SUB-Q Not Given Q12HR DARA Metoprolol Tartrate 50 mg 07/12/19 21:45 07/16/19 08:34 Lopressor PO 50 mg BID DARA Administration Morphine Sulfate 4 mg 07/12/19 14:28 Morphine Sulfa
--- NOTE | 2019-07-17 16:09 | PM.DS ---
DS: Admitting Diagnosis Admitting Diagnosis Admitting Diagnosis: Unspecified atrial fibrillation DS: Discharge Diagnosis Discharge Diagnosis (1) Atrial tachycardia: Code(s): I47.1 - Supraventricular tachycardia Status: Acute Assessment and Plan: Atrial fibrillation suspected on admission with cardiology consulted and felt Findings were consistent with atrial tachycardia. Telemetry on 07/13/2019 with sinus rhythm with rate controlled. Lexiscan stress test with small area of mild infarct involving mid to basal inferolateral segments of left ventricle and EF greater than 70%. But no reversible defects and cardiology did not anticipate any further evaluation (2) Dizziness: Code(s): R42 - Dizziness and giddiness Status: Acute Assessment and Plan: CT brain with areas of prior infarction without acute changes. At this point, most likely result of orthostatic hypotension as noted below which has been a chronic problem. Seen by PT/OT while here (3) Orthostatic hypotension: Code(s): I95.1 - Orthostatic hypotension Status: Acute Assessment and Plan: Known previous history. Orthostatic blood pressures done yesterday and positive. Blood pressure today is better. With no documented AFib will discontinue calcium channel dustin which could aggravate the orthostasis and continue his beta-dustin at discharge. . (4) Hypokalemia: Code(s): E87.6 - Hypokalemia Status: Acute Assessment and Plan: Replace as needed. While here , 3.2 the day of discharge with supplements given (5) Elevated troponin: Code(s): R79.89 - Other specified abnormal findings of blood chemistry Status: Chronic Assessment and Plan: Cardiology consulted . Serial troponin levels elevated but relatively flat as before. D-dimer was positive with CTA chest ordered showing no pulmonary embolism. Lexiscan stress test done 07/14 as noted above. Thought secondary to tachycardia and no true ischemic event. (6) Essential hypertension: Code(s): I10 - Essential (primary) hypertension Status: Acute Assessment and Plan: Positive orthostasis yesterday as noted above. Blood pressure better today. Continue metoprolol on discharge l. (7) Esophagitis: Code(s): K20.9 - Esophagitis, unspecified Status: Acute Assessment and Plan: As seen on EGD in May. Probably contributing to nausea and vomiting issues. Patient reports he stopped taking Protonix at home as it caused severe diarrhea. No other PPI options available here. . Patient does have known gallbladder ejection fraction of 31% on recent hepatobiliary scan. Advised patient will need to treat esophagitis and gastritis before considering removal of gallbladder as cause of his nausea vomiting. Was seen by surgery and related that would have to be off peritoneal dialysis on hemodialysis after total catheter placed for least 2 weeks post laparoscopic coli. Patient will discuss further with Dr. Masterson after discharge Was discharged on famotodine 40 mg bid for the esophagitis (8) Gastritis: Qualifiers: Gastritis type: unspecified gastritis Chronicity: unspecified Gastritis bleeding: without bleeding Qualified Code(s): K29.70 - Gastritis, unspecified, without bleeding Code(s): K29.70 - Gastritis, unspecified, without bleeding Status: Acute Assessment and Plan: Also was seen on EGD in May. Will continue Pepcid 40 mg b.i.d. on discharge as noted above. (9) End-stage renal disease on peritoneal dialysis: Code(s): N18.6 - End stage renal disease; Z99.2 - Dependence on renal dialysis Status: Acute Assessment and Plan: Nephrology consulted . Patient is on peritoneal dialysis with plan to continue per Nephrology. May be contributing to nausea and poor appetite. (10) Anemia in chronic renal disease: Qualifiers: Chronic kidney dise
== END 2019-07-16 12:29 | disposition home or self-care (01) | DRG 308 ==
LOC: ANHED 14:21 → ANHIMU 15:24
PROVIDERS: Hospitalist; Internal Medicine Cardiovascular Disease; Internal Medicine Nephrology; Physician Assistant; Admitting Provider Internal Medicine; Emergency Provider Emergency Medicine; PCP Internal Medicine; Visit Provider Internal Medicine
DX: I47.1 Supraventricular tachycardia (principal); N18.6 End stage renal disease; E46 Unspecified protein-calorie malnutrition; I12.0 Hypertensive chronic kidney disease with stage 5 chronic kidney disease or end stage renal disease; D69.3 Immune thrombocytopenic purpura; D63.1 Anemia in chronic kidney disease; Z68.31 Body mass index [BMI] 31.0-31.9, adult; I95.1 Orthostatic hypotension; E87.6 Hypokalemia; R79.89 Other specified abnormal findings of blood chemistry; R73.9 Hyperglycemia, unspecified; E04.1 Nontoxic single thyroid nodule; K21.0 Gastro-esophageal reflux disease with esophagitis; K29.70 Gastritis, unspecified, without bleeding; K80.20 Calculus of gallbladder without cholecystitis without obstruction; I25.10 Atherosclerotic heart disease of native coronary artery without angina pectoris; G47.33 Obstructive sleep apnea (adult) (pediatric); E78.5 Hyperlipidemia, unspecified; Z87.891 Personal history of nicotine dependence; Z95.5 Presence of coronary angioplasty implant and graft; Z99.2 Dependence on renal dialysis
CPT/HCPCS: 36415; 70450; 71046; 71275; 76536; 78452; 80048; 80053; 83735; 84100; 84436; 84443; 84484; 85025; 85027; 85380; 85610; 85730; 86706; 87340; 90945; 93005; 93017; 94762; 96361; 96374; 96375; 97161; 97165; 99285; A9270; A9502; G0378; J0280; J1644; J2405; J2785; J3475; J7030; Q9967

== ENCOUNTER 2019-07-17 12:48 | Inpatient (IN) | payer MEDICARE, BC, SELFPAY ==
[2019-07-17] VITALS (18 sets, daily range): BP systolic 105–164; BP diastolic 60–86; PULSE 107–130; RESP 16–35; TEMP 36.6–36.7; O2SAT 97–98
--- NOTE | ~2019-07-17 | CT_ITS ---
EXAMINATION: CT brain wo con EXAM DATE: 07/17/2019 13:42 INDICATION: Altered mental status. Confusion. TECHNIQUE: Spiral CT of the head was performed without contrast. Axial, coronal and sagittal images were reviewed. The dose-length product (DLP) for this examination was 605.33 mGy-cm. The exposure w as tailored according to patient size, and iterative reconstruction (ASIR) was used as additional dos e reduction technique. Comparison is made to prior examination from 07/13/2019. FINDINGS: There is no acute intraparenchymal hemorrhage. No evidence of intraparenchymal brain mass lesion. No evidence of acute infarction. Please note that initial head CT has limited sensitivity f or small or acute infarctions. Old bilateral basal ganglia lacunar infarctions. There is mild to mo derate periventricular and subcortical hypodensity, nonspecific but probably related to small vessel ischemic disease. There is mild to moderate prominence of the sulci and ventricles related to cereb ral atrophy. There is intracranial carotid arteriosclerosis. There are no extra-axial collections. There is no mass effect or midline shift. The orbits are unremarkable. Soft tissue is unremarkabl e. The visualized sinuses and mastoid air cells are well aerated. There is no significant interval change. IMPRESSION: 1. No acute intracranial findings. 2. Old bilateral basal ganglia lacunar infarctions. 3. Chronic age related findings. Reviewed, dictated and finalized at location A.
--- NOTE | ~2019-07-17 | XR_ITS ---
EXAMINATION: XR chest port-a-cath/central DATE: 08/04/2019 09:59 INDICATION: Tunneled dialysis catheter placement TECHNIQUE: frontal view of the chest was obtained. COMPARISON: Chest radiograph dated 08/11/2019 FINDINGS: Large-bore dual-lumen right internal jugular central venous catheter with distal tip at the superior cavoatrial junction. Calcified nodule at the lateral left lung base and calcified left hilar lymph no cr consistent with old granulomatous disease. Mild lingular atelectasis. No other airspace opacities , pulmonary edema, pleural effusion or pneumothorax. The cardiomediastinal silhouette is normal. Ther e are bridging osteophytes at multiple levels in the spine, consistent with diffuse idiopathic skelet al hyperostosis (DISH). IMPRESSION: 1. Right internal jugular central venous catheter tip at the superior cavoatrial junction. 2. Mild lingular atelectasis. No acute cardiopulmonary disease. Reviewed, dictated and finalized at location A. IMPRESSION: 1. Right internal jugular central venous catheter tip at the superior cavoatria l junction. 2. Mild lingular atelectasis. No acute cardiopulmonary disease.
--- NOTE | ~2019-07-17 | CT_ITS ---
EXAMINATION: CT abdomen pelvis wo con DATE: 07/19/2019 13:43 INDICATION: Right upper quadrant abdominal pain. Leukocytosis. TECHNIQUE: Computed tomography (CT) of the abdomen and pelvis was performed without intravenous contr ast. Automated exposure control and iterative reconstruction technique were employed. The dose-length product was 1322.46 mGy-cm. COMPARISON: CT abdomen and pelvis 06/15/2019 FINDINGS: The visualized portions of the lung bases demonstrate calcified left lower lobe nodule and calcified left hilar lymph nodes, consistent with old granulomatous disease. No pleural effusion. The heart size is normal. There are coronary artery calcifications. There is a small pericardial effusio n. The liver is normal. Calcifications in the spleen are consistent with old granulomatous disease. T he gallbladder is distended and contains a gallstone. The pancreas and right adrenal gland are normal . There is a 2.0 cm mass in left adrenal gland measuring low-attenuation, consistent with an adenoma. There are cysts in the kidneys measuring up to 1.6 cm on the right. There is a 13 mm mass in right k idney measuring soft tissue attenuation. There is prominent fat in the inguinal canals that may be sm all hernias. There is diverticulosis of the colon without evidence of diverticulitis. There are no di lated loops of bowel. The appendix is normal. There is a moderate volume of ascites. There is calcifi ed atherosclerosis of the aorta and many of the other arteries. There is a peritoneal dialysis cathet er with tip in the lower abdomen. The prostate is mildly enlarged. There is mild thoracolumbar spondy losis. IMPRESSION: 1. Cholelithiasis. Gallbladder distention may be secondary to fasting or acute cholecystitis. Correla te with physical exam. 2. 13 mm right kidney mass, which may be a hemorrhagic cyst or less likely a solid neoplasm. Abdomen CT without and with contrast is recommended. Reviewed, dictated and finalized at location A. IMPRESSION: 1. Cholelithiasis. Gallbladder distention may be secondary to fasting or acute cholecystitis. Correlate with physical exam. 2. 13 mm right kidney mass, which may be a hemorrhagic cyst or less likely a s olid neoplasm. Abdomen CT without and with contrast is recommended.
--- NOTE | ~2019-07-17 | XR_ITS ---
EXAMINATION: XR tibia fibula LT 2V EXAM DATE: 07/17/2019 13:51 INDICATION: Left lower leg pain and swelling. TECHNIQUE: Left tibia/fibula frontal and lateral projections obtained and reviewed. There is no prio r study for comparison. FINDINGS: Left tibial and fibular shafts unremarkable. There are no acute fractures or dislocations identified. There is no subcutaneous gas. Mild popliteal arterial sclerosis . There are no radiop aque foreign bodies. IMPRESSION: No acute osseous findings. Reviewed, dictated and finalized at location A. IMPRESSION: No acute osseous findings.
--- NOTE | ~2019-07-17 | US_ITS ---
EXAMINATION: US carotid duplex BI DATE: 07/29/2019 09:54 INDICATION: Syncope. Dizziness. Cerebrovascular accident. Old lacunar infarcts in the bilateral basal ganglia. TECHNIQUE: Grayscale, color Doppler, and pulsed Doppler images of the cervical carotid arteries were obtained. The degree of vessel stenosis is placed in one of the following categories: normal, <50%, 5 0-69%, >=70% but less than near-occlusion, near-occlusion, or total occlusion. Note that percent sten osis relative to normal distal artery lumen diameter is indirectly measured from velocity measurement s as described by Aaron, et al. Radiology 2003; [id number]:[id number]. COMPARISON: 07/27/2019 CT brain 07/17/2019 CT brain 07/13/2019 CT brain FINDINGS: RIGHT: The right common carotid artery (CCA) peak systolic velocity (PSV) is 44.3 cm/s. The right internal c arotid artery (ICA) PSV is 42.4 cm/s. The right ICA end-diastolic velocity (EDV) is 13.1 cm/s. The [facility] ICA/CCA PSV ratio is 1.0. Grayscale and color Doppler images yield an estimate of less than 50% d iameter reduction from plaque in the ICA. The external carotid artery (ECA) PSV is 97.8 cm/s. There i s antegrade flow in the right vertebral artery. LEFT: The left CCA PSV is 49.4 cm/s. The left ICA PSV is 64.8 cm/s. The left ICA EDV is 18.3 cm/s. The left ICA/CCA PSV ratio is 1.3. Grayscale and color Doppler images yield an estimate of less than 50% diam eter reduction from plaque in the ICA. The ECA PSV is 79.7 cm/s. There is antegrade flow in the left vertebral artery. IMPRESSION: 1. Less than 50% stenosis in the right internal carotid artery. 2. Less than 50% stenosis in the left internal carotid artery. Reviewed, dictated and finalized at Location A. Reviewed, dictated and finalized at location A.
--- NOTE | ~2019-07-17 | US_ITS ---
EXAMINATION:US venous doppler LE BI INDICATION:Edema in lower extremities TECHNIQUE: Multiple grayscale, color flow and Doppler images of the lower extremity deep venous syste ms were obtained and reviewed. COMPARISON:No prior studies for comparison. FINDINGS: The common femoral, superficial femoral and popliteal veins demonstrate normal respiratory variation, augmentation and compressibility. Color flow is also seen within the posterior tibial, pe roneal, greater saphenous and profunda veins. IMPRESSION: 1: No lower extremity deep venous thrombosis. Reviewed, dictated and finalized at location A.
--- NOTE | ~2019-07-17 | XR_ITS ---
XR chest 1V portable DATE: 07/30/2019 14:12 INDICATION: Rales TECHNIQUE: Portable AP chest on 07/30/2019 at 1411 hours COMPARISON: 07/17/2019 AP chest FINDINGS: The lungs are clear of infiltrate or consolidation. No pleural effusion or pulmonary vascul ar congestion or pneumothorax is evident. The cardiac and mediastinal sweats. Unremarkable for AP pro jection. There is aortic calcification and unfolding. IMPRESSION: No active disease Reviewed, dictated and finalized at location A. IMPRESSION: No active disease
--- NOTE | ~2019-07-17 | XR_ITS ---
EXAMINATION: XR chest 2V DATE: 08/01/2019 10:36 INDICATION: Cough and crackles TECHNIQUE: frontal and lateral views of the chest were obtained. COMPARISON: Chest radiograph dated 07/30/2019 FINDINGS: Calcified nodule at the left lung base consistent with old granulomatous disease. Lungs remain otherw ise clear with no new airspace opacities, pulmonary edema, pleural effusion or pneumothorax. The card iomediastinal silhouette is normal. Coronary artery atherosclerosis versus stenting. Atherosclerotic aorta. Mild thoracic spondylosis. IMPRESSION: 1. No acute cardiopulmonary disease. Reviewed, dictated and finalized at location A.
--- NOTE | ~2019-07-17 | NM_ITS ---
EXAMINATION: NM hepatobiliary w pharm DATE: 07/26/2019 13:45 INDICATION: Gallbladder dysfunction. COMPARISON: CT abdomen and pelvis 07/19/2019 TECHNIQUE: 4.7 mCi Tc-99m mebrofenin (Choletec) was administered intravenously. Scintigraphic images of the abdomen were obtained for one hour. Then, 2 mcg sincalide (Kinevac) IV was administered, and imaging was continued for 30 minutes. FINDINGS: There is normal clearance of radiotracer from the blood pool. There is homogeneous tracer u ptake by the liver. Activity progresses to the bowel and gallbladder. Gallbladder ejection fraction (GBEF) was 100%. Note that most patients with gallbladder dysfunction have GBEF < 35%, which overlaps with the broad normal range of 10-90%. IMPRESSION: 1. Normal hepatobiliary scintigraphy. Reviewed, dictated and finalized at location A.
--- NOTE | ~2019-07-17 | XR_ITS ---
EXAMINATION: XR chest 1V portable EXAM DATE: 07/17/2019 13:51 INDICATION: Altered mental status, weakness. TECHNIQUE: Portable AP frontal chest x-ray was obtained. Comparison is made to prior examination from 07/12/2019. FINDINGS: There is left basilar granuloma. The lungs are otherwise clear. There are no pleural effus ions. Cardiac silhouette is prominent but magnified on this AP technique. There is no pneumothorax suspected. The bones and soft tissues are unremarkable. IMPRESSION: No acute cardiopulmonary findings. Reviewed, dictated and finalized at location A.
--- NOTE | ~2019-07-17 | XR_ITS ---
EXAMINATION: XR fl guide central line place DATE: 08/04/2019 09:44 INDICATION: Insertion of tunneled dialysis catheter. TECHNIQUE: A single fluoroscopic spot image of the central chest was obtained during procedure perfor med by Dr. Meng. Radiologist was not present for the imaging or procedure. The amount of fluoroscopy time used during this procedure was 0.5 minutes. COMPARISON: None. FINDINGS: Dual-lumen right internal jugular central venous catheter with distal tip near the superior cavoatria l junction. Visualized portions of the central lungs are clear. Visualized portion of the mediastinal silhouette is normal. IMPRESSION: 1. Tip of a right internal jugular central venous catheter at the superior cavoatrial junction. Reviewed, dictated and finalized at location A. IMPRESSION: 1. Tip of a right internal jugular central venous catheter at the superior cavo atrial junction.
--- NOTE | ~2019-07-17 | CT_ITS ---
EXAMINATION: CT brain wo con DATE: 07/27/2019 08:44 INDICATION: Syncope. TECHNIQUE: Computed tomography (CT) of the head was performed without intravenous contrast. The mA wa s adjusted according to patient size. Iterative reconstruction technique was employed. The dose-lengt h product was 605.33 mGy-cm. COMPARISON: Head CT 07/17/2019 FINDINGS: There is mild motion artifact. There are old lacunar infarcts in the bilateral basal gangli a. There are scattered areas of low attenuation in the cerebral white matter. There is no intracrania l hemorrhage, acute infarction, or abnormal intracranial mass lesion. The ventricles are normal in si ze. The orbits are normal. There is mild mucosal thickening in the ethmoid sinuses. The mastoid air c ells are normal. IMPRESSION: 1. Old lacunar infarcts in the bilateral basal ganglia. 2. Stable moderate nonspecific cerebral white matter disease, which likely represents chronic small v essel ischemic disease. Reviewed, dictated and finalized at location A. IMPRESSION: 1. Old lacunar infarcts in the bilateral basal ganglia. 2. Stable moderate nonspecific cerebral white matter disease, which likely repr esents chronic small vessel ischemic disease.
--- NOTE | ~2019-07-17 | MR_ITS ---
EXAMINATION: MR brain/brain stem wo con DATE: 07/28/2019 17:09 INDICATION: Confusion. Syncope. TECHNIQUE: Magnetic resonance imaging (MRI) of the brain and brainstem was performed without intraven ous contrast. Sequences included sagittal and axial T1-weighted SE, axial diffusion-weighted FS SE, a xial T2*-weighted GRE, axial T2-weighted FLAIR, and axial T2-weighted FSE. Apparent diffusion coeffic ient (ADC) maps were created. COMPARISON: Head CT dated 07/27/2019 FINDINGS: Small focus of restricted diffusion at the medial right cerebellar hemisphere and tiny focus in the m id left cerebellar hemisphere consistent with acute infarcts in the posterior cerebral vascular distr ibution. Small region of encephalomalacia consistent with old lacunar infarct in the right lentiform nucleus extending to the mccallum radiata. No intracranial hemorrhage or abnormal intracranial mass les ion. There are scattered areas of nonspecific increased T2-weighted signal intensity in the cerebral white matter, predominantly involving the deep and periventricular white matter which is within sujata l limits for age and likely sequela of chronic small vessel ischemic disease. There are no intraparen chymal signal abnormalities seen on the other pulse sequences. Symmetric prominence of the sulci and ventricles consistent with mild age-appropriate diffuse cerebral volume loss. There are no abnormal e xtra-axial fluid collections. Flow voids are seen in the cerebral arteries on the T2-weighted sequenc es consistent with their expected patency. Visualized orbits and soft tissues are unremarkable. IMPRESSION: 1. Couple small acute infarcts in the left and right cerebellar hemispheres. 2. Small old lacunar infarct in the right basal ganglia extending to the mccallum radiata. 3. Age-related changes including mild diffuse volume loss and moderate periventricular predominant wh ite matter T2 hyperintensity consistent with chronic small vessel ischemic disease. Reviewed, dictated and finalized at location A. IMPRESSION: 1. Couple small acute infarcts in the left and right cerebellar hemispheres. 2. Small old lacunar infarct in the right basal ganglia extending to the mccallum radiata. 3. Age-related changes including mild diffuse volume loss and moderate perivent ricular predominant white matter T2 hyperintensity consistent with chronic smal l vessel ischemic disease.
--- NOTE | 2019-07-17 13:11 | ECG_ITS ---
Measurements Intervals [place] Rate: 123 P: SC: 0 QRS: -59 QRSD: 90 T: 84 QT: 308 QTc: 441 Interpretive Statements ATRIAL TACHYCARDIA WITH RAPID VENTRICULAR RESPONSE LEFT ANTERIOR FASCICULAR BLOCK CANNOT RULE OUT SEPTAL INFARCT, AGE INDETERMINATE ST-T WAVE ABNORMALITY IN HIGH LATERAL LEADS- CONSIDER ISCHEMIA BASELINE ARTIFACT- I, III, AVR, AVL, AVF ABNORMAL ECG Electronically Signed On 07-17-2019 16:17:51 CDT by Giles Paredes D.O.
--- NOTE | 2019-07-17 13:34 | ED.GENADULT ---
HPI - General Adult General Chief complaint: Altered Mental Status Stated complaint: Altered mental status Time Seen by Provider: 07/17/19 13:23 Source: family Mode of arrival: EMS Limitations: altered mental status History of Present Illness HPI narrative: This patient is a 73 year old male with history of multiple medical problems who presents from home for evaluation of a fall. Patient's states patient was discharged yesteday after being in hospital for a few days. She states since his return home he has decompensated. She states she can not get him to eat or drink since leaving the hospital. Today he was walking with his walker when she witnessed him fall onto his side and then he rolled onto his back. She is unsure if he hit his head and she states he takes a blood thinner. She was unable to get patient up so EMS was call. Patient only complains of left lower leg pain. His noticed that he developed redness to his leg yesteday. He performed peritoneal dialysis at home. Related Data Home Medications Medication Instructions Recorded Confirmed allopurinol 100 mg PO DAILY 06/15/19 07/17/19 metoprolol tartrate 50 mg PO BID 06/15/19 07/17/19 niacin (inositol niacinate) 750 mg PO BID 06/15/19 07/17/19 aspirin [Adult Low Dose Aspirin] 81 mg PO DAILY 07/12/19 07/17/19 calcitriol 0.25 mcg PO 3XW 07/13/19 07/17/19 vitamin B complex 0.5 tablet PO DAILY 07/13/19 07/17/19 famotidine 40 mg PO BID 07/17/19 07/17/19 Allergies Allergy/AdvReac Type Severity Reaction Status Date / Time No Known Allergies Allergy Mild Verified 07/17/19 17:27 Review of Systems Review of Systems: ROS unobtainable: Yes unobtainable due to mental status PMFSH Social History Social History Social History: The patient lives in [place] with his . They have 1 son. He is retired from [employer]. He smoked up to 2 packs of cigarettes per day for many years and quit in 1999. He denies alcohol and drug abuse. He designates his , Eunice, as his surrogate decision maker and he wishes to be a full code. Smoking packs per day: 2 Smoking cigarettes per day: 40.0 Years smoked: 30 Smoking pack-years: 60.00 Smoking status: Former smoker Smoking end date: 02/22/99 Additional smoking assessment comments: Patient cannot recall quit date. Alcohol intake: never Substance use: never Gender identity (if verbalized by the patient): Male Spiritual care concerns: No Agree to blood products: Yes Exam Const: General: ill appearing Other: oriented to person HENMT: Head: normocephalic and atraumatic Face and sinus: face symmetric Eyes: Pupils: Equal, round and reactive pupils present EOM: EOMs intact bilaterally Chest: Chest palpation & inspection: normal inspection of the chest, abnormal inspection of the chest, tenderness and Pacemaker present Resp: Effort & Inspection: normal respiratory effort and no use of accessory muscles Auscultation: clear to auscultation bilaterally Cardio: Rate: tachycardic Rhythm: abnormal rhythm irregularly irregular GI: GI Palp: Yes Soft to palpation, No Tenderness to palpation present (GI), No Guarding due to palpation present (GI) and No Rigid due to palpation Skin: Other: left lower leg with erythema, petechia from ankle to knee, there is swelling and tenderness to left lower leg, there is superficial skin tear. Neuro: General: moves all extremities Course Course Emergency Course: Patient presented disoriented. His mental status improved before admission. He was found to have left leg cellulitis so blood cultures and antibiotics started. His atrial fibrillation is chronic and he is likely tachycardic due to not taking medications today . Patient's states patient is DNR Consultations Consultation #1: I Discussed case with Lynda Niño NP with hospitalist. She accepts patient to IMu Date: 07/16
[2019-07-17 13:56] LABS: Alveolar/Arterial O2 Gradient 42.1 mmHg; Base Excess ABG -0.5 mEq/l (+/-2.0); Fractional Inspired Oxygen 21 %; Methemoglobin ABG 0.1 %THb (0-1.5); Oxygen Saturation ABG 96.8 % (95.0-100.0); Oxyhemoglobin 94.6 % THb (90.0-100.0); PCO2 ABG 25.7 mmHg (35.0-45.0); PO2 ABG 76.9 mmHg (80.0-100.0); PO2 FiO2 Ratio Arterial Blood 3.66 %; Reduced Hemoglobin 4.3 %THb (0-5.0); Total Hemoglobin 11.2 g/dL (12.0-18.0)
[2019-07-17 13:59] LABS: Device ROOM AIR; Modified Allen's Test Pass; Site Drawn RIGHT RADIAL; pH ABG 7.531 (7.350-7.450)
[2019-07-17 14:18] LABS: Basophils Absolute Auto 0.1 K/mm3 (0.0-0.1); Basophils Percent Auto 0.4 % (0.2-1.2); Hematocrit 33.3 % (42.0-52.0); Hemoglobin 10.9 g/dL (14.0-18.0); Immature Granulocyte Absolute 0.04 K/mm3 (0.00-0.031); Immature Granulocyte Percent A 0.4 % (0-0.5); Immature Platelet Fraction Pct 1.1 % (0.9-11.2); Lymphocytes Absolute Auto 0.56 K/mm3 (0.9-3.2); Lymphocytes Percent Auto 4.9 % (18.3-44.2); Mean Corpuscular HGB Conc 32.7 g/dl (32-36); Mean Corpuscular Hemoglobin 31.7 pg (26-34); Mean Corpuscular Volume 96.8 fl (80-100); Mean Platelet Volume 9.6 fl (7.4-10.4); Monocytes Percent Auto 8.9 % (2.6-8.5); Neutrophils Absolute Auto 9.8 K/mm3 (1.3-6.7); Neutrophils Percent Auto 85.4 % (45.5-73.1); Nucleated Red Blood Cells Perc 0.2 % (0.0-0.2); Platelet Count Result 75 k/mm3 (150-375); Red Blood Count 3.44 M/mm3 (4.6-6.20); Red Cell Distribution Width 19.9 % (11.5-14.5); White Blood Count 11.4 K/mm3 (4.5-10.0)
[2019-07-17 14:28] LABS: Lactic Acid Reflex 3.8 mmol/L (0.7-2.1)
[2019-07-17 14:29] LABS: Ammonia < 9 umol/L (9-30); INR 1.3; Magnesium 1.8 mg/dL (1.6-2.3); Partial Thromboplastin Time 28.3 SECONDS (22.3-36.8); Prothrombin Time 15.5 Seconds (11.1-14.7)
[2019-07-17 14:44] LABS: Alanine Aminotransferase 25 U/L (4-50); Albumin Level 3.3 g/dL (3.5-5.1); Alkaline Phosphatase 44 U/L (38-126); Aspartate Amino Transferase 23 U/L (17-59); Bilirubin,Total 1.6 mg/dL (0.2-1.3); Blood Urea Nitrogen 52 mg/dL (9-20); Calcium 9.7 mg/dL (8.4-10.2); Carbon Dioxide 23 mmol/L (22-30); Chloride 97 mmol/L (98-107); Estimated CRCL calculation 7 ml/min; Estimated Glomerular Filt Rate 5; Glucose 192 mg/dL (75-110); Potassium 3.9 mmol/L (3.4-5.0); Sodium 133 mmol/L (137-145)
[2019-07-17 14:46] LABS: CRP 18.2 mg/dL (<1.0); Troponin I 0.404 ng/mL (0.000-0.034)
[2019-07-17] MEDS: ceFAZolin SODIUM 1 GM VIAL IV PUSH (15:15)
[2019-07-17] MEDS: SODIUM CHLORIDE 0.9% IV 50 ML 500 ML (15:22)
--- NOTE | 2019-07-17 17:06 | ADMGEN ---
This patient, Kentrell Cosby, was admitted to IMU Room 232-01. Patient/family oriented to hospital policies and general routines including ID bracelet, bed and alarms, visiting hours, pain management, procedures, bathroom and other care routines, personal items, smoking policy, room service/diet, and visiting hours. Valuables list has been completed. Information on how to activate the Rapid Response Team has been discussed. Patient/Family are encouraged to report perceived risks to care and to ask questions if they do not understand what they are told or what they should do.
[2019-07-17 17:14] LABS: Reflex Lactic Acid Yes or No Add Lactic
[2019-07-17 18:03] LABS: Lactic Acid 2.4 mmol/L (0.7-2.1)
[2019-07-17 18:24] LABS: Troponin I 0.478 ng/mL (0.000-0.034)
--- NOTE | 2019-07-17 20:34 | PM.IMHP ---
H&P: HPI History of Present Illness Chief complaint: AMS, cellulitis, ESRD Narrative: Kenterll Cosby is a 73 year old male who was discharged from here yesterday. The patient was initially admitted to this hospital on 07/12/2019 and had been admitted here the month before this in May. The patient does have known orthostatic hypotension. He also has been found to have a thyroid nodule over which was not biopsied this weekend due to the holiday weekend. The patient has been losing weight due to nausea and poor appetite. He has been lightheaded and dizzy. He is progressively getting worse. Patient is a DNR. He has had poor oral intake. The patient initially was thought to be in atrial fibrillation with rapid ventricular response. Cardiology reviewed his strips and he was found to be in atrial tachycardia. Cardiology some at that time. He had a Lexiscan stress test with a small area of mild infarct involving mid to basal inferiolateral segments of the left ventricle and EF was greater than 70%. No irreversible defects and Cardiology did not anticipate any further evaluation at that time. Patient had some dizziness he had a CT for of the brain of prior infarction without acute changes. He saw PT and OT while he was here. He was found to have orthostatic hypotension. They discontinued his channel dustin and continue with his beta-dustin. Patient had elevated troponin then but was flat. He had a CT of the chest at that time which shows no pulmonary embolism. No true ischemic event it was felt that it was due to the tachycardia vent. The patient came in today due to a fall. He script of his left knee and looks like he has the edema to the left lower extremity with petechiae. His platelets were noted to be 75 and was 81 on the . The tibia fibula x-ray today shows no acute osseous findings. Was started in the emergency room due to possibility of cellulitis to left lower extremity. He does have an abrasion on the left knee and ulcerated area to live lower extremity and it is edematous. Also the patient was started on Cardizem drip for possibility of AFib with RVR. However cardiology saw him during the last admission and determined that it was not AFib. Negative stress test today his troponin was 0.040 in 0.478. Patient typically has elevated troponins. He has end-stage renal disease and has peritoneal dialysis the patient also has gallbladder disease but was not able to get his gallbladder out unless he was willing it to have a tunneled dialysis catheter placed. The patient is very weak at this point. Nephrology has been consulted date of service 07/17/2019 Review of Systems Review of Systems: Narrative: He denies any fever chills. Complains of left lower extremity pain. All systems reviewed & are unremarkable except as noted in HPI and below Constitutional: Constitutional: Reports as per HPI and Reports no additional constitutional complaints Eyes: Eyes: Reports as per HPI and Reports no additional eye complaints ENT: Reports system reviewed and no additional complaints, except as documented and Reports Normal hearing present Cardiovascular: Cardiovascular: Reports no additional cardiovascular complaints Respiratory: Respiratory: Reports no additional respiratory complaints and Reports no additional respiratory complaints Gastrointestinal: Gastrointestinal: Reports as per HPI and Reports no additional gastrointestinal complaints Musculoskeletal: Musculoskeletal: Reports no additional musculoskeletal complaints Integumentary/Breasts: Skin/Breast: Reports system reviewed and no additional complaints, except as docu and Reports as per HPI Neurologic: Reports system reviewed and no additional complaints, except as documented, Reports as per HPI and Reports Normal hearing present Psychiatric: Psychiatric: Reports no additional psychiatric complaints and Reports as per HPI Endocrine: Endocrine: Reports no additional endocrine complaint
[2019-07-18] VITALS (15 sets, daily range): BP systolic 102–140; BP diastolic 49–76; PULSE 91–112; RESP 18–22; TEMP 35.9–36.8; O2SAT 96–100; BMI 32.1
--- NOTE | 2019-07-18 00:38 | ECG_ITS ---
Measurements Intervals [place] Rate: 115 P: MI: 0 QRS: -56 QRSD: 102 T: 88 QT: 309 QTc: 428 Interpretive Statements ATRIAL TACHYCARDIA WITH RAPID VENTRICULAR RESPONSE LEFT ANTERIOR FASCICULAR BLOCK ST-T WAVE ABNORMALITY IN HIGH LATERAL LEADS- CONSIDER ISCHEMIA ABNORMAL ECG Electronically Signed On 07-18-2019 7:09:30 CDT by Giles Paredes D.O.
[2019-07-18 04:50] LABS: Hematocrit 31.9 % (42.0-52.0); Hemoglobin 10.5 g/dL (14.0-18.0); Immature Platelet Fraction Pct 1.5 % (0.9-11.2); Mean Corpuscular HGB Conc 32.9 g/dl (32-36); Mean Corpuscular Hemoglobin 31.6 pg (26-34); Mean Corpuscular Volume 96.1 fl (80-100); Mean Platelet Volume 9.9 fl (7.4-10.4); Platelet Count Result 63 k/mm3 (150-375); Red Blood Count 3.32 M/mm3 (4.6-6.20); Red Cell Distribution Width 19.3 % (11.5-14.5); White Blood Count 19.1 K/mm3 (4.5-10.0)
[2019-07-18 05:02] LABS: Alanine Aminotransferase 17 U/L (4-50); Albumin Level 3.1 g/dL (3.5-5.1); Alkaline Phosphatase 42 U/L (38-126); Aspartate Amino Transferase 23 U/L (17-59); Bilirubin,Total 1.3 mg/dL (0.2-1.3); Blood Urea Nitrogen 59 mg/dL (9-20); Calcium 10.1 mg/dL (8.4-10.2); Carbon Dioxide 24 mmol/L (22-30); Chloride 98 mmol/L (98-107); Estimated CRCL calculation 7 ml/min; Estimated Glomerular Filt Rate 5; Glucose 192 mg/dL (75-110); Potassium 3.7 mmol/L (3.4-5.0); Sodium 133 mmol/L (137-145)
[2019-07-18 05:24] LABS: Band Neutrophils Percent 15 % (0-6); Lymphocytes Absolute Manual 1.52 K/mm3 (1.1-4.5); Monocytes Absolute Manual 1.71 K/mm3 (0.1-0.90); Monocytes Percent Manual 9 % (3-9); Neutrophils Absolute Manual 15.85 K/mm3 (1.3-6.7); Neutrophils Percent Manual 68 % (46-73); Total Cells Counted 100
[2019-07-18 05:25] LABS: Macrocytosis 1+ (NORMAL); Ovalocytes 1+ (NORMAL); Platelet Estimate Decreased (Adequate)
[2019-07-18 05:26] LABS: Atypical Lymphocytes Present
[2019-07-18] MEDS: FAMOTIDINE 20 MG TABLET 40 MG PO ×2 (08:40→16:53)
[2019-07-18] MEDS: VITAMIN B COMPLEX CAPSULE 1 CAP PO (08:40)
[2019-07-18] MEDS: allopurinoL 100 MG TABLET PO (08:40)
[2019-07-18] MEDS: METOPROLOL TARTRATE 50 MG TAB PO ×2 (08:41→20:41)
--- NOTE | 2019-07-18 09:33 | PM.CNNEP ---
Assessment and Plan Assessment and plan (1) End stage renal disease: Code(s): N18.6 - End stage renal disease Status: Chronic (2) Cellulitis of left leg: Code(s): L03.116 - Cellulitis of left lower limb Status: Acute (3) Generalized weakness: Code(s): R53.1 - Weakness Status: Acute (4) Atrial tachycardia: Code(s): I47.1 - Supraventricular tachycardia Status: Chronic (5) AMS (altered mental status): Code(s): R41.82 - Altered mental status, unspecified Status: Acute Assessment and Plan: . Additional Plan Kentrell has end-stage renal disease and is on peritoneal dialysis. I will continue his peritoneal dialysis prescription this evening and continue it while he remains hospitalized here at [facility]. Because of his previous history of orthostatic hypotension, I will use only 1.5% Dianeal to limit fluid removal but at the same time provide adequate clearance of the uremic toxins. Given his acute confusion, the more pressing concern is whether not he will be able to do peritoneal dialysis as outpatient. If his confusion is significant enough that he is unable to do peritoneal dialysis, then we may have to consider switching him to hemodialysis at least temporarily until is mentation improves. Furthermore, he would have had to do this anyway if he and his family want to pursue gallbladder surgery in general. I discussed the case with CHARISSE Capone and she will discuss it with his primary rodeo performer, Dr. Mari. He has been started on IV antibiotic therapy on the assumption of left leg cellulitis and will follow up on the aforementioned cultures have been done to assess if further adjustments in his antibiotics are needed. I will continue to follow his CKD parameters while he remains hospitalized and make further recommendations during his hospital course. Thank you for allowing me to participate in the care this patient. History of Present Illness Reason for Consult Consult date: 07/18/19 Reason for consult: end stage renal disease Chief Complaint Chief complaint: AMS, cellulitis, ESRD History of Present Illness Narrative: The patient is a 73-year-old male with and extensive past medical history as outlined below who presented to the [facility] ER s/p fall The patient was just discharged ~ 48 hours ago after being hospitalized for weakness and orthostatic hypotension. He had clinically improved during that hospital stay before discharge. According to his , she states since his return home he has decompensated to the same point as his previous hospitalization. He will not eat or drink since leaving the hospital. Yesterday, he was walking with his walker when she witnessed him fall onto his side and then he rolled onto his back. She is unsure if he hit his head. She was unable to get patient up so EMS was called and he was brought to the ER for further evaluation. His noticed that he developed redness to his leg the day before yesterday. Workup and evaluation emergency room demonstrated the patient be tachycardic which was consistent with his known history of atrial fibrillation/atrial tachycardia. It was presumed that he was still tachycardic as he had not taken his medication before his presentation to the emergency room. Furthermore, routine blood test demonstrated labs consistent with his known history of end-stage renal disease and there was some concern that the appearance of his left lower extremity was the beginnings of early cellulitis. Appropriate cultures were drawn, he was started on IV antibiotic therapy, and subsequently to the hospital for further evaluation and therapy. Renal consultation was requested due to his end-stage renal disease. The patient normally does peritoneal dialysis every evening through [facility] and he is under the care of Dr. Mari. From a dialysis perspective, he has been doing reas
--- NOTE | 2019-07-18 10:34 | PM.IMPN ---
Progress Note: A&P Assessment and Plan (1) End stage renal disease: Code(s): N18.6 - End stage renal disease Status: Chronic Assessment and Plan: ESRD on peritoneal dialysis. Patient's established apartment rental clerk is Dr Mari at [place]. Discharged 07/15 - Apparently after discharge he was too confused at home to complete his PD and his does not know how to do it. There are discussions about transitioning the patient from PD to hemodialysis because of this and due to the fact that he may require lap cholecystectomy on an outpatient basis. See below. Called Dr Mari to discuss a further plan, waiting on a call back. In the interim, appreciate Dr Walsh's help managing PD orders. Cr is 10.1 today, BUN 59. Edit: Discussed case with Dr Mari and Dr Walsh. Both are in agreement that if patient is too altered to carry out his peritoneal dialysis at home, it is reasonable to transition him to hemodialysis at this time to be able to reliably receive his dialysis. Additionally, if he will need surgical intervention for gallbladder electively in the future, he will require short-term hemodialysis as mentioned below. All are in agreement with plan for surgical consultation to evaluate if he will be able to undergo tunneled catheter placement during this admission. WBC elevated and Plts chronically low which could delay this procedure. (2) Delirium due to general medical condition: Code(s): F05 - Delirium due to known physiological condition Status: Acute Assessment and Plan: Etiology unclear. Suspect missing PD may have contributed to this. CT brain shows no acute intracranial findings. Blood cultures are pending with no growth to date. Will monitor. (3) Cholelithiasis: Qualifiers: Biliary obstruction: without biliary obstruction Cholecystitis presence: without cholecystitis Cholelithiasis location: gallbladder Qualified Code(s): K80.20 - Calculus of gallbladder without cholecystitis without obstruction Code(s): K80.20 - Calculus of gallbladder without cholecystitis without obstruction Status: Chronic Assessment and Plan: This was noted on previous admission. He was seen by Dr Masterson in consultation 07/15/19. Dr Masterson has noted that since the patient did not show signs of cholecystitis, he could be seen for evaluation on an outpatient basis potentially for elective laparscopic cholecystectomy at some point. Dr Masterson notes that if the patient would have lap curly, that he would not be able to do peritoneal dialysis for 2 weeks. For that reason, he does not plan on any surgical intervention until the patient has plans to transition to hemodialysis. Continue supportive therapy for now with antiemetics as needed. His pain is not significant today. (4) Leukocytosis: Qualifiers: Leukocytosis type: other Qualified Code(s): D72.828 - Other elevated white blood cell count Code(s): D72.829 - Elevated white blood cell count, unspecified Status: Acute Assessment and Plan: Also noted on last admission and improved prior to discharge. WBC 19,000 today. Will obtain UA with reflex culture and CT abdomen/pel to rule out other causes of infection at this time. L leg does not appear to be infected from his injury related to fall yesterday. Chest XR is clear. Blood cultures are pending. Afebrile. CBC in AM (5) Atrial tachycardia: Code(s): I47.1 - Supraventricular tachycardia Status: Chronic Assessment and Plan: Noted on last admission. HR is stable this morning. Continue his home metoprolol and monitor. No chest pain or shortness of breath. (6) Thrombocytopenia: Code(s): D69.6 - Thrombocytopenia, unspecified Status: Chronic Assessment and Plan: Chronic based on review of pr
--- NOTE | 2019-07-18 13:26 | PM.CNGS ---
Assessment and Plan Assessment and plan (1) End-stage renal disease on peritoneal dialysis: Code(s): N18.6 - End stage renal disease; Z99.2 - Dependence on renal dialysis Status: Acute Assessment and Plan: The patient is being seen in evaluation for a tunneled dialysis catheter at the request of the Hospitalist and Field Hockey Coach. He apparently has been non-compliant with his peritoneal dialysis due to confusion and his is unable to perform the dialysis for him at home. There is also concern of symptomatic cholelithiasis and possibly proceeding with an elective laparoscopic cholecystectomy in the future, in which he would have to be changed to hemodialysis to proceed with surgery. I discussed the patient's case and plan of care with Dr. Meng. The main concern is that the patient's white blood cell count is up to 19,100 today. I discussed this with the Hospitalist as well, and it is not felt that his left lower leg has evidence of cellulitis or would be the cause for his leukocytosis. They will be working up the leukocytosis further and ordering a CT of the abdomen and pelvis due to his associated recent GI complaints and poor appetite. We will continue to follow along and defer the placement of a tunneled dialysis catheter until his leukocytosis improves. We will also continue to monitor the patient's chronic thrombocytopenia while planning for surgery. I discussed the plan of care with the patient and questions were answered. He did give me permission to discuss this with his as well prior to proceeding with any surgery. Thank you for allowing me to see the patient in consultation and we will continue to follow along with you. (2) Leukocytosis: Qualifiers: Leukocytosis type: other Qualified Code(s): D72.828 - Other elevated white blood cell count Code(s): D72.829 - Elevated white blood cell count, unspecified Status: Acute (3) Thrombocytopenia: Code(s): D69.6 - Thrombocytopenia, unspecified Status: Chronic Assessment and Plan: Chronically low platelets, which are 63,000 today. Will continue to monitor pre-operatively. (4) Hypertension: Code(s): I10 - Essential (primary) hypertension Status: Chronic (5) Anemia: Code(s): D64.9 - Anemia, unspecified Status: Chronic (6) Coronary artery disease: Code(s): I25.10 - Atherosclerotic heart disease of [place] coronary artery without angina pectoris Status: Acute (7) Cholelithiasis: Qualifiers: Cholelithiasis location: gallbladder Cholecystitis presence: without cholecystitis Biliary obstruction: without biliary obstruction Qualified Code(s): K80.20 - Calculus of gallbladder without cholecystitis without obstruction Code(s): K80.20 - Calculus of gallbladder without cholecystitis without obstruction Status: Chronic Assessment and Plan: Previous work-up showed no evidence of cholecystitis. HIDA scan showed a slightly decreased gallbladder EF of 31%. This was done about 1 month ago and it is difficult to decipher if his symptoms are related to the cholelithaisis or if they could be from another etiology. Due to the leukocytosis, he is getting a repeat CT scan of the abdomen and pelvis. Will await these results. If he has evidence of acute cholecystitis, then we may need to consider a percutaneous cholecystostomy tube (8) AMS (altered mental status): Code(s): R41.82 - Altered mental status, unspecified Status: Acute (9) Fall: Qualifiers: Encounter type: initial encounter Qualified Code(s): W19.XXXA - Unspecified fall, initial encounter Code(s): W19.XXXA - Unspecified fall, initial encounter Status: Acute (10) Obstructive sleep apnea: Code(s): G47.33 - Obstructive sleep apnea (adult) (pediatric) Status: Acute History of Present Illness Consult details Consult date: 07/18/19 Reason for consult: central line (Placement o
[2019-07-19] VITALS (20 sets, daily range): BP systolic 69–155; BP diastolic 40–85; PULSE 72–111; RESP 20–28; TEMP 35.7–36.6; O2SAT 96–100
[2019-07-19 04:43] LABS: Hematocrit 30.7 % (42.0-52.0); Hemoglobin 10.3 g/dL (14.0-18.0); Immature Platelet Fraction Pct 2.3 % (0.9-11.2); Mean Corpuscular HGB Conc 33.6 g/dl (32-36); Mean Corpuscular Hemoglobin 31.9 pg (26-34); Mean Platelet Volume 10.7 fl (7.4-10.4); Platelet Count Result 56 k/mm3 (150-375); Red Blood Count 3.23 M/mm3 (4.6-6.20); Red Cell Distribution Width 19.2 % (11.5-14.5); White Blood Count 25.8 K/mm3 (4.5-10.0)
[2019-07-19 04:49] LABS: INR 1.4; Prothrombin Time 16.4 Seconds (11.1-14.7)
[2019-07-19 04:50] LABS: Hemoglobin A1C 5.9 % (<5.7); Partial Thromboplastin Time 29.7 SECONDS (22.3-36.8)
[2019-07-19 04:53] LABS: Blood Urea Nitrogen 65 mg/dL (9-20); Calcium 9.7 mg/dL (8.4-10.2); Carbon Dioxide 27 mmol/L (22-30); Chloride 96 mmol/L (98-107); Estimated CRCL calculation 6 ml/min; Estimated Glomerular Filt Rate 5; Glucose 162 mg/dL (75-110); Phosphorus 7.5 mg/dL (2.5-4.5); Potassium 3.3 mmol/L (3.4-5.0); Sodium 133 mmol/L (137-145)
[2019-07-19 05:36] LABS: Band Neutrophils Percent 12 % (0-6); Lymphocytes Absolute Manual 2.83 K/mm3 (1.1-4.5); Monocytes Absolute Manual 2.83 K/mm3 (0.1-0.90); Monocytes Percent Manual 11 % (3-9); Neutrophils Absolute Manual 20.12 K/mm3 (1.3-6.7); Neutrophils Percent Manual 66 % (46-73); Platelet Estimate Decreased (Adequate); Total Cells Counted 100
[2019-07-19 05:37] LABS: Hypochromasia 2+ (NORMAL)
[2019-07-19 05:38] LABS: Anisocytosis 1+ (NORMAL)
[2019-07-19] MEDS: VITAMIN B COMPLEX CAPSULE 1 CAP PO (10:30)
[2019-07-19] MEDS: allopurinoL 100 MG TABLET PO (10:30)
[2019-07-19] MEDS: METOPROLOL TARTRATE 50 MG TAB PO (10:30)
[2019-07-19] MEDS: calcitrioL 0.25 MCG CAPSULE PO (10:30)
[2019-07-19] MEDS: FAMOTIDINE 20 MG TABLET 40 MG PO ×2 (10:30→17:47)
--- NOTE | 2019-07-19 12:44 | WPDINFPN2 ---
Progress Note: A&P Assessment and Plan (1) Streptococcus C: Code(s): A49.1 - Streptococcal infection, unspecified site Status: Acute Assessment and Plan: 1. Grp C Streptococcus bacteremia, LLE soft tissue source 2. CRF REC PCN # 1 (antibiotic #3), IV therapy at least until 07/22 Subjective Date/time seen: 07/19/19 12:44 Objective Data Vital Signs Vital Signs: Vital Signs - 24 hr 07/18/19 14:00 07/18/19 16:00 07/18/19 18:00 Temperature 36.3 C L Pulse Rate 91 98 96 Respiratory Rate 18 Blood Pressure 125/49 L Pulse Oximetry 100 07/18/19 20:00 07/18/19 20:41 07/18/19 22:00 Temperature 36.7 C Pulse Rate 106 H 106 H 92 Respiratory Rate 20 Blood Pressure 132/53 L Pulse Oximetry 98 07/18/19 23:39 07/19/19 00:00 07/19/19 02:00 Temperature 36.6 C Pulse Rate 97 97 100 Respiratory Rate 20 20 Blood Pressure 138/74 Pulse Oximetry 96 96 07/19/19 04:00 07/19/19 06:00 07/19/19 08:00 Temperature 36.6 C Pulse Rate 108 H 100 100 Respiratory Rate 20 Blood Pressure 155/85 H Pulse Oximetry 97 07/19/19 08:55 07/19/19 10:00 07/19/19 10:30 Temperature 35.7 C L Pulse Rate 100 99 102 H Respiratory Rate 22 H Blood Pressure 146/75 H Pulse Oximetry 99 Intake/Output Intake/Output: Intake & Output 07/16/19 07/17/19 07/18/19 07/19/19 23:59 23:59 23:59 23:59 Intake Total 95 Output Total 0 593 -1332 Balance 95 -593 1332 Meds/Results Medications: Active Medications Generic Name Dose Route Start Last Admin Trade Name Freq PRN Reason Stop Dose Admin Allopurinol 100 mg 07/18/19 09:00 07/19/19 10:30 Zyloprim PO 100 mg DAILY DARA Administration Calcitriol 0.25 mcg 07/19/19 09:00 07/19/19 10:30 Rocaltrol PO 0.25 mcg [id number] DARA Administration Famotidine 40 mg 07/18/19 09:00 07/19/19 10:30 Pepcid PO 40 mg BID DARA Administration Metoprolol Tartrate 50 mg 07/18/19 09:00 07/19/19 10:30 Lopressor PO 50 mg Q12HR DARA Administration Non-Formulary Medication 750 mg 07/18/19 09:00 Niacin (Inositol Niacinate) PO 08/17/19 09:01 BID DARA Ondansetron HCl 4 mg 07/17/19 16:33 Zofran Inj IV PUSH Q4H PRN Nausea Vitamin B Complex 1 cap 07/18/19 09:00 07/19/19 10:30 Vitamin B Complex PO 1 cap DAILY DARA Administration Wound Care/Dressing Products 1 patch 07/18/19 09:00 07/19/19 11:35 Mepilex Transfer Drsg 6x8 TOPICAL 1 patch QAM DARA Administration Radiology Results: ITS Impressions Head CT 07/17/19 13:46 IMPRESSION: 1. No acute intracranial findings. 2. Old bilateral basal ganglia lacunar infarctions. 3. Chronic age related findings. Tibia/Fibula X-Ray 07/17/19 14:04 IMPRESSION: No acute osseous findings. Chest X-Ray 07/17/19 14:06 IMPRESSION: No acute cardiopulmonary findings. Venous Doppler Study 07/18/19 11:15 IMPRESSION: 1: No lower extremity deep venous thrombosis. Labs Labs: Laboratory Results - last 24 hr 07/19/19 07/19/19 07/19/19 04:26 04:26 04:26 WBC 25.8 H RBC 3.23 L Hgb 10.3 L Hct 30.7 L MCV 95.0 MCH 31.9 MCHC 33.6 RDW 19.2 H Plt Count 56 L MPV 10.7 H Immature Gran % (Auto) Not Reportable Neut % (Auto) Not Reportable Lymph % (Auto) Not Reportable [place] % (Auto) Not Reportable Eos % (Auto) Not Reportable Baso % (Auto) Not Reportable Lymph # (Auto) Not Reportable [place] # (Auto) Not Reportable Eos # (Auto) Not Reportable Baso # (Auto) Not Reportable Abs Immat Gran (auto) Not Reportable Absolute Neuts (auto) Not Reportable Absolute Nucleated RBC Not Reportable Total Counted 100 Neutrophils % (Manual) 66 Band Neutrophils % 12 H Lymphocytes % (Manual) 11.0 L Monocytes % (Manual) 11 H Nucleated RBC % Not Reportable Abs Neuts (Manual) 20.12 H Abs Lymphs (Manual) 2.83 Abs Monoc
--- NOTE | 2019-07-19 13:22 | PCOTNOTE ---
Attempted to see patient this pm, however patient declined stating, No, ma'am. I don't feel well. I'm sorry.
--- NOTE | 2019-07-19 16:50 | PM.IMPN ---
Progress Note: A&P Assessment and Plan (1) Bacteremia: Code(s): R78.81 - Bacteremia Status: Acute Assessment and Plan: -----both blood cultures growing group G Streptococcus. Etiology could be from his dialysis or cutaneous source. Penicillin G started this morning and infectious disease consulted. Plan to continue with penicillin at this time. Await sensitivities. His confusion has improved. White blood cell count worsened yesterday. Suspect this will improve with antibiotic therapy (2) Streptococcus C: Code(s): A49.1 - Streptococcal infection, unspecified site Status: Acute Assessment and Plan: -----see above (3) End stage renal disease: Code(s): N18.6 - End stage renal disease Status: Chronic Assessment and Plan: -----ESRD on peritoneal dialysis. Patient's established furniture arranger is Dr Mari at [place]. Discharged 07/15 - Apparently after discharge he was too confused at home to complete his PD and his does not know how to do it. There are discussions about transitioning the patient from PD to hemodialysis because of this and due to the fact that he may require lap cholecystectomy on an outpatient basis. See below. For now, patient is going to continue to do peritoneal dialysis, there is some mention that he may be transition to hemodialysis. His confusion has gotten better with the treatment of the infection. Will await further recommendations. Previous provider Discussed case with Dr Mari and Dr Walsh. Both are in agreement that if patient is too altered to carry out his peritoneal dialysis at home, it is reasonable to transition him to hemodialysis at this time to be able to reliably receive his dialysis. Additionally, if he will need surgical intervention for gallbladder electively in the future, he will require short-term hemodialysis as mentioned below. All are in agreement with plan for surgical consultation to evaluate if he will be able to undergo tunneled catheter placement during this admission (now complicated with bacteremia). Plts chronically low which could delay this procedure. (4) Delirium due to general medical condition: Code(s): F05 - Delirium due to known physiological condition Status: Acute Assessment and Plan: -----likely due to bacteremia. See above. Patient seemed to have improved today. (5) Cholelithiasis: Qualifiers: Cholelithiasis location: gallbladder Cholecystitis presence: without cholecystitis Biliary obstruction: without biliary obstruction Qualified Code(s): K80.20 - Calculus of gallbladder without cholecystitis without obstruction Code(s): K80.20 - Calculus of gallbladder without cholecystitis without obstruction Status: Chronic Assessment and Plan: -----This was noted on previous admission. He was seen by Dr Masterson in consultation 07/15/19. Dr Masterson has noted that since the patient did not show signs of cholecystitis, he could be seen for evaluation on an outpatient basis potentially for elective laparscopic cholecystectomy at some point. Dr Masterson notes that if the patient would have lap curly, that he would not be able to do peritoneal dialysis for 2 weeks. For that reason, he does not plan on any surgical intervention until the patient has plans to transition to hemodialysis (which may be soon?). Patient has had a decreased appetite. CT of the abdomen shows cholelithiasis and gallbladder distension. (6) Leukocytosis: Qualifiers: Leukocytosis type: other Qualified Code(s): D72.828 - Other elevated white blood cell count Code(s): D72.829 - Elevated white blood cell count, unspecified Status: Acute Assessment and Plan: -----likely secondary to bacteremia. See above (7) Atrial tachycardia: Code(s): I47.1 - Supraventricular tachycardia Status: Chronic Assessment and Plan: -----Noted on last
--- NOTE | 2019-07-19 17:15 | PM.PNNEP ---
Progress Note: A&P Assessment and Plan (1) End stage renal disease: Code(s): N18.6 - End stage renal disease Status: Chronic Assessment and Plan: continue CCPD overnight while hospitalized hold off on transition to HD until acute infection resolves follow electrolytes, volume status, and clearance (2) Bacteremia: Code(s): R78.81 - Bacteremia Status: Acute Assessment and Plan: Group G Streptoccocus in cultures Infecctious Disease following continue antibiotics follow repeat cultures (3) AMS (altered mental status): Code(s): R41.82 - Altered mental status, unspecified Status: Acute Assessment and Plan: due to #2 versus some other issue follow mentation (4) Cellulitis of left leg: Code(s): L03.116 - Cellulitis of left lower limb Status: Acute Assessment and Plan: presumed source of bactremia(?) on antibioitic therapy WBC worse (5) Anemia: Code(s): D64.9 - Anemia, unspecified Status: Acute Assessment and Plan: due to ESRD possible Epogen resistance with acute infection follow trend of H/H (6) Generalized weakness: Code(s): R53.1 - Weakness Status: Acute Assessment and Plan: multifactorial: - acute infection - poor oral intake - inability to do peritoneal dialysis at home(?) Will continue to follow. Subjective Date/time seen: 07/19/19 17:15 CCPD treatemnt last night complicated by low drain alarms resulting in absorbing of PD fluid; confusion seems to be doing somewhat better in general; still with poor appetite as well. Exam Narrative: Exam Narrative: General: WD/WN male/female in NAD Heart: normal S1 and S2; no rub Lungs: clear to auscultation Abdomen: soft, nontender, nondistended, positive bowel sounds Extremities: no cyanosis or clubbing; left lower extremity edema Skin: warm and dry Objective Data Vital Signs Vital Signs: Vital Signs Temp Pulse Resp BP Pulse Ox 07/19/19 16:31 36.3 C L 99 28 H 134/59 L 96 07/19/19 14:00 103 H 07/19/19 13:10 69/40 L 07/19/19 13:09 35.7 C L 91 20 128/75 100 07/19/19 12:00 35.7 C L 92 20 128/75 100 07/19/19 10:30 102 H 07/19/19 10:00 99 07/19/19 08:55 35.7 C L 100 22 H 146/75 H 99 07/19/19 08:00 100 07/19/19 06:00 100 07/19/19 04:00 36.6 C 108 H 20 155/85 H 97 07/19/19 02:00 100 07/19/19 00:00 97 20 96 07/18/19 23:39 36.6 C 97 20 138/74 96 07/18/19 22:00 92 07/18/19 20:41 106 H 07/18/19 20:00 36.7 C 106 H 20 132/53 L 98 07/18/19 18:00 96 Intake/Output Intake/Output: Intake & Output 07/16/19 07/17/19 07/18/19 07/19/19 23:59 23:59 23:59 23:59 Intake Total 95 0 Output Total 0 593 -1332 Balance 95 -593 1332 Meds/Results Medications: Active Medications Generic Name Dose Route Start Last Admin Trade Name Freq PRN Reason Stop Dose Admin Allopurinol 100 mg 07/18/19 09:00 07/19/19 10:30 Zyloprim PO 100 mg DAILY DARA Administration Calcitriol 0.25 mcg 07/19/19 09:00 07/19/19 10:30 Rocaltrol PO 0.25 mcg MoWeFr@0900 DARA Administration Calcium Acetate 667 mg 07/19/19 17:00 Phoslo PO TID DARA Famotidine 40 mg 07/18/19 09:00 07/19/19 10:30 Pepcid PO 40 mg BID DARA Administration Penicillin G Potassium 2,000, 50 mls @ 100 mls/hr 07/19/19 21:00 000 units/ Dextrose IVPB Q12HR DARA Metoprolol Tartrate 75 mg 07/19/19 21:00 Lopressor PO Q12HR [facility] Non-Formulary Medication 750 mg 07/18/19 09:00 Niacin (Inositol Niacinate) PO 08/17/19 09:01 BID DARA Ondansetron HCl 4 mg 07/17/19 16:33 Zofran Inj IV PUSH Q4H PRN Nausea Vitamin B Complex 1 cap 07/18/19 09:00 07/19/19 10:30 Vitamin B Complex PO 1 cap DAILY DARA Administration Wound Care/Dressing Products 1 patch 07/18/19 09:00 0
--- NOTE | 2019-07-19 17:47 | CONS_ITS ---
DATE OF CONSULTATION: 07/19/2019 REASON FOR CONSULTATION: Bacteremia. HISTORY OF PRESENT ILLNESS: The patient is a 73-year-old male who is a poor historian. He has chronic renal failure and has been on peritoneal dialysis for some 3 years. He was admitted to this hospital from the June 14 until June 20 with orthostatic hypotension. He had mild leukocytosis at that time. He was readmitted to the hospital on July 11 with generalized weakness, and he was discharged once again on July 15. He returned finally on July 16 with a fall and generalized weakness as well as 1 day of redness to his left leg. He was given Ancef, and is now on penicillin. Consultation requested. The patient denies any left leg pain. He is unaware of how he acquired several crusted lesions over his hands and legs other than recurrent falls. Subjectively, he knows of no cause of the falls (see above). No other recent antibiotics, and he denies fever, rigors or drenching sweats. He has had no problems with his dialysis. ALLERGIES: NONE KNOWN. HABITS: Ex-smoker x20 years. No alcohol. No illicit drugs. PRESENT MEDICATIONS: List reviewed. No immunosuppressants. PAST MEDICAL HISTORY: In addition to the above, AF with RVR or atrial tachycardia, anemia of chronic inflammation, gallstones, coronary stents, tonsillectomy, NIMO, GERD, hypertension, diverticulosis, idiopathic thrombocytopenia, diverticulosis. FAMILY HISTORY: Not pertinent to his present illness. SOCIAL HISTORY: He lives locally, is , retired from [employer]. REVIEW OF SYSTEMS: Compromised by the patient's memory. Otherwise, 14-point review is negative. PHYSICAL EXAMINATION: GENERAL: This is an elderly male who appears his actual age. No acute distress. VITAL SIGNS: His temperature readings have been in the normal range, 146/75, 102, 22, 98% on room air. SKIN: Multiple ecchymoses with some petechial rash over the left mid to lower elena, has multiple crusted lesions consistent with superficial trauma and hemorrhage. He has an incision over the right knee suggesting total knee arthroplasty. Elsewhere skin warm and dry. Crusted lesions also noted over the hands and arms and ecchymoses elsewhere. NODES: No axillary or cervical adenopathy. EENT: The conjunctivae are normal. Pupils equal, round, reactive to light. Oropharynx, oral mucosa normal other than nonspecific coating over the soft palate, not suggestive of thrush. NECK: No masses or thyromegaly. LUNGS: Clear to auscultation and percussion. CHEST: Equal expansion. Normal AP diameter. No indwelling vascular devices. CARDIAC: Regular rate and rhythm. Tachycardic. No murmurs. ABDOMEN: Soft, nontender. No organomegaly. No masses. CAPD catheter in place, left upper quadrant. EXTREMITIES: 3+ edema on the left, 1+ elsewhere. No clubbing. No cyanosis. LABORATORY DATA: Blood cultures 2/2 sets, group C strep. Blood cultures from June 14 final, no growth. White blood cell count prior to admission 10.8 and 16.6, then 11.4, on readmission 19.1 and today is 25.8, hemoglobin 10.3, platelets are 56,000. Differential shows mild left shift. Blood gases 7.53, 26, 77, 21, 97% on room air. Chemistries with hyponatremia, hypokalemia, BUN 65, creatinine 10.8, glucose 162. His A1c is 5.9%. His albumin is 3.1. His urinalysis (urinates once daily) showed no evidence of infection. RADIOLOGY: Chest x-ray 07/16, no active disease. Venous Doppler studies 07/17, no DVT left leg. Tibia-fibula x-ray 07/16, normal. ASSESSMENT: 1. Group C streptococcus bacteremia with infection, suspect cellulitis left leg from trauma. Contaminant is unlikely. Other causes of his bacteremia are unlikely. 2. Leukocytosis, multifactorial. 3. CAPD catheter in dimas
[2019-07-19] MEDS: CALCIUM ACETATE 667 MG TABLET PO (17:48)
[2019-07-19] MEDS: METOPROLOL TARTRATE 25 MG TABLET 75 MG PO (20:51)
[2019-07-19 21:46] LABS: Source Peritoneal Fluid Peritoneal Fluid
[2019-07-19 21:47] LABS: Appearance Peritoneal Fluid Clear (Clear); Color Peritoneal Fluid Colorless (Colorless)
[2019-07-19 21:48] LABS: Nucleated Cells Peritoneal Flu 101 /uL (0-500); RBC Peritoneal Fluid 0 /uL (0-100000)
[2019-07-19 21:52] LABS: Neutrophils Peritoneal Fluid 30 % (0-25)
[2019-07-19 21:53] LABS: Lymphocytes Peritoneal Fluid 48 %; Macrophages Peritoneal Fluid 2 %; Mesothelial Cells Peritoneal Fluid 2 %; Monocytes Peritoneal Fluid 8 %
[2019-07-19 21:58] LABS: Other Cells Peritoneal Fluid 10 %
[2019-07-20] VITALS (16 sets, daily range): BP systolic 129–158; BP diastolic 63–95; PULSE 84–117; RESP 18–24; TEMP 35.6–36.2; O2SAT 96–100
[2019-07-20 04:41] LABS: Hematocrit 28.3 % (42.0-52.0); Hemoglobin 9.6 g/dL (14.0-18.0); Mean Corpuscular HGB Conc 33.9 g/dl (32-36); Mean Corpuscular Volume 94.3 fl (80-100); Mean Platelet Volume 10.1 fl (7.4-10.4); Platelet Count Result 43 k/mm3 (150-375); Red Cell Distribution Width 18.6 % (11.5-14.5)
[2019-07-20 05:01] LABS: Alanine Aminotransferase 10 U/L (4-50); Albumin Level 2.9 g/dL (3.5-5.1); Alkaline Phosphatase 63 U/L (38-126); Aspartate Amino Transferase 17 U/L (17-59); Bilirubin,Total 1.2 mg/dL (0.2-1.3); Blood Urea Nitrogen 63 mg/dL (9-20); Calcium 9.3 mg/dL (8.4-10.2); Carbon Dioxide 27 mmol/L (22-30); Chloride 97 mmol/L (98-107); Estimated CRCL calculation 6 ml/min; Estimated Glomerular Filt Rate 5; Glucose 138 mg/dL (75-110); Magnesium 2.1 mg/dL (1.6-2.3); Potassium 2.9 mmol/L (3.4-5.0); Sodium 134 mmol/L (137-145)
--- NOTE | 2019-07-20 08:27 | P.CDI_ITS ---
CDI Query Clarification Request - Blood cultures from 07/16 both growing Group G Strep. - On arrival, P-126, RR- 25, lactic acid-3.8, WBC 11.4-> 19.1-> 25.8 - Delirium likely due to bacteremia documented. - Definition of bacteremia is nonspecific laboratory finding of bacteria in the blood - no systemic disease. - Findings above indicate that a more specific diagnosis may be appropriate. Please clarify diagnosis: * Septicemia (systemic disease, sepsis, associated with positive blood cultures) * Bacteremia (non specific lab finding of bacteria in the blood) * Other * Unable to determine
[2019-07-20] MEDS: FAMOTIDINE 20 MG TABLET 40 MG PO ×2 (08:48→17:48)
[2019-07-20] MEDS: allopurinoL 100 MG TABLET PO (08:49)
[2019-07-20] MEDS: METOPROLOL TARTRATE 25 MG TABLET 75 MG PO ×2 (08:49→20:59)
[2019-07-20] MEDS: CALCIUM ACETATE 667 MG TABLET PO ×2 (08:49→17:48)
[2019-07-20] MEDS: VITAMIN B COMPLEX CAPSULE 1 CAP PO (08:49)
[2019-07-20] MEDS: POTASSIUM CHLORIDE 20 MEQ TABLET 40 MEQ PO (09:56)
--- NOTE | 2019-07-20 13:02 | WPDINFPN2 ---
Progress Note: A&P Assessment and Plan (1) Streptococcus C: Code(s): A49.1 - Streptococcal infection, unspecified site Status: Acute Assessment and Plan: 1. Grp C Streptococcus bacteremia, LLE soft tissue source, status improving 2. CRF, no peritonitis REC PCN # 2 (antibiotic #4), IV therapy at least until 07/22 Subjective Date/time seen: 07/20/19 13:02 Interval history: no abd pain, no leg pain at rest Exam Narrative: Exam Narrative: afebrile Const: General: no acute distress Eyes: General: appearance normal, both eyes and all related structures Resp: Effort & Inspection: normal respiratory effort Auscultation: clear to auscultation bilaterally Cardio: Rate: regular rate Rhythm: regular rhythm Heart sounds: no murmurs GI: Inspection: non-distended GI Palp: Yes Soft to palpation and No Tenderness to palpation present (GI) Skin: General skin exam: normal color Other: abrasions LLE as before Objective Data Vital Signs Vital Signs: Vital Signs - 24 hr 07/19/19 13:09 07/19/19 13:10 07/19/19 14:00 Temperature 35.7 C L Pulse Rate 91 103 H Respiratory Rate 20 Blood Pressure 128/75 69/40 L Pulse Oximetry 100 07/19/19 16:00 07/19/19 16:31 07/19/19 18:00 Temperature 36.3 C L Pulse Rate 98 99 111 H Respiratory Rate 28 H Blood Pressure 134/59 L Pulse Oximetry 96 07/19/19 20:00 07/19/19 20:51 07/19/19 21:42 Temperature 36.0 C L Pulse Rate 101 H 98 102 H Respiratory Rate 20 Blood Pressure 137/78 Pulse Oximetry 98 07/19/19 23:34 07/19/19 23:56 07/20/19 02:00 Temperature 36.2 C L Pulse Rate 98 93 100 Respiratory Rate 20 22 H Blood Pressure 137/74 Pulse Oximetry 98 99 07/20/19 03:57 07/20/19 04:00 07/20/19 06:00 Temperature 36.2 C L Pulse Rate 100 88 102 H Respiratory Rate 22 H 21 H Blood Pressure 136/74 Pulse Oximetry 99 98 07/20/19 08:00 07/20/19 08:49 07/20/19 10:00 Temperature Pulse Rate 102 H 117 H 86 Respiratory Rate Blood Pressure Pulse Oximetry 07/20/19 12:00 Temperature 36.1 C L Pulse Rate 86 Respiratory Rate 20 Blood Pressure 158/95 H Pulse Oximetry 96 Intake/Output Intake/Output: Intake & Output 07/17/19 07/18/19 07/19/19 07/20/19 23:59 23:59 23:59 23:59 Intake Total 95 50 150 Output Total 0 593 -1332 1589 Balance 95 -593 1382 -1439 Meds/Results Medications: Active Medications Generic Name Dose Route Start Last Admin Trade Name Freq PRN Reason Stop Dose Admin Allopurinol 100 mg 07/18/19 09:00 07/20/19 08:49 Zyloprim PO 100 mg DAILY [facility] Administration Calcitriol 0.25 mcg 07/19/19 09:00 07/19/19 10:30 Rocaltrol PO 0.25 mcg MoWeFr@0900 DARA Administration Calcium Acetate 667 mg 07/19/19 17:00 07/20/19 12:26 Phoslo PO Not Given TID DARA Famotidine 40 mg 07/18/19 09:00 07/20/19 08:48 Pepcid PO 40 mg BID DARA Administration Penicillin G Potassium 2,000, 50 mls @ 100 mls/hr 07/19/19 21:00 07/20/19 09:26 000 units/ Dextrose IVPB Infused Q12HR DARA Infusion Metoprolol Tartrate 75 mg 07/19/19 21:00 07/20/19 08:49 Lopressor PO 75 mg Q12HR DARA Administration Non-Formulary Medication 750 mg 07/18/19 09:00 Niacin (Inositol Niacinate) PO 08/17/19 09:01 BID [facility] Ondansetron HCl 4 mg 07/17/19 16:33 Zofran Inj IV PUSH Q4H PRN Nausea Vitamin B Complex 1 cap 07/18/19 09:00 07/20/19 08:49 Vitamin B Complex PO 1 cap DAILY DARA Administration Wound Care/Dressing Products 1 patch 07/18/19 09:00 07/20/19 09:56 Mepilex Transfer Drsg 6x8 TOPICAL 1 patch QAM DARA Administration Radiology Results: ITS Impressions Head CT 07/17/19 13:46 IMPRESSION: 1. No acute intracranial findings. 2. Old bilateral basal ganglia lacunar infarctions. 3. Chronic age related findings. Tibia/Fibula X-Ray 07/17/19 14:04 IMPRESSION: No acute osseous findings. Ch
--- NOTE | 2019-07-20 13:24 | PCOTNOTE ---
Attempted to see patient this pm, however patient rummaging through bags upon entering and declined stating, Well, I'm a little busy right now. Thank you.
--- NOTE | 2019-07-20 15:25 | PM.IMPN ---
Progress Note: A&P Assessment and Plan (1) Bacteremia: Code(s): R78.81 - Bacteremia Status: Acute Assessment and Plan: -----both blood cultures growing group G Streptococcus. PCN sensitive. Etiology likely from cutaneous source, PD fluid has a negative gram stain. Penicillin G will be continued. WBC improving. (2) Streptococcus C: Code(s): A49.1 - Streptococcal infection, unspecified site Status: Acute Assessment and Plan: -----see above (3) End stage renal disease: Code(s): N18.6 - End stage renal disease Status: Chronic Assessment and Plan: -----ESRD on peritoneal dialysis. Patient's established watermelon inspector is Dr Mari at [facility]. Discharged 07/15 - Apparently after discharge he was too confused at home to complete his PD and his does not know how to do it. There are discussions about transitioning the patient from PD to hemodialysis because of this and due to the fact that he may require lap cholecystectomy on an outpatient basis. See below. For now, patient is going to continue to do peritoneal dialysis, there is some mention that he may be transition to hemodialysis. His confusion has gotten better with the treatment of the infection. Will await further recommendations. Previous provider Discussed case with Dr Mari and Dr Walsh. Both are in agreement that if patient is too altered to carry out his peritoneal dialysis at home, it is reasonable to transition him to hemodialysis at this time to be able to reliably receive his dialysis. Additionally, if he will need surgical intervention for gallbladder electively in the future, he will require short-term hemodialysis as mentioned below. All are in agreement with plan for surgical consultation to evaluate if he will be able to undergo tunneled catheter placement during this admission (now complicated with bacteremia). Plts chronically low which could delay this procedure. (4) Delirium due to general medical condition: Code(s): F05 - Delirium due to known physiological condition Status: Acute Assessment and Plan: -----likely due to bacteremia. See above. Hopefully this resolves with tx. spoke with him on the phone today and says he is not himself at all . (5) Cholelithiasis: Qualifiers: Cholelithiasis location: gallbladder Cholecystitis presence: without cholecystitis Biliary obstruction: without biliary obstruction Qualified Code(s): K80.20 - Calculus of gallbladder without cholecystitis without obstruction Code(s): K80.20 - Calculus of gallbladder without cholecystitis without obstruction Status: Chronic Assessment and Plan: -----This was noted on previous admission. He was seen by Dr Masterson in consultation 07/15/19. Dr Masterson has noted that since the patient did not show signs of cholecystitis, he could be seen for evaluation on an outpatient basis potentially for elective laparscopic cholecystectomy at some point. Dr Masterson notes that if the patient would have lap curly, that he would not be able to do peritoneal dialysis for 2 weeks. For that reason, he does not plan on any surgical intervention until the patient has plans to transition to hemodialysis (which may be soon?). Patient has had a decreased appetite and has not ate at all in the last 4 days. Will start TPN. CT of the abdomen shows cholelithiasis and gallbladder distension. (6) Leukocytosis: Qualifiers: Leukocytosis type: other Qualified Code(s): D72.828 - Other elevated white blood cell count Code(s): D72.829 - Elevated white blood cell count, unspecified Status: Acute Assessment and Plan: -----likely secondary to bacteremia. See above (7) Atrial tachycardia: Code(s): I47.1 - Supraventricular tachycardia Status: Chronic Assessment and Plan: -----Noted on last admission. Metoprolol increased 07/18 and his HR
[2019-07-20 15:56] LABS: Hematocrit 29.8 % (42.0-52.0); Hemoglobin 9.9 g/dL (14.0-18.0); Immature Platelet Fraction Pct 3.4 % (0.9-11.2); Mean Corpuscular HGB Conc 33.2 g/dl (32-36); Mean Corpuscular Hemoglobin 31.4 pg (26-34); Mean Corpuscular Volume 94.6 fl (80-100); Platelet Count Result 46 k/mm3 (150-375); Red Blood Count 3.15 M/mm3 (4.6-6.20); Red Cell Distribution Width 18.9 % (11.5-14.5); White Blood Count 20.6 K/mm3 (4.5-10.0)
--- NOTE | 2019-07-20 16:01 | PM.PNNEP ---
Progress Note: A&P Assessment and Plan (1) End stage renal disease: Code(s): N18.6 - End stage renal disease Status: Chronic Assessment and Plan: continue CCPD overnight while hospitalized hold off on transition to HD until acute infection resolves follow electrolytes, volume status, and clearance (2) Bacteremia: Code(s): R78.81 - Bacteremia Status: Acute Assessment and Plan: Group G Streptoccocus in cultures Infecctious Disease following continue antibiotics follow repeat cultures (3) AMS (altered mental status): Code(s): R41.82 - Altered mental status, unspecified Status: Acute Assessment and Plan: due to #2 versus some other issue follow mentation (4) Cellulitis of left leg: Code(s): L03.116 - Cellulitis of left lower limb Status: Acute Assessment and Plan: presumed source of bactremia(?) on antibioitic therapy WBC worse (5) Anemia: Code(s): D64.9 - Anemia, unspecified Status: Acute Assessment and Plan: due to ESRD possible Epogen resistance with acute infection follow trend of H/H (6) Generalized weakness: Code(s): R53.1 - Weakness Status: Acute Assessment and Plan: multifactorial: - acute infection - poor oral intake - inability to do peritoneal dialysis at home(?) Will continue to follow. Subjective Date/time seen: 07/20/19 16:01 Peritoneal dialysis treatment seem be significantly better last night (fluid removal/UF ~1600cc); mentation appears to be slowly improving at this time; no apparent distress voiced at the time of my visit. Exam Narrative: Exam Narrative: General: WD/WN male/female in NAD Heart: normal S1 and S2; no rub Lungs: clear to auscultation Abdomen: soft, nontender, nondistended, positive bowel sounds Extremities: no cyanosis or clubbing; left lower extremity edema Skin: warm and intact Objective Data Vital Signs Vital Signs: Vital Signs Temp Pulse Resp BP Pulse Ox 07/20/19 14:00 99 07/20/19 12:00 36.1 C L 86 20 158/95 H 96 07/20/19 10:00 86 07/20/19 08:49 117 H 07/20/19 08:00 36.1 C L 94 18 153/63 H 98 07/20/19 06:00 102 H 07/20/19 04:00 36.2 C L 88 21 H 136/74 98 07/20/19 03:57 100 22 H 99 07/20/19 02:00 100 07/19/19 23:56 36.2 C L 93 22 H 137/74 99 07/19/19 23:34 98 20 98 07/19/19 21:42 102 H 07/19/19 20:51 98 07/19/19 20:00 36.0 C L 101 H 20 137/78 98 07/19/19 18:00 111 H 07/19/19 16:31 36.3 C L 99 28 H 134/59 L 96 Intake/Output Intake/Output: Intake & Output 07/17/19 07/18/19 07/19/19 07/20/19 23:59 23:59 23:59 23:59 Intake Total 95 50 150 Output Total 0 593 -1332 1589 Balance 95 -593 1382 -1439 Meds/Results Medications: Active Medications Generic Name Dose Route Start Last Admin Trade Name Cassi PRN Reason Stop Dose Admin Allopurinol 100 mg 07/18/19 09:00 07/20/19 08:49 Zyloprim PO 100 mg DAILY DARA Administration Calcitriol 0.25 mcg 07/19/19 09:00 07/19/19 10:30 Rocaltrol PO 0.25 mcg MoWeFr@0900 DARA Administration Calcium Acetate 667 mg 07/19/19 17:00 07/20/19 12:26 Phoslo PO Not Given TID DARA Famotidine 40 mg 07/18/19 09:00 07/20/19 08:48 Pepcid PO 40 mg BID DARA Administration Penicillin G Potassium 2,000, 50 mls @ 100 mls/hr 07/19/19 21:00 07/20/19 09:26 000 units/ Dextrose IVPB Infused Q12HR DARA Infusion Dextrose 1,000 mls @ 50 mls/hr 07/20/19 15:18 Dextrose 10% IV CONT .Q20H PRN if PN is interrupted Amino Acids/Electrolytes/Dextrose 2,000 mls @ 50 mls/hr 07/20/19 18:00 Clinimix E 4.25%/5% Solution IV CONT .Q24H DARA Protocol Fat Emulsion Intravenous 250 mls @ 20.833 mls/hr 07/20/19 18:00 Lipids 20% IVPB Q24H DARA Metoprolol Tartrate 75 mg 07/19/19 21:00 07/20/19 08:49 Lop
[2019-07-20 16:04] LABS: Partial Thromboplastin Time 28.1 SECONDS (22.3-36.8)
[2019-07-20 16:06] LABS: Alanine Aminotransferase 11 U/L (4-50); Albumin Level 3.1 g/dL (3.5-5.1); Alkaline Phosphatase 64 U/L (38-126); Aspartate Amino Transferase 21 U/L (17-59); Bilirubin,Total 1.2 mg/dL (0.2-1.3); Blood Urea Nitrogen 68 mg/dL (9-20); Calcium 9.5 mg/dL (8.4-10.2); Carbon Dioxide 27 mmol/L (22-30); Chloride 97 mmol/L (98-107); Estimated CRCL calculation 6 ml/min; Estimated Glomerular Filt Rate 5; Glucose 122 mg/dL (75-110); Magnesium 2.2 mg/dL (1.6-2.3); Potassium 3.2 mmol/L (3.4-5.0); Sodium 134 mmol/L (137-145)
[2019-07-20 16:18] LABS: Band Neutrophils Percent 6 % (0-6); Lymphocytes Absolute Manual 1.85 K/mm3 (1.1-4.5); Monocytes Absolute Manual 0.82 K/mm3 (0.1-0.90); Monocytes Percent Manual 4 % (3-9); Neutrophils Absolute Manual 17.92 K/mm3 (1.3-6.7); Neutrophils Percent Manual 81 % (46-73); Platelet Estimate Decreased (Adequate); Total Cells Counted 100
[2019-07-20 16:19] LABS: Anisocytosis 2+ (NORMAL); Hypochromasia 1+ (NORMAL)
[2019-07-20 16:51] LABS: Transferrin 84 mg/dL (206-381)
[2019-07-20 17:39] LABS: CRP 19.8 mg/dL (<1.0)
[2019-07-20] MEDS: AMINO ACIDS 4.25%/D5W/LYTES/CA 2,000 ML 50 ML IV CONT (17:50)
[2019-07-20] MEDS: FAT EMULSIONS IV 20% 250 ML 20.8 ML IVPB (17:53)
[2019-07-20 17:56] LABS: Erythrocyte Sedimentation Rate > 140 mm/hr (0-20)
[2019-07-20 17:58] LABS: Glucose Point of Care 121 (65-105)
[2019-07-20 18:16] LABS: Vitamin B12 > 1000.0 pg/mL (239-931)
[2019-07-20 19:24] LABS: Iron 83 ug/dL (49-181)
[2019-07-20 19:33] LABS: Percent Iron Saturation 62 % (20-50)
[2019-07-20 22:18] LABS: Add Urine Microscopic? YES; Appearance Urine Clear (Clear); Bilirubin Urine Negative (Negative); Blood Urine 2+ (Negative); Color Urine Yellow (Yellow); Glucose Urine UA 3+ mg/dL (Negative); Ketones Urine Negative (Negative); Leukocyte Esterase Ur Negative LEU/UL (Negative); Nitrate Urine Negative (Negative); Protein Urine 2+ mg/dL (Negative); RBC Urine 0-2 /hpf (0-2); Specific Grav Ur 1.011 (1.001-1.035); Urobilinogen Urine Negative mg/dL (<2.0); WBC Urine 0-3 /hpf
--- NOTE | 2019-07-20 23:40 | CONS_ITS ---
DATE OF CONSULTATION: 07/20/2019 REASON FOR CONSULTATION: Leukocytosis. HISTORY OF PRESENTING ILLNESS: This is a pleasant 73-year-old male, admitted to the hospital previously on July 20, 2019, and prior to that in May of this year. The patient now came back into the hospital with tiredness and fatigue along with lightheadedness and dizziness. The patient has been eating poorly and lost almost 25 pounds weight. The patient has a history of atrial fibrillation with rapid ventricular response. The patient had CT head done due to dizziness that showed previous infarction without any acute changes. CT chest was also performed that showed no pulmonary embolism. Labs showed elevated WBC count of 25,000 with hemoglobin of 10.3 and platelet of 56,000. He denies any bleeding and bruising. Blood culture showed Streptococcus bacteremia. The patient has a history of chronic kidney disease and has been on peritoneal dialysis. REVIEW OF SYSTEMS: 12-point review of system was reviewed and as per HPI, otherwise negative. PAST MEDICAL HISTORY: Anemia of chronic renal failure; chronic ITP; coronary artery disease, status post stent placement; diverticulosis; end-stage renal disease, on peritoneal dialysis; hypertension; gastroesophageal reflux disease; sleep apnea; and hyperlipidemia. PAST SURGICAL HISTORY: Coronary artery disease, status post stent placement; tonsillectomy; and adenoidectomy. FAMILY HISTORY: No history of malignancy in the family. SOCIAL HISTORY: The patient is . The patient is retired from [employer]. He quit smoking in 1999. HOME MEDICATIONS: Reviewed. ALLERGIES: REVIEWED. PHYSICAL EXAMINATION: GENERAL: This patient is a well-developed, well-nourished male, in no apparent distress. Alert and oriented. VITAL SIGNS: Per nursing note. HEENT: Normocephalic and atraumatic. Clear oropharynx. LUNGS: Clear to auscultation bilaterally. CARDIOVASCULAR: Regular rate and rhythm. No murmurs. ABDOMEN: Soft, nontender, nondistended. Bowel sounds are positive in all 4 quadrants. No hepatosplenomegaly. EXTREMITIES: No clubbing, cyanosis, or edema. NEURO: Grossly intact. Intact cranial nerves. LABORATORY DATA: WBC 20.6, hemoglobin 9.9, MCV 94.6, platelet 46,000, neutrophils 81%, lymphocytes 9%. Sedimentation rate more than 140. Creatinine 10.9. C-reactive protein 19.8. Vitamin B12 more than 1000. ASSESSMENT AND PLAN: 1. Leukocytosis. I have reviewed the labs. Blood culture shows group G Streptococcus infection. I have ordered C-reactive protein and sedimentation rate, both came back extremely elevated. I do not see any evidence of lymphoproliferative disorder. This leukocytosis is reactive secondary to bacteremia and sepsis. The patient has been seen by Infectious Disease Service and currently receiving penicillin. 2. Anemia of chronic renal failure. The patient's hemoglobin is stable. Iron studies have been ordered. Vitamin B12 level came back elevated. The patient may need help with growth factor support if he become more anemic. 3. Thrombocytopenia. On record, there is a history of chronic idiopathic thrombocytopenic purpura. Worsening of platelet count can be secondary to DIC and infection. The patient is asymptomatic without any bleeding. No need for platelet transfusion. We will continue to monitor and make recommendation based on his clinical course. KRIS SELBY M.D. [employer] G[employer]CH[employer]IC D I MT: Germán
[2019-07-20 23:46] LABS: Glucose Point of Care 157 (65-105)
[2019-07-21] VITALS (13 sets, daily range): BP systolic 127–167; BP diastolic 52–87; PULSE 50–105; RESP 16–22; TEMP 36.1–36.7; O2SAT 96–100
[2019-07-21 04:35] LABS: Blood Urea Nitrogen 64 mg/dL (9-20); Calcium 9.4 mg/dL (8.4-10.2); Carbon Dioxide 26 mmol/L (22-30); Chloride 98 mmol/L (98-107); Estimated CRCL calculation 7 ml/min; Estimated Glomerular Filt Rate 5; Glucose 139 mg/dL (75-110); Phosphorus 5.8 mg/dL (2.5-4.5); Potassium 2.9 mmol/L (3.4-5.0); Sodium 134 mmol/L (137-145)
[2019-07-21] MEDS: FAMOTIDINE 20 MG TABLET 40 MG PO ×2 (09:06→18:31)
[2019-07-21] MEDS: METOPROLOL TARTRATE 25 MG TABLET 75 MG PO ×2 (09:06→20:57)
[2019-07-21] MEDS: VITAMIN B COMPLEX CAPSULE 1 CAP PO (09:07)
[2019-07-21] MEDS: CALCIUM ACETATE 667 MG TABLET PO ×3 (09:07→18:31)
[2019-07-21] MEDS: allopurinoL 100 MG TABLET PO (09:07)
[2019-07-21] MEDS: calcitrioL 0.25 MCG CAPSULE PO (09:07)
[2019-07-21] MEDS: POTASSIUM CHLORIDE 20 MEQ TABLET 40 MEQ PO (09:07)
--- NOTE | 2019-07-21 10:03 | PM.PNNEP ---
Progress Note: A&P Assessment and Plan (1) End stage renal disease: Code(s): N18.6 - End stage renal disease Status: Chronic Assessment and Plan: Patient is on peritoneal dialysis. There have been suggestions and he might switch to hemodialysis as an outpatient. However now the bacteremia he cannot have a PermCath placed. Will continue peritoneal dialysis for now. Check fluid urea nitrogen if the lab can do it. (2) Bacteremia: Code(s): R78.81 - Bacteremia Status: Acute Assessment and Plan: The patient has strep bacteremia. Probably from the wound in his left leg. He is on antibiotics now. (3) Obstructive sleep apnea: Code(s): G47.33 - Obstructive sleep apnea (adult) (pediatric) Status: Acute (4) Cholelithiasis: Qualifiers: Cholelithiasis location: gallbladder Cholecystitis presence: without cholecystitis Biliary obstruction: without biliary obstruction Qualified Code(s): K80.20 - Calculus of gallbladder without cholecystitis without obstruction Code(s): K80.20 - Calculus of gallbladder without cholecystitis without obstruction Status: Chronic Assessment and Plan: He has cholelithiasis. Surgery on hold for now. (5) Anemia in chronic renal disease: Qualifiers: Chronic kidney disease stage: on chronic dialysis Qualified Code(s): N18.6 - End stage renal disease; D63.1 - Anemia in chronic kidney disease; Z99.2 - Dependence on renal dialysis Code(s): N18.9 - Chronic kidney disease, unspecified; D63.1 - Anemia in chronic kidney disease Status: Suspected Assessment and Plan: Hemoglobin is mildly low at 9.9. Will start Epogen. No need for iron levels since he has infection. (6) Renal osteodystrophy: Code(s): N25.0 - Renal osteodystrophy Status: Acute Assessment and Plan: Check a phosphorus in the morning. Subjective Date/time seen: 07/21/19 10:03 Interval history: Patient is alert and feeling better. No swelling and no shortness of breath. He is not eating very well and so is getting peripheral nutrition. No nausea just poor appetite. He says this is been going on for about a month. Review of Systems Cardiovascular: Cardiovascular: Reports no additional cardiovascular complaints Respiratory: Respiratory: Reports no additional respiratory complaints Gastrointestinal: Gastrointestinal: Reports no additional gastrointestinal complaints Genitourinary: Genitourinary: Reports no additional male genitourinary complaints Exam Narrative: Exam Narrative: WDWN in NAD skin no rash head ncat lungs clear cor reg no rub abd BS+ nontender and soft ext no edema. Objective Data Vital Signs Vital Signs: Vital Signs - 24 hr 07/20/19 12:00 07/20/19 14:00 07/20/19 16:00 Temperature 36.1 C L 35.6 C L Pulse Rate 86 99 96 Respiratory Rate 20 22 H Blood Pressure 158/95 H 155/73 H Pulse Oximetry 96 99 07/20/19 18:00 07/20/19 20:00 07/20/19 20:31 Temperature 36.2 C L 35.6 C L Pulse Rate 107 H 88 107 H Respiratory Rate 22 H 22 H Blood Pressure 129/66 155/73 H Pulse Oximetry 100 07/20/19 20:59 07/20/19 21:54 07/20/19 23:43 Temperature 36.1 C L Pulse Rate 102 H 94 98 Respiratory Rate 20 Blood Pressure 153/88 H Pulse Oximetry 98 07/21/19 02:00 07/21/19 04:00 07/21/19 05:31 Temperature 36.2 C L Pulse Rate 102 H 88 84 Respiratory Rate 22 H Blood Pressure 151/87 H Pulse Oximetry 96 07/21/19 08:00 07/21/19 09:06 Temperature 36.6 C Pulse Rate 97 94 Respiratory Rate 20 Blood Pressure 140/85 Pulse Oximetry 100 Intake/Output Intake/Output: Intake & Output 07/18/19 07/19/19 07/20/19 07/21/19 23:59 23:59 23:59 23:59 Intake Total 50 940 412 Output Total 593 -6202 1639 150 Balance -593 1382 699 262 Meds/Results Medications: Active Medications Generic Name Dose Route Start Last Admin Trade Name Freq PRN Re
[2019-07-21 12:32] LABS: Glucose Point of Care 117 (65-105)
[2019-07-21] MEDS: EPOETIN ALFA 10,000 UNITS/ML VIAL 10000 UNITS SUB-Q (13:00)
--- NOTE | 2019-07-21 13:29 | PCDIET ---
Nutrition Follow-Up Complete: Nutrition Diagnosis: Involuntary weight loss related to decreased appetite (c/o nausea, food aversions) as evidenced by reported and documented weight loss. Nutrition Goal: Patient to consume 50% of meals/supplements. Goal not met. Patient started on Clinimix E 4.25/5 at 25mL/hr with 250mL 20% lipids. Eating very little. Last recorded weight is 92.986 kg which is decreased from last review. Bowel Motility: BM x 2 on 07/20/19. Labs Reviewed: Glu (139), BUN (64), Cr (10.3), K (2.9), Na (134), PO4 (5.8) Meds Noted: Calcitriol, Phoslo, Pepcid, Penicillin, Vitamin B Complex, KCl Additional Notes: Integumentary notes reviewed. Recommend trial of EN for more concentrated feedings and potential benefits of enteral feeds: -Nepro at 20mL/hr- If tolerated, would recommend advancing slowly toward goal of 50mL/hr. Could also consider post-pyloric feedings for potentially improved tolerance. In mean time, suggest continuing PPN which provides ~800kcal and ~35g protein daily. Would, however, recommend change to formulation without electrolytes and continuing to replace potassium, as needed. Nutrition Monitoring and Evaluation: Follow up every Wednesday/Wednesday. Follow daily in ICU rounds.
--- NOTE | 2019-07-21 14:37 | WPDINFPN2 ---
Progress Note: A&P Assessment and Plan (1) Streptococcus C: Code(s): A49.1 - Streptococcal infection, unspecified site Status: Acute Assessment and Plan: 1. Grp C Streptococcus bacteremia, LLE soft tissue source, status improving 2. CRF, no peritonitis 3. Leukocytosis, appreciate 's assistance. Exam and Xray demonstrate no complications of infection such as necrotizing fasciitis. REC PCN # 3 (antibiotic #5), continue, no new dose adjustments. IV therapy at least through 07/22. Ok with me tunneled HD catheter if needed. Subjective Date/time seen: 07/21/19 14:37 Interval history: no complaints Exam Narrative: Exam Narrative: afebrile Const: General: no acute distress Resp: Effort & Inspection: normal respiratory effort Auscultation: clear to auscultation bilaterally Cardio: Rate: regular rate Rhythm: regular rhythm Heart sounds: no murmurs and no rubs GI: Inspection: non-distended GI Palp: Yes Soft to palpation and No Tenderness to palpation present (GI) Skin: General skin exam: no rashes or lesions noted Extrem: General: edema Objective Data Vital Signs Vital Signs: Vital Signs - 24 hr 07/20/19 16:00 07/20/19 18:00 07/20/19 20:00 Temperature 35.6 C L 36.2 C L Pulse Rate 96 107 H 88 Respiratory Rate 22 H 22 H Blood Pressure 155/73 H 129/66 Pulse Oximetry 99 100 07/20/19 20:31 07/20/19 20:59 07/20/19 21:54 Temperature 35.6 C L Pulse Rate 107 H 102 H 94 Respiratory Rate 22 H Blood Pressure 155/73 H Pulse Oximetry 07/20/19 23:43 07/21/19 02:00 07/21/19 04:00 Temperature 36.1 C L 36.2 C L Pulse Rate 98 102 H 88 Respiratory Rate 20 22 H Blood Pressure 153/88 H 151/87 H Pulse Oximetry 98 96 07/21/19 05:31 07/21/19 08:00 07/21/19 09:06 Temperature 36.6 C Pulse Rate 84 94 94 Respiratory Rate 20 Blood Pressure 140/85 Pulse Oximetry 100 07/21/19 10:00 07/21/19 12:00 Temperature 36.1 C L Pulse Rate 91 87 Respiratory Rate 20 Blood Pressure 167/81 H Pulse Oximetry 100 Intake/Output Intake/Output: Intake & Output 07/18/19 07/19/19 07/20/19 07/21/19 23:59 23:59 23:59 23:59 Intake Total 50 940 532 Output Total 593 -1332 1639 150 Balance -593 1382 -699 382 Meds/Results Medications: Active Medications Generic Name Dose Route Start Last Admin Trade Name Freq PRN Reason Stop Dose Admin Allopurinol 100 mg 07/18/19 09:00 07/21/19 09:07 Zyloprim PO 100 mg DAILY DARA Administration Calcitriol 0.25 mcg 07/19/19 09:00 07/21/19 09:07 Rocaltrol PO 0.25 mcg [id number] ADRA Administration Calcium Acetate 667 mg 07/19/19 17:00 07/21/19 13:55 Phoslo PO 667 mg TID DARA Administration Epoetin Dominick 10,000 units 07/21/19 10:15 07/21/19 13:00 Epogen SUB-Q 10,000 units MOWEFR DARA Administration Famotidine 40 mg 07/18/19 09:00 07/21/19 09:06 Pepcid PO 40 mg BID DARA Administration Penicillin G Potassium 2,000, 50 mls @ 100 mls/hr 07/19/19 21:00 07/21/19 10:42 000 units/ Dextrose IVPB 100 mls/hr Q12HR DARA Administration Dextrose 1,000 mls @ 50 mls/hr 07/20/19 15:18 Dextrose 10% IV CONT .Q20H PRN if PN is interrupted Amino Acids/Electrolytes/Dextrose 2,000 mls @ 25 mls/hr 07/20/19 18:00 07/21/19 05:33 Clinimix E 4.25%/5% Solution IV CONT 25 mls/hr .Q24H DARA Infusion Protocol Fat Emulsion Intravenous 250 mls @ 20.833 mls/hr 07/20/19 18:00 07/21/19 05:34 Lipids 20% IVPB 20.8 mls/hr Q24H DARA Infusion Metoprolol Tartrate 75 mg 07/19/19 21:00 07/21/19 09:06 Lopressor PO 75 mg Q12HR DARA Administration Non-Formulary Medication 750 mg 07/18/19 09:00 Niacin (Inositol Niacinate) PO 08/17/19 09:01 BID DARA Ondansetron HCl 4 mg 07/17/19 16:33 Zofran Inj IV PUSH Q4H PRN Nausea Vitamin B Complex 1 cap 07/18/19 09:00 07/21/19 09:07 Vitamin B Complex PO 1 cap DAILY DARA Administration
[2019-07-21 15:42] LABS: Triglycerides 169 mg/dL (<150)
--- NOTE | 2019-07-21 15:43 | PM.IMPN ---
Progress Note: A&P Assessment and Plan (1) Bacteremia: Code(s): R78.81 - Bacteremia Status: Acute Assessment and Plan: -----both blood cultures growing group G Streptococcus. PCN sensitive. Etiology likely from cutaneous source, PD fluid has a negative gram stain. Penicillin G will be continued. WBC improving, but slowly. Mentation I think is also improving with treatment although the family says he still not at baseline (2) Streptococcus C: Code(s): A49.1 - Streptococcal infection, unspecified site Status: Acute Assessment and Plan: -----see above (3) End stage renal disease: Code(s): N18.6 - End stage renal disease Status: Chronic Assessment and Plan: -----ESRD on peritoneal dialysis. Patient's established inseam trimmer is Dr Mari at [place]. Discharged 07/15 - Apparently after discharge he was too confused at home to complete his PD and his does not know how to do it. There are discussions about transitioning the patient from PD to hemodialysis because of this and due to the fact that he may require lap cholecystectomy on an outpatient basis. See below. For now, patient is going to continue to do peritoneal dialysis, there is some mention that he may be transition to hemodialysis. Infectious Disease is okay with the tunneled catheter if needed now. I let surgery no. His confusion has gotten better with the treatment of the infection. Will await further recommendations. Previous provider Discussed case with Dr Mari and Dr Walsh. Both are in agreement that if patient is too altered to carry out his peritoneal dialysis at home, it is reasonable to transition him to hemodialysis at this time to be able to reliably receive his dialysis. Additionally, if he will need surgical intervention for gallbladder electively in the future, he will require short-term hemodialysis as mentioned below. All are in agreement with plan for surgical consultation to evaluate if he will be able to undergo tunneled catheter placement during this admission (now complicated with bacteremia). Plts chronically low which could delay this procedure. (4) Delirium due to general medical condition: Code(s): F05 - Delirium due to known physiological condition Status: Acute Assessment and Plan: -----likely due to bacteremia. See above. Hopefully this resolves with tx. spoke with him on the phone and says he is not himself at all . (5) Cholelithiasis: Qualifiers: Cholelithiasis location: gallbladder Cholecystitis presence: without cholecystitis Biliary obstruction: without biliary obstruction Qualified Code(s): K80.20 - Calculus of gallbladder without cholecystitis without obstruction Code(s): K80.20 - Calculus of gallbladder without cholecystitis without obstruction Status: Chronic Assessment and Plan: -----This was noted on previous admission. He was seen by Dr Masterson in consultation 07/15/19. Dr Masterson has noted that since the patient did not show signs of cholecystitis, he could be seen for evaluation on an outpatient basis potentially for elective laparscopic cholecystectomy at some point. Dr Masterson notes that if the patient would have lap curly, that he would not be able to do peritoneal dialysis for 2 weeks. For that reason, he does not plan on any surgical intervention until the patient has plans to transition to hemodialysis (which may be soon?). Patient has had a decreased appetite and has not ate at all in the last 4 days. TPN started. The states the last couple of weeks he has only been able to eat Jell-O, oatmeal and broth. Everything else makes him throw up. CT of the abdomen shows cholelithiasis and gallbladder distension. Patient's appetite and overall well-being would benefit from his gallbladder being removed (6) Leukocytosis: Qualifiers: Leukocytosis type: other Qualified Code(s)
--- NOTE | 2019-07-21 17:15 | PC.NURSE ---
This patient, Kentrell Cosby, was received from IMU on 07/21/19 at 1715. Personal belongings list checked and signed. Patient/family oriented to unit policies and routines
--- NOTE | 2019-07-21 17:29 | PC.NURSE ---
This patient, Kentrell Cosby, was transferred to [facility] on 07/21/19 at 1712. Personal belongings sent with patient. Report given to Lamine BOO. Appropriate documentation sent with patient.
--- NOTE | 2019-07-21 17:48 | WPDONCPN ---
Progress Note: A/P - Additional Plan Reactive leukocytosis. Reactive markers including C-reactive protein and sedimentation rate both came back elevated. This is secondary to bacteremia. Patient is on antibiotic treatment. He is afebrile. Anemia of chronic kidney disease. Epogen has been started. He can continue Epogen in my office in 2 weeks upon discharge. Hemoglobin noted. Chronic kidney disease. Patient is on peritoneal dialysis. Bacteremia. Patient is on penicillin and afebrile. - Time Spent With Patient Total time spent is greater than 50% in coordination of care (as documented) at patient's floor/unit and/or counseling patient: 15 - 25 minutes Subjective Interval history: Reactive leukocytosis Thrombocytopenia Anemia of chronic kidney disease Bacteremia Review of Systems - Review of Systems Patient looks quite comfortable. He denies any fever chills or night sweats. Denies any abdominal pain. No other new complaints. - Neurologic Reports system reviewed and no additional complaints, except as documented, Reports hearing normal, Reports confusion, Denies headache(s), Denies loss of vision, Denies tingling, Denies tremor(s) Exam Vital signs: Temp Pulse Resp BP Pulse Ox 36.1 C L 84 20 167/81 H 100 07/21/19 12:00 07/21/19 16:00 07/21/19 12:00 07/21/19 12:00 07/21/19 12:00 Narrative: Lungs are clear to auscultation bilaterally Cardiovascular regular rate rhythm no murmurs Abdomen soft nontender nondistended bowel sounds are positive Extremities no edema PN: Objective Data - Labs CBC & Chem 7: 07/20/19 15:34 07/21/19 04:11 Labs: Laboratory Results - last 24 hr 07/20/19 07/20/19 07/20/19 15:30 15:30 17:47 ESR > 140 H Sodium Potassium Chloride Carbon Dioxide BUN Creatinine Estim Creat Clear Calc Estimated GFR Glucose POC Capillary Glucose 121 H Calcium Phosphorus Iron TIBC % Saturation Triglycerides Vitamin B12 > 1000.0 H Urine Color Urine Appearance Urine pH Ur Specific [place] Urine Protein Urine Glucose (UA) Urine Ketones Ur Blood (Man) Urine Nitrate Urine Bilirubin Urine Urobilinogen Leukocyte Esterase Rfl Urine RBC Urine WBC 07/20/19 07/20/19 07/20/19 18:38 22:01 23:43 ESR Sodium Potassium Chloride Carbon Dioxide BUN Creatinine Estim Creat Clear Calc Estimated GFR Glucose POC Capillary Glucose 157 H Calcium Phosphorus Iron 83 TIBC 134 L % Saturation 62 H Triglycerides Vitamin B12 Urine Color Yellow Urine Appearance Clear Urine pH 6.0 Ur Specific [place] 1.011 Urine Protein 2+ H Urine Glucose (UA) 3+ H Urine Ketones Negative Ur Blood (Man) 2+ H Urine Nitrate Negative Urine Bilirubin Negative Urine Urobilinogen Negative Leukocyte Esterase Rfl Negative Urine RBC 0-2 Urine WBC 0-3 07/21/19 07/21/19 07/21/19 04:11 12:27 15:23 ESR Sodium 134 L Potassium 2.9 L Chloride 98 Carbon Dioxide 26 BUN 64 H Creatinine 10.30 H Estim Creat Clear Calc 7 Estimated GFR 5 L Glucose 139 H POC Capillary Glucose 117 H Calcium 9.4 Phosphorus 5.8 H Iron TIBC % Saturation Triglycerides 169 H Vitamin B12 Urine Color Urine Appearance Urine pH Ur Specific [place] Urine Protein Urine Glucose (UA) Urine Ketones Ur Blood (Man) Urine Nitrate Urine Bilirubin Urine Urobilinogen Leukocyte Esterase Rfl Urine RBC Urine WBC
[2019-07-21] MEDS: AMINO ACIDS 4.25%/D5W/LYTES/CA 2,000 ML 25 ML IV CONT (18:31)
[2019-07-21] MEDS: FAT EMULSIONS IV 20% 250 ML 20.8 ML IVPB (18:33)
[2019-07-21 18:34] LABS: Glucose Point of Care 109 (65-105)
[2019-07-22] VITALS (11 sets, daily range): BP systolic 100–163; BP diastolic 75–84; PULSE 62–97; RESP 18–20; TEMP 36.1–36.3; O2SAT 98–100
[2019-07-22 05:34] LABS: Glucose Point of Care 155 (65-105)
[2019-07-22] MEDS: METOPROLOL TARTRATE 25 MG TABLET 75 MG PO ×2 (07:58→20:01)
[2019-07-22] MEDS: FAMOTIDINE 20 MG TABLET 40 MG PO ×2 (07:59→18:08)
[2019-07-22] MEDS: CALCIUM ACETATE 667 MG TABLET PO ×3 (07:59→18:08)
[2019-07-22] MEDS: VITAMIN B COMPLEX CAPSULE 1 CAP PO (07:59)
[2019-07-22] MEDS: allopurinoL 100 MG TABLET PO (07:59)
--- NOTE | 2019-07-22 10:22 | PM.PNNEP ---
Progress Note: A&P Assessment and Plan (1) End stage renal disease: Code(s): N18.6 - End stage renal disease Status: Chronic Assessment and Plan: Patient is on peritoneal dialysis. He was seen at 10:15 a.m. Hospital cannot do fluid urea nitrogen. He did not have much fluid off yesterday. And he is getting peripheral nutrition. So I will increase the amount of ultrafiltration by increasing the Dianeal% so we can get some more fluid off. I think his hydration status is okay right now. Will increase the amount of dialysis to try to get his BUN lower. (2) Bacteremia: Code(s): R78.81 - Bacteremia Status: Acute Assessment and Plan: The patient has strep bacteremia. Probably from the wound in his left leg. He is on antibiotics now. (3) Obstructive sleep apnea: Code(s): G47.33 - Obstructive sleep apnea (adult) (pediatric) Status: Acute (4) Cholelithiasis: Qualifiers: Cholelithiasis location: gallbladder Cholecystitis presence: without cholecystitis Biliary obstruction: without biliary obstruction Qualified Code(s): K80.20 - Calculus of gallbladder without cholecystitis without obstruction Code(s): K80.20 - Calculus of gallbladder without cholecystitis without obstruction Status: Chronic Assessment and Plan: He has cholelithiasis. Surgery on hold for now. (5) Anemia in chronic renal disease: Qualifiers: Chronic kidney disease stage: on chronic dialysis Qualified Code(s): N18.6 - End stage renal disease; D63.1 - Anemia in chronic kidney disease; Z99.2 - Dependence on renal dialysis Code(s): N18.9 - Chronic kidney disease, unspecified; D63.1 - Anemia in chronic kidney disease Status: Suspected Assessment and Plan: Hemoglobin is mildly low at 9.9. Will start Epogen. No need for iron levels since he has infection. (6) Renal osteodystrophy: Code(s): N25.0 - Renal osteodystrophy Status: Acute Assessment and Plan: Check a phosphorus in the morning. Additional Plan see above Subjective Date/time seen: 07/22/19 10:22 Interval history: Patient is alert and feeling better. he ate super last night and breakfast today No swelling and no shortness of breath. Still on peripheral nutrition. On peritoneal dialysis he did not have any fluid removed with the dialysis. I will increase the fluid removal because he is on peripheral nutrition. Review of Systems Cardiovascular: Cardiovascular: Reports no additional cardiovascular complaints Respiratory: Respiratory: Reports no additional respiratory complaints Gastrointestinal: Gastrointestinal: Reports no additional gastrointestinal complaints Genitourinary: Genitourinary: Reports no additional male genitourinary complaints Exam Narrative: Exam Narrative: WDWN in NAD skin no rash or subcu nodules head ncat lungs clear bilaterally cor reg no rub abd BS+ nontender and soft ext no edema. Objective Data Vital Signs Vital Signs: Vital Signs - 24 hr 07/21/19 12:00 07/21/19 14:00 07/21/19 16:00 Temperature 36.1 C L Pulse Rate 87 98 84 Respiratory Rate 20 Blood Pressure 167/81 H Pulse Oximetry 100 07/21/19 20:00 07/21/19 20:57 07/21/19 21:00 Temperature 36.5 C Pulse Rate 105 H 103 H 50 L Respiratory Rate 18 Blood Pressure 137/52 L Pulse Oximetry 07/21/19 22:00 07/22/19 00:00 07/22/19 04:00 Temperature 36.7 C Pulse Rate 96 87 84 Respiratory Rate 16 Blood Pressure 127/87 Pulse Oximetry 100 07/22/19 05:30 07/22/19 07:53 Temperature 36.1 C L 36.3 C L Pulse Rate 95 62 Respiratory Rate 20 18 Blood Pressure 163/84 H 100/80 Pulse Oximetry 100 Intake/Output Intake/Output: Intake & Output 07/19/19 07/20/19 07/21/19 07/22/19 23:59 23:59 23:59 23:59 Intake Total 50 940 1706 440 Output Total -1332 1639 150 125 Balance 1382 -699 1556 315 Meds/Results Medications: Ac
[2019-07-22 11:10] LABS: Hematocrit 27.2 % (42.0-52.0); Hemoglobin 9.2 g/dL (14.0-18.0); Immature Platelet Fraction Pct 2.7 % (0.9-11.2); Mean Corpuscular HGB Conc 33.8 g/dl (32-36); Mean Corpuscular Hemoglobin 32.3 pg (26-34); Mean Corpuscular Volume 95.4 fl (80-100); Mean Platelet Volume 10.6 fl (7.4-10.4); Platelet Count Result 53 k/mm3 (150-375); Red Blood Count 2.85 M/mm3 (4.6-6.20); Red Cell Distribution Width 18.3 % (11.5-14.5); White Blood Count 14.6 K/mm3 (4.5-10.0)
[2019-07-22 11:25] LABS: Albumin Level 2.9 g/dL (3.5-5.1); Blood Urea Nitrogen 68 mg/dL (9-20); Calcium 9.4 mg/dL (8.4-10.2); Carbon Dioxide 27 mmol/L (22-30); Chloride 99 mmol/L (98-107); Estimated CRCL calculation 7 ml/min; Estimated Glomerular Filt Rate 5; Glucose 142 mg/dL (75-110); Phosphorus 5.8 mg/dL (2.5-4.5); Potassium 3.2 mmol/L (3.4-5.0); Sodium 134 mmol/L (137-145)
[2019-07-22 11:30] LABS: Glucose Point of Care 129 (65-105)
--- NOTE | 2019-07-22 15:12 | PM.IMPN ---
Progress Note: A&P Assessment and Plan (1) Bacteremia: Code(s): R78.81 - Bacteremia Status: Acute Assessment and Plan: -----both blood cultures growing group G Streptococcus. PCN sensitive. Etiology likely from cutaneous source, PD fluid has a negative gram stain. Penicillin G will be continued. WBC improving, 14,000 today. I spoke to the today who says that he is mentating much better and is close to his baseline. She has noted a significant improvement but says that she still does not think she could take care of him at discharge. (2) Streptococcus C: Code(s): A49.1 - Streptococcal infection, unspecified site Status: Acute Assessment and Plan: -----see above (3) End stage renal disease: Code(s): N18.6 - End stage renal disease Status: Chronic Assessment and Plan: -----ESRD on peritoneal dialysis. Patient's established president [employer] is Dr Mari at [place]. Discharged 07/15 - Apparently after discharge he was too confused at home to complete his PD and his does not know how to do it. There are discussions about transitioning the patient from PD to hemodialysis because of this and due to the fact that he may require lap cholecystectomy on an outpatient basis. See below. For now, patient is going to continue to do peritoneal dialysis, there is some mention that he may be transition to hemodialysis. Infectious Disease is okay with the tunneled catheter if needed now. I let surgery and Nephrology know. His confusion has gotten better with the treatment of the infection. Will await further recommendations. Previous provider Discussed case with Dr Mari and Dr Walsh. Both are in agreement that if patient is too altered to carry out his peritoneal dialysis at home, it is reasonable to transition him to hemodialysis at this time to be able to reliably receive his dialysis. Additionally, if he will need surgical intervention for gallbladder electively in the future, he will require short-term hemodialysis as mentioned below. All are in agreement with plan for surgical consultation to evaluate if he will be able to undergo tunneled catheter placement during this admission (now complicated with bacteremia). Plts chronically low which could delay this procedure. (4) Delirium due to general medical condition: Code(s): F05 - Delirium due to known physiological condition Status: Acute Assessment and Plan: -----likely due to bacteremia. This has been improving. (5) Cholelithiasis: Qualifiers: Cholelithiasis location: gallbladder Cholecystitis presence: without cholecystitis Biliary obstruction: without biliary obstruction Qualified Code(s): K80.20 - Calculus of gallbladder without cholecystitis without obstruction Code(s): K80.20 - Calculus of gallbladder without cholecystitis without obstruction Status: Chronic Assessment and Plan: -----This was noted on previous admission. He was seen by Dr Masterson in consultation 07/15/19. Dr Masterson has noted that since the patient did not show signs of cholecystitis, he could be seen for evaluation on an outpatient basis potentially for elective laparscopic cholecystectomy at some point. Dr Masterson notes that if the patient would have lap curly, that he would not be able to do peritoneal dialysis for 2 weeks. For that reason, he does not plan on any surgical intervention until the patient has plans to transition to hemodialysis (which may be soon?). Patient has had a decreased appetite and has not ate at all in the last 4 days. TPN started. The states the last couple of weeks he has only been able to eat Jell-O, oatmeal and broth. Everything else makes him throw up. CT of the abdomen shows cholelithiasis and gallbladder distension. Patient's appetite and overall well-being would benefit from his gallbladder being removed. Today, he has eaten 50-100% of his meals. If he co
--- NOTE | 2019-07-22 16:08 | PCPTNOTE ---
Pt refused PT treatment today stating not today. Pt educated on the importance of participating in therapy to improve strength and mobility. Pt continued to decline treatment.
[2019-07-22 16:32] LABS: Glucose Point of Care 115 (65-105)
[2019-07-22] MEDS: FAT EMULSIONS IV 20% 250 ML 20.8 ML IVPB (18:09)
[2019-07-22] MEDS: AMINO ACIDS 4.25%/D5W/LYTES/CA 2,000 ML 25 ML IV CONT (20:04)
[2019-07-22 23:56] LABS: Glucose Point of Care 177 (65-105)
[2019-07-23] VITALS (10 sets, daily range): BP systolic 137–150; BP diastolic 65–78; PULSE 85–98; RESP 16–20; TEMP 36.1–36.6; O2SAT 98–100
[2019-07-23 05:17] LABS: Hematocrit 28.9 % (42.0-52.0); Hemoglobin 9.7 g/dL (14.0-18.0); Immature Platelet Fraction Pct 2.7 % (0.9-11.2); Mean Corpuscular HGB Conc 33.6 g/dl (32-36); Mean Corpuscular Hemoglobin 32.1 pg (26-34); Mean Corpuscular Volume 95.7 fl (80-100); Mean Platelet Volume 10.6 fl (7.4-10.4); Platelet Count Result 72 k/mm3 (150-375); Red Blood Count 3.02 M/mm3 (4.6-6.20); Red Cell Distribution Width 18.4 % (11.5-14.5); White Blood Count 15.6 K/mm3 (4.5-10.0)
[2019-07-23 05:32] LABS: Albumin Level 3.3 g/dL (3.5-5.1); Blood Urea Nitrogen 69 mg/dL (9-20); Calcium 9.5 mg/dL (8.4-10.2); Carbon Dioxide 25 mmol/L (22-30); Chloride 99 mmol/L (98-107); Estimated CRCL calculation 7 ml/min; Estimated Glomerular Filt Rate 5; Glucose 165 mg/dL (75-110); Phosphorus 5.5 mg/dL (2.5-4.5); Potassium 2.9 mmol/L (3.4-5.0); Sodium 135 mmol/L (137-145)
[2019-07-23 06:05] LABS: Glucose Point of Care 168 (65-105)
[2019-07-23 06:42] LABS: Band Neutrophils Percent 9 % (0-6); Lymphocytes Absolute Manual 1.71 K/mm3 (1.1-4.5); Metamyelocytes Percent 1 %; Monocytes Absolute Manual 0.46 K/mm3 (0.1-0.90); Monocytes Percent Manual 3 % (3-9); Neutrophils Absolute Manual 13.26 K/mm3 (1.3-6.7); Neutrophils Percent Manual 76 % (46-73); Platelet Estimate Decreased (Adequate); Total Cells Counted 100
[2019-07-23] MEDS: POTASSIUM CHLORIDE 20 MEQ TABLET 40 MEQ PO (08:55)
[2019-07-23] MEDS: FAMOTIDINE 20 MG TABLET 40 MG PO ×2 (08:55→16:28)
[2019-07-23] MEDS: allopurinoL 100 MG TABLET PO (08:56)
[2019-07-23] MEDS: VITAMIN B COMPLEX CAPSULE 1 CAP PO (08:56)
[2019-07-23] MEDS: METOPROLOL TARTRATE 25 MG TABLET 75 MG PO ×2 (08:56→20:21)
[2019-07-23] MEDS: CALCIUM ACETATE 667 MG TABLET PO ×3 (08:56→16:28)
[2019-07-23 09:07] LABS: Glucose Point of Care 150 (65-105)
--- NOTE | 2019-07-23 10:25 | PM.IMPN ---
Progress Note: A&P Assessment and Plan (1) Bacteremia: Code(s): R78.81 - Bacteremia Status: Acute Assessment and Plan: -----both blood cultures growing group G Streptococcus. PCN sensitive. Etiology likely from cutaneous source, PD fluid has a negative gram stain. Penicillin G will be continued. WBC fluctuating, up a bit at 15,600 today. Continue IV penicillin through today and will await Dr. trujillo is recommendations Wednesday. (2) Streptococcus C: Code(s): A49.1 - Streptococcal infection, unspecified site Status: Acute Assessment and Plan: -----see above (3) End stage renal disease: Code(s): N18.6 - End stage renal disease Status: Chronic Assessment and Plan: -----ESRD on peritoneal dialysis. Patient's established cash sales audit clerk is Dr Mari at [place]. Discharged 07/15 - Apparently after discharge he was too confused at home to complete his PD and his does not know how to do it. There are discussions about transitioning the patient from PD to hemodialysis because of this and due to the fact that he may require lap cholecystectomy on an outpatient basis. See below. For now, patient is going to continue to do peritoneal dialysis, there is some mention that he may be transition to hemodialysis. Infectious Disease is okay with the tunneled catheter if needed now. I let surgery and Nephrology know. His confusion has gotten better with the treatment of the infection. Will await further recommendations. Previous provider Discussed case with Dr Mari and Dr Walsh. Both are in agreement that if patient is too altered to carry out his peritoneal dialysis at home, it is reasonable to transition him to hemodialysis at this time to be able to reliably receive his dialysis. Additionally, if he will need surgical intervention for gallbladder electively in the future, he will require short-term hemodialysis as mentioned below. (4) Delirium due to general medical condition: Code(s): F05 - Delirium due to known physiological condition Status: Acute Assessment and Plan: -----likely due to bacteremia. This has been improving. (5) Cholelithiasis: Qualifiers: Cholelithiasis location: gallbladder Cholecystitis presence: without cholecystitis Biliary obstruction: without biliary obstruction Qualified Code(s): K80.20 - Calculus of gallbladder without cholecystitis without obstruction Code(s): K80.20 - Calculus of gallbladder without cholecystitis without obstruction Status: Chronic Assessment and Plan: -----This was noted on previous admission. He was seen by Dr Masterson in consultation 07/15/19. Dr Masterson has noted that since the patient did not show signs of cholecystitis, he could be seen for evaluation on an outpatient basis potentially for elective laparscopic cholecystectomy at some point. Dr Masterson notes that if the patient would have lap curly, that he would not be able to do peritoneal dialysis for 2 weeks. For that reason, he does not plan on any surgical intervention until the patient has plans to transition to hemodialysis (which may be soon?). Patient was on TPN while hospitalized but this was discontinued today because he is starting to eat a regular diet without any pain or nausea. The states the last couple of weeks he has only been able to eat Jell-O, oatmeal and broth. CT of the abdomen shows cholelithiasis and gallbladder distension. (6) Leukocytosis: Qualifiers: Leukocytosis type: other Qualified Code(s): D72.828 - Other elevated white blood cell count Code(s): D72.829 - Elevated white blood cell count, unspecified Status: Acute Assessment and Plan: -----likely secondary to bacteremia. See above (7) Atrial tachycardia: Code(s): I47.1 - Supraventricular tachycardia Status: Chronic Assessment and Plan: -----Noted on last admis
--- NOTE | 2019-07-23 12:07 | PM.PNNEP ---
Progress Note: A&P Assessment and Plan (1) End stage renal disease: Code(s): N18.6 - End stage renal disease Status: Chronic Assessment and Plan: Patient is on peritoneal dialysis. 1059cc was removed overnight. Continue same treatment. There was mention of switching to hemodialysis earlier in the hospital stay. Dr. Walsh was considering this because he was confused and thought to have been under dialyzed. I have a call into Dr. Mari to talk about this, however I get the idea that his peritoneal dialysis has been going well as an outpatient. His confusion cleared up with treatment of his bacteremia. So I do not think he is under dialyzed. Eventually is going to have his gallbladder taken out. He will need hemodialysis at that point to let his wounds heal. So when his gallbladder comes out the surgeon can place a PermCath at that same time and we can do hemodialysis for a week or 2 to let the wounds heal. (2) Bacteremia: Code(s): R78.81 - Bacteremia Status: Acute Assessment and Plan: The patient has strep bacteremia. Probably from the wound in his left leg. He is on antibiotics now. The patient is afebrile and his white count is improving. (3) Obstructive sleep apnea: Code(s): G47.33 - Obstructive sleep apnea (adult) (pediatric) Status: Acute (4) Cholelithiasis: Qualifiers: Cholelithiasis location: gallbladder Cholecystitis presence: without cholecystitis Biliary obstruction: without biliary obstruction Qualified Code(s): K80.20 - Calculus of gallbladder without cholecystitis without obstruction Code(s): K80.20 - Calculus of gallbladder without cholecystitis without obstruction Status: Chronic Assessment and Plan: He has cholelithiasis. Surgery on hold for now. Once he has that he can get a PermCath for hemodialysis. (5) Anemia in chronic renal disease: Qualifiers: Chronic kidney disease stage: on chronic dialysis Qualified Code(s): N18.6 - End stage renal disease; D63.1 - Anemia in chronic kidney disease; Z99.2 - Dependence on renal dialysis Code(s): N18.9 - Chronic kidney disease, unspecified; D63.1 - Anemia in chronic kidney disease Status: Suspected Assessment and Plan: Hemoglobin is mildly low at 9.9. On EPO. No need for iron levels since he has infection. (6) Renal osteodystrophy: Code(s): N25.0 - Renal osteodystrophy Status: Acute Assessment and Plan: Calcium level is okay. Phosphorus levels barely high. Will check a PTH. Additional Plan Subjective Date/time seen: 07/23/19 12:07 Interval history: Patient is alert and feeling better. he did not eat breakfast. No swelling and no shortness of breath. Review of Systems Cardiovascular: Cardiovascular: Reports no additional cardiovascular complaints Respiratory: Respiratory: Reports no additional respiratory complaints Gastrointestinal: Gastrointestinal: Reports no additional gastrointestinal complaints Genitourinary: Genitourinary: Reports no additional male genitourinary complaints Exam Narrative: Exam Narrative: WDWN in NAD skin no rash or subcu nodules head ncat lungs clear cor reg no rub or gallop abd BS+ nontender and soft ext no edema. Objective Data Vital Signs Vital Signs: Vital Signs - 24 hr 07/22/19 14:00 07/22/19 16:00 07/22/19 20:01 Temperature 36.1 C L Pulse Rate 95 88 95 Respiratory Rate 18 Blood Pressure 151/77 H Pulse Oximetry 100 07/22/19 21:42 07/22/19 22:00 07/23/19 00:00 Temperature 36.2 C L Pulse Rate 94 87 85 Respiratory Rate 20 Blood Pressure 138/75 Pulse Oximetry 98 07/23/19 04:00 07/23/19 06:00 07/23/19 07:31 Temperature 36.6 C 36.6 C Pulse Rate 88 95 95 Respiratory Rate 16 16 Blood Pressure 146/70 H 146/70 H Pulse Oximetry 98 07/23/19 08:00 Temperature Pulse Rate 95 Respiratory Rate 16 Blood
--- NOTE | 2019-07-23 15:01 | PCOTNOTE ---
Patient refused treatment this session due to feeling too tired to participate.
--- NOTE | 2019-07-23 15:50 | PCPTNOTE ---
Patient refused treatment this session.
[2019-07-23 17:07] LABS: Glucose Point of Care 140 (65-105)
[2019-07-23 21:05] LABS: Glucose Point of Care 134 (65-105)
[2019-07-24 05:44] VITALS: BP 156/72; PULSE 91; RESP 16; TEMP 36.3; O2SAT 100
[2019-07-24 06:11] LABS: Basophils Absolute Auto 0.2 K/mm3 (0.0-0.1); Basophils Percent Auto 0.8 % (0.2-1.2); Eosinophils Absolute Auto 0.1 K/mm3 (0-0.3); Eosinophils Percent Auto 0.5 % (0-4.4); Hematocrit 27.6 % (42.0-52.0); Hemoglobin 9.1 g/dL (14.0-18.0); Immature Granulocyte Absolute 2.34 K/mm3 (0.00-0.031); Immature Granulocyte Percent A 12.3 % (0-0.5); Immature Platelet Fraction Pct 3.7 % (0.9-11.2); Lymphocytes Absolute Auto 2.35 K/mm3 (0.9-3.2); Lymphocytes Percent Auto 12.3 % (18.3-44.2); Mean Corpuscular Hemoglobin 31.2 pg (26-34); Mean Corpuscular Volume 94.5 fl (80-100); Mean Platelet Volume 10.1 fl (7.4-10.4); Monocytes Absolute Auto 1.8 K/mm3 (0.1-0.6); Monocytes Percent Auto 9.4 % (2.6-8.5); Neutrophils Absolute Auto 12.3 K/mm3 (1.3-6.7); Neutrophils Percent Auto 64.7 % (45.5-73.1); Nucleated Red Blood Cells Perc 0.2 % (0.0-0.2); Platelet Count Result 73 k/mm3 (150-375); Red Blood Count 2.92 M/mm3 (4.6-6.20); Red Cell Distribution Width 18.6 % (11.5-14.5)
[2019-07-24 06:20] LABS: Albumin Level 3.2 g/dL (3.5-5.1); Blood Urea Nitrogen 68 mg/dL (9-20); Calcium 9.8 mg/dL (8.4-10.2); Carbon Dioxide 25 mmol/L (22-30); Chloride 102 mmol/L (98-107); Estimated CRCL calculation 6 ml/min; Estimated Glomerular Filt Rate 5; Glucose 120 mg/dL (75-110); Magnesium 2.2 mg/dL (1.6-2.3); Phosphorus 5.4 mg/dL (2.5-4.5); Potassium 3.2 mmol/L (3.4-5.0); Sodium 135 mmol/L (137-145)
[2019-07-24 09:01] LABS: Erythrocyte Sedimentation Rate > 140 mm/hr (0-20)
[2019-07-24] MEDS: calcitrioL 0.25 MCG CAPSULE PO (09:27)
[2019-07-24] MEDS: FAMOTIDINE 20 MG TABLET 40 MG PO ×2 (09:27→16:55)
[2019-07-24] MEDS: allopurinoL 100 MG TABLET PO (09:27)
[2019-07-24] MEDS: CALCIUM ACETATE 667 MG TABLET PO ×3 (09:27→16:55)
[2019-07-24 09:28] VITALS: PULSE 91
[2019-07-24] MEDS: METOPROLOL TARTRATE 25 MG TABLET 75 MG PO ×2 (09:28→20:44)
[2019-07-24] MEDS: VITAMIN B COMPLEX CAPSULE 1 CAP PO (09:29)
[2019-07-24] MEDS: EPOETIN ALFA 10,000 UNITS/ML VIAL 10000 UNITS SUB-Q (09:48)
--- NOTE | 2019-07-24 10:41 | PCNFU ---
Nutrition Follow-Up Complete: Involuntary weight loss related to decreased appetite (c/o nausea, food aversions) as evidenced by reported and documented weight loss. Goal: Patient to consume 50% of meals/supplements. Progressing towards goal. We will continue current goal. Pt current nutrition is Renal/Dialysis diet. Nutrition recommendation:Agree Last recorded weight is 92 kg. Bowel Motility:+BM reported 07/23 Labs Reviewed:Glu 120,BUN 68,Cr 10.3,Na 135,K 3.2 Meds Noted:Lopressor ,Vit B complex Additional Notes: Spoke with nursing today, patient still having some confusion. Oral Intake 25-65% of meals. Patient continues to receive Nepro BID providing an additional 425 kcals and 19 gms protein. PO intake is encouraged. Monitoring: Follow up in 5 days.
[2019-07-24] MEDS: POTASSIUM CHLORIDE 20 MEQ TABLET PO (12:23)
[2019-07-24 12:46] LABS: Glucose Point of Care 167 (65-105)
--- NOTE | 2019-07-24 13:54 | PCOTNOTE ---
Attempted to see patient at this time for skilled OT session. Upon entering the room, patient reports of no pain, refuses therapy, stating of being worn out and does not want participate in OT session activities. OT session not completed this date.
[2019-07-24 14:00] VITALS: BP 134/72; PULSE 84; RESP 17; TEMP 36.9; O2SAT 100
--- NOTE | 2019-07-24 14:39 | WPDINFPN2 ---
Progress Note: A&P Assessment and Plan (1) Streptococcus C: Code(s): A49.1 - Streptococcal infection, unspecified site Status: Acute Assessment and Plan: 1. Grp C Streptococcus bacteremia, LLE soft tissue source, status improving 2. CRF, no peritonitis 3. Leukocytosis, persists, appreciate 's assistance. no necrotizing fasciitis. REC PCN # 6 (antibiotic #8), change to oral x 7 additional days. Ok with me tunneled HD catheter if needed. Subjective Date/time seen: 07/24/19 14:39 Interval history: unhappy that his PD had to be cut short last night. No acute complaints Exam Narrative: Exam Narrative: afebrile Const: General: no acute distress Eyes: General: appearance normal, both eyes and all related structures Resp: Effort & Inspection: normal respiratory effort Auscultation: clear to auscultation bilaterally Cardio: Rate: regular rate Rhythm: regular rhythm Heart sounds: no gallops and no murmurs GI: Inspection: non-distended GI Palp: Yes Soft to palpation and No Tenderness to palpation present (GI) Extrem: General: edema Objective Data Vital Signs Vital Signs: Vital Signs - 24 hr 07/23/19 19:17 07/23/19 20:00 07/23/19 20:21 Temperature 36.1 C L Pulse Rate 91 98 98 Respiratory Rate 20 20 Blood Pressure 137/65 Pulse Oximetry 100 07/23/19 21:14 07/24/19 05:44 07/24/19 09:28 Temperature 36.4 C L 36.3 C L Pulse Rate 98 91 91 Respiratory Rate 18 16 Blood Pressure 150/78 H 156/72 H Pulse Oximetry 100 100 07/24/19 14:00 Temperature 36.9 C Pulse Rate 84 Respiratory Rate 17 Blood Pressure 134/72 Pulse Oximetry 100 Intake/Output Intake/Output: Intake & Output 07/21/19 07/22/19 07/23/19 07/24/19 23:59 23:59 23:59 23:59 Intake Total 1706 3270 3070 340 Output Total 631 481 2120 41 Balance 1556 3045 1611 299 Meds/Results Medications: Active Medications Generic Name Dose Route Start Last Admin Trade Name Freq PRN Reason Stop Dose Admin Allopurinol 100 mg 07/18/19 09:00 07/24/19 09:27 Zyloprim PO 100 mg DAILY DARA Administration Calcitriol 0.25 mcg 07/19/19 09:00 07/24/19 09:27 Rocaltrol PO 0.25 mcg MoWeFr@0900 DARA Administration Calcium Acetate 667 mg 07/19/19 17:00 07/24/19 12:23 Phoslo PO 667 mg TID DARA Administration Epoetin Dominick 10,000 units 07/21/19 10:15 07/24/19 09:48 Epogen SUB-Q 10,000 units MOWEFR DARA Administration Famotidine 40 mg 07/18/19 09:00 07/24/19 09:27 Pepcid PO 40 mg BID [facility] Administration Penicillin G Potassium 2,000, 50 mls @ 100 mls/hr 07/19/19 21:00 07/24/19 09:29 000 units/ Dextrose IVPB 100 mls/hr Q12HR DARA Administration Dextrose 1,000 mls @ 50 mls/hr 07/20/19 15:18 Dextrose 10% IV CONT .Q20H PRN if PN is interrupted Metoprolol Tartrate 75 mg 07/19/19 21:00 07/24/19 09:28 Lopressor PO 75 mg Q12HR DARA Administration Non-Formulary Medication 750 mg 07/18/19 09:00 Niacin (Inositol Niacinate) PO 08/17/19 09:01 BID DARA Ondansetron HCl 4 mg 07/17/19 16:33 Zofran Inj IV PUSH Q4H PRN Nausea Vitamin B Complex 1 cap 07/18/19 09:00 07/24/19 09:29 Vitamin B Complex PO 1 cap DAILY [facility] Administration Wound Care/Dressing Products 1 patch 07/18/19 09:00 07/24/19 09:28 Mepilex Transfer Drsg 6x8 TOPICAL 1 patch QAM [facility] Administration Radiology Results: ITS Impressions Head CT 07/17/19 13:46 IMPRESSION: 1. No acute intracranial findings. 2. Old bilateral basal ganglia lacunar infarctions. 3. Chronic age related findings. Tibia/Fibula X-Ray 07/17/19 14:04 IMPRESSION: No acute osseous findings. Chest X-Ray 07/17/19 14:06 IMPRESSION: No acute cardiopulmonary findings. Venous Doppler Study 07/18/19 11:15 IMPRESSION: 1: No lower extremity deep venous thrombosis. Abdomen/Pelvis CT 07/19/19 13:57 IMPRESSION: 1. Chol
--- NOTE | 2019-07-24 15:48 | PM.PNNEP ---
Progress Note: A&P Assessment and Plan (1) End stage renal disease: Code(s): N18.6 - End stage renal disease Status: Chronic Assessment and Plan: Patient is on peritoneal dialysis. 1059cc was removed overnight. Continue same treatment. (2) Bacteremia: Code(s): R78.81 - Bacteremia Status: Acute Assessment and Plan: The patient has strep bacteremia. Probably from the wound in his left leg. He is on antibiotics The patient is afebrile and his white count is improving. (3) Obstructive sleep apnea: Code(s): G47.33 - Obstructive sleep apnea (adult) (pediatric) Status: Acute (4) Cholelithiasis: Qualifiers: Cholelithiasis location: gallbladder Cholecystitis presence: without cholecystitis Biliary obstruction: without biliary obstruction Qualified Code(s): K80.20 - Calculus of gallbladder without cholecystitis without obstruction Code(s): K80.20 - Calculus of gallbladder without cholecystitis without obstruction Status: Chronic Assessment and Plan: He has cholelithiasis. Surgery on hold for now. Symptoms are improved (5) Anemia in chronic renal disease: Qualifiers: Chronic kidney disease stage: on chronic dialysis Qualified Code(s): N18.6 - End stage renal disease; D63.1 - Anemia in chronic kidney disease; Z99.2 - Dependence on renal dialysis Code(s): N18.9 - Chronic kidney disease, unspecified; D63.1 - Anemia in chronic kidney disease Status: Suspected Assessment and Plan: Hemoglobin is mildly low at 9.9. On EPO. (6) Renal osteodystrophy: Code(s): N25.0 - Renal osteodystrophy Status: Acute Assessment and Plan: Calcium level is okay. Phosphorus levels barely high. Will check a PTH. Additional Plan Subjective Date/time seen: 07/24/19 15:48 Interval history: Patient is alert and feeling better. No complaints. On dialysis and tolerating it well. Fluid is clear and flows are good. No swelling. Patient was seen at 11:00 a.m.. Review of Systems Cardiovascular: Cardiovascular: Reports no additional cardiovascular complaints Respiratory: Respiratory: Reports no additional respiratory complaints Gastrointestinal: Gastrointestinal: Reports no additional gastrointestinal complaints Genitourinary: Genitourinary: Reports no additional male genitourinary complaints Exam Narrative: Exam Narrative: WDWN in NAD skin no rash head ncat lungs clear to auscultation cor reg no rub or gallop abd BS+ nontender and soft ext no edema. Objective Data Vital Signs Vital Signs: Vital Signs - 24 hr 07/23/19 19:17 07/23/19 20:00 07/23/19 20:21 Temperature 36.1 C L Pulse Rate 91 98 98 Respiratory Rate 20 20 Blood Pressure 137/65 Pulse Oximetry 100 07/23/19 21:14 07/24/19 05:44 07/24/19 09:28 Temperature 36.4 C L 36.3 C L Pulse Rate 98 91 91 Respiratory Rate 18 16 Blood Pressure 150/78 H 156/72 H Pulse Oximetry 100 100 07/24/19 14:00 Temperature 36.9 C Pulse Rate 84 Respiratory Rate 17 Blood Pressure 134/72 Pulse Oximetry 100 Intake/Output Intake/Output: Intake & Output 07/21/19 07/22/19 07/23/19 07/24/19 23:59 23:59 23:59 23:59 Intake Total 1706 3270 3070 390 Output Total 491 767 6761 41 Balance 1556 3045 1611 349 Meds/Results Medications: Active Medications Generic Name Dose Route Start Last Admin Trade Name Freq PRN Reason Stop Dose Admin Allopurinol 100 mg 07/18/19 09:00 07/24/19 09:27 Zyloprim PO 100 mg DAILY DARA Administration Calcitriol 0.25 mcg 07/19/19 09:00 07/24/19 09:27 Rocaltrol PO 0.25 mcg MoWeFr@0900 DARA Administration Calcium Acetate 667 mg 07/19/19 17:00 07/24/19 12:23 Phoslo PO 667 mg TID DARA Administration Epoetin Dominick 10,000 units 07/21/19 10:15 07/24/19 09:48 Epogen SUB-Q 10,000 units MOWEFR [facility] Administration Famotidine 40 mg 07/18/19
[2019-07-24 16:47] LABS: Glucose Point of Care 117 (65-105)
--- NOTE | 2019-07-24 16:51 | PM.IMPN ---
Progress Note: A&P Assessment and Plan (1) Bacteremia: Code(s): R78.81 - Bacteremia Status: Acute Assessment and Plan: -----both blood cultures growing group G Streptococcus. PCN sensitive. Etiology likely from cutaneous source, PD fluid has a negative gram stain. Penicillin changed to oral today. WBC fluctuating, up again today. I repeated blood cultures to ensure no further bacteremia due to the increasing leukocytosis. Reviewed Dr. trujillo is note, would like Vanessa says recommendations and thoughts on this. I have spoken with care coordination who was trying to find placement for him since it is hard to find for peritoneal dialysis. She has referrals out to [place] and [place]. Patient has been refusing PT and OT and it was discussed with him that he needs to get out of bed and work with therapy. does not feel comfortable taking him home although thoughts with the patient wants to go. Hopefully we will find placement as I believe this patient will likely discharge in 1-2 days. (2) Streptococcus C: Code(s): A49.1 - Streptococcal infection, unspecified site Status: Acute Assessment and Plan: -----see above (3) End stage renal disease: Code(s): N18.6 - End stage renal disease Status: Chronic Assessment and Plan: -----ESRD on peritoneal dialysis. 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 Originally he was going to be transition to hemodialysis due to his confusion and possible cholecystectomy but now that he is back to baseline and the confusion was due to bacteremia, no plan for hemodialysis. If they want to do a cholecystectomy, they could place a catheter at that time. With that being said, the patient isn't having any nausea or vomiting and has actually been eating much better. He may not need any gallbladder intervention at this time. (4) Delirium due to general medical condition: Code(s): F05 - Delirium due to known physiological condition Status: Acute Assessment and Plan: -----likely due to bacteremia. This has been improving. (5) Cholelithiasis: Qualifiers: Cholelithiasis location: gallbladder Cholecystitis presence: without cholecystitis Biliary obstruction: without biliary obstruction Qualified Code(s): K80.20 - Calculus of gallbladder without cholecystitis without obstruction Code(s): K80.20 - Calculus of gallbladder without cholecystitis without obstruction Status: Chronic Assessment and Plan: -----This was noted on previous admission. He was seen by Dr Masterson in consultation 07/15/19. Dr Masterson has noted that since the patient did not show signs of cholecystitis, he could be seen for evaluation on an outpatient basis potentially for elective laparscopic cholecystectomy at some point. Dr Masterson notes that if the patient would have lap curly, that he would not be able to do peritoneal dialysis for 2 weeks. Patient has been eating and drinking well the last couple of days and did get TPN earlier in the stay but that has been stopped. He has not had any right upper quadrant pain. He may not need gallbladder surgery if his appetite continues to increase and he does not have any pain. If he decides to have gallbladder surgery or his symptoms worsen, nephrology recommends placing a catheter the time of the surgery and switching him to hemodialysis temporarily. (6) Leukocytosis: Qualifiers: Leukocytosis type: other Qualified Code(s): D72.828 - Other elevated white blood cell count Code(s): D72.829 - Elevated white blood cell count, unspecified Status: Acute Assessment and Plan: -----likely secondary to bacteremia. See above (7) Atrial tachycardia: Code(s): I47.1 - Supraventricular tachycardia Status: Chronic Assessment and Plan: -----Noted on last admission. Metoprolol increased 07/18 and his HR has improved
[2019-07-24 20:44] VITALS: PULSE 96
[2019-07-24] MEDS: PENICILLIN V POTASSIUM 250 MG TABLET 1000 MG PO (20:45)
[2019-07-24 20:49] LABS: Glucose Point of Care 113 (65-105)
[2019-07-24 21:07] VITALS: BP 139/73; PULSE 96; RESP 16; TEMP 36.3; O2SAT 99
[2019-07-24] MEDS: PHARMACIST COMMUNICATION ORDER 1 EACH XX (21:55)
[2019-07-25 05:30] LABS: Basophils Absolute Auto 0.1 K/mm3 (0.0-0.1); Basophils Percent Auto 0.3 % (0.2-1.2); Eosinophils Percent Auto 0.1 % (0-4.4); Hemoglobin 9.7 g/dL (14.0-18.0); Immature Granulocyte Absolute 2.51 K/mm3 (0.00-0.031); Immature Granulocyte Percent A 10.5 % (0-0.5); Mean Corpuscular HGB Conc 32.3 g/dl (32-36); Mean Corpuscular Hemoglobin 31.2 pg (26-34); Mean Corpuscular Volume 96.5 fl (80-100); Mean Platelet Volume 10.3 fl (7.4-10.4); Monocytes Absolute Auto 2.1 K/mm3 (0.1-0.6); Monocytes Percent Auto 8.8 % (2.6-8.5); Neutrophils Absolute Auto 17.2 K/mm3 (1.3-6.7); Neutrophils Percent Auto 72.3 % (45.5-73.1); Nucleated Red Blood Cells Absolute Auto 0.1 K/mm3 (0.0-0.012); Nucleated Red Blood Cells Perc 0.2 % (0.0-0.2); Platelet Count Result 90 k/mm3 (150-375); Red Blood Count 3.11 M/mm3 (4.6-6.20); Red Cell Distribution Width 19.5 % (11.5-14.5); White Blood Count 23.8 K/mm3 (4.5-10.0)
[2019-07-25 05:43] LABS: Albumin Level 3.5 g/dL (3.5-5.1); Blood Urea Nitrogen 66 mg/dL (9-20); Calcium 10.3 mg/dL (8.4-10.2); Carbon Dioxide 25 mmol/L (22-30); Chloride 102 mmol/L (98-107); Estimated CRCL calculation 6 ml/min; Estimated Glomerular Filt Rate 5; Glucose 179 mg/dL (75-110); Phosphorus 5.2 mg/dL (2.5-4.5); Potassium 3.7 mmol/L (3.4-5.0); Sodium 137 mmol/L (137-145)
[2019-07-25 05:47] VITALS: BP 129/50; PULSE 91; RESP 18; TEMP 37; O2SAT 98
[2019-07-25 06:46] LABS: Hypochromasia 2+ (NORMAL); Platelet Estimate Decreased (Adequate); Polychromasia 1+ (NORMAL)
[2019-07-25 07:33] LABS: Glucose Point of Care 170 (65-105)
[2019-07-25 09:17] VITALS: PULSE 91
[2019-07-25] MEDS: FAMOTIDINE 20 MG TABLET 40 MG PO ×2 (09:17→16:27)
[2019-07-25] MEDS: VITAMIN B COMPLEX CAPSULE 1 CAP PO (09:17)
[2019-07-25] MEDS: CALCIUM ACETATE 667 MG TABLET PO (09:17)
[2019-07-25] MEDS: allopurinoL 100 MG TABLET PO (09:17)
[2019-07-25] MEDS: METOPROLOL TARTRATE 25 MG TABLET 75 MG PO ×2 (09:17→20:55)
[2019-07-25] MEDS: PENICILLIN V POTASSIUM 250 MG TABLET 1000 MG PO ×2 (09:18→20:55)
--- NOTE | 2019-07-25 09:34 | PM.IMPN ---
Progress Note: A&P Assessment and Plan (1) Bacteremia: Code(s): R78.81 - Bacteremia Status: Acute Assessment and Plan: Both blood cultures from 07/16 growing group G Strep. May be cutaneous source, PD fluid has a negative gram stain. Dr Candelaria following - appreciate recommendations; transitioned to oral PCN yesterday. Leukocytosis fluctuating, up to 23,000 today. Blood cultures repeated yesterday 07/23 are pending. Afebrile. Plans for discharge to [facility] bed hopefully in 1 to 2 days if WBC is stable. Edit: Discussed case with Dr Ybarra who spoke with patient's quantitative developer Dr Mari today. Dr Mari requests HIDA scan be repeated to ensure no further issues regarding the bladder to be contributing to his clinical picture. (2) Streptococcus C: Code(s): A49.1 - Streptococcal infection, unspecified site Status: Acute Assessment and Plan: See above. (3) End stage renal disease: Code(s): N18.6 - End stage renal disease Status: Chronic Assessment and Plan: ESRD on peritoneal dialysis. Patient's established quantitative developer is Dr Mari at [place]. Originally he was going to be transition to hemodialysis due to his confusion and possible cholecystectomy but now that he is back to baseline and the confusion was felt to be due to bacteremia, no plan for hemodialysis at this time. If cholecystectomy should be warranted in the future, catheter could be placed at that time. Tolerating oral intake without pain, nausea, or vomiting. (4) Delirium due to general medical condition: Code(s): F05 - Delirium due to known physiological condition Status: Acute Assessment and Plan: Suspected due to bacteremia. This has been improving. (5) Cholelithiasis: Qualifiers: Biliary obstruction: without biliary obstruction Cholecystitis presence: without cholecystitis Cholelithiasis location: gallbladder Qualified Code(s): K80.20 - Calculus of gallbladder without cholecystitis without obstruction Code(s): K80.20 - Calculus of gallbladder without cholecystitis without obstruction Status: Chronic Assessment and Plan: This was noted on previous admission. He was seen by Dr Masterson in consultation 07/15/19. Dr Masterson has noted that since the patient did not show signs of cholecystitis, he could be seen for evaluation on an outpatient basis potentially for elective laparscopic cholecystectomy at some point. Dr Masterson notes that if the patient would have lap curly, that he would not be able to do peritoneal dialysis for 2 weeks. Patient has been eating and drinking well the last couple of days and did get TPN earlier in the stay but that has been stopped. He has not had any right upper quadrant pain. If he decides to have gallbladder surgery or his symptoms worsen, nephrology recommends placing a catheter the time of the surgery and switching him to hemodialysis temporarily. (6) Leukocytosis: Qualifiers: Leukocytosis type: other Qualified Code(s): D72.828 - Other elevated white blood cell count Code(s): D72.829 - Elevated white blood cell count, unspecified Status: Acute Assessment and Plan: [place] to be secondary to bacteremia but trending up. See above, repeat cultures pending. (7) Atrial tachycardia: Code(s): I47.1 - Supraventricular tachycardia Status: Chronic Assessment and Plan: Noted on last admission. Metoprolol increased 07/18 and his HR has improved. Could be due to infection and his intolerance to CPAP. (8) Thrombocytopenia: Code(s): D69.6 - Thrombocytopenia, unspecified Status: Chronic Assessment and Plan: Chronic based on review of previous labs. Platelets stable to
--- NOTE | 2019-07-25 10:04 | PM.PNNEP ---
Progress Note: A&P Assessment and Plan (1) End stage renal disease: Code(s): N18.6 - End stage renal disease Status: Chronic Assessment and Plan: Patient is on peritoneal dialysis. 2442 cc was removed overnight. Continue same treatment. (2) Bacteremia: Code(s): R78.81 - Bacteremia Status: Acute Assessment and Plan: The patient has strep bacteremia. Probably from the wound in his left leg. He is on antibiotics White count joe and so blood cultures were checked yesterday. The patient is afebrile (3) Obstructive sleep apnea: Code(s): G47.33 - Obstructive sleep apnea (adult) (pediatric) Status: Acute (4) Cholelithiasis: Qualifiers: Cholelithiasis location: gallbladder Cholecystitis presence: without cholecystitis Biliary obstruction: without biliary obstruction Qualified Code(s): K80.20 - Calculus of gallbladder without cholecystitis without obstruction Code(s): K80.20 - Calculus of gallbladder without cholecystitis without obstruction Status: Chronic Assessment and Plan: He has cholelithiasis. Surgery on hold for now. Symptoms are improved (5) Anemia in chronic renal disease: Qualifiers: Chronic kidney disease stage: on chronic dialysis Qualified Code(s): N18.6 - End stage renal disease; D63.1 - Anemia in chronic kidney disease; Z99.2 - Dependence on renal dialysis Code(s): N18.9 - Chronic kidney disease, unspecified; D63.1 - Anemia in chronic kidney disease Status: Suspected Assessment and Plan: Hemoglobin is up and down in the 9s. On EPO. (6) Renal osteodystrophy: Code(s): N25.0 - Renal osteodystrophy Status: Acute Assessment and Plan: See below (7) Hypercalcemia: Code(s): E83.52 - Hypercalcemia Status: Acute Assessment and Plan: Calcium level is high today. Perhaps this is why he is not quite on his game mentally. Will stop calcium acetate and change to sevelamer Additional Plan Subjective Date/time seen: 07/25/19 10:04 Interval history: Patient is alert No complaints. He says he feels okay. He says he has been working with physical therapy and walk down the [place] and back but he is not sure how far he went. He had been refusing physical therapy before that. Patient is a little bit on the slow side but knows he is at [facility] in its 2020. Review of Systems Cardiovascular: Cardiovascular: Reports no additional cardiovascular complaints Respiratory: Respiratory: Reports no additional respiratory complaints Gastrointestinal: Gastrointestinal: Reports no additional gastrointestinal complaints Genitourinary: Genitourinary: Reports no additional male genitourinary complaints Exam Narrative: Exam Narrative: WDWN in NAD skin no rash or subcu nodules head ncat lungs clear to auscultation cor reg no rub or gallop abd BS+ nontender and soft ext no edema. Or cyanosis Objective Data Vital Signs Vital Signs: Vital Signs - 24 hr 07/24/19 14:00 07/24/19 20:44 07/24/19 21:07 Temperature 36.9 C 36.3 C L Pulse Rate 84 96 96 Respiratory Rate 17 16 Blood Pressure 134/72 139/73 Pulse Oximetry 100 99 07/25/19 05:47 07/25/19 09:17 Temperature 37.0 C Pulse Rate 91 91 Respiratory Rate 18 Blood Pressure 129/50 L Pulse Oximetry 98 Intake/Output Intake/Output: Intake & Output 07/22/19 07/23/19 07/24/19 07/25/19 23:59 23:59 23:59 23:59 Intake Total 3270 3070 640 Output Total 225 4716 589 8873 Balance 3045 1611 149 -1991 Meds/Results Medications: Active Medications Generic Name Dose Route Start Last Admin Trade Name Freq PRN Reason Stop Dose Admin Allopurinol 100 mg 07/18/19 09:00 07/25/19 09:17 Zyloprim PO 100 mg DAILY [facility] Administration Calcitriol 0.25 mcg 07/19/19 09:00 07/24/19 09:27 Rocaltrol PO 0.25 mcg MoWeFr@0900 DARA Administration E
[2019-07-25] MEDS: SEVELAMER CARBONATE 800 MG TABLET PO ×2 (11:29→16:27)
[2019-07-25 11:38] LABS: Glucose Point of Care 118 (65-105)
[2019-07-25 14:00] VITALS: BP 127/55; PULSE 82; RESP 14; TEMP 36.4; O2SAT 98
--- NOTE | 2019-07-25 14:41 | PCPTNOTE ---
Patient sleeping when PT entered the room. Woke patient up to participate in therapy. Pt declined stating It is a bad time. Encouraged patient to participate, however patient continued to close his eyes and fall asleep.
--- NOTE | 2019-07-25 15:25 | PCOTNOTE ---
The OT treatment was unable to be completed on 07/25/2019. Will continue plan of care 07/26/2019.
[2019-07-25 16:27] LABS: Glucose Point of Care 109 (65-105)
[2019-07-25 20:55] VITALS: PULSE 95
[2019-07-25 21:00] LABS: Glucose Point of Care 131 (65-105)
[2019-07-25 21:35] VITALS: BP 127/76; PULSE 93; RESP 20; TEMP 36.4; O2SAT 99
[2019-07-25 22:36] VITALS: BP 127/76; PULSE 93; RESP 20; TEMP 36.4
[2019-07-26 05:02] LABS: Hematocrit 29.5 % (42.0-52.0); Hemoglobin 9.5 g/dL (14.0-18.0); Mean Corpuscular HGB Conc 32.2 g/dl (32-36); Mean Corpuscular Hemoglobin 31.8 pg (26-34); Mean Corpuscular Volume 98.7 fl (80-100); Mean Platelet Volume 10.2 fl (7.4-10.4); Platelet Count Result 104 k/mm3 (150-375); Red Blood Count 2.99 M/mm3 (4.6-6.20); Red Cell Distribution Width 19.9 % (11.5-14.5); White Blood Count 20.7 K/mm3 (4.5-10.0)
[2019-07-26 05:25] LABS: Albumin Level 3.2 g/dL (3.5-5.1); Blood Urea Nitrogen 64 mg/dL (9-20); Calcium 9.4 mg/dL (8.4-10.2); Carbon Dioxide 24 mmol/L (22-30); Chloride 103 mmol/L (98-107); Estimated CRCL calculation 6 ml/min; Estimated Glomerular Filt Rate 5; Glucose 141 mg/dL (75-110); Magnesium 2.2 mg/dL (1.6-2.3); Phosphorus 5.4 mg/dL (2.5-4.5); Potassium 3.2 mmol/L (3.4-5.0); Sodium 138 mmol/L (137-145)
[2019-07-26 05:53] VITALS: BP 128/73; PULSE 92; RESP 16; TEMP 36.1; O2SAT 99
[2019-07-26 05:57] LABS: Band Neutrophils Percent 4 % (0-6); Eosinophils Percent Manual 1 % (0-4); Lymphocytes Absolute Manual 0.82 K/mm3 (1.1-4.5); Metamyelocytes Percent 2 %; Monocytes Absolute Manual 1.03 K/mm3 (0.1-0.90); Monocytes Percent Manual 5 % (3-9); Neutrophils Absolute Manual 18.21 K/mm3 (1.3-6.7); Neutrophils Percent Manual 84 % (46-73); Platelet Estimate Decreased (Adequate); Total Cells Counted 100
[2019-07-26 05:59] LABS: Macrocytosis 1+ (NORMAL); Ovalocytes 1+ (NORMAL)
[2019-07-26 07:41] LABS: Glucose Point of Care 157 (65-105)
[2019-07-26 08:48] VITALS: PULSE 92
[2019-07-26] MEDS: calcitrioL 0.25 MCG CAPSULE PO (08:48)
[2019-07-26] MEDS: METOPROLOL TARTRATE 25 MG TABLET 75 MG PO ×2 (08:48→21:10)
[2019-07-26] MEDS: VITAMIN B COMPLEX CAPSULE 1 CAP PO (08:48)
[2019-07-26] MEDS: FAMOTIDINE 20 MG TABLET 40 MG PO ×2 (08:48→17:18)
[2019-07-26] MEDS: PENICILLIN V POTASSIUM 250 MG TABLET 1000 MG PO ×2 (08:48→21:10)
[2019-07-26] MEDS: EPOETIN ALFA 10,000 UNITS/ML VIAL 10000 UNITS SUB-Q (10:40)
[2019-07-26 11:36] LABS: Glucose Point of Care 137 (65-105)
--- NOTE | 2019-07-26 12:25 | WPDINFPN2 ---
Progress Note: A&P Assessment and Plan (1) Streptococcus C: Code(s): A49.1 - Streptococcal infection, unspecified site Status: Acute Assessment and Plan: 1. Grp C Streptococcus bacteremia, LLE soft tissue source, status improving 2. CRF, no peritonitis 3. Leukocytosis, persists, no necrotizing fasciitis. REC Oral PCN # 8 (antibiotic #10), through 07/30/19. Repeat CBC as outpatient or as Dr. Mendez recommends. Signing off. Subjective Date/time seen: 07/26/19 12:25 Interval history: no new complaints Exam Narrative: Exam Narrative: afebrile Const: General: no acute distress Resp: Effort & Inspection: normal respiratory effort Auscultation: clear to auscultation bilaterally GI: Inspection: non-distended GI Palp: Yes Soft to palpation and No Tenderness to palpation present (GI) Extrem: General: edema Objective Data Vital Signs Vital Signs: Vital Signs - 24 hr 07/25/19 14:00 07/25/19 20:55 07/25/19 21:35 Temperature 36.4 C L 36.4 C Pulse Rate 82 95 93 Respiratory Rate 14 20 Blood Pressure 127/55 L 127/76 Pulse Oximetry 98 99 07/25/19 22:36 07/26/19 05:53 07/26/19 08:48 Temperature 36.4 C 36.1 C L Pulse Rate 93 92 92 Respiratory Rate 20 16 Blood Pressure 127/76 128/73 Pulse Oximetry 99 Intake/Output Intake/Output: Intake & Output 07/23/19 07/24/19 07/25/19 07/26/19 23:59 23:59 23:59 23:59 Intake Total 3070 640 440 250 Output Total 5393 560 1281 Balance 1611 149 -1552 250 Meds/Results Medications: Active Medications Generic Name Dose Route Start Last Admin Trade Name Freq PRN Reason Stop Dose Admin Allopurinol 100 mg 07/18/19 09:00 07/25/19 09:17 Zyloprim PO 100 mg DAILY [facility] Administration Calcitriol 0.25 mcg 07/19/19 09:00 07/26/19 08:48 Rocaltrol PO 0.25 mcg MoWeFr@0900 [facility] Administration Epoetin Dominick 10,000 units 07/21/19 10:15 07/26/19 10:40 Epogen SUB-Q 10,000 units MOWEFR DARA Administration Famotidine 40 mg 07/18/19 09:00 07/26/19 08:48 Pepcid PO 40 mg BID DARA Administration Dextrose 1,000 mls @ 50 mls/hr 07/20/19 15:18 Dextrose 10% IV CONT .Q20H PRN if PN is interrupted Heparin Sodium (Porcine) 6,000 6,006 mls @ 0 mls/hr 07/24/19 20:45 units/ Peritoneal Dialysis IV CONT Solution .Q0M DARA As Directed Metoprolol Tartrate 75 mg 07/19/19 21:00 07/26/19 08:48 Lopressor PO 75 mg Q12HR DARA Administration Non-Formulary Medication 750 mg 07/18/19 09:00 Niacin (Inositol Niacinate) PO 08/17/19 09:01 BID DARA Ondansetron HCl 4 mg 07/17/19 16:33 Zofran Inj IV PUSH Q4H PRN Nausea Penicillin V Potassium 1,000 mg 07/24/19 21:00 07/26/19 08:48 Penicillin V Potassium Tab PO 07/31/19 09:01 1,000 mg Q12HR DARA Administration Sevelamer Carbonate 800 mg 07/25/19 12:00 07/26/19 08:46 Renvela PO Not Given [facility] Vitamin B Complex 1 cap 07/18/19 09:00 07/26/19 08:48 Vitamin B Complex PO 1 cap DAILY [facility] Administration Wound Care/Dressing Products 1 patch 07/18/19 09:00 07/26/19 08:48 Mepilex Transfer Drsg 6x8 TOPICAL 1 patch QAM DARA Administration Radiology Results: ITS Impressions Head CT 07/17/19 13:46 IMPRESSION: 1. No acute intracranial findings. 2. Old bilateral basal ganglia lacunar infarctions. 3. Chronic age related findings. Tibia/Fibula X-Ray 07/17/19 14:04 IMPRESSION: No acute osseous findings. Chest X-Ray 07/17/19 14:06 IMPRESSION: No acute cardiopulmonary findings. Venous Doppler Study 07/18/19 11:15 IMPRESSION: 1: No lower extremity deep venous thrombosis. Abdomen/Pelvis CT 07/19/19 13:57 IMPRESSION: 1. Cholelithiasis. Gallbladder distention may be secondary to fasting or acute cholecystitis. Correlate with physical exam. 2. 13 mm right kidney mass, which may be a hemorrhagic cyst or less likely a solid neoplasm. Abdomen C
--- NOTE | 2019-07-26 12:27 | PC.NURSE ---
To NM per wheelchair, IV intact.
--- NOTE | 2019-07-26 12:41 | PM.IMPN ---
Progress Note: A&P Assessment and Plan (1) Septicemia: Code(s): A41.9 - Sepsis, unspecified organism Status: Acute Assessment and Plan: Both blood cultures from 07/16 growing group G Strep. May be cutaneous source, PD fluid has a negative gram stain. Met sepsis criteria on arrival with leukocytosis, tachycardia, lactic acidosis. Dr Candelaria following - appreciate recommendations; transitioned to oral PCN through 07/30/19. Leukocytosis fluctuating, down to 20,000 today. Blood cultures repeated 07/23 are no growth to date. Afebrile. Plans for discharge to [facility] hopefully tomorrow. (2) End stage renal disease: Code(s): N18.6 - End stage renal disease Status: Chronic Assessment and Plan: ESRD on peritoneal dialysis. Patient's established order management specialist is Dr Mari at [place]. Originally there were discussions about transitioning to hemodialysis due to his confusion and possible cholecystectomy but now that he is back to baseline and the confusion was felt to be due to bacteremia, no plan for hemodialysis at this time. If cholecystectomy should be warranted in the future, catheter could be placed at that time. (3) Delirium due to general medical condition: Code(s): F05 - Delirium due to known physiological condition Status: Resolved Assessment and Plan: Resolved. Suspect was related to septicemia. (4) Cholelithiasis: Qualifiers: Cholelithiasis location: gallbladder Cholecystitis presence: without cholecystitis Biliary obstruction: without biliary obstruction Qualified Code(s): K80.20 - Calculus of gallbladder without cholecystitis without obstruction Code(s): K80.20 - Calculus of gallbladder without cholecystitis without obstruction Status: Chronic Assessment and Plan: This was noted on previous admission. He was seen by Dr Masterson in consultation 07/15/19. Dr Masterson has noted that since the patient did not show signs of cholecystitis, he could be seen for evaluation on an outpatient basis potentially for elective laparscopic cholecystectomy at some point. Dr Masterson notes that if the patient would have lap curly, that he would not be able to do peritoneal dialysis for 2 weeks. Patient has been eating and drinking well the last couple of days and did get TPN earlier in the stay but that has been stopped. He has not had any right upper quadrant pain. If he decides to have gallbladder surgery or his symptoms worsen, nephrology recommends placing a catheter the time of the surgery and switching him to hemodialysis temporarily. Dr Mari requested HIDA scan be repeated which was done today; unremarkable. (5) Leukocytosis: Qualifiers: Leukocytosis type: other Qualified Code(s): D72.828 - Other elevated white blood cell count Code(s): D72.829 - Elevated white blood cell count, unspecified Status: Acute Assessment and Plan: [place] to be secondary to bacteremia; See above, repeat cultures pending. Check CBC after discharge. (6) Atrial tachycardia: Code(s): I47.1 - Supraventricular tachycardia Status: Chronic Assessment and Plan: Noted on last admission. Metoprolol increased 07/18 and his HR has improved. Could be due to infection and his intolerance to CPAP. (7) Thrombocytopenia: Code(s): D69.6 - Thrombocytopenia, unspecified Status: Chronic Assessment and Plan: Chronic based on review of previous labs. Platelets stable today at 104,000. Hematology consulted. Chronic ITP is noted in the EMR but I am unsure if he has followed with hematology in the past. No bleeding at this time. Monitor. (8) Orthostatic hypotension: Code(s): I95.1 - Orthostatic hypotension S
[2019-07-26 12:58] LABS: SARS-CoV-2 RNA PCR Negative
--- NOTE | 2019-07-26 13:14 | PCOTNOTE ---
Attempted to see patient this pm, however patient off floor for testing at this time.
[2019-07-26 14:00] VITALS: BP 118/59; PULSE 89; RESP 18; TEMP 36.3; O2SAT 100
[2019-07-26] MEDS: SEVELAMER CARBONATE 800 MG TABLET PO ×2 (14:04→17:18)
[2019-07-26] MEDS: allopurinoL 100 MG TABLET PO (14:04)
[2019-07-26 16:31] LABS: Glucose Point of Care 122 (65-105)
--- NOTE | 2019-07-26 16:41 | PM.PNNEP ---
Progress Note: A&P Assessment and Plan (1) End stage renal disease: Code(s): N18.6 - End stage renal disease Status: Chronic Assessment and Plan: Patient is on peritoneal dialysis. doing well. 1992 cc removed. seen at 8am Continue same treatment. (2) Bacteremia: Code(s): R78.81 - Bacteremia Status: Acute Assessment and Plan: The patient has strep bacteremia. Probably from the wound in his left leg. He is on antibiotics White count is down to 20. The patient is afebrile blood cultures negative. hida scan negative. (3) Obstructive sleep apnea: Code(s): G47.33 - Obstructive sleep apnea (adult) (pediatric) Status: Acute (4) Cholelithiasis: Qualifiers: Cholelithiasis location: gallbladder Cholecystitis presence: without cholecystitis Biliary obstruction: without biliary obstruction Qualified Code(s): K80.20 - Calculus of gallbladder without cholecystitis without obstruction Code(s): K80.20 - Calculus of gallbladder without cholecystitis without obstruction Status: Chronic Assessment and Plan: He has cholelithiasis. Surgery on hold for now. Symptoms are improved hida neg (5) Anemia in chronic renal disease: Qualifiers: Chronic kidney disease stage: on chronic dialysis Qualified Code(s): N18.6 - End stage renal disease; D63.1 - Anemia in chronic kidney disease; Z99.2 - Dependence on renal dialysis Code(s): N18.9 - Chronic kidney disease, unspecified; D63.1 - Anemia in chronic kidney disease Status: Suspected Assessment and Plan: Hemoglobin is up and down in the 9s. On EPO. (6) Renal osteodystrophy: Code(s): N25.0 - Renal osteodystrophy Status: Acute Assessment and Plan: See below (7) Hypercalcemia: Code(s): E83.52 - Hypercalcemia Status: Acute Assessment and Plan: Calcium level is down. his thought processes are back to normal. Additional Plan Subjective Date/time seen: 07/26/19 16:41 Interval history: Patient is alert eager for discharge. No complaints. He says he feels okay. eating fine. no belly pain Review of Systems Cardiovascular: Cardiovascular: Reports no additional cardiovascular complaints Respiratory: Respiratory: Reports no additional respiratory complaints Gastrointestinal: Gastrointestinal: Reports no additional gastrointestinal complaints Genitourinary: Genitourinary: Reports no additional male genitourinary complaints Exam Narrative: Exam Narrative: WDWN in NAD skin no rash or subcu nodules head ncat lungs clear cor reg no rub or gallop abd BS+ nontender and soft ext no edema or cyanosis Objective Data Vital Signs Vital Signs: Vital Signs - 24 hr 07/25/19 20:55 07/25/19 21:35 07/25/19 22:36 Temperature 36.4 C 36.4 C Pulse Rate 95 93 93 Respiratory Rate 20 20 Blood Pressure 127/76 127/76 Pulse Oximetry 99 07/26/19 05:53 07/26/19 08:48 07/26/19 14:00 Temperature 36.1 C L 36.3 C L Pulse Rate 92 92 89 Respiratory Rate 16 18 Blood Pressure 128/73 118/59 L Pulse Oximetry 99 100 Intake/Output Intake/Output: Intake & Output 07/23/19 07/24/19 07/25/19 07/26/19 23:59 23:59 23:59 23:59 Intake Total 3070 640 440 250 Output Total 9480 457 4961 Balance 1611 149 -1552 250 Meds/Results Medications: Active Medications Generic Name Dose Route Start Last Admin Trade Name Sergioq PRN Reason Stop Dose Admin Allopurinol 100 mg 07/18/19 09:00 07/26/19 14:04 Zyloprim PO 100 mg DAILY [facility] Administration Calcitriol 0.25 mcg 07/19/19 09:00 07/26/19 08:48 Rocaltrol PO 0.25 mcg MoWeFr@0900 DARA Administration Epoetin Dominick 10,000 units 07/21/19 10:15 07/26/19 10:40 Epogen SUB-Q 10,000 units MOWEFR DARA Administration Famotidine 40 mg 07/18/19 09:00 07/26/19 08:48 Pepcid PO 40 mg BID DARA Administration De
[2019-07-26 20:41] VITALS: BP 118/59; PULSE 89; RESP 18; TEMP 36.3
[2019-07-26 21:10] VITALS: PULSE 80
[2019-07-26 21:48] VITALS: BP 106/52; PULSE 91; RESP 16; TEMP 36.1; O2SAT 100
[2019-07-27] VITALS (9 sets, daily range): BP systolic 82–134; BP diastolic 52–77; PULSE 73–117; RESP 16–20; TEMP 35.9–36.8; O2SAT 93–100
[2019-07-27 01:03] LABS: Glucose Point of Care 139 (65-105)
[2019-07-27 06:51] LABS: Hematocrit 30.7 % (42.0-52.0); Mean Corpuscular HGB Conc 32.6 g/dl (32-36); Mean Corpuscular Hemoglobin 32.1 pg (26-34); Mean Corpuscular Volume 98.4 fl (80-100); Mean Platelet Volume 9.6 fl (7.4-10.4); Platelet Count Result 116 k/mm3 (150-375); Red Blood Count 3.12 M/mm3 (4.6-6.20); Red Cell Distribution Width 20.6 % (11.5-14.5); White Blood Count 21.8 K/mm3 (4.5-10.0)
[2019-07-27 07:09] LABS: Albumin Level 3.5 g/dL (3.5-5.1); Blood Urea Nitrogen 64 mg/dL (9-20); Calcium 9.4 mg/dL (8.4-10.2); Carbon Dioxide 26 mmol/L (22-30); Chloride 101 mmol/L (98-107); Estimated CRCL calculation 6 ml/min; Estimated Glomerular Filt Rate 5; Glucose 138 mg/dL (75-110); Phosphorus 6.1 mg/dL (2.5-4.5); Potassium 3.2 mmol/L (3.4-5.0); Sodium 137 mmol/L (137-145)
[2019-07-27 07:24] LABS: Glucose Point of Care 148 (65-105)
--- NOTE | 2019-07-27 08:01 | PM.IMPN ---
Progress Note: A&P Assessment and Plan (1) Syncope: Qualifiers: Syncope type: unspecified Qualified Code(s): R55 - Syncope and collapse Code(s): R55 - Syncope and collapse Status: Acute Assessment and Plan: Syncopal episode shortly after PD completed this AM while staff was walking him to the bathroom. May have been related to orthostasis after PD vs. vagal response? lab specialist notes 2,300mL off. Patient was confused earlier in the stay which was felt to be related to bacteremia and his cognition has been at his baseline for the last few days. Repeat CT brain. EKG. Check orthostatic BP. Will monitor today; hopeful for dc to [facility] bed tomorrow. Edit: Repeat CT brain shows no acute findings. No changes noted on EKG. Orthostatic BPs on the lower end; noted Dr Ybarra's plan for some IV fluids and has adjusted his dialysis for tonight. (2) Septicemia: Code(s): A41.9 - Sepsis, unspecified organism Status: Acute Assessment and Plan: Both blood cultures from 07/16 growing group G Strep. May be cutaneous source, PD fluid has a negative gram stain. Met sepsis criteria on arrival with leukocytosis, tachycardia, lactic acidosis. Dr Candelaria following - appreciate recommendations; transitioned to oral PCN through 07/30/19. Leukocytosis fluctuating, felt to be related to bacteremia. Blood cultures repeated 07/23 are no growth to date. Afebrile. Plans for discharge to [facility], monitor today due to syncope. (3) End stage renal disease: Code(s): N18.6 - End stage renal disease Status: Chronic Assessment and Plan: ESRD on peritoneal dialysis. Patient's established sound recordist is Dr Mari at [place]. Originally there were discussions about transitioning to hemodialysis due to his confusion and possible cholecystectomy but now that he is back to baseline and the confusion was felt to be due to bacteremia, no plan for hemodialysis at this time. If cholecystectomy should be warranted in the future, catheter could be placed at that time. (4) Delirium due to general medical condition: Code(s): F05 - Delirium due to known physiological condition Status: Resolved Assessment and Plan: Resolved. Suspect was related to septicemia. (5) Cholelithiasis: Qualifiers: Biliary obstruction: without biliary obstruction Cholecystitis presence: without cholecystitis Cholelithiasis location: gallbladder Qualified Code(s): K80.20 - Calculus of gallbladder without cholecystitis without obstruction Code(s): K80.20 - Calculus of gallbladder without cholecystitis without obstruction Status: Chronic Assessment and Plan: This was noted on previous admission. He was seen by Dr Masterson in consultation 07/15/19. Dr Masterson has noted that since the patient did not show signs of cholecystitis, he could be seen for evaluation on an outpatient basis potentially for elective laparscopic cholecystectomy at some point. Dr Masterson notes that if the patient would have lap curly, that he would not be able to do peritoneal dialysis for 2 weeks. Patient has been eating and drinking well the last couple of days and did get TPN earlier in the stay but that has been stopped. He has not had any right upper quadrant pain. If he decides to have gallbladder surgery or his symptoms worsen, nephrology recommends placing a catheter the time of the surgery and switching him to hemodialysis temporarily. Dr Mari requested HIDA scan be repeated which was done 07/25; unremarkable. (6) Leukocytosis: Qualifiers: Leukocytosis type: other Qualified Code(s): D72.828 - Other elevated white blood cell count Code(s): D72.829 - Elevated white blood cell count, unspecified Status: Acute Assessment and Plan:
--- NOTE | 2019-07-27 08:07 | ECG_ITS ---
Measurements Intervals [place] Rate: 88 P: 64 HI: 206 QRS: -49 QRSD: 108 T: 110 QT: 352 QTc: 428 Interpretive Statements SINUS RHYTHM VENTRICULAR PREMATURE COMPLEX LEFT ANTERIOR FASCICULAR BLOCK ST-T WAVE ABNORMALITY IN HIGH LATERAL LEADS- CONSIDER ISCHEMIA ABNORMAL ECG Electronically Signed On 07-27-2019 11:30:04 CDT by Giles Paredes D.O.
[2019-07-27] MEDS: allopurinoL 100 MG TABLET PO (09:09)
[2019-07-27] MEDS: VITAMIN B COMPLEX CAPSULE 1 CAP PO (09:09)
[2019-07-27] MEDS: FAMOTIDINE 20 MG TABLET 40 MG PO ×2 (09:09→16:57)
[2019-07-27] MEDS: SEVELAMER CARBONATE 800 MG TABLET PO ×2 (09:09→16:57)
[2019-07-27] MEDS: PENICILLIN V POTASSIUM 250 MG TABLET 1000 MG PO ×2 (09:09→20:42)
[2019-07-27] MEDS: POTASSIUM CHLORIDE 20 MEQ TABLET 40 MEQ PO (09:55)
--- NOTE | 2019-07-27 11:06 | PC.NURSE ---
0835-To CT per bed.
[2019-07-27 11:34] LABS: Glucose Point of Care 173 (65-105)
--- NOTE | 2019-07-27 12:01 | PM.PNNEP ---
Progress Note: A&P Assessment and Plan (1) End stage renal disease: Code(s): N18.6 - End stage renal disease Status: Chronic Assessment and Plan: Patient is on peritoneal dialysis. Still getting greens. Continue same treatment. (2) Bacteremia: Code(s): R78.81 - Bacteremia Status: Acute Assessment and Plan: The patient has strep bacteremia. Probably from the wound in his left leg. He is on antibiotics Id is on the case. (3) Obstructive sleep apnea: Code(s): G47.33 - Obstructive sleep apnea (adult) (pediatric) Status: Acute (4) Cholelithiasis: Qualifiers: Cholelithiasis location: gallbladder Cholecystitis presence: without cholecystitis Biliary obstruction: without biliary obstruction Qualified Code(s): K80.20 - Calculus of gallbladder without cholecystitis without obstruction Code(s): K80.20 - Calculus of gallbladder without cholecystitis without obstruction Status: Chronic Assessment and Plan: He has cholelithiasis. Surgery on hold for now. Symptoms are improved hida scan was negative (5) Anemia in chronic renal disease: Qualifiers: Chronic kidney disease stage: on chronic dialysis Qualified Code(s): N18.6 - End stage renal disease; D63.1 - Anemia in chronic kidney disease; Z99.2 - Dependence on renal dialysis Code(s): N18.9 - Chronic kidney disease, unspecified; D63.1 - Anemia in chronic kidney disease Status: Suspected Assessment and Plan: Hemoglobin is up and down in the 9s. On EPO. (6) Renal osteodystrophy: Code(s): N25.0 - Renal osteodystrophy Status: Acute Assessment and Plan: See below (7) Hypercalcemia: Code(s): E83.52 - Hypercalcemia Status: Acute Assessment and Plan: Calcium level is down. his thought processes are back to normal. Additional Plan After I saw him this morning the patient fainted. Will give him some fluid and change his dialysis to 1.5% Diane[place] Subjective Date/time seen: 07/27/19 12:01 Interval history: Patient is alert Getting his blood drawn. He had a good night. Review of Systems Cardiovascular: Cardiovascular: Reports no additional cardiovascular complaints Respiratory: Respiratory: Reports no additional respiratory complaints Gastrointestinal: Gastrointestinal: Reports no additional gastrointestinal complaints Genitourinary: Genitourinary: Reports no additional male genitourinary complaints Exam Narrative: Exam Narrative: WDWN in NAD skin no rash or subcu nodules head ncat lungs clear to auscultation cor reg no rub or gallop abd BS+ nontender and soft ext no edema or cyanosis Objective Data Vital Signs Vital Signs: Vital Signs - 24 hr 07/26/19 14:00 07/26/19 20:41 07/26/19 21:10 Temperature 36.3 C L 36.3 C L Pulse Rate 89 89 80 Respiratory Rate 18 18 Blood Pressure 118/59 L 118/59 L Pulse Oximetry 100 07/26/19 21:48 07/27/19 06:00 07/27/19 07:48 Temperature 36.1 C L 35.9 C L Pulse Rate 91 78 117 H Respiratory Rate 16 16 18 Blood Pressure 106/52 L 103/67 124/57 L Pulse Oximetry 100 97 98 07/27/19 09:00 07/27/19 09:03 07/27/19 09:06 Temperature Pulse Rate 86 91 99 Respiratory Rate Blood Pressure 106/56 L 101/53 L 97/60 L Pulse Oximetry 94 94 93 Intake/Output Intake/Output: Intake & Output 07/24/19 07/25/19 07/26/19 07/27/19 23:59 23:59 23:59 23:59 Intake Total 640 440 570 220 Output Total 491 1991 Balance 149 -6732 570 220 Meds/Results Medications: Active Medications Generic Name Dose Route Start Last Admin Trade Name Sergioq PRN Reason Stop Dose Admin Allopurinol 100 mg 07/18/19 09:00 07/27/19 09:09 Zyloprim PO 100 mg DAILY [facility] Administration Calcitriol 0.25 mcg 07/19/19 09:00 07/26/19 08:48 Rocaltrol PO 0.25 mcg MoWeFr@0900 [facility] Administration Epoetin Dominick 10,000 units 07/21/19 10
[2019-07-27] MEDS: SODIUM CHLORIDE 0.9% IV 1,000 ML 100 ML IV CONT (14:04)
--- NOTE | 2019-07-27 14:45 | PCPTNOTE ---
The PT treatment was not completed today due to patient refusal. Will continue per Plan of Care frequency and duration.
[2019-07-27 16:40] LABS: Glucose Point of Care 97 (65-105)
[2019-07-27 21:13] LABS: Glucose Point of Care 102 (65-105)
[2019-07-28] VITALS (8 sets, daily range): BP systolic 74–113; BP diastolic 41–67; PULSE 77–104; RESP 16–18; TEMP 36.1–36.8; O2SAT 96–100
[2019-07-28 05:42] LABS: Albumin Level 3.2 g/dL (3.5-5.1); Blood Urea Nitrogen 66 mg/dL (9-20); Calcium 9.5 mg/dL (8.4-10.2); Carbon Dioxide 25 mmol/L (22-30); Chloride 102 mmol/L (98-107); Estimated CRCL calculation 6 ml/min; Estimated Glomerular Filt Rate 5; Glucose 110 mg/dL (75-110); Phosphorus 6.4 mg/dL (2.5-4.5); Potassium 3.2 mmol/L (3.4-5.0); Sodium 140 mmol/L (137-145)
[2019-07-28 07:38] LABS: Glucose Point of Care 118 (65-105)
--- NOTE | 2019-07-28 10:01 | PM.PNNEP ---
Progress Note: A&P Assessment and Plan (1) End stage renal disease: Code(s): N18.6 - End stage renal disease Status: Chronic Assessment and Plan: Patient is on peritoneal dialysis. After yesterday's fainting spell we switched him to 1.5% Dianeal. Continue same treatment. He still dizzy when he stands up. Will give him another L of fluid. chck cortisol level. Grogginess. unclear why. check thyroids etc. CT brain no acute finding. (2) Bacteremia: Code(s): R78.81 - Bacteremia Status: Acute Assessment and Plan: The patient had strep bacteremia. Probably from the wound in his left leg. He is on antibiotics his wbc is back up to 21. afebrile. he is confused. dizzy and orthostatic. wound on leg seems superficial with some brenner eschar. fluid is clear and cultures of this have been negative. no belly pain. no sob, cough, sinus sx. unclear why wbc still high. check a differential. Id is on the case. (3) Obstructive sleep apnea: Code(s): G47.33 - Obstructive sleep apnea (adult) (pediatric) Status: Acute Assessment and Plan: He does not use a CPAP machine at home and so is not going to use it here he says. check abgs to be sure he isn't retaining. (4) Cholelithiasis: Qualifiers: Cholelithiasis location: gallbladder Cholecystitis presence: without cholecystitis Biliary obstruction: without biliary obstruction Qualified Code(s): K80.20 - Calculus of gallbladder without cholecystitis without obstruction Code(s): K80.20 - Calculus of gallbladder without cholecystitis without obstruction Status: Chronic Assessment and Plan: He has cholelithiasis. Surgery on hold for now. Symptoms are improved No belly tenderness at all Liver enzymes are normal. hida scan was negative (5) Anemia in chronic renal disease: Qualifiers: Chronic kidney disease stage: on chronic dialysis Qualified Code(s): N18.6 - End stage renal disease; D63.1 - Anemia in chronic kidney disease; Z99.2 - Dependence on renal dialysis Code(s): N18.9 - Chronic kidney disease, unspecified; D63.1 - Anemia in chronic kidney disease Status: Suspected Assessment and Plan: Hemoglobin is up and down in the 9s. On EPO. (6) Renal osteodystrophy: Code(s): N25.0 - Renal osteodystrophy Status: Acute Assessment and Plan: See below (7) Hypercalcemia: Code(s): E83.52 - Hypercalcemia Status: Acute Assessment and Plan: Calcium level is down to 9.5. will check ionized calcium. Additional Plan After I saw him this morning the patient fainted. Will give him some fluid and change his dialysis to 1.5% Dianeal Subjective Date/time seen: 07/28/19 10:01 Interval history: Patient is a bit groggy. He tried to get up and out of bed and while sitting at the side/foot of the bed he became dizzy. We helped him back to the center of the bed to lie down. he never lost consciousness but just seems spacey. He is on PD. fluid clear. no alarms per patient. Review of Systems Cardiovascular: Cardiovascular: Reports no additional cardiovascular complaints Respiratory: Respiratory: Reports no additional respiratory complaints Gastrointestinal: Gastrointestinal: Reports no additional gastrointestinal complaints Genitourinary: Genitourinary: Reports no additional male genitourinary complaints Exam Narrative: Exam Narrative: WDWN in NAD skin no rash or subcu nodules head ncat lungs clear to auscultation cor reg no rub or gallop abd BS+ nontender and soft ext no edema or cyanosis Objective Data Vital Signs Vital Signs: Vital Signs - 24 hr 07/27/19 13:43 07/27/19 14:10 07/27/19 14:15 Temperature 36.8 C Pulse Rate 73 Respiratory Rate 18 Blood Pressure 134/60 119/65 82/52 L Pulse Oximetry 97 07/27/19 21:50 07/28/19 05:59 Temperature 36.7 C 36.1 C L Pul
[2019-07-28] MEDS: SEVELAMER CARBONATE 800 MG TABLET PO ×3 (10:16→18:15)
[2019-07-28] MEDS: allopurinoL 100 MG TABLET PO (10:16)
[2019-07-28] MEDS: POTASSIUM CHLORIDE 20 MEQ TABLET 40 MEQ PO (10:16)
[2019-07-28] MEDS: calcitrioL 0.25 MCG CAPSULE PO (10:17)
[2019-07-28] MEDS: VITAMIN B COMPLEX CAPSULE 1 CAP PO (10:17)
[2019-07-28] MEDS: PENICILLIN V POTASSIUM 250 MG TABLET 1000 MG PO ×2 (10:17→20:16)
[2019-07-28] MEDS: FAMOTIDINE 20 MG TABLET 40 MG PO ×2 (10:17→18:15)
[2019-07-28] MEDS: EPOETIN ALFA 10,000 UNITS/ML VIAL 10000 UNITS SUB-Q (10:18)
[2019-07-28] MEDS: SODIUM CHLORIDE 0.9% IV 1,000 ML 100 ML IV CONT ×2 (10:43→20:15)
[2019-07-28 10:55] LABS: Alveolar/Arterial O2 Gradient 28.3 mmHg; Base Excess ABG 0.8 mEq/l (+/-2.0); Fractional Inspired Oxygen 21 %; HCO3 ABG 24.5 mEq/l (22.0-26.0); Oxygen Content ABG 13.9 %vol (16.0-22.0); Oxygen Saturation ABG 96.2 % (95.0-100.0); Oxyhemoglobin 94.4 % THb (90.0-100.0); PCO2 ABG 35.7 mmHg (35.0-45.0); PO2 ABG 78.7 mmHg (80.0-100.0); PO2 FiO2 Ratio Arterial Blood 3.75 %; Total Hemoglobin 10.4 g/dL (12.0-18.0); pH ABG 7.454 (7.350-7.450)
[2019-07-28 10:57] LABS: Device ROOM AIR; Modified Allen's Test Pass; Site Drawn LEFT RADIAL
[2019-07-28 11:23] LABS: Glucose Point of Care 142 (65-105)
--- NOTE | 2019-07-28 11:28 | PCNFU ---
Nutrition Follow-Up Complete: Involuntary weight loss related to decreased appetite (c/o nausea, food aversions) as evidenced by reported and documented weight loss. Goal: Patient to consume 50% of meals/supplements. Progressing towards goal. We will continue current goal. Pt current nutrition is Renal Dialysis. Nutrition recommendation: Agree Last recorded weight is 90 kg. Bowel Motility:+BM reported 07/27 Labs Reviewed:PO4 6.4,K 3.2,Alb 3.2,BUN 66,GFR 5,Cr 10.6 Meds Noted:NS 1000 ml at 100 ml/hr, Vit B complex Additional Notes: Spoke with patient today, intake for breakfast had been 2 bowls of fruit and a sherbert. He states he is not drinking the Nepro drinks, will discontinue. PO intake encouraged. Monitoring: Follow up in 3 days.
[2019-07-28 11:32] LABS: Ammonia < 9 umol/L (9-30)
--- NOTE | 2019-07-28 12:21 | PM.IMPN ---
Progress Note: A&P Assessment and Plan (1) Syncope: Qualifiers: Syncope type: unspecified Qualified Code(s): R55 - Syncope and collapse Code(s): R55 - Syncope and collapse Status: Acute Assessment and Plan: Syncopal episode yesterday felt to be related to orthostasis vs. vagal response getting up to the bathroom. He is orthostatic today, known history of this. Repeat CT brain yesterday shows no acute findings. No changes noted on EKG. (2) Delirium due to general medical condition: Code(s): F05 - Delirium due to known physiological condition Status: Resolved Assessment and Plan: Initial confusion felt to be related to bacteremia and improved with antibiotics. Now seems more spacey the last 2 days, taking a longer time to respond to questions and not answering all questions appropriately. Nursing noted some arm twitching yesterday associated with his syncope. Will order EEG and appreciate neurology consultation. He is afebrile; repeat blood cultures show no growth to date. PD fluid gram stain negative. Glucose levels appropriate. Renal function no change. Calcium elevated 10.3 on arrival and normalized; Dr Ybarra has ordered ionized calcium, B12 and folate levels. Ammonia is normal. 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 Given the thyroid nodule repeated TSH this AM is 2.6; can obtain T3 and T4 with AM labs. (3) Orthostatic hypotension: Code(s): I95.1 - Orthostatic hypotension Status: Chronic Assessment and Plan: Known diagnosis, orthostatic today and yesterday. (4) Septicemia: Code(s): A41.9 - Sepsis, unspecified organism Status: Acute Assessment and Plan: Both blood cultures from 07/16 growing group G Strep. May be cutaneous source, PD fluid has a negative gram stain. Met sepsis criteria on arrival with leukocytosis, tachycardia, lactic acidosis. Dr Candelaria following - appreciate recommendations; transitioned to oral PCN through 07/30/19. Leukocytosis fluctuating, felt to be related to bacteremia. Blood cultures repeated 07/23 are no growth to date. Afebrile. (5) End stage renal disease: Code(s): N18.6 - End stage renal disease Status: Chronic Assessment and Plan: ESRD on peritoneal dialysis. 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 Originally there were discussions about transitioning to hemodialysis due to his confusion and possible cholecystectomy but now that he is back to baseline and the confusion was felt to be due to bacteremia, no plan for hemodialysis at this time. If cholecystectomy should be warranted in the future, catheter could be placed at that time. (6) Cholelithiasis: Qualifiers: Biliary obstruction: without biliary obstruction Cholecystitis presence: without cholecystitis Cholelithiasis location: gallbladder Qualified Code(s): K80.20 - Calculus of gallbladder without cholecystitis without obstruction Code(s): K80.20 - Calculus of gallbladder without cholecystitis without obstruction Status: Chronic Assessment and Plan: This was noted on previous admission. He was seen by Dr Masterson in consultation 07/15/19. Dr Masterson has noted that since the patient did not show signs of cholecystitis, he could be seen for evaluation on an outpatient basis potentially for elective laparscopic cholecystectomy at some point. Dr Masterson notes that if the patient would have lap curly, that he would not be able to do peritoneal dialysis for 2 weeks. Patient has been eating and drinking well the last couple of days and did get TPN earlier in the stay but that has been stopped. He has not had any right upper quadrant pain. If he decides to have gallbladder surgery or his symptoms w
[2019-07-28 12:46] LABS: Vitamin B12 > 1000.0 pg/mL (239-931)
--- NOTE | 2019-07-28 13:09 | PCOTNOTE ---
Attempted to see patient for Occupational Therapy, however, patient declined, stating Let's do it tomorrow, I just feel poorly. Additionally, per RN patient's BP dropping very low. Will continue plan of care tomorrow, 07/29/2019.
[2019-07-28 16:28] LABS: Glucose Point of Care 94 (65-105)
[2019-07-28 20:23] LABS: Glucose Point of Care 101 (65-105)
[2019-07-29] VITALS (11 sets, daily range): BP systolic 96–143; BP diastolic 65–74; PULSE 88–108; RESP 18–20; TEMP 36.3–36.5; O2SAT 100
[2019-07-29 06:26] LABS: Hematocrit 30.3 % (42.0-52.0); Hemoglobin 9.7 g/dL (14.0-18.0); Mean Corpuscular Hemoglobin 32.6 pg (26-34); Mean Corpuscular Volume 101.7 fl (80-100); Mean Platelet Volume 9.4 fl (7.4-10.4); Platelet Count Result 115 k/mm3 (150-375); Red Blood Count 2.98 M/mm3 (4.6-6.20); Red Cell Distribution Width 21.6 % (11.5-14.5); White Blood Count 17.8 K/mm3 (4.5-10.0)
[2019-07-29 06:42] LABS: Albumin Level 3.2 g/dL (3.5-5.1); Blood Urea Nitrogen 58 mg/dL (9-20); Calcium 9.1 mg/dL (8.4-10.2); Carbon Dioxide 24 mmol/L (22-30); Chloride 102 mmol/L (98-107); Estimated CRCL calculation 7 ml/min; Estimated Glomerular Filt Rate 5; Glucose 103 mg/dL (75-110); Magnesium 2.1 mg/dL (1.6-2.3); Phosphorus 6.5 mg/dL (2.5-4.5); Potassium 3.5 mmol/L (3.4-5.0); Sodium 136 mmol/L (137-145)
[2019-07-29 07:46] LABS: Glucose Point of Care 102 (65-105)
[2019-07-29 08:17] LABS: Free T4 Free Thyroxine 1.28 ng/mL (0.78-2.19)
[2019-07-29 08:54] LABS: Band Neutrophils Percent 1 % (0-6); Lymphocytes Absolute Manual 1.42 K/mm3 (1.1-4.5); Metamyelocytes Percent 1 %; Monocytes Absolute Manual 1.95 K/mm3 (0.1-0.90); Monocytes Percent Manual 11 % (3-9); Neutrophils Absolute Manual 14.24 K/mm3 (1.3-6.7); Neutrophils Percent Manual 79 % (46-73); Platelet Estimate Decreased (Adequate); Polychromasia 2+ (NORMAL); Total Cells Counted 100
[2019-07-29 08:56] LABS: Stomatocytes 1+ (NORMAL)
--- NOTE | 2019-07-29 09:37 | P.PNIM_ITS ---
Progress Note: A&P Assessment and Plan (1) Acute CVA (cerebrovascular accident): Code(s): I63.9 - Cerebral infarction, unspecified Status: Acute Assessment and Plan: * May explain his slow responsiveness over the last 2 days, seems improved today and appears to be at his baseline. * CT brain 07/26 showed old infarcts with no acute findings but MRI brain 07/27 revealed a couple small acute infarcts in the left and right cerebellar hemispheres. * Appreciate neurology consultation, discussed with Dr Fermin this morning and appreciate recommendations on ASA vs. plavix vs. both. He does have platelet count in low 100s. * Carotid dopplers are within normal limits. Telemetry shows no arrhythmias currently although he had atrial tachycardia last admission evaluated by cardiology. No new EKG changes. Continue to monitor with cardiac telemetry. * Spoke with his , Eunice, for an update this afternoon. (2) Syncope: Qualifiers: Syncope type: unspecified Qualified Code(s): R55 - Syncope and collapse Code(s): R55 - Syncope and collapse Status: Resolved Assessment and Plan: * No issues today. Syncopal episode 07/26 felt to be related to orthostasis may have been acute CVA. (3) Delirium due to general medical condition: Code(s): F05 - Delirium due to known physiological condition Status: Resolved Assessment and Plan: * Initial confusion felt to be related to bacteremia and improved with antibiotics. Then 07/26 and 07/27 seemed more spacey and had delayed responses to questions which may have been related to new CVA. * Resolved today; seems at his baseline. (4) Orthostatic hypotension: Code(s): I95.1 - Orthostatic hypotension Status: Chronic Assessment and Plan: * Known diagnosis, issues with this 07/26 and 07/27. (5) Septicemia: Code(s): A41.9 - Sepsis, unspecified organism Status: Acute Assessment and Plan: * Both blood cultures from 07/16 grew group G Strep. May be cutaneous source, PD fluid has a negative gram stain. Met sepsis criteria on arrival with leukocytosis, tachycardia, lactic acidosis. * Dr Candelaria following - appreciate recommendations; transitioned to oral PCN through 07/30/19. * Leukocytosis fluctuates, felt to be related to bacteremia. Blood cultures repeated 07/23 are no growth to date. Afebrile. (6) End stage renal disease: Code(s): N18.6 - End stage renal disease Status: Chronic Assessment and Plan: * ESRD on peritoneal dialysis. 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 Originally there were discussions about transitioning to hemodialysis due to his confusion and possible future cholecystectomy but now that he is back to baseline and the confusion was felt to be due to jaspal teremia, no plan for hemodialysis at this time. * If cholecystectomy should be warranted in the future, catheter could be placed at that time. (7) Cholelithiasis: Qualifiers: Biliary obstruction: without biliary obstruction Cholecystitis presen ce: without cholecystitis Cholelithiasis location: gallbladder Qualified Code(s): K80.20 - Calculus of gallbladder without cholecystitis without obstruction Code(s): K80.20 - Calculus of gallbladder without cholecystitis without obstruction Status: Chronic Assessment and Plan: * This was noted on previous admission. He was seen by Dr lAeja arora
--- NOTE | 2019-07-29 09:37 | PM.IMPN ---
Progress Note: A&P Assessment and Plan (1) Acute CVA (cerebrovascular accident): Code(s): I63.9 - Cerebral infarction, unspecified Status: Acute Assessment and Plan: May explain his slow responsiveness over the last 2 days, seems improved today and appears to be at his baseline. CT brain 07/26 showed old infarcts with no acute findings but MRI brain 07/27 revealed a couple small acute infarcts in the left and right cerebellar hemispheres. Appreciate neurology consultation, discussed with Dr Fermin this morning and appreciate recommendations on ASA vs. plavix vs. both. He does have platelet count in low 100s. Carotid dopplers are within normal limits. Telemetry shows no arrhythmias currently although he had atrial tachycardia last admission evaluated by cardiology. No new EKG changes. Continue to monitor with cardiac telemetry. Spoke with his , Eunice, for an update this afternoon. (2) Syncope: Qualifiers: Syncope type: unspecified Qualified Code(s): R55 - Syncope and collapse Code(s): R55 - Syncope and collapse Status: Resolved Assessment and Plan: No issues today. Syncopal episode 07/26 felt to be related to orthostasis may have been acute CVA. (3) Delirium due to general medical condition: Code(s): F05 - Delirium due to known physiological condition Status: Resolved Assessment and Plan: Initial confusion felt to be related to bacteremia and improved with antibiotics. Then 07/26 and 07/27 seemed more spacey and had delayed responses to questions which may have been related to new CVA. Resolved today; seems at his baseline. (4) Orthostatic hypotension: Code(s): I95.1 - Orthostatic hypotension Status: Chronic Assessment and Plan: Known diagnosis, issues with this 07/26 and 07/27. (5) Septicemia: Code(s): A41.9 - Sepsis, unspecified organism Status: Acute Assessment and Plan: Both blood cultures from 07/16 grew group G Strep. May be cutaneous source, PD fluid has a negative gram stain. Met sepsis criteria on arrival with leukocytosis, tachycardia, lactic acidosis. Dr Candelaria following - appreciate recommendations; transitioned to oral PCN through 07/30/19. Leukocytosis fluctuates, felt to be related to bacteremia. Blood cultures repeated 07/23 are no growth to date. Afebrile. (6) End stage renal disease: Code(s): N18.6 - End stage renal disease Status: Chronic Assessment and Plan: ESRD on peritoneal dialysis. 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 Originally there were discussions about transitioning to hemodialysis due to his confusion and possible future cholecystectomy but now that he is back to baseline and the confusion was felt to be due to bacteremia, no plan for hemodialysis at this time. If cholecystectomy should be warranted in the future, catheter could be placed at that time. (7) Cholelithiasis: Qualifiers: Biliary obstruction: without biliary obstruction Cholecystitis presence: without cholecystitis Cholelithiasis location: gallbladder Qualified Code(s): K80.20 - Calculus of gallbladder without cholecystitis without obstruction Code(s): K80.20 - Calculus of gallbladder without cholecystitis without obstruction Status: Chronic Assessment and Plan: This was noted on previous admission. He was seen by Dr Masterson in consultation 07/15/19. Dr Masterson has noted that since the patient did not show signs of cholecystitis, he could be seen for evaluation on an outpatient basis potentially for elective laparscopic cholecystectomy at some point. Dr Masterson notes that if the patient would have lap curly, that he would not be able to do peritoneal dialysis for 2 weeks. No issues at this time.
--- NOTE | 2019-07-29 09:46 | PCOTNOTE ---
Patient out of room for medical testing this am
[2019-07-29] MEDS: allopurinoL 100 MG TABLET PO (10:03)
[2019-07-29] MEDS: FAMOTIDINE 20 MG TABLET 40 MG PO ×2 (10:03→16:58)
[2019-07-29] MEDS: SEVELAMER CARBONATE 800 MG TABLET PO ×3 (10:03→16:58)
[2019-07-29] MEDS: PENICILLIN V POTASSIUM 250 MG TABLET 1000 MG PO ×2 (10:03→21:51)
[2019-07-29] MEDS: VITAMIN B COMPLEX CAPSULE 1 CAP PO (10:04)
--- NOTE | 2019-07-29 11:31 | PM.PNNEP ---
Progress Note: A&P Assessment and Plan (1) End stage renal disease: Code(s): N18.6 - End stage renal disease Status: Chronic Assessment and Plan: Patient is on peritoneal dialysis. He continues on dialysis with 1.5% Dianeal. No sign of volume overload. He makes urine. (2) Bacteremia: Code(s): R78.81 - Bacteremia Status: Acute Assessment and Plan: The patient had strep bacteremia. Probably from the wound in his left leg. He is on antibiotics White count is improved at 17 Id is on the case. (3) Obstructive sleep apnea: Code(s): G47.33 - Obstructive sleep apnea (adult) (pediatric) Status: Acute Assessment and Plan: He does not use a CPAP machine at home and so is not going to use it here he says. ABGs show no retention of CO2 (4) Cholelithiasis: Qualifiers: Cholelithiasis location: gallbladder Cholecystitis presence: without cholecystitis Biliary obstruction: without biliary obstruction Qualified Code(s): K80.20 - Calculus of gallbladder without cholecystitis without obstruction Code(s): K80.20 - Calculus of gallbladder without cholecystitis without obstruction Status: Chronic Assessment and Plan: He has cholelithiasis. Surgery on hold for now. Symptoms are improved No belly tenderness at all Liver enzymes are normal. hida scan was negative (5) Anemia in chronic renal disease: Qualifiers: Chronic kidney disease stage: on chronic dialysis Qualified Code(s): N18.6 - End stage renal disease; D63.1 - Anemia in chronic kidney disease; Z99.2 - Dependence on renal dialysis Code(s): N18.9 - Chronic kidney disease, unspecified; D63.1 - Anemia in chronic kidney disease Status: Suspected Assessment and Plan: Hemoglobin is up and down in the 9s. On EPO. (6) Renal osteodystrophy: Code(s): N25.0 - Renal osteodystrophy Status: Acute Assessment and Plan: Calcium 9.1. (7) Hypercalcemia: Code(s): E83.52 - Hypercalcemia Status: Acute Assessment and Plan: Calcium level is down to 9.1 Phosphorus is high. Increase sevelamer to 2 with meals. (8) Syncope: Qualifiers: Syncope type: unspecified Qualified Code(s): R55 - Syncope and collapse Code(s): R55 - Syncope and collapse Status: Acute Assessment and Plan: MRI shows 2 small acute strokes in the cerebellum. Perhaps this explains the neurologic issues. Neurology is going to see the patient today for recommendations on how to approach this. Platelet count is in the low 100s. He had a TTE last month which showed no vegetations and no myxoma. With posterior circulation stroke, consider looking for an embolic source. Subjective Date/time seen: 07/29/19 11:31 Interval history: Patient is alert. Interactive and sounds normal. On PD and tolerating it well. Fluid is clear in flows are good. He is on all 1.5% Dianeal. He was seen at 11 a.m. Review of Systems Cardiovascular: Cardiovascular: Reports no additional cardiovascular complaints Respiratory: Respiratory: Reports no additional respiratory complaints Gastrointestinal: Gastrointestinal: Reports no additional gastrointestinal complaints Genitourinary: Genitourinary: Reports no additional male genitourinary complaints Exam Narrative: Exam Narrative: WDWN in NAD skin no rash head ncat lungs clear bilaterally cor reg no rub or gallop abd BS+ nontender and soft ext no edema Objective Data Vital Signs Vital Signs: Vital Signs - 24 hr 07/28/19 14:00 07/28/19 16:00 07/28/19 20:00 Temperature 36.7 C Pulse Rate 91 99 92 Respiratory Rate 18 Blood Pressure 113/52 L Pulse Oximetry 100 07/28/19 22:00 07/28/19 22:19 07/29/19 00:00 Temperature 36.8 C 36.7 C Pulse Rate 77 91 91 Respiratory Rate 18 18 Blood Pressure 113/67 113/52 L Pulse Oximetry 96
[2019-07-29 12:02] LABS: Glucose Point of Care 105 (65-105)
[2019-07-29 16:30] LABS: Glucose Point of Care 95 (65-105)
[2019-07-29 21:55] LABS: Glucose Point of Care 146 (65-105)
[2019-07-30] VITALS (16 sets, daily range): BP systolic 102–136; BP diastolic 50–76; PULSE 92–118; RESP 12–20; TEMP 36.3–37.2; O2SAT 97–100
[2019-07-30 05:01] LABS: Blood Urea Nitrogen 61 mg/dL (9-20); Calcium 9.3 mg/dL (8.4-10.2); Carbon Dioxide 25 mmol/L (22-30); Chloride 102 mmol/L (98-107); Estimated CRCL calculation 7 ml/min; Estimated Glomerular Filt Rate 5; Glucose 105 mg/dL (75-110); Phosphorus 6.2 mg/dL (2.5-4.5); Potassium 3.2 mmol/L (3.4-5.0); Sodium 135 mmol/L (137-145)
[2019-07-30 08:05] LABS: Glucose Point of Care 103 (65-105)
--- NOTE | 2019-07-30 08:59 | PM.IMPN ---
Progress Note: A&P Assessment and Plan (1) Acute CVA (cerebrovascular accident): Code(s): I63.9 - Cerebral infarction, unspecified Status: Acute Assessment and Plan: May explain his slow responsiveness 07/26 and 07/27, improved today and appears to be at his baseline. CT brain 07/26 showed old infarcts with no acute findings but MRI brain 07/27 revealed a couple small acute infarcts in the left and right cerebellar hemispheres. Appreciate neurology consultation, awaiting recommendations on ASA vs. plavix vs. both. He does have platelet count in low 100s. Carotid dopplers are within normal limits. Telemetry shows no arrhythmias currently although he had atrial tachycardia last admission evaluated by cardiology. No new EKG changes. Continue to monitor with cardiac telemetry. Plan for discharge to [facility] once [facility] is obtained between [facility] and [facility]. (2) Syncope: Qualifiers: Syncope type: unspecified Qualified Code(s): R55 - Syncope and collapse Code(s): R55 - Syncope and collapse Status: Resolved Assessment and Plan: No issues today. Syncopal episode 07/26 felt to be related to orthostasis may have been related to acute CVA. (3) Delirium due to general medical condition: Code(s): F05 - Delirium due to known physiological condition Status: Resolved Assessment and Plan: Initial confusion felt to be related to bacteremia and improved with antibiotics. Then 07/26 and 07/27 seemed more spacey and had delayed responses to questions which may have been related to new CVA. Resolved today; seems at his baseline. (4) Orthostatic hypotension: Code(s): I95.1 - Orthostatic hypotension Status: Chronic Assessment and Plan: Known diagnosis, issues with this 07/26 and 07/27. (5) Septicemia: Code(s): A41.9 - Sepsis, unspecified organism Status: Acute Assessment and Plan: Both blood cultures from 07/16 grew group G Strep. May be cutaneous source, PD fluid has a negative gram stain. Met sepsis criteria on arrival with leukocytosis, tachycardia, lactic acidosis. Dr Candelaria following - appreciate recommendations; transitioned to oral PCN through 07/30/19. Leukocytosis fluctuates, felt to be related to bacteremia. Blood cultures repeated 07/23 are no growth to date. Afebrile. (6) End stage renal disease: Code(s): N18.6 - End stage renal disease Status: Chronic Assessment and Plan: ESRD on peritoneal dialysis. 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 Originally there were discussions about transitioning to hemodialysis due to his confusion and possible future cholecystectomy but now that he is back to baseline and the confusion was felt to be due to bacteremia, no plan for hemodialysis at this time. If cholecystectomy should be warranted in the future, catheter could be placed at that time. (7) Cholelithiasis: Qualifiers: Biliary obstruction: without biliary obstruction Cholecystitis presence: without cholecystitis Cholelithiasis location: gallbladder Qualified Code(s): K80.20 - Calculus of gallbladder without cholecystitis without obstruction Code(s): K80.20 - Calculus of gallbladder without cholecystitis without obstruction Status: Chronic Assessment and Plan: This was noted on previous admission. He was seen by Dr Masterson in consultation 07/15/19. Dr Masterson has noted that since the patient did not show signs of cholecystitis, he could be seen for evaluation on an outpatient basis potentially for elective laparscopic cholecystectomy at some point. Dr Masterson notes that if the patient would have lap curly, that he would not be able to do peritoneal dialysis for 2 weeks. No issues at this time. H
[2019-07-30] MEDS: allopurinoL 100 MG TABLET PO (09:09)
[2019-07-30] MEDS: PENICILLIN V POTASSIUM 250 MG TABLET 1000 MG PO ×2 (09:09→21:24)
[2019-07-30] MEDS: FAMOTIDINE 20 MG TABLET 40 MG PO ×2 (09:09→16:30)
[2019-07-30] MEDS: VITAMIN B COMPLEX CAPSULE 1 CAP PO (09:09)
[2019-07-30] MEDS: ASPIRIN 81 MG ENTERIC TABLET PO (09:10)
[2019-07-30] MEDS: POTASSIUM CHLORIDE 20 MEQ TABLET 40 MEQ PO (09:10)
[2019-07-30] MEDS: SEVELAMER CARBONATE 800 MG TABLET PO (09:10)
--- NOTE | 2019-07-30 09:23 | PM.PNNEP ---
Progress Note: A&P Assessment and Plan (1) End stage renal disease: Code(s): N18.6 - End stage renal disease Status: Chronic Assessment and Plan: Patient is on peritoneal dialysis. He continues on dialysis with 1.5% Dianeal. No sign of volume overload. He makes urine. Continue same PD orders (2) Bacteremia: Code(s): R78.81 - Bacteremia Status: Acute Assessment and Plan: The patient had strep bacteremia. Probably from the wound in his left leg. He is on antibiotics per Dr. trujillo White count is improved at 17. (3) Obstructive sleep apnea: Code(s): G47.33 - Obstructive sleep apnea (adult) (pediatric) Status: Acute Assessment and Plan: He does not use a CPAP machine at home and so is not going to use it here he says. ABGs show no retention of CO2 (4) Cholelithiasis: Qualifiers: Cholelithiasis location: gallbladder Cholecystitis presence: without cholecystitis Biliary obstruction: without biliary obstruction Qualified Code(s): K80.20 - Calculus of gallbladder without cholecystitis without obstruction Code(s): K80.20 - Calculus of gallbladder without cholecystitis without obstruction Status: Chronic Assessment and Plan: He has cholelithiasis. Surgery on hold for now. Symptoms are improved No belly tenderness at all Liver enzymes are normal. hida scan was negative This is not seem to be an active problem (5) Anemia in chronic renal disease: Qualifiers: Chronic kidney disease stage: on chronic dialysis Qualified Code(s): N18.6 - End stage renal disease; D63.1 - Anemia in chronic kidney disease; Z99.2 - Dependence on renal dialysis Code(s): N18.9 - Chronic kidney disease, unspecified; D63.1 - Anemia in chronic kidney disease Status: Suspected Assessment and Plan: Hemoglobin is up and down in the 9s. On EPO. (6) Renal osteodystrophy: Code(s): N25.0 - Renal osteodystrophy Status: Acute Assessment and Plan: Calcium 9.1. (7) Hypercalcemia: Code(s): E83.52 - Hypercalcemia Status: Acute Assessment and Plan: Calcium level is down to 9.3 Ionized calcium is pending Phosphorus is a little better. On sevelamer (8) Syncope: Qualifiers: Syncope type: unspecified Qualified Code(s): R55 - Syncope and collapse Code(s): R55 - Syncope and collapse Status: Resolved Assessment and Plan: MRI shows 2 small acute strokes in the cerebellum. The patient is having no dizziness today. Mental status normal Perhaps this explains the neurologic issues. Neurology is going to see the patient today for recommendations on how to approach this. Additional Plan After I saw him this morning the patient fainted. Will give him some fluid and change his dialysis to 1.5% Dianeal Subjective Date/time seen: 07/30/19 09:23 Interval history: Patient is alert. Interactive and sounds normal. fels better. slept well. Review of Systems Cardiovascular: Cardiovascular: Reports no additional cardiovascular complaints Respiratory: Respiratory: Reports no additional respiratory complaints Gastrointestinal: Gastrointestinal: Reports no additional gastrointestinal complaints Genitourinary: Genitourinary: Reports no additional male genitourinary complaints Exam Narrative: Exam Narrative: WDWN in NAD skin no rash or subcu nodules head ncat lungs clear to auscultation cor reg no rub or gallop abd BS+ nontender and soft ext no edema or cyanosis Objective Data Vital Signs Vital Signs: Vital Signs - 24 hr 07/29/19 12:00 07/29/19 14:00 07/29/19 16:00 Temperature 36.4 C Pulse Rate 106 H 97 102 H Respiratory Rate 18 Blood Pressure 96/65 L Pulse Oximetry 100 07/29/19 20:00 07/29/19 22:00 07/30/19 00:00 Temperature 36.5 C Pulse Rate 108 H 98 101 H Respiratory Rate 20 Bl
[2019-07-30] MEDS: METOPROLOL TARTRATE 25 MG TABLET PO ×2 (10:46→21:24)
[2019-07-30 11:34] LABS: Glucose Point of Care 98 (65-105)
--- NOTE | 2019-07-30 12:28 | PCOTNOTE ---
Patient eating lunch first attempt; declined treatment second attempt.
[2019-07-30] MEDS: SEVELAMER CARBONATE 800 MG TABLET 1600 MG PO ×2 (12:49→16:31)
--- NOTE | 2019-07-30 16:25 | CONS_ITS ---
DATE OF CONSULTATION: HISTORY OF PRESENT ILLNESS: This 73 years old admitted to the [facility] with ongoing history of 1. Orthostatic hypotension. 2. Thyroid nodule. 3. Ongoing dizziness. 4. Suspicious about the atrial fibrillation with rapid ventricular response, but falling to be in atrial tachycardia. 5. History of mild infarct involving the basal inferolateral segment, left ventricle. Was admitted to the hospital subsequent to fall. Neurology consultation has been obtained because of recent change in the neurological status with syncope and collapse. The patient does have underlying end-stage renal disease, biliary obstruction with cholecystitis and lithiasis, most recently has been noted to have slow responses over the last 48 to 72 hours when intervention was done and the patient was found to have abnormal CT scan documented by the brain MRI, as a small acute infarct in the left and right cerebellar hemisphere, old lacunar infarct in the right basal ganglia extending to the mccallum radiata and age-related changes with mild diffuse volume loss and moderate periventricular white matter hyperintensities consistent with chronic small-vessel disease. The patient has had the Doppler study of the carotid, which revealed less than 50% stenosis bilaterally. He has had a hepatocellular scan with documenting normal hepatobiliary scintigraphy, abdominopelvic CT scan documenting cholelithiasis with distention of gallbladder secondary to acute cholecystitis and 13 mm right kidney mass as well, could be hemorrhagic cyst or solid neoplasm. Neuro consultation has been obtained for these changes. PHYSICAL EXAMINATION: GENERAL: Compatible with him being in no acute distress. HEENT: Normocephalic with no cranial bruit. Ear, nose, throat examination normal. NECK: Supple with no meningeal signs. HEART: Regular. LUNGS: Clear. ABDOMEN: Soft. NEUROLOGICAL: He is awake, alert, responding. Pupils round, regular. Bonner of vision full. Extraocular movements full. Face symmetrical. Tongue midline. Motor examination revealed decreased strength in upper and lower extremities. Plantars are downgoing. Has difficulty in performing kpqcva-ip-cskc-to-finger bilaterally. Considering his general status, and the most recent lab with mildly abnormal electrolytes, BUN 61, phosphorus 6.2, and albumin 3.0. IMPRESSION AND PLAN: The treatment will be continued as such. At present, he is receiving allopurinol 100 mg daily, but aspirin 81 mg daily in addition to metoprolol. Further recommendations will be made accordingly. MARCIN YOON M.D. BRINE SUPERVISOR BRINE SUPERVISOR D I MT: Germán
[2019-07-30 16:29] LABS: Glucose Point of Care 104 (65-105)
[2019-07-30 22:11] LABS: Glucose Point of Care 109 (65-105)
[2019-07-30 23:07] LABS: Ionized Calcium 5.3 mg/dL (4.8-5.6)
[2019-07-31] VITALS (16 sets, daily range): BP systolic 114–125; BP diastolic 66–71; PULSE 84–108; RESP 12–20; TEMP 36.2–36.7; O2SAT 98–100
[2019-07-31 04:35] LABS: Basophils Absolute Auto 0.1 K/mm3 (0.0-0.1); Basophils Percent Auto 0.7 % (0.2-1.2); Eosinophils Absolute Auto 0.1 K/mm3 (0-0.3); Eosinophils Percent Auto 0.5 % (0-4.4); Hematocrit 29.8 % (42.0-52.0); Hemoglobin 9.4 g/dL (14.0-18.0); Immature Granulocyte Absolute 1.14 K/mm3 (0.00-0.031); Immature Granulocyte Percent A 6.6 % (0-0.5); Lymphocytes Absolute Auto 1.61 K/mm3 (0.9-3.2); Lymphocytes Percent Auto 9.3 % (18.3-44.2); Mean Corpuscular HGB Conc 31.5 g/dl (32-36); Mean Corpuscular Hemoglobin 31.6 pg (26-34); Mean Corpuscular Volume 100.3 fl (80-100); Monocytes Absolute Auto 2.8 K/mm3 (0.1-0.6); Monocytes Percent Auto 16.3 % (2.6-8.5); Neutrophils Absolute Auto 11.5 K/mm3 (1.3-6.7); Neutrophils Percent Auto 66.6 % (45.5-73.1); Nucleated Red Blood Cells Perc 0.1 % (0.0-0.2); Platelet Count Result 124 k/mm3 (150-375); Red Blood Count 2.97 M/mm3 (4.6-6.20); Red Cell Distribution Width 21.1 % (11.5-14.5); White Blood Count 17.2 K/mm3 (4.5-10.0)
[2019-07-31 04:46] LABS: Albumin Level 3.1 g/dL (3.5-5.1); Blood Urea Nitrogen 56 mg/dL (9-20); Calcium 9.4 mg/dL (8.4-10.2); Carbon Dioxide 26 mmol/L (22-30); Chloride 100 mmol/L (98-107); Estimated CRCL calculation 6 ml/min; Estimated Glomerular Filt Rate 5; Glucose 108 mg/dL (75-110); Phosphorus 6.3 mg/dL (2.5-4.5); Potassium 3.4 mmol/L (3.4-5.0); Sodium 135 mmol/L (137-145)
[2019-07-31 06:38] LABS: Macrocytosis 1+ (NORMAL); Platelet Estimate Decreased (Adequate)
[2019-07-31 07:56] LABS: Glucose Point of Care 102 (65-105)
[2019-07-31] MEDS: allopurinoL 100 MG TABLET PO (09:00)
[2019-07-31] MEDS: SEVELAMER CARBONATE 800 MG TABLET 1600 MG PO ×3 (09:00→17:54)
[2019-07-31] MEDS: PENICILLIN V POTASSIUM 250 MG TABLET 1000 MG PO (09:01)
[2019-07-31] MEDS: VITAMIN B COMPLEX CAPSULE 1 CAP PO (09:01)
[2019-07-31] MEDS: calcitrioL 0.25 MCG CAPSULE PO (09:02)
[2019-07-31] MEDS: METOPROLOL TARTRATE 25 MG TABLET PO ×2 (09:02→20:19)
[2019-07-31] MEDS: FAMOTIDINE 20 MG TABLET 40 MG PO ×2 (09:02→17:54)
[2019-07-31] MEDS: ASPIRIN 81 MG ENTERIC TABLET PO (09:03)
[2019-07-31] MEDS: BENZOCAINE/MENTHOL (*BKC) 18 EA LOZENGE 1 LOZENGE PO (10:44)
[2019-07-31] MEDS: EPOETIN ALFA 10,000 UNITS/ML VIAL 10000 UNITS SUB-Q (10:44)
[2019-07-31 11:38] LABS: Glucose Point of Care 113 (65-105)
--- NOTE | 2019-07-31 13:03 | PM.IMPN ---
Progress Note: A&P Assessment and Plan (1) Acute CVA (cerebrovascular accident): Code(s): I63.9 - Cerebral infarction, unspecified Status: Acute Assessment and Plan: May explain his slow responsiveness 07/26 and 07/27, improved today and appears to be at his baseline. CT brain 07/26 showed old infarcts with no acute findings but MRI brain 07/27 revealed a couple small acute infarcts in the left and right cerebellar hemispheres. Appreciate neurology consultation. Continue ASA. He does have platelet count in low 100s. Carotid dopplers are within normal limits. Telemetry shows no arrhythmias currently although he had atrial tachycardia last admission evaluated by cardiology. No new EKG changes. Continue to monitor with cardiac telemetry. Plan for discharge to [facility] once contract is obtained between [facility] and [place]. (2) Syncope: Qualifiers: Syncope type: unspecified Qualified Code(s): R55 - Syncope and collapse Code(s): R55 - Syncope and collapse Status: Resolved Assessment and Plan: No issues today. Syncopal episode 07/26 felt to be related to orthostasis vs. CVA. (3) Delirium due to general medical condition: Code(s): F05 - Delirium due to known physiological condition Status: Resolved Assessment and Plan: Initial confusion felt to be related to bacteremia and improved with antibiotics. Then 07/26 and 07/27 seemed more spacey and had delayed responses to questions which may have been related to new CVA. Resolved today; seems at his baseline. (4) Orthostatic hypotension: Code(s): I95.1 - Orthostatic hypotension Status: Chronic Assessment and Plan: Known diagnosis, issues with this 07/26 and 07/27. None today. (5) Septicemia: Code(s): A41.9 - Sepsis, unspecified organism Status: Acute Assessment and Plan: Both blood cultures from 07/16 grew group G Strep thought to be secondary to cutaneous source L leg wound that is now healing well. PD fluid has a negative gram stain. Met sepsis criteria on arrival with leukocytosis, tachycardia, lactic acidosis. He was evaluated by Dr Candelaria and completed adequate antibiotic therapy with penicillin. Leukocytosis fluctuates but trending down, felt to be related to bacteremia. Blood cultures repeated 07/23 are negative. Afebrile. (6) End stage renal disease: Code(s): N18.6 - End stage renal disease Status: Chronic Assessment and Plan: ESRD on peritoneal dialysis. Patient's established chief nurse is Dr Mari at [facility]. Originally there were discussions about transitioning to hemodialysis due to his confusion and possible future cholecystectomy but now that he is back to baseline, no plan for hemodialysis at this time. If cholecystectomy should be warranted in the future, catheter could be placed at that time. (7) Cholelithiasis: Qualifiers: Biliary obstruction: without biliary obstruction Cholecystitis presence: without cholecystitis Cholelithiasis location: gallbladder Qualified Code(s): K80.20 - Calculus of gallbladder without cholecystitis without obstruction Code(s): K80.20 - Calculus of gallbladder without cholecystitis without obstruction Status: Chronic Assessment and Plan: This was noted on previous admission. He was seen by Dr Masterson in consultation 07/15/19 and recommended elective laparscopic cholecystectomy at some point down the road. Dr Masterson notes that if the patient would have lap curly, that he would not be able to do peritoneal dialysis for 2 weeks. No issues at this time. Has been tolerating oral intake without abdominal pain, nausea or vomiting. If he decides to have gallbladder surgery or his symptoms worsen, nephrology recommends placing
--- NOTE | 2019-07-31 13:03 | PCNFU ---
Nutrition Follow-Up Complete: Involuntary weight loss related to decreased appetite (c/o nausea, food aversions) as evidenced by reported and documented weight loss. Goal: Patient to consume 50% of meals/supplements. Patient has met nutritional goal. No new goal. Pt current nutrition is Renal Dialysis. Nutrition recommendation: Agree Last recorded weight is 90.7 kg. Bowel Motility:+BM reported 07/30 Labs Reviewed:Cr 10.6,BUN 56 Meds Noted: Vit B complex,Epogen,Niacin. Additional Notes: Patient is eating 100% of Renal Dialysis diet. Patient remains on PD. Plans for Rehab after discharge. Monitoring: Follow up in 5 days.
--- NOTE | 2019-07-31 15:00 | PM.PNNEP ---
Progress Note: A&P Assessment and Plan (1) End stage renal disease: Code(s): N18.6 - End stage renal disease Status: Chronic Assessment and Plan: Patient is on peritoneal dialysis. He continues on dialysis with 1.5% Dianeal. ON PD phi it well. large UF last night, not clear why since on yellow bags. will see how it is tomorrow. bp is good. (2) Bacteremia: Code(s): R78.81 - Bacteremia Status: Acute Assessment and Plan: The patient had strep bacteremia. Probably from the wound in his left leg. He is on antibiotics per Dr. trujillo White count is still in the teens. (3) Obstructive sleep apnea: Code(s): G47.33 - Obstructive sleep apnea (adult) (pediatric) Status: Acute Assessment and Plan: He does not use a CPAP machine at home and so is not going to use it here he says. ABGs show no retention of CO2 (4) Cholelithiasis: Qualifiers: Biliary obstruction: without biliary obstruction Cholecystitis presence: without cholecystitis Cholelithiasis location: gallbladder Qualified Code(s): K80.20 - Calculus of gallbladder without cholecystitis without obstruction Code(s): K80.20 - Calculus of gallbladder without cholecystitis without obstruction Status: Chronic Assessment and Plan: He has cholelithiasis. Surgery on hold for now. Symptoms are improved No belly tenderness at all Liver enzymes are normal. hida scan was negative This is not seem to be an active problem (5) Anemia in chronic renal disease: Qualifiers: Chronic kidney disease stage: on chronic dialysis Qualified Code(s): N18.6 - End stage renal disease; D63.1 - Anemia in chronic kidney disease; Z99.2 - Dependence on renal dialysis Code(s): N18.9 - Chronic kidney disease, unspecified; D63.1 - Anemia in chronic kidney disease Status: Suspected Assessment and Plan: Hemoglobin is up and down in the 9s. On EPO. (6) Renal osteodystrophy: Code(s): N25.0 - Renal osteodystrophy Status: Acute Assessment and Plan: Calcium 9.1. (7) Hypercalcemia: Code(s): E83.52 - Hypercalcemia Status: Acute Assessment and Plan: Calcium level is down to 9.3 Ionized calcium is in the normal range at 5.3. Phosphorus is a little better. On sevelamer (8) Syncope: Qualifiers: Syncope type: unspecified Qualified Code(s): R55 - Syncope and collapse Code(s): R55 - Syncope and collapse Status: Resolved Assessment and Plan: MRI shows 2 small acute strokes in the cerebellum. The patient is having no dizziness today. Mental status normal Dr Fermin saw. on aspirin therapy now. Additional Plan Subjective Date/time seen: 07/31/19 15:00 Interval history: Patient is alert. no cp or sob. Review of Systems Cardiovascular: Cardiovascular: Reports no additional cardiovascular complaints Respiratory: Respiratory: Reports no additional respiratory complaints Gastrointestinal: Gastrointestinal: Reports no additional gastrointestinal complaints Genitourinary: Genitourinary: Reports no additional male genitourinary complaints Exam Narrative: Exam Narrative: WDWN in NAD skin no rash or subcu nodules head ncat lungs clear cor reg no rub or gallop abd BS+ nontender and soft ext no edema Objective Data Vital Signs Vital Signs: Vital Signs - 24 hr 07/30/19 16:00 07/30/19 18:36 07/30/19 20:00 Temperature 36.3 C L Pulse Rate 96 96 107 H Respiratory Rate 20 Blood Pressure 128/70 Pulse Oximetry 07/30/19 21:24 07/30/19 22:00 07/31/19 00:00 Temperature 36.6 C Pulse Rate 101 H 100 100 Respiratory Rate 12 Blood Pressure 136/76 Pulse Oximetry 99 07/31/19 04:00 07/31/19 06:00 07/31/19 08:00 Temperature 36.7 C Pulse Rate 91 103 H 104 H Respiratory Rate 12 Blood Pressure 125/66 Pulse Oximetry 100
[2019-07-31 16:39] LABS: Glucose Point of Care 97 (65-105)
[2019-07-31] MEDS: POTASSIUM CHLORIDE 20 MEQ TABLET PO (17:54)
[2019-07-31 20:33] LABS: Glucose Point of Care 127 (65-105)
[2019-08-01] VITALS (18 sets, daily range): BP systolic 119–127; BP diastolic 64–69; PULSE 53–97; RESP 16–20; TEMP 35.9–36.6; O2SAT 98–99
[2019-08-01 06:21] LABS: Albumin Level 3.2 g/dL (3.5-5.1); Blood Urea Nitrogen 61 mg/dL (9-20); Calcium 9.4 mg/dL (8.4-10.2); Carbon Dioxide 24 mmol/L (22-30); Chloride 98 mmol/L (98-107); Estimated CRCL calculation 6 ml/min; Estimated Glomerular Filt Rate 5; Glucose 108 mg/dL (75-110); Phosphorus 6.8 mg/dL (2.5-4.5); Potassium 3.4 mmol/L (3.4-5.0); Sodium 135 mmol/L (137-145)
[2019-08-01 08:04] LABS: Glucose Point of Care 97 (65-105)
[2019-08-01] MEDS: SEVELAMER CARBONATE 800 MG TABLET 1600 MG PO ×3 (08:28→18:00)
[2019-08-01] MEDS: METOPROLOL TARTRATE 25 MG TABLET PO ×2 (08:28→20:32)
[2019-08-01] MEDS: VITAMIN B COMPLEX CAPSULE 1 CAP PO (08:28)
[2019-08-01] MEDS: ASPIRIN 325 MG TABLET PO (08:28)
[2019-08-01] MEDS: FAMOTIDINE 20 MG TABLET 40 MG PO ×2 (08:29→18:00)
[2019-08-01] MEDS: BENZOCAINE/MENTHOL (*BKC) 18 EA LOZENGE 1 LOZENGE PO (08:29)
[2019-08-01] MEDS: allopurinoL 100 MG TABLET PO (08:29)
--- NOTE | 2019-08-01 08:56 | PM.PNNEP ---
Progress Note: A&P Assessment and Plan (1) End stage renal disease: Code(s): N18.6 - End stage renal disease Status: Chronic Assessment and Plan: continue CCPD overnight while hospitalized follow electrolytes, volume status, and clearance (2) Bacteremia: Code(s): R78.81 - Bacteremia Status: Acute Assessment and Plan: Group G Streptoccocus in blood cultures completed course of antibiotics as outlined by Infectious Disease source thought to be lower extremity cellulitis (3) Cholelithiasis: Qualifiers: Biliary obstruction: without biliary obstruction Cholecystitis presence: without cholecystitis Cholelithiasis location: gallbladder Qualified Code(s): K80.20 - Calculus of gallbladder without cholecystitis without obstruction Code(s): K80.20 - Calculus of gallbladder without cholecystitis without obstruction Status: Chronic Assessment and Plan: Surgery on hold for now symptoms are improved if not stable HIDA scan was negative (4) Anemia in chronic renal disease: Qualifiers: Chronic kidney disease stage: on chronic dialysis Qualified Code(s): N18.6 - End stage renal disease; D63.1 - Anemia in chronic kidney disease; Z99.2 - Dependence on renal dialysis Code(s): N18.9 - Chronic kidney disease, unspecified; D63.1 - Anemia in chronic kidney disease Status: Suspected Assessment and Plan: due to ESRD and acute illness on Epogen follow trend of H/H (5) Renal osteodystrophy: Code(s): N25.0 - Renal osteodystrophy Status: Acute Assessment and Plan: calcium and phosphorus relatively stable continue binder therapy (6) Syncope: Qualifiers: Syncope type: unspecified Qualified Code(s): R55 - Syncope and collapse Code(s): R55 - Syncope and collapse Status: Resolved Assessment and Plan: MRI shows 2 small acute strokes in the cerebellum Neurology following Will continue to follow. Subjective Date/time seen: 08/01/19 08:56 Events noted since last seen -- tolerated peritoneal dialysis treatment overnight (UF ~ 144cc); otherwise states that he is feeling pretty good; appetite has significantly improved since I last saw him; no apparent distress voiced. Exam Narrative: Exam Narrative: General: WD/WN male in NAD Heart: normal S1 and S2; no rub Lungs: clear to auscultation Abdomen: soft, nontender, nondistended, positive bowel sounds Extremities: no cyanosis or clubbing; no edema Skin: warm and dry Objective Data Vital Signs Vital Signs: Vital Signs Temp Pulse Resp BP Pulse Ox 08/01/19 08:28 95 08/01/19 08:01 88 18 08/01/19 05:47 35.9 C L 61 16 119/69 99 08/01/19 04:00 91 08/01/19 01:42 96 07/31/19 21:57 36.2 C L 108 H 16 119/66 98 07/31/19 20:19 85 07/31/19 20:17 85 18 07/31/19 20:08 84 18 07/31/19 20:00 85 18 99 07/31/19 19:17 36.2 C L 92 18 120/68 07/31/19 16:00 105 H 07/31/19 15:10 90 20 07/31/19 15:04 88 20 07/31/19 14:00 36.6 C 96 18 114/71 99 07/31/19 12:00 88 07/31/19 09:02 103 H Intake/Output Intake/Output: Intake & Output 07/29/19 07/30/19 07/31/19 08/01/19 23:59 23:59 23:59 23:59 Intake Total 490 730 480 100 Output Total 1843 307 30 100 Balance -1353 423 450 0 Meds/Results Medications: Active Medications Generic Name Dose Route Start Last Admin Trade Name Freq PRN Reason Stop Dose Admin Allopurinol 100 mg 07/18/19 09:00 08/01/19 08:29 Zyloprim PO 100 mg DAILY DARA Administration Aspirin 325 mg 08/01/19 08:00 08/01/19 08:28 Aspirin PO 325 mg DAILY@0800 DARA Administration Benzocaine 1 lozenge 07/31/19 08:11 08/01/19 08:29 Chloraseptic Lozenge PO 1 lozenge PRN PRN Administration Sore Throat Calcitriol 0.25 mcg 07/19/19 09:00 07/31/19 09:02 Rocaltrol PO 0.25 mcg
--- NOTE | 2019-08-01 10:57 | PM.IMPN ---
Progress Note: A&P Assessment and Plan (1) Acute CVA (cerebrovascular accident): Code(s): I63.9 - Cerebral infarction, unspecified Status: Acute Assessment and Plan: -----patient had acute CVA while hospitalized with symptoms 07/26 and 07/27. MRI showed Couple small acute infarcts in the left and right cerebellar hemispheres. He is back to baseline. Plan to continue aspirin. Carotid Dopplers are within normal limits and telemetry does not show any arrhythmias although he has occasional tachycardia but appears to be sinus. Will continue PT and OT (2) Syncope: Qualifiers: Syncope type: unspecified Qualified Code(s): R55 - Syncope and collapse Code(s): R55 - Syncope and collapse Status: Resolved Assessment and Plan: -----No issues today. Syncopal episode 07/26 felt to be related to orthostasis vs. CVA. (3) Delirium due to general medical condition: Code(s): F05 - Delirium due to known physiological condition Status: Resolved Assessment and Plan: ------Initial confusion felt to be related to bacteremia and improved with antibiotics. Then 07/26 and 07/27 seemed more spacey and had delayed responses to questions which may have been related to new CVA. Resolved, at baseline (4) Orthostatic hypotension: Code(s): I95.1 - Orthostatic hypotension Status: Chronic Assessment and Plan: ----Known diagnosis, issues with this 07/26 and 07/27. None today. (5) Septicemia: Code(s): A41.9 - Sepsis, unspecified organism Status: Acute Assessment and Plan: ------Both blood cultures from 07/16 grew group G Strep thought to be secondary to cutaneous source L leg wound that is now healing well. PD fluid has a negative gram stain. Met sepsis criteria on arrival with leukocytosis, tachycardia, lactic acidosis. He was evaluated by Dr Candelaria and completed adequate antibiotic therapy with penicillin. Leukocytosis fluctuates but trending down, felt to be related to bacteremia and hematology has seen him. I would follow-up with hematology outpatient since it continues to be high.. Blood cultures repeated 07/23 are negative. Afebrile. (6) End stage renal disease: Code(s): N18.6 - End stage renal disease Status: Chronic Assessment and Plan: -----ESRD on peritoneal dialysis. Patient's established manufacturer is Dr Mari at [facility]. Originally there were discussions about transitioning to hemodialysis due to his confusion and possible future cholecystectomy but now that he is back to baseline, no plan for hemodialysis at this time. If cholecystectomy should be warranted in the future, catheter could be placed at that time. (7) Cholelithiasis: Qualifiers: Cholelithiasis location: gallbladder Cholecystitis presence: without cholecystitis Biliary obstruction: without biliary obstruction Qualified Code(s): K80.20 - Calculus of gallbladder without cholecystitis without obstruction Code(s): K80.20 - Calculus of gallbladder without cholecystitis without obstruction Status: Chronic Assessment and Plan: -----This was noted on previous admission. He was seen by Dr Masterson in consultation 07/15/19 and recommended elective laparscopic cholecystectomy at some point down the road. Dr Masterson notes that if the patient would have lap curly, that he would not be able to do peritoneal dialysis for 2 weeks. No issues at this time. Has been tolerating oral intake without abdominal pain, nausea or vomiting. If he decides to have gallbladder surgery or his symptoms worsen, nephrology recommends placing a catheter the time of the surgery and switching him to hemodialysis temporarily. Dr Mari requested HIDA scan be repeated which was done 07/25; unremarkable. (8) Leukocytosis: Qualifiers: Leukocytosis type: other Qualified Code(s): D72.828 - Other elevated white blood cell count Code(s
[2019-08-01 11:55] LABS: Glucose Point of Care 120 (65-105)
[2019-08-01 17:10] LABS: Glucose Point of Care 99 (65-105)
[2019-08-01 19:50] LABS: Triiodothyronine T3 Free 2.7 pg/mL (2.3-4.2)
[2019-08-02] VITALS (21 sets, daily range): BP systolic 124–130; BP diastolic 54–82; PULSE 64–102; RESP 16–20; TEMP 36–37.1; O2SAT 98–100
[2019-08-02 08:13] LABS: Glucose Point of Care 97 (65-105)
[2019-08-02] MEDS: VITAMIN B COMPLEX CAPSULE 1 CAP PO (08:52)
[2019-08-02] MEDS: METOPROLOL TARTRATE 25 MG TABLET PO ×2 (08:52→21:30)
[2019-08-02] MEDS: ASPIRIN 325 MG TABLET PO (08:53)
[2019-08-02] MEDS: SEVELAMER CARBONATE 800 MG TABLET 1600 MG PO ×3 (08:53→17:03)
[2019-08-02] MEDS: FAMOTIDINE 20 MG TABLET 40 MG PO ×2 (08:53→17:03)
[2019-08-02] MEDS: allopurinoL 100 MG TABLET PO (08:53)
[2019-08-02] MEDS: BENZOCAINE/MENTHOL (*BKC) 18 EA LOZENGE 1 LOZENGE PO ×2 (08:54→11:06)
[2019-08-02] MEDS: calcitrioL 0.25 MCG CAPSULE PO (08:54)
[2019-08-02] MEDS: EPOETIN ALFA 10,000 UNITS/ML VIAL 10000 UNITS SUB-Q (11:05)
--- NOTE | 2019-08-02 11:09 | PM.IMPN ---
Progress Note: A&P Assessment and Plan (1) Discharge planning issues: Code(s): Z02.9 - Encounter for administrative examinations, unspecified Status: Acute Assessment and Plan: -----patient unable to discharge to [facility] because [facility] is unable to make a contract with them or any other area rehabs. They are now trying to switch dialysis companies and go from there. Hopefully d/c soon. (2) Acute CVA (cerebrovascular accident): Code(s): I63.9 - Cerebral infarction, unspecified Status: Acute Assessment and Plan: -----patient had acute CVA while hospitalized with symptoms 07/26 and 07/27. MRI showed Couple small acute infarcts in the left and right cerebellar hemispheres. He is back to baseline. Plan to continue aspirin now 325. Carotid Dopplers are within normal limits and telemetry does not show any arrhythmias although he has occasional tachycardia but appears to be sinus. Will continue PT and OT (3) Syncope: Qualifiers: Syncope type: unspecified Qualified Code(s): R55 - Syncope and collapse Code(s): R55 - Syncope and collapse Status: Resolved Assessment and Plan: -----No issues today. Syncopal episode 07/26 felt to be related to orthostasis vs. CVA. (4) Delirium due to general medical condition: Code(s): F05 - Delirium due to known physiological condition Status: Resolved Assessment and Plan: ------Initial confusion felt to be related to bacteremia and improved with antibiotics. Then / and 07/27 seemed more spacey and had delayed responses to questions which may have been related to new CVA. Resolved, at baseline (5) Orthostatic hypotension: Code(s): I95.1 - Orthostatic hypotension Status: Chronic Assessment and Plan: ----Known diagnosis, issues with this 07/26 and 07/27. None today. (6) Septicemia: Code(s): A41.9 - Sepsis, unspecified organism Status: Acute Assessment and Plan: ------Both blood cultures from 07/16 grew group G Strep thought to be secondary to cutaneous source L leg wound that is now healing well. PD fluid has a negative gram stain. Met sepsis criteria on arrival with leukocytosis, tachycardia, lactic acidosis. He was evaluated by Dr Candelaria and completed adequate antibiotic therapy with penicillin. Leukocytosis fluctuates but trending down, felt to be related to bacteremia and hematology has seen him. I would follow-up with hematology outpatient since it continues to be high.. Blood cultures repeated 07/23 are negative. Afebrile. (7) End stage renal disease: Code(s): N18.6 - End stage renal disease Status: Chronic Assessment and Plan: -----ESRD on peritoneal dialysis. 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 Originally there were discussions about transitioning to hemodialysis due to his confusion and possible future cholecystectomy but now that he is back to baseline, no plan for hemodialysis at this time. If cholecystectomy should be warranted in the future, catheter could be placed at that time. (8) Cholelithiasis: Qualifiers: Cholelithiasis location: gallbladder Cholecystitis presence: without cholecystitis Biliary obstruction: without biliary obstruction Qualified Code(s): K80.20 - Calculus of gallbladder without cholecystitis without obstruction Code(s): K80.20 - Calculus of gallbladder without cholecystitis without obstruction Status: Chronic Assessment and Plan: -----This was noted on previous admission. He was seen by Dr Masterson in consultation 07/15/19 and recommended elective laparscopic cholecystectomy at some point down the road. Dr Masterson notes that if the patient would have lap curly, that he would not be able to do peritoneal dialysis for 2 weeks. No issues at this time. Has been tolerating oral intake without abdominal pain, nausea or vomiting. If he decides to have ga
[2019-08-02 12:03] LABS: Glucose Point of Care 138 (65-105)
--- NOTE | 2019-08-02 17:00 | PM.PNNEP ---
Progress Note: A&P Assessment and Plan (1) End stage renal disease: Code(s): N18.6 - End stage renal disease Status: Chronic Assessment and Plan: continue CCPD overnight while hospitalized follow electrolytes, volume status, and clearance (2) Bacteremia: Code(s): R78.81 - Bacteremia Status: Acute Assessment and Plan: Group G Streptoccocus in blood cultures completed course of antibiotics as outlined by Infectious Disease source thought to be lower extremity cellulitis (3) Cholelithiasis: Qualifiers: Cholelithiasis location: gallbladder Cholecystitis presence: without cholecystitis Biliary obstruction: without biliary obstruction Qualified Code(s): K80.20 - Calculus of gallbladder without cholecystitis without obstruction Code(s): K80.20 - Calculus of gallbladder without cholecystitis without obstruction Status: Chronic Assessment and Plan: Surgery on hold for now symptoms are improved if not stable HIDA scan was negative (4) Anemia in chronic renal disease: Qualifiers: Chronic kidney disease stage: on chronic dialysis Qualified Code(s): N18.6 - End stage renal disease; D63.1 - Anemia in chronic kidney disease; Z99.2 - Dependence on renal dialysis Code(s): N18.9 - Chronic kidney disease, unspecified; D63.1 - Anemia in chronic kidney disease Status: Suspected Assessment and Plan: due to ESRD and acute illness on Epogen follow trend of H/H (5) Renal osteodystrophy: Code(s): N25.0 - Renal osteodystrophy Status: Acute Assessment and Plan: calcium and phosphorus relatively stable continue binder therapy (6) Syncope: Qualifiers: Syncope type: unspecified Qualified Code(s): R55 - Syncope and collapse Code(s): R55 - Syncope and collapse Status: Resolved Assessment and Plan: MRI shows 2 small acute strokes in the cerebellum Neurology following Will continue to follow. Subjective Date/time seen: 08/02/19 17:00 Tolerated PD overnight without any issues or problems (total UF = 789cc); otherwise, continues to do quite well; ongoing issues relating to rehab and outpatient dialysis complicating discharge; no apparent distress voiced. Exam Narrative: Exam Narrative: General: WD/WN male in NAD Heart: normal S1 and S2; no rub Lungs: clear to auscultation Abdomen: soft, nontender, nondistended, positive bowel sounds Extremities: no cyanosis or clubbing; no edema Skin: warm and intact Objective Data Vital Signs Vital Signs: Vital Signs Temp Pulse Resp BP Pulse Ox 08/02/19 14:22 96 18 08/02/19 14:12 94 18 08/02/19 14:00 36.2 C L 86 18 124/68 98 08/02/19 12:00 99 08/02/19 09:12 97 18 08/02/19 09:02 95 18 08/02/19 08:52 93 08/02/19 08:10 36.6 C 64 130/82 08/02/19 08:00 84 08/02/19 05:45 36.0 C L 93 16 130/59 L 100 08/02/19 04:00 102 H 08/02/19 02:01 100 18 08/02/19 01:51 97 18 08/02/19 00:00 94 08/01/19 22:00 36.6 C 53 L 16 121/69 99 08/01/19 20:38 95 18 08/01/19 20:32 94 08/01/19 20:28 97 18 08/01/19 20:00 94 Intake/Output Intake/Output: Intake & Output 07/30/19 07/31/19 08/01/19 08/02/19 23:59 23:59 23:59 23:59 Intake Total 730 480 940 580 Output Total 307 30 169 789 Balance 423 450 771 209 Meds/Results Medications: Active Medications Generic Name Dose Route Start Last Admin Trade Name Freq PRN Reason Stop Dose Admin Allopurinol 100 mg 07/18/19 09:00 08/02/19 08:53 Zyloprim PO 100 mg DAILY DARA Administration Aspirin 325 mg 08/01/19 08:00 08/02/19 08:53 Aspirin PO 325 mg DAILY@0800 DARA Administration Benzocaine 1 lozenge 07/31/19 08:11 08/02/19 11:06 Chloraseptic Lozenge PO 1 lozenge PRN PRN Administration Sore Throat Calcitriol 0.25 mcg 07/19/19 09:00 07/23
[2019-08-02 17:35] LABS: Glucose Point of Care 97 (65-105)
[2019-08-02 18:01] LABS: Hepatitis B Surface Antigen Negative (Negative)
[2019-08-02 18:18] LABS: Hepatitis B Surface Anti Res Negative; Hepatitis C Virus Antibody Negative (Negative)
[2019-08-03] VITALS (20 sets, daily range): BP systolic 117–127; BP diastolic 58–69; PULSE 84–101; RESP 18–20; TEMP 36.2–36.6; O2SAT 97–100
[2019-08-03 00:37] LABS: Glucose Point of Care 111 (65-105)
[2019-08-03 05:17] LABS: Hematocrit 28.3 % (42.0-52.0); Mean Corpuscular HGB Conc 31.8 g/dl (32-36); Mean Corpuscular Hemoglobin 31.6 pg (26-34); Mean Corpuscular Volume 99.3 fl (80-100); Mean Platelet Volume 9.3 fl (7.4-10.4); Platelet Count Result 138 k/mm3 (150-375); Red Blood Count 2.85 M/mm3 (4.6-6.20); Red Cell Distribution Width 19.9 % (11.5-14.5); White Blood Count 14.9 K/mm3 (4.5-10.0)
[2019-08-03 06:28] LABS: Band Neutrophils Percent 4 % (0-6); Eosinophils Absolute Manual 0.14 K/mm3 (0.02-0.5); Eosinophils Percent Manual 1 % (0-4); Lymphocytes Absolute Manual 0.59 K/mm3 (1.1-4.5); Monocytes Absolute Manual 0.59 K/mm3 (0.1-0.90); Monocytes Percent Manual 4 % (3-9); Neutrophils Absolute Manual 13.55 K/mm3 (1.3-6.7); Neutrophils Percent Manual 87 % (46-73); Total Cells Counted 100
[2019-08-03 06:29] LABS: Polychromasia 1+ (NORMAL)
[2019-08-03 06:32] LABS: Platelet Estimate Decreased (Adequate)
[2019-08-03 07:54] LABS: Glucose Point of Care 97 (65-105)
[2019-08-03] MEDS: allopurinoL 100 MG TABLET PO (08:10)
[2019-08-03] MEDS: METOPROLOL TARTRATE 25 MG TABLET PO ×2 (08:10→20:54)
[2019-08-03] MEDS: FAMOTIDINE 20 MG TABLET 40 MG PO ×2 (08:10→16:38)
[2019-08-03] MEDS: ASPIRIN 325 MG TABLET PO (08:11)
[2019-08-03] MEDS: SEVELAMER CARBONATE 800 MG TABLET 1600 MG PO ×3 (08:11→16:38)
[2019-08-03] MEDS: VITAMIN B COMPLEX CAPSULE 1 CAP PO (08:11)
[2019-08-03 11:20] LABS: Glucose Point of Care 142 (65-105)
--- NOTE | 2019-08-03 12:53 | PM.PNNEP ---
Progress Note: A&P Assessment and Plan (1) End stage renal disease: Code(s): N18.6 - End stage renal disease Status: Chronic Assessment and Plan: continue CCPD overnight for now once tunneled HD catheter placed by Surgery, will proceed with hemodialysis follow electrolytes, voume status and clearance (2) Bacteremia: Code(s): R78.81 - Bacteremia Status: Acute Assessment and Plan: Group G Streptoccocus in blood cultures on admission completed course of antibiotics as outlined by Infectious Disease source thought to be lower extremity cellulitis (3) Cholelithiasis: Qualifiers: Cholelithiasis location: gallbladder Cholecystitis presence: without cholecystitis Biliary obstruction: without biliary obstruction Qualified Code(s): K80.20 - Calculus of gallbladder without cholecystitis without obstruction Code(s): K80.20 - Calculus of gallbladder without cholecystitis without obstruction Status: Chronic Assessment and Plan: Surgery on hold for now symptoms are improved if not stable HIDA scan was negative (4) Anemia in chronic renal disease: Qualifiers: Chronic kidney disease stage: on chronic dialysis Qualified Code(s): N18.6 - End stage renal disease; D63.1 - Anemia in chronic kidney disease; Z99.2 - Dependence on renal dialysis Code(s): N18.9 - Chronic kidney disease, unspecified; D63.1 - Anemia in chronic kidney disease Status: Suspected Assessment and Plan: due to ESRD and acute illness on Epogen follow trend of H/H (5) Renal osteodystrophy: Code(s): N25.0 - Renal osteodystrophy Status: Acute Assessment and Plan: calcium and phosphorus relatively stable continue binder therapy (6) Syncope: Qualifiers: Syncope type: unspecified Qualified Code(s): R55 - Syncope and collapse Code(s): R55 - Syncope and collapse Status: Resolved Assessment and Plan: MRI shows 2 small acute strokes in the cerebellum Neurology following Will continue to follow. Subjective Date/time seen: 08/03/19 12:53 Tolerated peritoneal dialysis treatment last evening without any issues; given complexity of discharge planning with regard to his peritoneal dialysis and rehab/SNF, tentatively planning for conversion to hemodialysis to help further facilitate discharge planning. Exam Narrative: Exam Narrative: General: WD/WN male in NAD Heart: normal S1 and S2; no rub Lungs: clear to auscultation Abdomen: soft, nontender, nondistended, positive bowel sounds Extremities: no cyanosis or clubbing; no edema Skin: no rash or nodules Objective Data Vital Signs Vital Signs: Vital Signs Temp Pulse Resp BP Pulse Ox 08/03/19 08:52 92 20 08/03/19 08:45 96 20 08/03/19 08:10 94 08/03/19 07:55 36.4 C 94 18 127/58 L 08/03/19 06:00 36.4 C 94 18 127/58 L 97 08/03/19 04:00 101 H 08/03/19 01:40 90 18 08/03/19 01:31 92 18 08/03/19 00:00 101 H 08/02/19 22:00 37.1 C 100 20 129/54 L 98 08/02/19 21:30 100 08/02/19 21:21 91 18 08/02/19 21:16 37.1 C 100 20 129/54 L 08/02/19 21:11 94 18 08/02/19 20:00 101 H 08/02/19 16:00 99 08/02/19 14:22 96 18 08/02/19 14:12 94 18 08/02/19 14:00 36.2 C L 86 18 124/68 98 Intake/Output Intake/Output: Intake & Output 07/31/19 08/01/19 08/02/19 08/03/19 23:59 23:59 23:59 23:59 Intake Total 364 418 4694 580 Output Total 30 169 939 428 Balance 450 771 231 152 Meds/Results Medications: Active Medications Generic Name Dose Route Start Last Admin Trade Name Cassi PRN Reason Stop Dose Admin Allopurinol 100 mg 07/18/19 09:00 08/03/19 08:10 Zyloprim PO 100 mg DAILY DARA Administration Aspirin 325 mg 08/01/19 08:00 08/03/19 08:11 Aspirin PO 325 mg DAILY@0800 [facility] Administration Benzocaine 1 lozenge
--- NOTE | 2019-08-03 13:16 | PM.IMPN ---
Progress Note: A&P Assessment and Plan (1) Discharge planning issues: Code(s): Z02.9 - Encounter for administrative examinations, unspecified Status: Acute Assessment and Plan: -----New plan to obtain tunneled cath for HD. I spoke with Dr. Mari, Dr. Renner, Dr. Fermin and Sx. The plan is still to transition to PD eventually but i'm unsure if pt will ever get back to PD. Once this is complete he can discharge to SNF. (2) Acute CVA (cerebrovascular accident): Code(s): I63.9 - Cerebral infarction, unspecified Status: Acute Assessment and Plan: -----patient had acute CVA while hospitalized with symptoms 07/26 and 07/27. MRI showed Couple small acute infarcts in the left and right cerebellar hemispheres. He is back to baseline. Plan to continue aspirin now 325 (on hold for sx). Carotid Dopplers are within normal limits and telemetry does not show any arrhythmias although he has occasional tachycardia but appears to be sinus. Will continue PT and OT (3) Syncope: Qualifiers: Syncope type: unspecified Qualified Code(s): R55 - Syncope and collapse Code(s): R55 - Syncope and collapse Status: Resolved Assessment and Plan: -----No issues today. Syncopal episode 07/26 felt to be related to orthostasis vs. CVA. (4) Delirium due to general medical condition: Code(s): F05 - Delirium due to known physiological condition Status: Resolved Assessment and Plan: ------Initial confusion felt to be related to bacteremia and improved with antibiotics. Then 07/26 and 07/27 seemed more spacey and had delayed responses to questions which may have been related to new CVA. Resolved, at baseline (5) Orthostatic hypotension: Code(s): I95.1 - Orthostatic hypotension Status: Chronic Assessment and Plan: ----Known diagnosis, issues with this 07/26 and 07/27. None today. (6) Septicemia: Code(s): A41.9 - Sepsis, unspecified organism Status: Acute Assessment and Plan: ------Both blood cultures from 07/16 grew group G Strep thought to be secondary to cutaneous source L leg wound that is now healing well. PD fluid has a negative gram stain. Met sepsis criteria on arrival with leukocytosis, tachycardia, lactic acidosis. He was evaluated by Dr Candelaria and completed adequate antibiotic therapy with penicillin. Leukocytosis fluctuates but trending down, felt to be related to bacteremia and hematology has seen him. I would follow-up with hematology outpatient since it continues to be high.. Blood cultures repeated 07/23 are negative. Afebrile. (7) End stage renal disease: Code(s): N18.6 - End stage renal disease Status: Chronic Assessment and Plan: -----ESRD on peritoneal dialysis switching to HD. See above. (8) Cholelithiasis: Qualifiers: Cholelithiasis location: gallbladder Cholecystitis presence: without cholecystitis Biliary obstruction: without biliary obstruction Qualified Code(s): K80.20 - Calculus of gallbladder without cholecystitis without obstruction Code(s): K80.20 - Calculus of gallbladder without cholecystitis without obstruction Status: Chronic Assessment and Plan: -----This was noted on previous admission. He was seen by Dr Masterson in consultation 07/15/19 and recommended elective laparscopic cholecystectomy at some point down the road. Dr Masterson notes that if the patient would have lap curly, that he would not be able to do peritoneal dialysis for 2 weeks. No issues at this time. Has been tolerating oral intake without abdominal pain, nausea or vomiting. If he decides to have gallbladder surgery or his symptoms worsen, nephrology recommends placing a catheter the time of the surgery and switching him to hemodialysis temporarily. Dr Mari requested HIDA scan be repeated which was done 07/25; unremarkable. (9) Leukocytosis: Qualifiers:
[2019-08-03 16:40] LABS: Glucose Point of Care 101 (65-105)
--- NOTE | 2019-08-03 16:46 | PCDIET ---
Nutrition Follow-Up Complete: Involuntary weight loss related to decreased appetite (c/o nausea, food aversions) as evidenced by reported and documented weight loss. Patient to consume 50% of meals/supplements. Goal:Goal met. Continue goal. Pt current nutrition is Renal Dialysis+Nepro Nutrition recommendation: Agree Last recorded weight is 90.1 kg (down from 96kg on admit, potential fluid removal) Bowel Motility: Labs Reviewed:Glucose 142 Meds Noted:Renvela, Vit B, Allpurinol, Epogen Additional Notes: Pt eating average of 52% of meals. He does not like Nepro so we will cancel. Encouraged to increase protein products due to dialysis as well as limit Na and phosphorus foods. K+ normal today. Plans for d/c tomorrow after placement of HD cath. Following every five days.
[2019-08-03 21:51] LABS: Glucose Point of Care 137 (65-105)
[2019-08-04] VITALS (38 sets, daily range): BP systolic 95–164; BP diastolic 48–85; PULSE 73–108; RESP 18–25; TEMP 36–36.6; O2SAT 94–100
[2019-08-04 05:08] LABS: INR 1.1; Prothrombin Time 13.7 Seconds (11.1-14.7)
[2019-08-04 05:09] LABS: Partial Thromboplastin Time 29.2 SECONDS (22.3-36.8)
[2019-08-04 05:15] LABS: Albumin Level 3.1 g/dL (3.5-5.1); Blood Urea Nitrogen 71 mg/dL (9-20); Calcium 9.5 mg/dL (8.4-10.2); Carbon Dioxide 27 mmol/L (22-30); Chloride 98 mmol/L (98-107); Estimated CRCL calculation 6 ml/min; Estimated Glomerular Filt Rate 4; Glucose 114 mg/dL (75-110); Phosphorus 5.9 mg/dL (2.5-4.5); Potassium 3.2 mmol/L (3.4-5.0); Sodium 134 mmol/L (137-145)
[2019-08-04 07:03] LABS: Glucose Point of Care 102 (65-105)
--- NOTE | 2019-08-04 08:20 | PC.NURSE ---
Patient disconnected from peritoneal dialysis per [facility] dialysis nurse Oscar. No IV access. Attempted to start IV site x 2 without success. Called preop and spoke with Jacqui BOO. She states to send patient down to OR and they will attempt to obtain IV access there. Patient sent to OR via bed with OR transporters. Telemetry placed on standby. No c/o pain. Consent on chart.
--- NOTE | 2019-08-04 08:32 | SUR.PREOP ---
0820- PT CAME TO PRE OP AND NEEDED IV ACCESS. MANY FAILED ATTEMPTS ON FLOOR. CALLED RAJEEV ESPANA FOR ACCESS.
[2019-08-04] MEDS: SODIUM CHLORIDE 0.9% IV 500 ML 30 ML IV CONT (08:37)
--- NOTE | 2019-08-04 08:37 | WPDANESEPPF ---
Anes - Initial Pre Proc Eval Procedure: Operation Date: 08/04/19 09:00 Proposed Procedures p Insertion Tunnelled Dialysis Catheter - Nivia Meng MD Date/Time: 08/04/19 08:37 Surgeon: La Lozoya PA-C Pre Op Diagnosis: AMS, cellulitis, ESRD Patient Data Age: 73 Gender: M Height: 5 ft 8 in Weight: 91.1 kg Last Vital Signs Temp 36.6 C 08/04/19 06:00 Pulse 100 08/04/19 06:00 Resp 18 08/04/19 06:00 BP 106/58 L 08/04/19 06:00 Pulse Ox 98 08/04/19 06:00 Allergies Allergy/AdvReac Type Severity Reaction Status Date / Time No Known Allergies Allergy Mild Verified 07/17/19 17:27 Home Medications Medication Instructions Recorded Confirmed Type allopurinol 100 mg PO DAILY 06/15/19 07/17/19 History metoprolol tartrate 50 mg PO BID 06/15/19 07/17/19 History niacin (inositol niacinate) 750 mg PO BID 06/15/19 07/17/19 History aspirin [Adult Low Dose Aspirin] 81 mg PO DAILY 07/12/19 07/17/19 History calcitriol 0.25 mcg PO 3XW 07/13/19 07/17/19 History vitamin B complex 0.5 tablet PO DAILY 07/13/19 07/17/19 History famotidine 40 mg PO BID 07/17/19 07/17/19 History Laboratory Tests 08/03/19 08/03/19 08/03/19 11:18 16:35 21:13 PT INR APTT Sodium Potassium Chloride Carbon Dioxide BUN Creatinine Estim Creat Clear Calc Estimated GFR Glucose POC Capillary Glucose 142 mg/dl H mg/dl 101 mg/dl mg/dl 137 mg/dl H mg/dl (65-105) (65-105) (65-105) Calcium Phosphorus Magnesium Albumin 08/04/19 08/04/19 08/04/19 04:38 04:38 07:00 PT 13.7 Seconds Seconds (11.1-14.7) INR 1.1 APTT 29.2 SECONDS SECONDS (22.3-36.8) Sodium 134 mmol/L L mmol/L (137-145) Potassium 3.2 mmol/L L mmol/L (3.4-5.0) Chloride 98 mmol/L mmol/L (98-107) Carbon Dioxide 27 mmol/L mmol/L (22-30) BUN 71 mg/dL H D mg/dL (9-20) Creatinine 11.70 mg/dL H mg/dL (0.7-1.3) Estim Creat Clear Calc 6 ml/min ml/min Estimated GFR 4 L (59 - ) Glucose 114 mg/dL H mg/dL (75-110) POC Capillary Glucose 102 mg/dl mg/dl (65-105) Calcium 9.5 mg/dL mg/dL (8.4-10.2) Phosphorus 5.9 mg/dL H mg/dL (2.5-4.5) Magnesium 2.0 mg/dL mg/dL (1.6-2.3) Albumin 3.1 g/dL L g/dL (3.5-5.1) Patient hx anesthesia problems: none Family hx anesthesia problems: none PMFSH Past Medical History Medical History Anemia in chronic renal disease Cholelithiasis Chronic idiopathic thrombocytopenia Coronary artery disease With history of stent x3. Diverticulosis Colonoscopy on 06/21/[address] Boone demonstrated diverticulosis and internal hemorrhoids. End-stage renal disease on peritoneal dialysis Essential hypertension Gastroesophageal reflux disease EGD on 06/20/[address] Boone demonstrated reflux esophagitis and gastritis. Hyperlipidemia Obstructive sleep apnea Intolerant to CPAP. Renal osteodystrophy Surgical History Surgical History History of coronary artery stent placement X3 History of tonsillectomy and adenoidectomy Family History Family History Mother Heart attack Father Emphysema lung Sibling Rheumatoid arthritis Social History Social History Social History: The patient lives in [place] with his . They have 1 son. He is retired from [employer]. He smoked up to 2 packs of cigarettes per day for many years and quit in 1999. He denies alcohol and drug abuse. Smoking packs per day: 2
--- NOTE | 2019-08-04 08:57 | WPDHPUPDATE1 ---
History and Physical Update Update Date/Time: 08/04/19 08:57 History and Physical has been reviewed, including an updated exam of the patient. There are NO changes in the patient's condition. Risks, benefits, and alternatives have been discussed and questions answered. Patient agrees to proceed with procedure.
[2019-08-04] MEDS: ceFAZolin 2 GM/D5W 50 ML 2 GM/50 ML BAG IVPB (09:02)
[2019-08-04] MEDS: LIDO 1%/EPINEPHRINE 1:100,000 20 ML VIAL INFILTRATE (09:33)
[2019-08-04] MEDS: HEPARIN SODIUM 5,000 UNITS/ML VIAL 5000 UNITS IRRIGATION (09:39)
[2019-08-04] MEDS: HEPARIN SODIUM, PORCINE 10,000 UNITS/10 ML VIAL 4500 UNITS IV PUSH (09:41)
--- NOTE | 2019-08-04 09:46 | P.OP_ITS ---
Procedure Note - Detailed Date of procedure: 08/04/19 Pre-op diagnosis: ESRD end stage renal disease Post-op diagnosis: same Procedure performed: placement of RIJ tunneled HD catheter 28 cm under both U/S and fluroscopic guidance Description of procedure: Patient was taken to the operating room and placed in the supine position. After adequate induction of laryngeal mask anesthesia, the patient was prepped and draped in normal sterile fashion. A time-out was then done to verify the patient's identity as well as the procedure being performed. I began by using the SonoSite and locating the right internal jugu lar vein. Once this was done, I localized the overlying skin. I then made a small incision in the skin. I then gained access into the right internal jugular vein with an 18 gauge needle. At this point, I threaded the guidewire into the right internal jugular vein. Placement of the guidewire was confirmed by both ultrasound and fluoroscopic guidance. I then went ahead and measured the 28 cm tunneled dialysis catheter to our stick site in the right neck. I then localized the tract going from the right chest to the right neck. I then made a small incision in the right chest and tunneled the catheter to the right neck. I then serially dilated the right internal jugular vein under fluoroscopic guidance. Once adequately dilated, I placed dilating sheath over the guidewire into the right internal jugular vein under fluoroscopic visualization. Once this was noted to be in good position, I removed both the guidewire and dilator, now just leaving the sheath in the vein. I then went ahead and fed the previously tunneled catheter into the sheath. Once the catheter was fed and positioned correctly, I went ahead and peeled the sheath away. Final fluoroscopic view showed the catheter in good position from its insertion point in the right chest to its termination in the right atrial caval junction. It was noted there was no kinking of the catheter. I was able to easily draw and flush from both ports of the catheter. I placed 2.2 and 2.3 cc of final heparin flush into each port as marked. The catheter was then sutured into place and the incision in the neck was closed with 4 O Monocryl subcuticular suture. The patient tolerated the procedure well and will be transferred to the recovery room in stable condition. Sterile dressing was placed on the catheter. Portable chest x-ray will be done in the recovery. Implants: 28 cm duraflow tunneled HD cath Anesthesia: GLMA Surgeon: Nivia Meng MD Estimated blood loss (mL): 5 Drains: No Packing: No Pathology: none sent Complications: No immediate complications Condition: stable Disposition: PACU Findings: first stick access in RIJ under U/S guidance
[2019-08-04 10:15] LABS: Glucose Point of Care 111 (65-105)
--- NOTE | 2019-08-04 11:08 | SUR.PHASEI ---
RN spoke w/ Dr. Meng and told him floor needs an order saying it's ok to use tunnelled catheter.
--- NOTE | 2019-08-04 11:35 | PC.NURSE ---
Received patient from OR via bed with OR staff. Settled in room. No distress noted. No c/o pain. Awake and alert. Hemodialysis catheter noted to right chest. Paged dialysis nurse to notify him that catheter is in.
[2019-08-04 12:04] LABS: Glucose Point of Care 98 (65-105)
[2019-08-04] MEDS: allopurinoL 100 MG TABLET PO (12:38)
[2019-08-04] MEDS: calcitrioL 0.25 MCG CAPSULE PO (12:39)
[2019-08-04] MEDS: METOPROLOL TARTRATE 25 MG TABLET PO (12:39)
[2019-08-04] MEDS: FAMOTIDINE 20 MG TABLET 40 MG PO ×2 (12:39→18:35)
[2019-08-04] MEDS: VITAMIN B COMPLEX CAPSULE 1 CAP PO (12:40)
[2019-08-04] MEDS: SEVELAMER CARBONATE 800 MG TABLET 1600 MG PO ×2 (12:40→18:35)
--- NOTE | 2019-08-04 13:44 | PC.NURSE ---
To dialysis via bed with staff.
[2019-08-04] MEDS: SODIUM CHLORIDE 0.9% IV 1,000 ML 999 ML IV CONT (13:58)
--- NOTE | 2019-08-04 15:08 | PM.DS ---
DS: Admitting Diagnosis Admitting Diagnosis Admitting Diagnosis: Cellulitis of left lower limb DS: Discharge Diagnosis Discharge Diagnosis (1) Acute CVA (cerebrovascular accident): Code(s): I63.9 - Cerebral infarction, unspecified Status: Acute Assessment and Plan: -----patient had acute CVA while hospitalized with symptoms 07/26 and 07/27. MRI showed Couple small acute infarcts in the left and right cerebellar hemispheres. He is back to baseline. Pt placed on 325mg aspirin. Carotid Dopplers are within normal limits and telemetry does not show any arrhythmias although he has occasional tachycardia but appears to be sinus. Pt discharged to SNF. (2) Syncope: Qualifiers: Syncope type: unspecified Qualified Code(s): R55 - Syncope and collapse Code(s): R55 - Syncope and collapse Status: Resolved Assessment and Plan: -----No issues day of discharge. Syncopal episode 07/26 felt to be related to orthostasis vs. CVA. (3) Delirium due to general medical condition: Code(s): F05 - Delirium due to known physiological condition Status: Resolved Assessment and Plan: ------Initial confusion felt to be related to bacteremia and improved with antibiotics. Then / and 6/ seemed more spacey and had delayed responses to questions which may have been related to new CVA. Resolved, at baseline (4) Orthostatic hypotension: Code(s): I95.1 - Orthostatic hypotension Status: Chronic Assessment and Plan: ----Known diagnosis, issues with this 07/26 and 07/27. None day at discharge. (5) Septicemia: Code(s): A41.9 - Sepsis, unspecified organism Status: Acute Assessment and Plan: ------Both blood cultures from 07/16 grew group G Strep thought to be secondary to cutaneous source L leg wound that is now healing well. PD fluid has a negative gram stain. Met sepsis criteria on arrival with leukocytosis, tachycardia, lactic acidosis. He was evaluated by Dr Candelaria and completed adequate antibiotic therapy with penicillin. Leukocytosis fluctuates but trending down, felt to be related to bacteremia and hematology has seen him. I would follow-up with hematology outpatient since it continues to be high.. Blood cultures repeated 07/23 are negative. Afebrile. (6) End stage renal disease: Code(s): N18.6 - End stage renal disease Status: Chronic Assessment and Plan: -----ESRD previously on peritoneal dialysis and switched to HD. Spoke with Dr. Mari about the plan. If pt does well at SNF and proves he is competent in taking care of himself, he may be able to go back to PD. (7) Cholelithiasis: Qualifiers: Biliary obstruction: without biliary obstruction Cholecystitis presence: without cholecystitis Cholelithiasis location: gallbladder Qualified Code(s): K80.20 - Calculus of gallbladder without cholecystitis without obstruction Code(s): K80.20 - Calculus of gallbladder without cholecystitis without obstruction Status: Chronic Assessment and Plan: -----This was noted on previous admission. He was seen by Dr Masterson in consultation 07/15/19 and recommended elective laparscopic cholecystectomy at some point down the road. No issues at this time. Has been tolerating oral intake without abdominal pain, nausea or vomiting. Repeat HIDA scan was normal. (8) Leukocytosis: Qualifiers: Leukocytosis type: other Qualified Code(s): D72.828 - Other elevated white blood cell count Code(s): D72.829 - Elevated white blood cell count, unspecified Status: Acute Assessment and Plan: -----Seen by ID and hematology and felt to be secondary to bacteremia; See above, repeat cultures are final and negative. (9) Atrial tachycardia: Code(s): I47.1 - Supraventricular tachycardia Status: Resolved Assessment and Plan: ------intermittent. Continue BB
--- NOTE | 2019-08-04 16:41 | P.PNNP_ITS ---
Progress Note: A&P Assessment and Plan (1) End stage renal disease: Code(s): N18.6 - End stage renal disease Status: Chronic Assessment and Plan: * transitioning to hemodialysis * s/p tunneled HD catheter placement by Surgery today * HD today and continue // schedule (outpatient HD has been arranged on // schedule) * follow electrolytes, voume status and clearance (2) Bacteremia: Code(s): R78.81 - Bacteremia Status: Acute Assessment and Plan: * Group G Streptoccocus in blood cultures on admission * completed course of antibiotics as outlined by Infectious Disease * source thought to be lower extremity cellulitis (3) Cholelithiasis: Qualifiers: Cholelithiasis location: gallbladder Cholecystitis presence: without cholecystitis Biliary obstruction: without biliary obstruction Qualified Code(s): K80.20 - Calculus of gallbladder without cholecystitis without obstruction Code(s): K80.20 - Calculus of gallbladder without cholecystitis without obstruction Status: Chronic Assessment and Plan: * Surgery on hold for now * symptoms are improved if not stable * HIDA scan was negative (4) Anemia in chronic renal disease: Qualifiers: Chronic kidney disease stage: on chronic dialysis Qualified Code(s): N18.6 - End stage renal disease; D63.1 - Anemia in chronic kidney disease; Z99.2 - Dependence on renal dialysis Code(s): N18.9 - Chronic kidney disease, unspecified; D63.1 - Anemia in chronic kidney disease Status: Suspected Assessment and Plan: * due to ESRD and acute illness * on Epogen * follow trend of H/H (5) Renal osteodystrophy: Code(s): N25.0 - Renal osteodystrophy Status: Acute Assessment and Plan: * calcium and phosphorus relatively stable * continue binder therapy (6) Syncope: Qualifiers: Syncope type: unspecified Qualified Code(s): R55 - Syncope and collapse Code(s): R55 - Syncope and collapse Status: Resolved Assessment and Plan: * MRI shows 2 small acute strokes in the cerebellum * Neurology following Will continue to follow - not opposed to discharge from renal perspective if otherwise medically stable and outpatient dialysis schedule has been finalized. Subjective Date/time seen: 08/04/19 16:41 Tolerating dialysis at the time of my visit (seen on HD at ~ 4:30PM); s/p tunneled HD catheter earlier today and tolerated that procedure reasonably well; no apparent distress at this time. Exam Narrative: Exam Narrative: General: WD/WN male in NAD Heart: normal S1 and S2; no rub Lungs: clear to auscultation Abdomen: soft, nontender, nondistended, positive bowel sounds Extremities: no cyanosis or clubbing; no edema Skin: no rash or nodules Objective Data Vital Signs Vital Signs: Vital Signs Temp Pulse Resp BP Pulse Ox 08/04/19 16:30 93 151/85 H 08/04/19 16:15 93 146/68 H 08/04/19 16:00 98 137/75 08/04/19 15:45 93 145/70 H 08/04/19 15:30 73 124/64 08/04/19 15:15 78 127/73 08/04/19 15:00 88 135/75 08/04/19 14:45 94 127/64 08/04/19 14:30 97 136/56 L 08/04/19 14:15 96 141/65 H 08/04/19 14:00 98 127/59 L 08/04/19 13:58 96 119/71 08/04/19 12:39 105 H 08/04/19 12:17 36.3 C L 92 18 127/71
--- NOTE | 2019-08-04 16:41 | PM.PNNEP ---
Progress Note: A&P Assessment and Plan (1) End stage renal disease: Code(s): N18.6 - End stage renal disease Status: Chronic Assessment and Plan: transitioning to hemodialysis s/p tunneled HD catheter placement by Surgery today HD today and continue // schedule (outpatient HD has been arranged on // schedule) follow electrolytes, voume status and clearance (2) Bacteremia: Code(s): R78.81 - Bacteremia Status: Acute Assessment and Plan: Group G Streptoccocus in blood cultures on admission completed course of antibiotics as outlined by Infectious Disease source thought to be lower extremity cellulitis (3) Cholelithiasis: Qualifiers: Cholelithiasis location: gallbladder Cholecystitis presence: without cholecystitis Biliary obstruction: without biliary obstruction Qualified Code(s): K80.20 - Calculus of gallbladder without cholecystitis without obstruction Code(s): K80.20 - Calculus of gallbladder without cholecystitis without obstruction Status: Chronic Assessment and Plan: Surgery on hold for now symptoms are improved if not stable HIDA scan was negative (4) Anemia in chronic renal disease: Qualifiers: Chronic kidney disease stage: on chronic dialysis Qualified Code(s): N18.6 - End stage renal disease; D63.1 - Anemia in chronic kidney disease; Z99.2 - Dependence on renal dialysis Code(s): N18.9 - Chronic kidney disease, unspecified; D63.1 - Anemia in chronic kidney disease Status: Suspected Assessment and Plan: due to ESRD and acute illness on Epogen follow trend of H/H (5) Renal osteodystrophy: Code(s): N25.0 - Renal osteodystrophy Status: Acute Assessment and Plan: calcium and phosphorus relatively stable continue binder therapy (6) Syncope: Qualifiers: Syncope type: unspecified Qualified Code(s): R55 - Syncope and collapse Code(s): R55 - Syncope and collapse Status: Resolved Assessment and Plan: MRI shows 2 small acute strokes in the cerebellum Neurology following Will continue to follow - not opposed to discharge from renal perspective if otherwise medically stable and outpatient dialysis schedule has been finalized. Subjective Date/time seen: 08/04/19 16:41 Tolerating dialysis at the time of my visit (seen on HD at ~ 4:30PM); s/p tunneled HD catheter earlier today and tolerated that procedure reasonably well; no apparent distress at this time. Exam Narrative: Exam Narrative: General: WD/WN male in NAD Heart: normal S1 and S2; no rub Lungs: clear to auscultation Abdomen: soft, nontender, nondistended, positive bowel sounds Extremities: no cyanosis or clubbing; no edema Skin: no rash or nodules Objective Data Vital Signs Vital Signs: Vital Signs Temp Pulse Resp BP Pulse Ox 08/04/19 16:30 93 151/85 H 08/04/19 16:15 93 146/68 H 08/04/19 16:00 98 137/75 08/04/19 15:45 93 145/70 H 08/04/19 15:30 73 124/64 08/04/19 15:15 78 127/73 08/04/19 15:00 88 135/75 08/04/19 14:45 94 127/64 08/04/19 14:30 97 136/56 L 08/04/19 14:15 96 141/65 H 08/04/19 14:00 98 127/59 L 08/04/19 13:58 96 119/71 08/04/19 12:39 105 H 08/04/19 12:17 36.3 C L 92 18 127/71 08/04/19 12:13 36.3 C L 92 18 127/71 98 08/04/19 12:00 98 08/04/19 11:45 36.1 C L 98 18 120/68 100 08/04/19 11:30 36.0 C L 98 20 129/70 99 08/04/19 11:00 101 H 25 H 118/69 100 08/04/19 10:45 100 18 108/72 99 08/04/19 10:30 102 H 22 H 116/71 100 08/04/19 10:15 98 25 H 118/63 99 08/04/19 10:00 97 22 H 110/65 99 08/04/19 09:46 36.3 C L 104 H 22 H 95/56 L 98 08/04/19 08:53 36.4 C 99 118/70 99 08/04/19 08:13 93 20 08/04/19 08:00 98 20 08/04/19 06:00 36.6 C 100 18 106/58 L 98 08/04/19 04:00 100 08/04/19 02:43
[2019-08-04] MEDS: EPOETIN ALFA 10,000 UNITS/ML VIAL 10000 UNITS IV PUSH (16:55)
[2019-08-04 17:44] LABS: Glucose Point of Care 100 (65-105)
[2019-08-04] MEDS: HEPARIN SODIUM 1,000 UNITS/ML VIAL 5000 UNITS (17:45)
--- NOTE | 2019-08-04 17:45 | PC.NURSE ---
Patient returned from dialysis via bed with staff. No distress noted. No c/o pain.
[2019-08-05 03:15] LABS: Hepatitis B Core Ab Total Nonreactive (Nonreactive)
== END 2019-08-04 22:55 | DRG 871 ==
LOC: ANHED 16:26 → ANHIMU 16:45 → ANH2MED 07-25 08:33 → ANHIMU 08-08 09:25
PROVIDERS: Internal Medicine Hematology & Oncology; Internal Medicine Nephrology; Physician Assistant; Surgery; Admitting Provider Family Medicine; Emergency Provider General Practice; PCP Internal Medicine; Visit Provider Physician Assistant
PROC: 0JH63XZ Insertion of Tunneled Vascular Access Device into Chest Subcutaneous Tissue and Fascia, Percutaneous Approach (ICD-10-PCS; CPT 36908; principal; 2019-08-04 09:00)
DX: A40.1 Sepsis due to streptococcus, group B (principal); N18.6 End stage renal disease; I63.9 Cerebral infarction, unspecified; L03.116 Cellulitis of left lower limb; I12.0 Hypertensive chronic kidney disease with stage 5 chronic kidney disease or end stage renal disease; I47.1 Supraventricular tachycardia; F05 Delirium due to known physiological condition; Z11.59 Encounter for screening for other viral diseases; I95.1 Orthostatic hypotension; I48.91 Unspecified atrial fibrillation; D63.1 Anemia in chronic kidney disease; E04.1 Nontoxic single thyroid nodule; K80.20 Calculus of gallbladder without cholecystitis without obstruction; E78.5 Hyperlipidemia, unspecified; G47.33 Obstructive sleep apnea (adult) (pediatric); R79.89 Other specified abnormal findings of blood chemistry; D69.6 Thrombocytopenia, unspecified; N28.89 Other specified disorders of kidney and ureter; D72.829 Elevated white blood cell count, unspecified; K21.9 Gastro-esophageal reflux disease without esophagitis; N25.0 Renal osteodystrophy; I25.10 Atherosclerotic heart disease of native coronary artery without angina pectoris; S80.212A Abrasion, left knee, initial encounter; W18.39XA Other fall on same level, initial encounter; Z91.15 Patient's noncompliance with renal dialysis; Z99.2 Dependence on renal dialysis; Z66 Do not resuscitate; Z87.891 Personal history of nicotine dependence; Z95.5 Presence of coronary angioplasty implant and graft; Z79.82 Long term (current) use of aspirin; Z91.81 History of falling; R62.7 Adult failure to thrive; Z68.30 Body mass index [BMI] 30.0-30.9, adult
CPT/HCPCS: 36415; 36600; 70450; 70551; 71045; 71046; 73590; 74176; 77001; 78227; 80048; 80053; 80069; 80076; 81001; 82140; 82330; 82375; 82533; 82607; 82746; 82805; 83036; 83050; 83540; 83550; 83605; 83735; 83970; 84100; 84439; 84443; 84466; 84478; 84481; 84484; 85025; 85027; 85055; 85610; 85652; 85730; 86140; 86704; 86706; 86803; 87040; 87070; 87075; 87147; 87186; 87205; 87340; 87635; 88108; 89051; 90945; 93005; 93880; 93970; 94640; 96365; 96375; 96376; 97110; 97116; 97162; 97165; 97530; 97535; 99285; A9270; A9537; C1750; C9803; G0257; J0153; J0690; J1644; J2540; J2704; J2805; J7030; J7040; Q4081; U0003

== ENCOUNTER 2019-08-31 07:18 | Outpatient (CLI) | payer MEDICARE, BC, SELFPAY ==
--- NOTE | ~2019-08-31 | US_ITS ---
EXAMINATION: US thyroid DATE: 08/31/2019 08:04 INDICATION: Thyroid nodule. TECHNIQUE: Multiple ultrasound images of the thyroid were obtained. COMPARISON: Ultrasound 07/14/2019 FINDINGS: The right thyroid lobe measures 5.4 x 2.7 x 3.5 cm. The left thyroid lobe measures 2.6 x 2.5 x 1.4 c m. In the right thyroid lobe, there is a 3.0 cm mixed cystic and solid, hypoechoic, [id number]-ugsu-hdbt nodule with ill-defined margin with macrocalcifications (TI-RADS TR4). IMPRESSION: 1. Right thyroid nodule, stable in size. Ultrasound-guided fine-needle aspiration is recommended. Reviewed, dictated and finalized at location A. IMPRESSION: 1. Right thyroid nodule, stable in size. Ultrasound-guided fine-needle aspirati on is recommended.
== END 2019-08-31 07:19 | disposition home or self-care (01) ==
LOC: ANHIMG 07:20
PROVIDERS: PCP Internal Medicine; Visit Provider Internal Medicine
DX: E04.1 Nontoxic single thyroid nodule (principal)
CPT/HCPCS: 76536

== ENCOUNTER 2019-10-19 14:07 | Outpatient (CLI) | payer MEDICARE, BC, SELFPAY ==
--- NOTE | ~2019-10-19 | US_ITS ---
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 TECHNIQUE: Segmental pressures and plethysmographic and Doppler waveforms of the brachial and lower e xtremity arteries were obtained. COMPARISON: None. FINDINGS: Left brachial artery pressure of 143 mm Hg. Right brachial artery pressures unable to be obtained due to the presence of a dialysis fistula. The right high-thigh pressure index is 0.90 (normal > 1.2). L eft high thigh pressure index was unable to be obtained due to inability to occlude the vessel. The right ankle-brachial index (ELVIS) was unable to be obtained due to inability to occlude the vessel (normal >= 0.9-1). The right great toe-brachial index (TBI) is 0.34 (normal >= 0.6-0.8). The right l ower extremity segmental pressure gradients are increased between the right jtvnd-xah-gufj popliteal artery and the contralateral left unvji-pcb-uwld popliteal artery (normal gradients <= 20-30 mmHg bet ween adjacent levels on the same leg or the same levels on the two legs). Arterial waveforms are trip hasic at the right common femoral artery and biphasic at the superficial femoral artery, both with br isk systolic upstrokes. There are parvus or tardus waveforms with mildly delayed upstrokes and broade kirstie systolic peaks at the right popliteal, posterior tibial and dorsalis pedis arteries. The left ELVIS is 0.99. The left TBI is 0.36. The left lower extremity segmental pressure gradients are increased between the left above and dbcpk-skp-xlni popliteal arteries. Arterial waveforms are bipha sic with left common femoral and superficial femoral arteries, both with brisk systolic upstrokes. Th ere are parvus or tardus waveforms with mildly delayed upstrokes and broadened systolic peaks at the left popliteal, posterior tibial and dorsalis pedis arteries. IMPRESSION: 1. 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 IMPRESSION: 1. Bilateral arterial occlusive disease with mild to moderately decreased bilat eral TBIs
== END 2019-10-19 14:08 | disposition home or self-care (01) ==
PROVIDERS: PCP Internal Medicine; Visit Provider Podiatrist Foot & Ankle Surgery
DX: L97.509 Non-pressure chronic ulcer of other part of unspecified foot with unspecified severity (principal); I73.9 Peripheral vascular disease, unspecified
CPT/HCPCS: 93923